=== PATIENT | male | born 1985 | race Two or more races ===

== ENCOUNTER → 2019-11-22 13:51 | Outpatient (BNVA) | payer OTHER, SELFPAY | PROVIDERS: PCP Internal Medicine; Visit Provider Urology | DX: Z76.89 Persons encountering health services in other specified circumstances (principal) | CPT/HCPCS: 99212 ==

== ENCOUNTER 2019-11-28 14:56 | Emergency (ER) | payer OTHER, SELFPAY ==
--- NOTE | 2019-11-28 15:02 | ECG_ITS ---
Test Reason : WEAKNESS Blood Pressure : / mmHG Vent. Rate : 086 BPM Atrial Rate : 086 BPM P-R Int : 126 ms QRS Dur : 108 ms QT Int : 392 ms P-R-T Axes : -16 -19 -31 degrees QTc Int : 469 ms Normal sinus rhythm Nonspecific T wave abnormality Inferior leads RSR' or QR pattern in V1 suggests right ventricular conduction delay Abnormal ECG When compared with ECG of 22-SEP-2019 22:08, No significant changes seen Referred By: Rik Mcknight Electronically Signed By:YOANA RODRIGUEZ MD
--- NOTE | 2019-11-28 15:06 | XR_ITS ---
EXAMINATION: XR CHEST CLINICAL INFORMATION: Cough COMPARISON: Chest x-ray 09/22/2019 TECHNIQUE: Frontal view of the chest was obtained. 3:28 PM FINDINGS: No significant abnormality is noted involving the heart, lungs, mediastinum, bony thorax or soft tissues. Again demonstrated are a few tiny metallic radiopaque foci over the left chest. There has been no change since prior exam of 09/22/2019 IMPRESSION: No acute abnormality of chest.
[2019-11-28 15:18] VITALS: BP 137/87; BP 138/78; PULSE 101; PULSE 87; RESP 20; TEMP 37.1; O2SAT 100; BMI 35.4
--- NOTE | 2019-11-28 16:21 | ED.PSYCH ---
HPI - Psych General Chief Complaint: Psychiatric Symptoms Stated Complaint: SI Time Seen by Provider: 11/28/19 15:02 Source: EMS Mode of arrival: EMS Limitations: no limitations History of Present Illness HPI Narrative: 34-year-old male with below noted past medical history well known to this facility for prior psychiatric and medical visits presenting today after mom called EMS for patient using illicit drugs (PCP) and to EMS patient made vague SI stating. Also reports he has some chest discomfort in the setting of being upset which is typical for him during anxiety attacks. MD complaint: suicidal ideation, feels depressed and anxiety Onset (ago): hour(s) History of same: Yes Relieving factors: medication Exacerbating factors: none If self harm: admits thoughts of self harm (Vaguely states he is more upset that he has to be here and that he relapsed on PCP) Related Data Home Medications Medication Instructions Recorded Confirmed cyclobenzaprine 10 mg tablet 10 mg PO Q8H PRN 11/22/19 11/22/19 hydroxyzine HCl 25 mg tablet 25 mg PO BEDTIME PRN 11/22/19 11/22/19 mirtazapine 15 mg tablet 15 mg PO BEDTIME 11/22/19 11/22/19 nicotine (polacrilex) 2 mg gum mg PO 11/22/19 11/22/19 risperidone 1 mg tablet 1 mg PO BID 11/22/19 11/22/19 Previous Rx's Medication Instructions Recorded oxybutynin chloride 15 mg 15 mg PO DAILY #90 tab 11/22/19 tablet,extended release 24 hr tadalafil 5 mg tablet 5 mg PO DAILY 90 Days #90 tab 11/22/19 trimethoprim 100 mg tablet 100 mg PO DAILY #90 tab 11/22/19 Allergies Allergy/AdvReac Type Severity Reaction Status Date / Time codeine Allergy Unknown Unknown Verified 11/28/19 15:23 piperacillin [From ZOSYN] Allergy Unknown DIFFICULTY Verified 11/28/19 15:23 BREATHING tazobactam [From ZOSYN] Allergy Unknown DIFFICULTY Verified 11/28/19 15:23 BREATHING tramadol Allergy Unknown nausea and Verified 11/28/19 15:23 vomiting vancomycin [VANCOMYCIN] Allergy Unknown DIFFICULTY Verified 11/28/19 15:23 BREATHING, anaphylaxis Review of Systems Review of Systems: Constitutional: No Weight loss, No Fever, No Chills, No Night Sweats, No Fatigue, No Malaise ENT/Mouth: No Hearing loss, No Ear Pain, No Nasal Congestion, No Sinus Pain, No Hoarseness, No sore throat, No Rhinorrhea, No Swallowing Difficulty Eyes: No Eye Pain, No Swelling, No Redness, No Foreign Body, No Discharge, No Vision Changes Cardiovascular: No Chest Pain, No SOB, No Dyspnea on Exertion, No Orthopnea, No Edema, No Palpitations Respiratory: No Cough, No Sputum, No Wheezing, No Smoke Exposure, No Dyspnea Gastrointestinal: No Nausea, No Vomiting, No Diarrhea, No Constipation, No abdominal Pain, No Hematochezia, No Melena Genitourinary: no irregular bleeding, No Dysuria, No Urinary Frequency, No Hematuria, No Urinary Incontinence, No Urgency, No Flank Pain, No Urinary Flow Changes, No Hesitancy Musculoskeletal: No joint pain, No Myalgias, No Joint Swelling Skin: No Skin Lesions, No rash Neuro: No Weakness, No Numbness, No Paresthesias, No Loss of Consciousness, No Dizziness, No Headache Psych: No Anxiety/Panic, No Depression, No SI/HI/AH/VH, No Social Issues, Heme/Lymph: No Bruising, No Bleeding,No Lymphadenopathy Endocrine: No Polyuria, No Polydipsia, No Temperature Intolerance Yes all other systems are reviewed and are negative [facility] Past Medical History Attestation statement: The following information was validated with the patient. Medical History (Updated 11/28/19 @ 20:56 by Rik Mcknight NP) Asthma Cellulitis Eczema Paraplegic cerebral palsy PTSD (post-traumatic stress disorder) Ulcerative colitis Social History Social History (Updated 11/22/19 @ 14:23 by KHALIF Rosado) Alcohol intake: unknown Smoking Status: Current every day smoker Tobacco Type: Cigarette Smoked in Last 30 Days: Yes Use of substances other than those prescribed or required for medical reasons: Yes Substance Use Type: Crack/Cocaine, Marijuana and Opiates Advance Directives: No Advance Directives Information Provided: No Physical Exam Vital Signs: Vital Signs: Vital Signs Temp Pulse Resp BP Pulse Ox 11/28/19 17:57 18 11/28/19 15:18 98.7 F 101 H 20 138/78 100 Body Mass Index 35.4 Const: General: cooperative and healthy appearing; No acute distress or intoxicated appearing Nutritional Appearance: average body habitus Orientation/consciousness: patient oriented x3 HENMT: Head: Yes normal to inspection Ears: hearing grossly normal bilaterally Eyes: General: appearance normal, both eyes and all related structures Visual Witt: normal visual witt by confrontation Neck: Neck: Yes normal visual inspection and No tender Thyroid: Thyroid normal Chest: Chest palpation & inspection: normal inspection of the chest Resp: Effort & Inspection: normal respiratory effort Cardio: Jugular venous distension: no JVD GI: Inspection: Yes normal to inspection Percussion: Yes normal to percussion Auscultation: normal bowel sounds : General: Yes no CVA tenderness Back/Spine/Pelvis: Back: no CVA tenderness Skin: General skin exam: no rashes or lesions noted Neuro: General: patient oriented x3 Extrem: General: Yes normal to inspection Course Course Course Narrative: No medical complaints here. Resting comfortably. Evaluated by the Care Team clear for discharge. Denies any SI or HI. His mother will come pick him up. MDM - Psych Restraints Face to Face Assessment: Face to Face Assessment: Current Situation: After assessment of the patient, a review of the pertinent medical record and a discussion with nursing staff, I feel the patient requires a restrain intervention. Reaction To: [] Medical Condition: [] Behavioral State: [] Continued Need: [] Lab Data Result diagrams: 11/28/19 17:33 11/28/19 17:33 Labs: Lab Results 11/28/19 11/28/19 11/28/19 Range/Units 17:33 17:33 17:33 WBC 18.1 H (4.8-10.8) X10*3/uL RBC 4.23 L (4.60-5.80) X10*6/uL Hgb 11.7 L (14.0-18.0) g/dl Hct 35.5 L (42-52) % MCV 83.9 (80-98) fL MCH 27.7 (27.0-33.0) pg MCHC 33.0 (31.0-36.0) g/dl RDW 12.9 (11.0-16.0) % Plt Count 266 (160-400) X10*3/uL MPV 10.2 (9.4-12.4) fL Immature Gran % (Auto) 1.3 H (0.0-0.4) % Neut % (Auto) 71.9 (45-73) % Lymph % (Auto) 16.1 L (20-40) % Branch % (Auto) 10.0 (2-11) % Eos % (Auto) 0.5 (0-4) % Baso % (Auto) 0.2 (0-2) % Lymph # (Auto) 2.9 (1.2-4.9) X10*3/uL Branch # (Auto) 1.8 H (0.1-1.2) X10*3/uL Eos # (Auto) 0.1 (0.0-0.4) X10*3/uL Baso # (Auto) 0.0 (0.0-0.2) X10*3/uL Abs Immat Gran (auto) 0.23 H (0.00-0.03) X10*3/uL Absolute Neuts (auto) 13.0 H (2.0-8.3) X10*3/uL Absolute Nucleated RBC 0.000 (0.0-0.012) X10*3/uL Nucleated RBC % (auto) 0.0 (0.0-0.2) /100WBC Smear Tech's Comments VERIFIED Sodium 131 L (135-145) mmol/L Potassium 3.5 (3.3-5.1) mmol/l Chloride 95 L (96-108) mmol/L Carbon Dioxide 27 (22-29) mmol/L Anion Gap 13 (12-20) BUN 10 (9-16) mg/dL Creatinine 0.50 (0.5-1.4) mg/dL Estim Creat Clear Calc 250.7 Estimated GFR > 60 Random Glucose 84 (60-115) mg/dL Calcium 8.1 L (8.4-10.2) mg/dL Total Bilirubin 0.7 (0.0-1.0) mg/dL Direct Bilirubin 0.4 (0.0-0.5) mg/dL AST 33 (5-37) U/L ALT 31 (0-40) U/L Alkaline Phosphatase 143 H (39-117) U/L Troponin I High Sens < 3.5 (<3.5-35.0) ng/L Total Protein 6.7 (6.5-8.0) g/dL Albumin 3.2 L (3.5-5.0) g/dL Ethyl Alcohol mg/dL Coronavirus (PCR) (Negative) 11/28/19 11/28/19 Range/Units 17:33 17:33 WBC (4.8-10.8) X10*3/uL RBC (4.60-5.80) X10*6/uL Hgb (14.0-18.0) g/dl Hct (42-52) % MCV (80-98) fL MCH (27.0-33.0) pg MCHC (31.0-36.0) g/dl RDW (11.0-16.0) % Plt Count (160-400) X10*3/uL MPV (9.4-12.4) fL Immature Gran % (Auto) (0.0-0.4) % Neut % (Auto) (45-73) % Lymph % (Auto) (20-40) % Branch % (Auto) (2-11) % Eos % (Auto) (0-4) % Baso % (Auto) (0-2) % Lymph # (Auto) (1.2-4.9) X10*3/uL Branch # (Auto) (0.1-1.2) X10*3/uL Eos # (Auto) (0.0-0.4) X10*3/uL Baso # (Auto) (0.0-0.2) X10*3/uL Abs Immat Gran (auto) (0.00-0.03) X10*3/uL Absolute Neuts (auto) (2.0-8.3) X10*3/uL Absolute Nucleated RBC (0.0-0.012) X10*3/uL Nucleated RBC % (auto) (0.0-0.2) /100WBC Smear Tech's Comments Sodium (135-145) mmol/L Potassium (3.3-5.1) mmol/l Chloride (96-108) mmol/L Carbon Dioxide (22-29) mmol/L Anion Gap (12-20) BUN (9-16) mg/dL Creatinine (0.5-1.4) mg/dL Estim Creat Clear Calc Estimated GFR Random Glucose (60-115) mg/dL Calcium (8.4-10.2) mg/dL Total Bilirubin (0.0-1.0) mg/dL Direct Bilirubin (0.0-0.5) mg/dL AST (5-37) U/L ALT (0-40) U/L Alkaline Phosphatase (39-117) U/L Troponin I High Sens (<3.5-35.0) ng/L Total Protein (6.5-8.0) g/dL Albumin (3.5-5.0) g/dL Ethyl Alcohol < 10 mg/dL Coronavirus (PCR) NEGATIVE (Negative) Discharge Plan Discharge Clinical Impression: Depression, Drug-induced psychotic disorder, Substance abuse Patient Disposition: Home, Self-Care Instructions: Polysubstance Abuse (ED), Depression (ED) Additional Instructions: Please stop doing illicit drugs cause serious harm to her health including but not limited to . This can also have adverse effects on her personal/social relationships. Please go directly to detox Return if any concerns or worsening symptoms otherwise schedule follow-up with your primary care doctor next 1-2 days as well as counseling Thank you Prescriptions: No Action risperidone 1 mg tablet 1 mg PO BID RF: 0 hydroxyzine HCl 25 mg tablet 25 mg PO BEDTIME PRN (Reason: anxiety) RF: 0 mirtazapine 15 mg tablet 15 mg PO BEDTIME RF: 0 cyclobenzaprine 10 mg tablet 10 mg PO Q8H PRN (Reason: muscle spasm) RF: 0 nicotine (polacrilex) 2 mg gum PO RF: 0 trimethoprim 100 mg tablet 100 mg PO DAILY Qty: 90 RF: 1 oxybutynin chloride 15 mg tablet extended release 24hr 15 mg PO DAILY Qty: 90 RF: 1 tadalafil 5 mg tablet 5 mg PO DAILY 90 Days Qty: 90 RF: 1
[2019-11-28] MEDS: Ketorolac Tromethamine 60 MG/2 ML VIAL IM (16:25)
--- NOTE | 2019-11-28 16:29 | PC.NURSE ---
PT MEDICATED PER EMAR.
[2019-11-28 17:39] LABS: Basophils Percent Auto 0.2 % (0-2); MANUAL DIFF FLAG SCAN; SCAN SMEAR FLAG 1
[2019-11-28 17:41] LABS: PLT CLUMP 1
[2019-11-28 17:55] LABS: Eosinophils Absolute Auto 0.1 X10*3/uL (0.0-0.4); Eosinophils Percent Auto 0.5 % (0-4); Hematocrit 35.5 % (42-52); Hemoglobin 11.7 g/dl (14.0-18.0); Imm Gran Abs Auto 0.23 X10*3/uL (0.00-0.03); Imm Gran Pct Auto 1.3 % (0.0-0.4); Lymphocytes Absolute Auto 2.9 X10*3/uL (1.2-4.9); Lymphocytes Percent Auto 16.1 % (20-40); Mean Corpuscular Hemoglobin 27.7 pg (27.0-33.0); Mean Corpuscular Volume 83.9 fL (80-98); Mean Platelet Volume 10.2 fL (9.4-12.4); Monocytes Absolute Auto 1.8 X10*3/uL (0.1-1.2); Neutrophils Percent Auto 71.9 % (45-73); PLT ABN DIST 1; Platelet Count 266 X10*3/uL (160-400); Red Blood Count 4.23 X10*6/uL (4.60-5.80); Red Cell Distribution Width 12.9 % (11.0-16.0); White Blood Count 18.1 X10*3/uL (4.8-10.8)
[2019-11-28 17:57] VITALS: RESP 18
[2019-11-28 18:02] LABS: SLIDE REVIEW VERIFIED
[2019-11-28 18:21] LABS: Ethanol < 10 mg/dL
[2019-11-28 18:26] LABS: Alanine Aminotransferase 31 U/L (0-40); Albumin Level 3.2 g/dL (3.5-5.0); Alkaline Phosphatase 143 U/L (39-117); Anion Gap 13 (12-20); Aspartate Amino Transferase 33 U/L (5-37); Bilirubin Direct 0.4 mg/dL (0.0-0.5); Bilirubin Total 0.7 mg/dL (0.0-1.0); Blood Urea Nitrogen 10 mg/dL (9-16); Calcium 8.1 mg/dL (8.4-10.2); Carbon Dioxide 27 mmol/L (22-29); Chloride 95 mmol/L (96-108); Creatinine Clr Calc Pharmacy 250.7; Estimated Glomerular Filt Rate > 60; Glucose Random 84 mg/dL (60-115); Potassium 3.5 mmol/l (3.3-5.1); Sodium 131 mmol/L (135-145); Total Protein 6.7 g/dL (6.5-8.0)
[2019-11-28 18:27] LABS: Troponin-I High Sensitivity < 3.5 ng/L (<3.5-35.0)
[2019-11-28 18:35] LABS: SARS COV2 PCR INHOUSE NEGATIVE (Negative)
--- NOTE | 2019-11-28 18:41 | PC.NURSE ---
CARE TEAM AND MANAGER IN[employer]E [employer] AT BEDSIDE SPEAKING WITH PT
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
== END 2019-11-28 21:45 | disposition home or self-care (01) ==
PROVIDERS: Nurse Practitioner Primary Care; Emergency Provider Emergency Medicine; PCP Internal Medicine
DX: F32.9 Major depressive disorder, single episode, unspecified (principal); F23 Brief psychotic disorder; F19.10 Other psychoactive substance abuse, uncomplicated; F41.9 Anxiety disorder, unspecified; Z20.828 Contact with and (suspected) exposure to other viral communicable diseases; G80.8 Other cerebral palsy; F43.10 Post-traumatic stress disorder, unspecified; Z79.899 Other long term (current) drug therapy
CPT/HCPCS: 36415; 71045; 80048; 80076; 80320; 84484; 85025; 87635; 93005; 96372; 99284

== ENCOUNTER 2019-12-20 05:56 | Inpatient (IN) | payer OTHER, SELFPAY ==
[2019-12-20] VITALS (18 sets, daily range): BP systolic 93–135; BP diastolic 51–97; PULSE 75–102; RESP 12–22; TEMP 36.2–36.9; O2SAT 95–100; BMI 42.9
[2019-12-20] MEDS: OLANZapine 10 MG VIAL IM (06:53)
[2019-12-20] MEDS: LORazepam 2 MG/ML VIAL IM ×2 (06:53→16:56)
[2019-12-20] MEDS: diphenhydrAMINE HCL 50 MG/ML VIAL IM (06:53)
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
[2019-12-20 08:35] LABS: Basophils Percent Auto 0.3 % (0-2); Eosinophils Absolute Auto 0.2 X10*3/uL (0.0-0.4); Eosinophils Percent Auto 2.1 % (0-4); Hematocrit 35.9 % (42-52); Hemoglobin 11.4 g/dl (14.0-18.0); Imm Gran Abs Auto 0.06 X10*3/uL (0.00-0.03); Imm Gran Pct Auto 0.7 % (0.0-0.4); Lymphocytes Absolute Auto 1.9 X10*3/uL (1.2-4.9); Lymphocytes Percent Auto 20.9 % (20-40); MANUAL DIFF FLAG NO; Mean Corpuscular HGB Conc 31.8 g/dl (31.0-36.0); Mean Corpuscular Hemoglobin 26.5 pg (27.0-33.0); Mean Corpuscular Volume 83.5 fL (80-98); Mean Platelet Volume 12.7 fL (9.4-12.4); Monocytes Absolute Auto 0.7 X10*3/uL (0.1-1.2); Monocytes Percent Auto 7.8 % (2-11); Neutrophils Absolute Auto 6.1 X10*3/uL (2.0-8.3); Neutrophils Percent Auto 68.2 % (45-73); Platelet Count 214 X10*3/uL (160-400)
--- NOTE | 2019-12-20 08:45 | ED_ITS ---
HPI - General Adult General Chief complaint: General Medical Stated complaint: pcp/si Time Seen by Provider: 12/20/19 06:40 Source: patient Mode of arrival: EMS Limitations: physical limitation History of Present Illness HPI narrative: This is a 34-year-old male who arrives via EMS after he called them when he awoke from sleeping and stated he was having hallucinations. He states he used PCP prior to that, took a nap, but then woke up and was having the hallucinations upon wakening. In addition, the patient has voiced suicidal statements and is complaining that his throat is dry like sandpaper and he is having difficulty swallowing. Related Data Home Medications Medication Instructions Recorded Confirmed cyclobenzaprine 10 mg tablet 10 mg PO Q8H PRN 11/22/19 11/22/19 hydroxyzine HCl 25 mg tablet 25 mg PO BEDTIME PRN 11/22/19 11/22/19 mirtazapine 15 mg tablet 15 mg PO BEDTIME 11/22/19 11/22/19 nicotine (polacrilex) 2 mg gum mg PO 11/22/19 11/22/19 risperidone 1 mg tablet 1 mg PO BID 11/22/19 11/22/19 Previous Rx's Medication Instructions Recorded oxybutynin chloride 15 mg 15 mg PO DAILY #90 tab 11/22/19 tablet,extended release 24 hr tadalafil 5 mg tablet 5 mg PO DAILY 90 Days #90 tab 11/22/19 trimethoprim 100 mg tablet 100 mg PO DAILY #90 tab 11/22/19 Allergies Allergy/AdvReac Type Severity Reaction Status Date / Time codeine Allergy Unknown Unknown Verified 11/28/19 15:23 piperacillin [From ZOSYN] Allergy Unknown DIFFICULTY Verified 11/28/19 15:23 BREATHING tazobactam [From ZOSYN] Allergy Unknown DIFFICULTY Verified 11/28/19 15:23 BREATHING tramadol Allergy Unknown nausea and Verified 11/28/19 15:23 vomiting vancomycin [VANCOMYCIN] Allergy Unknown DIFFICULTY Verified 11/28/19 15:23 BREATHING, anaphylaxis Review of Systems Review of Systems: Pertinent positives and negatives as stated in HPI 10 point review systems is otherwise negative. PMFSH Past Medical History Source: nursing notes reviewed Medical History Asthma Cellulitis Eczema Paraplegic cerebral palsy PTSD (post-traumatic stress disorder) Ulcerative colitis Social History Social History Alcohol intake: unknown Smoking Status: Current every day smoker Tobacco Type: Cigarette Substance Use Type: Crack/Cocaine, Marijuana and Opiates Advance Directives: No Advance Directives Information Provided: No Physical Exam Vital Signs: Vital Signs: Vital Signs Temp Pulse Resp BP Pulse Ox 12/20/19 07:30 82 93/51 L 98 12/20/19 07:09 77 102/51 L 12/20/19 06:54 16 12/20/19 06:45 83 117/70 98 12/20/19 06:16 97.1 F 89 22 H 131/78 100 Body Mass Index 42.9 VITAL SIGNS: Reviewed. GENERAL: Well developed, well nourished, Agitated. HEAD: Normocephalic/atraumatic, EYES: PERRLA, EOMI intact without pain, no nystagmus/pallor/icterus noted EARS: Ext canals without abnormality, TMs non-bulging and non-erythematous NOSE: Nares patent bilateral OROPHARYNX: no oral lesions noted, posterior pharynx clear and non-erythematous without noted tonsillar enlargement/erythema/exudates NECK: Supple, no adenopathy LUNGS: Normal breath sounds. No adventitious sounds or accessory muscle use. SpO2<100> CARDIOVASCULAR: Regular rate and rhythm without noted murmurs, no JVD or lower extremity edema. ABDOMEN: Soft, non-tender, non-distended with bowel sounds. No rigidity. No guarding. No palpable masses or hernias noted MUSCULOSKELETAL: No tenderness, deformities, or effusions noted on gross inspection. EXTREMITIES: No cyanosis, edema. SKIN: Inspection of the skin reveals no rashes, ulcerations, jaundice, pallor, or petechiae. NEUROLOGIC: Alert and oriented x 4. Strength and sensation to light touch were grossly intact x 4. Course Course Course Narrative: This is a 34-year-old male with history and clinical presentation consistent with PCP use and subsequent symptoms without clinical evidence to suggest respiratory distress. Patient continued to get increasingly agitated and was being verbally abusive to the nursing staff and making threatening gestures. The decision was made that patient would need to undergo chemical restraint which was achieved via Zyprexa/Ativan/ Benadryl. Crisis consult placed and on reevaluation patient is more cooperative. Medical Decision Making Lab Data Result diagrams: 12/20/19 08:30 12/20/19 08:30 Labs: Lab Results 12/20/19 Range/Units 08:30 WBC 9.0 (4.8-10.8) X10*3/uL RBC 4.30 L (4.60-5.80) X10*6/uL Hgb 11.4 L (14.0-18.0) g/dl Hct 35.9 L (42-52) % MCV 83.5 (80-98) fL MCH 26.5 L (27.0-33.0) pg MCHC 31.8 (31.0-36.0) g/dl RDW 13.0 (11.0-16.0) % Plt Count 214 (160-400) X10*3/uL MPV 12.7 H (9.4-12.4) fL Immature Gran % (Auto) 0.7 H (0.0-0.4) % Neut % (Auto) 68.2 (45-73) % Lymph % (Auto) 20.9 (20-40) % [place] % (Auto) 7.8 (2-11) % Eos % (Auto) 2.1 (0-4) % Baso % (Auto) 0.3 (0-2) % Lymph # (Auto) 1.9 (1.2-4.9) X10*3/uL [place] # (Auto) 0.7 (0.1-1.2) X10*3/uL Eos # (Auto) 0.2 (0.0-0.4) X10*3/uL Baso # (Auto) 0.0 (0.0-0.2) X10*3/uL Abs Immat Gran (auto) 0.06 H (0.00-0.03) X10*3/uL Absolute Neuts (auto) 6.1 (2.0-8.3) X10*3/uL Absolute Nucleated RBC 0.000 (0.0-0.012) X10*3/uL Nucleated RBC % (auto) 0.0 (0.0-0.2) /100WBC Discharge Plan Discharge Prescriptions: No Action risperidone 1 mg tablet 1 mg PO BID RF: 0 hydroxyzine HCl 25 mg tablet 25 mg PO BEDTIME PRN (Reason: anxiety) RF: 0 mirtazapine 15 mg tablet 15 mg PO BEDTIME RF: 0 cyclobenzaprine 10 mg tablet 10 mg PO Q8H PRN (Reason: muscle spasm) RF: 0 nicotine (polacrilex) 2 mg gum PO RF: 0 trimethoprim 100 mg tablet 100 mg PO DAILY Qty: 90 RF: 1 oxybutynin chloride 15 mg tablet extended release 24hr 15 mg PO DAILY Qty: 90 RF: 1 tadalafil 5 mg tablet 5 mg PO DAILY 90 Days Qty: 90 RF: 1
[2019-12-20 09:03] LABS: Ethanol < 10 mg/dL
[2019-12-20 09:08] LABS: Alanine Aminotransferase 28 U/L (0-40); Albumin Level 3.3 g/dL (3.5-5.0); Alkaline Phosphatase 161 U/L (39-117); Anion Gap 8 (12-20); Aspartate Amino Transferase 41 U/L (5-37); Bilirubin Direct 0.3 mg/dL (0.0-0.5); Bilirubin Total 0.7 mg/dL (0.0-1.0); Blood Urea Nitrogen 11 mg/dL (9-16); Calcium 8.8 mg/dL (8.4-10.2); Carbon Dioxide 33 mmol/L (22-29); Chloride 100 mmol/L (96-108); Estimated Glomerular Filt Rate > 60; Glucose Random 94 mg/dL (60-115); Potassium 4.1 mmol/l (3.3-5.1); Sodium 137 mmol/L (135-145); Total Protein 7.9 g/dL (6.5-8.0)
--- NOTE | 2019-12-20 11:00 | PC.NURSE ---
Pt covid-swabbed. He contiues to sleep in NAD. Offers no complaint at this time.
[2019-12-20 13:21] LABS: SARS COV2 PCR INHOUSE NEGATIVE (Negative)
--- NOTE | 2019-12-20 15:00 | PC.NURSE ---
Pt continues to sleep. He is easily arousal, and offers no complaints when awake.
[2019-12-20] MEDS: Haloperidol Lactate 5 MG/ML VIAL IM (16:56)
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
[2019-12-20] MEDS: HYDROmorphone HCl 2 MG/ML VIAL IM (17:33)
--- NOTE | 2019-12-20 17:50 | PC.NURSE ---
pt yelling obscenities towards staff.
--- NOTE | 2019-12-20 19:54 | PC.NURSE ---
pt anjali wrist restraints taken off at 1945. pt has been sleeping and is calm at this time. security present. pt teaching done with pt at bedside. pt is in front of the main desk and is visable to all staff.
--- NOTE | 2019-12-20 20:23 | PC.NURSE ---
pt restraints remain off as of 1944. pt is sleeping now. pt was calm and cooperative with anjali wrist restraints removed. pt is now incont and a male with assist pt.
--- NOTE | 2019-12-20 21:53 | PC.NURSE ---
pt has been cleaned for incont of urine.
[2019-12-20 23:06] LABS: Amphetamine Screen Urine Not Detected (Not Detect); Barbiturates, Urine Not Detected (Not Detect); Benzodiazepines Screen Urine Not Detected (Not Detect); Cannabinoid Screen Urine POSITIVE (Not Detect); Cocaine Screen Urine Not Detected (Not Detect); Opiate Screen Urine Not Detected (Not Detect); Phencyclidine Screen Urine POSITIVE (Not Detect)
[2019-12-21] VITALS (11 sets, daily range): BP systolic 99–116; BP diastolic 60–71; PULSE 78–95; RESP 14–20; TEMP 37.1; O2SAT 94–98
--- NOTE | 2019-12-21 04:34 | PC.NURSE ---
pt sleeping with sitter present, speach is improving and pt is more understandable.
--- NOTE | 2019-12-21 04:36 | PC.NURSE ---
pt sleeping visable to staff, pt in hospital [facility]. needs met, pt given sandwhich water and crackers.
--- NOTE | 2019-12-21 04:41 | PC.NURSE ---
pt states he feels s1 and h1. pt self cath himself for approx 200cc clear yellow urine.
--- NOTE | 2019-12-21 05:01 | PC.NURSE ---
pt summary faxed to [facility]
--- NOTE | 2019-12-21 05:18 | PC.NURSE ---
zoën received the fax.
--- NOTE | 2019-12-21 06:08 | PC.NURSE ---
pt resperidone is not available in the pyxis and pharmacy will bring.
--- NOTE | 2019-12-21 06:59 | PC.NURSE ---
REPORT FROM DENA DC PT IS CALM AND COOPERATIVE
--- NOTE | 2019-12-21 07:31 | PC.NURSE ---
PT ASKING WHATS GOING ON HERE PT BECOMING ANGRY THIS RN EXPLAINED THAT I WAS OBTAINING THE CORRECT PAPERWORK TO RECEIVE HIS METHADONE DOSE
--- NOTE | 2019-12-21 07:39 | PC.NURSE ---
PT REPOSITIONED FOR COMFORT METHADONE RELEASE FORM FAXED TO [employer]
--- NOTE | 2019-12-21 09:25 | PC.NURSE ---
DEMARION CALLED, TO SEE PATIENT AFTER 10 AM
--- NOTE | 2019-12-21 09:46 | PC.NURSE ---
REFUSING TO ENGAGE IN HIS LUNCH OPTIONS, STATES HE WANTS TO GO HOME
--- NOTE | 2019-12-21 11:34 | PC.NURSE ---
[facility] AT BEDSIDE FOR AN EVALUATION PT IS COOPERATIVE AT THIS TIME
--- NOTE | 2019-12-21 12:49 | PC.NURSE ---
PT MOVED TO ROOM 22 FOR PRIVACY PT INFORMED OF THE PLAN, SECTION 12 BEDSEARCH
[2019-12-21] MEDS: Cyclobenzaprine HCl 10 MG TABLET PO (14:29)
[2019-12-21] MEDS: Lidocaine 4 % Patch ADH..PATCH 2 PATCH TRANSDERMA (14:31)
[2019-12-21] MEDS: Haloperidol Lactate 5 MG/ML VIAL IM (15:58)
[2019-12-21] MEDS: LORazepam 2 MG/ML VIAL IM (15:58)
[2019-12-21] MEDS: diphenhydrAMINE HCL 25 MG TABLET 50 MG PO (16:12)
[2019-12-21] MEDS: risperiDONE 1 MG TABLET PO ×2 (18:00→18:02)
[2019-12-21] MEDS: Mirtazapine 15 MG TABLET PO (22:31)
[2019-12-22 07:16] VITALS: RESP 20
[2019-12-22] MEDS: risperiDONE 1 MG TABLET PO ×2 (07:55→19:42)
[2019-12-22 08:44] VITALS: RESP 24
[2019-12-22 12:07] VITALS: RESP 20
--- NOTE | 2019-12-22 18:15 | MHC.CARE ---
CARE team met with this patient in ED22 to facilitate transfer/admission to . Patient is being admitted voluntarily and signed CV. Patient does not have his own wheelchair here and is using a hospital chair in the meantime. Patient's belongings are in decon per security except for his phone which is with patient at the time of transport. CARE team alerted staff that patient has his phone currently.
[2019-12-22] MEDS: Acetaminophen 325 MG TABLET 650 MG PO (19:41)
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
[2019-12-22] MEDS: Mirtazapine 15 MG TABLET PO (20:02)
[2019-12-22] MEDS: traZODone HCL 50 MG TABLET PO (20:02)
--- NOTE | 2019-12-22 21:10 | PC.NURSE ---
Pt 's temperature was 100.2 at 1945. Pt reports being tired and slight dizzyness. Pt given tylenol and Dr Edgar Washington was notified that when temperature was retaken it was 99.6. Per Dr. Edgar Washington we need to keep monitoring it for now. Pt did not have an elevated white count or an imbalance of electroytes. Pt denies pain or discomfort.
[2019-12-22 21:21] VITALS: TEMP 37.6
[2019-12-23] MEDS: risperiDONE 1 MG TABLET PO ×2 (08:00→20:52)
[2019-12-23] MEDS: Acetaminophen 325 MG TABLET 650 MG PO ×2 (08:30→19:01)
[2019-12-23] MEDS: Magnesium Hydrox/Alum Hydrox 30 ML ORAL.SUSP PO (10:51)
[2019-12-23] MEDS: Haloperidol Lactate 5 MG/ML VIAL IM (11:05)
[2019-12-23] MEDS: Benztropine Mesylate 1 MG TABLET PO (11:05)
[2019-12-23] MEDS: LORazepam 1 MG TABLET 2 MG PO (11:05)
[2019-12-23 13:02] VITALS: BP 131/76; PULSE 117; TEMP 38.3
[2019-12-23 13:41] LABS: Basophils Absolute Auto 0.1 X10*3/uL (0.0-0.2); Basophils Percent Auto 0.3 % (0-2); Eosinophils Absolute Auto 0.2 X10*3/uL (0.0-0.4); Eosinophils Percent Auto 0.8 % (0-4); Hematocrit 35.7 % (42-52); Hemoglobin 11.8 g/dl (14.0-18.0); Imm Gran Abs Auto 0.15 X10*3/uL (0.00-0.03); Imm Gran Pct Auto 0.8 % (0.0-0.4); Lymphocytes Absolute Auto 2.8 X10*3/uL (1.2-4.9); MANUAL DIFF FLAG SCAN; Mean Corpuscular HGB Conc 33.1 g/dl (31.0-36.0); Mean Corpuscular Hemoglobin 27.4 pg (27.0-33.0); Monocytes Absolute Auto 1.7 X10*3/uL (0.1-1.2); Monocytes Percent Auto 8.6 % (2-11); NRBC Pct Auto 0.1 /100WBC (0.0-0.2); Neutrophils Percent Auto 75.5 % (45-73); PLT CLUMP 1; Red Cell Distribution Width 13.3 % (11.0-16.0); SCAN SMEAR FLAG 1
[2019-12-23 13:42] LABS: White Blood Count 19.9 X10*3/uL (4.8-10.8)
[2019-12-23 14:14] LABS: SLIDE REVIEW VERIFIED
[2019-12-23 16:28] LABS: SARS COV2 PCR INHOUSE NEGATIVE (Negative)
[2019-12-23 20:23] VITALS: TEMP 37.2
[2019-12-23] MEDS: Mirtazapine 15 MG TABLET PO (20:52)
--- NOTE | 2019-12-23 21:26 | PC.NURSE ---
Pt has been having increased temperature,100.6 at with B/P 84/40 and pulse 99. Pt came from ER last night with elevated temp but did not have any other complaints. White count and electrolytes were within normal range. An order for the hospitalist was put in by Dr Erwin. Dr came at 2100 and saw pt after evaluating his V/S. A u/a for culture and C&S was sent to the lab. Dr. Erwin decided to admit pt to the 4th floor due to blood pressure and temp. Pt also c/o of a headache and pain in abd. Dr Edgar Washington notified and is D/C patient to go to medical floor. Pt was catheritized for 100cc of dark andrew urine. Pts buttocks was also examined and wounds are without drainage or signs or symptoms of infection. Pt has been given Tylenol every 4 hours for fever. Last given at 1900.Pts temp at 1999 was 98.9. Pt perspiring. Pt very lethargic. Awaiting for pt to be transferred to med floor.
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
--- NOTE | 2019-12-23 21:52 | P.DS_ITS ---
DS: Providers Provider Date of admission: 12/22/19 16:57 Date of discharge: 12/23/19 Primary care physician: Unknown Physician Attending physician on admission: Yasmeen Clinton Consults: 12/23/19 20:33 Consult to Hospitalist Stat Consulting Provider: Hospitalist Reason for consultation: febrile, lethargic, headache, elevated WBC - please evaluate Attending physician on discharge: Yasmeen Clinton DS: Diagnosis Discharge Diagnosis (1) PTSD (post-traumatic stress disorder): Status: Acute Discharge Plan Discharge Patient Disposition: [facility] Referrals: Physician,Unknown [Primary Care Provider] - Discharge Medications: New acetaminophen 325 mg Tablet 650 mg PO Q6H PRN (Reason: Headache/Pain Mild Scale (1-3)) Qty: 1 RF: 0 haloperidol 5 mg Tablet 5 mg PO Q4H PRN (Reason: Psychosis) Qty: 1 RF: 0 trazodone 50 mg Tablet 50 mg PO BEDTIME PRN (Reason: Insomnia) Qty: 1 RF: 0 lorazepam 2 mg/mL Solution 1 mg IM Q4H PRN (Reason: Anxiety) Qty: 1 RF: 0 magnesium hydroxide [Milk of Magnesia] 400 mg/5 mL Suspension 30 ml PO DAILY PRN (Reason: Constipation) Qty: 1 RF: 0 benztropine 1 mg Tablet 1 mg PO BID PRN (Reason: EPS) Qty: 1 RF: 0 nicotine 21 mg/24 hr Patch 24 Hour 21 mg transdermal DAILY Qty: 1 RF: 0 oxybutynin chloride 5 mg Tablet Extended Release 24hr 15 mg PO DAILY Qty: 1 RF: 0 hydroxyzine HCl 25 mg Tablet 25 mg PO BEDTIME PRN (Reason: Anxiety) Qty: 1 RF: 0 methadone [Methadose] 10 mg/mL Concentrate 100 mg PO DAILY Qty: 1 RF: 0 MAG-AL 200-200 mg/5 mL Suspension 30 ml PO Q6H PRN (Reason: Heartburn/Nausea) Qty: 1 RF: 0 nicotine (polacrilex) 4 mg Mini Lozenge 4 mg buccal Q2H PRN (Reason: Nicotine Cravings) Qty: 1 RF: 0 Continued trimethoprim 100 mg tablet 1 tab PO DAILY RF: 0 mirtazapine 15 mg tablet 1 tab PO BEDTIME Qty: 1 RF: 0 risperidone 1 mg tablet 1 tab PO Q12H Qty: 1 RF: 0 hydroxyzine HCl 25 mg tablet 1 tab PO BEDTIME PRN (Reason: anxiety) Qty: 1 RF: 0 Changed benztropine 1 mg tablet 1 mg PO BID PRN (Reason: EPS) Qty: 1 RF: 0 Discontinued oxybutynin chloride 15 mg tablet extended release 24hr 1 tab PO DAILY RF: 0 tadalafil 5 mg tablet 1 tab PO DAILY RF: 0 methadone RF: 0 Discharge Orders: Discharge Order (Routine); Ordered 12/23/19 Ordered By: Yasmeen Clinton Diet: advance to your usual diet Activity on Discharge: As tolerated Discharge Date/Time: 12/23/19 21:40 Visit Report Forms: Patient Portal Discharge page Care Plan Goals: As per medicine Health Concerns: Fever, low BP Plan of Treatment: TF to medicine Mental Status Exam Mental Status Exam Patient Orientation: Person, Place and Time Level of Consciousness: Awake Patient Behavior: Suspicious, Belligerent, Verbal Threats and Invasion - Personal Space Mood Description: Apprehensive Affect Description: Apprehensive Ability to Follow Directions: Poor Speech Pattern: Includes Profanity Memory Description: Intact Hallucinations: None Delusions: Paranoid Ideation Thought Process: Rumination Thought Content: positive for Circumstantial, positive for Preoccupation, negative for Suicidal Ideation and negative for Homicidal Ideation Judgement: Poor Data Data Completed and Pending Completed studies during hospitalization [Text1]: 12/20/19 12/20/19 12/20/19 08:30 08:30 08:30 WBC 9.0 RBC 4.30 L Hgb 11.4 L Hct 35.9 L MCV 83.5 MCH 26.5 L MCHC 31.8 RDW 13.0 Plt Count 214 MPV 12.7 H Immature Gran % (Auto) 0.7 H Neut % (Auto) 68.2 Lymph % (Auto) 20.9 [place] % (Auto) 7.8 Eos % (Auto) 2.1 Baso % (Auto) 0.3 Lymph # (Auto) 1.9 [place] # (Auto) 0.7 Eos # (Auto) 0.2 Baso # (Auto) 0.0 Abs Immat Gran (auto) 0.06 H Absolute Neuts (auto) 6.1 Absolute Nucleated RBC 0.000 Nucleated RBC % (auto) 0.0 Smear Tech's Comments Sodium 137 Potassium 4.1 Chloride 100 Carbon Dioxide 33 H Anion Gap 8 L BUN 11 Creatinine 0.57 Estim Creat Clear Calc 207.0 Estimated GFR > 60 Random Glucose 94 Calcium 8.8 Total Bilirubin 0.7 Direct Bilirubin 0.3 AST 41 H ALT 28 Alkaline Phosphatase 161 H Total Protein 7.9 Albumin 3.3 L Urine Opiates Screen Ur Barbiturates Screen Ur Phencyclidine Scrn Ur Amphetamines Screen U Benzodiazepines Scrn Urine Cocaine Screen U Marijuana (THC) Screen Ethyl Alcohol < 10 Coronavirus (PCR) 12/20/19 12/20/19 12/23/19 12:19 22:36 13:25 WBC 19.9 H RBC 4.30 L Hgb 11.8 L Hct 35.7 L MCV 83.0 MCH 27.4 MCHC 33.1 RDW 13.3 Plt Count TNP MPV 11.0 Immature Gran % (Auto) 0.8 H Neut % (Auto) 75.5 H Lymph % (Auto) 14.0 L [place] % (Auto) 8.6 Eos % (Auto) 0.8 Baso % (Auto) 0.3 Lymph # (Auto) 2.8 [place] # (Auto) 1.7 H Eos # (Auto) 0.2 Baso # (Auto) 0.1 Abs Immat Gran (auto) 0.15 H Absolute Neuts (auto) 15.0 H Absolute Nucleated RBC 0.020 H Nucleated RBC % (auto) 0.1 Smear Tech's Comments VERIFIED Sodium Potassium Chloride Carbon Dioxide Anion Gap BUN Creatinine Estim Creat Clear Calc Estimated GFR Random Glucose Calcium Total Bilirubin Direct Bilirubin AST ALT Alkaline Phosphatase Total Protein Albumin Urine Opiates Screen Not Detected Ur Barbiturates Screen Not Detected Ur Phencyclidine Scrn POSITIVE H Ur Amphetamines Screen Not Detected U Benzodiazepines Scrn Not Detected Urine Cocaine Screen Not Detected U Marijuana (THC) Screen POSITIVE H Ethyl Alcohol Coronavirus (PCR) NEGATIVE 12/23/19 15:10 WBC RBC Hgb Hct MCV MCH MCHC RDW Plt Count MPV Immature Gran % (Auto) Neut % (Auto) Lymph % (Auto) [place] % (Auto) Eos % (Auto) Baso % (Auto) Lymph # (Auto) [place] # (Auto) Eos # (Auto) Baso # (Auto) Abs Immat Gran (auto) Absolute Neuts (auto) Absolute Nucleated RBC Nucleated RBC % (auto) Smear Tech's Comments Sodium Potassium Chloride Carbon Dioxide Anion Gap BUN Creatinine Estim Creat Clear Calc Estimated GFR Random Glucose Calcium Total Bilirubin Direct Bilirubin AST ALT Alkaline Phosphatase Total Protein Albumin Urine Opiates Screen Ur Barbiturates Screen Ur Phencyclidine Scrn Ur Amphetamines Screen U Benzodiazepines Scrn Urine Cocaine Screen U Marijuana (THC) Screen Ethyl Alcohol Coronavirus (PCR) NEGATIVE 12/23/19 20:25 Urine Catheterized - Straight Catheter Urine Culture - Pending DS: Summary Hospital Course Hospital Course: 34 year old man who was admitted after having been referred by N. He came to the ER complaining of agitation, depressed and with SI. He has been struggling with AH telling him to kill himself. He feels that people are laughing at him. His mother had called for assistance since she was concerned for her son. He has been using PCP in the community. In the ER the patient continued to be quite agitated and irritable. He made several gestures to try to hurt himself and he was often yelling. He recieved several restraints. Upon arrival to he was insistent that he needed to leave the hospital. He stated that he did not remember why he came but that he felt that he was being kept in the hospital because people were not listening that they are laughing at him. He insisted that he should leave and when thwarted he began throwing chairs, requiring security to come to the unit. He did accept po medications. Past Psychiatric History: Multiple admissions to area facilities. Last here in October 2019 [facility] Jose was angry about being in the hospital. He was belligerent and angry. He was re-started on medication that had been helpful in the past. Through the course of the day he was noted to be increasingly tired. He was febrile, even after tylenol COVID was negative. WBC elevated Urine on straight cath was dark and cloudy. BP was low. Given the above, a decision was made by hospitalist to TF to medicine for baldo PASQUALE. Status at Discharge Functional status at discharge: wheelchair bound Overall status at discharge: patient is not back to baseline Time Spent with Patient Time attestation: Total time spent providing and/or coordinating discharge services:
== END 2019-12-23 21:40 | disposition short-term general hospital (02) | DRG 882 ==
LOC: HO.ED 06:28 → HO.PM5 12-22 17:15
PROVIDERS: Emergency Medicine; Physician Assistant Medical; Admitting Provider Psychiatry & Neurology Psychiatry; Emergency Provider Student in an Organized Health Care Education/Training Program; Visit Provider Psychiatry & Neurology Psychiatry
DX: F43.10 Post-traumatic stress disorder, unspecified (principal); R44.0 Auditory hallucinations; J45.909 Unspecified asthma, uncomplicated; Z20.828 Contact with and (suspected) exposure to other viral communicable diseases; Z88.5 Allergy status to narcotic agent; Z79.899 Other long term (current) drug therapy
CPT/HCPCS: 36415; 71045; 80048; 80076; 80307; 80320; 83605; 85025; 87040; 87086; 87088; 87186; 96372; 99285; J0696; J1170; J1200; J1650; J2060; Q0163; U0003

== ENCOUNTER 2019-12-23 21:49 | Inpatient (IN) | payer OTHER, SELFPAY ==
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
[2019-12-23 22:46] VITALS: BP 96/54; PULSE 81; RESP 20; TEMP 36.6; O2SAT 93
[2019-12-23] MEDS: Lactated Ringers 500 ML 999 ML IVCONT ×2 (23:09→23:59)
[2019-12-23] MEDS: Enoxaparin Sodium 40 MG/0.4 ML SYRINGE SUBCUT (23:12)
[2019-12-23 23:16] LABS: Lactic Acid 1.1 mmol/L (0.5-2.0)
[2019-12-23] MEDS: cefTRIAXone sodium 1 GM in 0.9 % Sodium Chloride 50 ML IV (23:23)
[2019-12-23 23:24] VITALS: BP 92/53; PULSE 75; RESP 20; TEMP 36.2; O2SAT 95
[2019-12-24] VITALS (8 sets, daily range): BP systolic 94–152; BP diastolic 55–76; PULSE 70–97; RESP 16–20; TEMP 36.5–37.4; O2SAT 93–95; BMI 32.5
--- NOTE | 2019-12-24 00:55 | XR_ITS ---
EXAMINATION: CHEST 1 VIEW CLINICAL INFORMATION: Sepsis. COMPARISON: 11/28/2019. TECHNIQUE: An AP view of the chest is provided. FINDINGS: The cardiac silhouette is not enlarged. The mediastinal and hilar contours are unremarkable. There are neither pleural effusions nor pneumothoraces. There is mild streaky opacification within the right lower lobe. The osseous structures are stable. Metallic foreign bodies within the left hemithorax are again noted. XR/XR chest 1V IMPRESSION: Mild nonspecific streaky opacification within the right lower lobe.
[2019-12-24] MEDS: Lactated Ringers 500 ML 999 ML IVCONT (00:58)
[2019-12-24] MEDS: Acetaminophen 325 MG TABLET 650 MG PO ×3 (02:40→20:08)
[2019-12-24 07:11] LABS: MANUAL DIFF FLAG NO
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
[2019-12-24 07:31] LABS: Basophils Percent Auto 0.3 % (0-2); Eosinophils Absolute Auto 0.2 X10*3/uL (0.0-0.4); Eosinophils Percent Auto 1.4 % (0-4); Hematocrit 32.8 % (42-52); Hemoglobin 10.3 g/dl (14.0-18.0); Imm Gran Abs Auto 0.11 X10*3/uL (0.00-0.03); Imm Gran Pct Auto 0.7 % (0.0-0.4); Lymphocytes Absolute Auto 2.6 X10*3/uL (1.2-4.9); Mean Corpuscular HGB Conc 31.4 g/dl (31.0-36.0); Mean Corpuscular Hemoglobin 26.8 pg (27.0-33.0); Mean Corpuscular Volume 85.4 fL (80-98); Mean Platelet Volume 9.7 fL (9.4-12.4); Monocytes Absolute Auto 1.3 X10*3/uL (0.1-1.2); Monocytes Percent Auto 8.4 % (2-11); Neutrophils Absolute Auto 11.6 X10*3/uL (2.0-8.3); Neutrophils Percent Auto 73.2 % (45-73); Platelet Count 262 X10*3/uL (160-400); Red Blood Count 3.84 X10*6/uL (4.60-5.80); Red Cell Distribution Width 13.2 % (11.0-16.0); White Blood Count 15.9 X10*3/uL (4.8-10.8)
[2019-12-24 07:54] LABS: Anion Gap 11 (12-20); Blood Urea Nitrogen 9 mg/dL (9-16); Calcium 7.4 mg/dL (8.4-10.2); Carbon Dioxide 27 mmol/L (22-29); Chloride 100 mmol/L (96-108); Estimated Glomerular Filt Rate > 60; Glucose Random 136 mg/dL (60-115); Potassium 3.7 mmol/l (3.3-5.1); Sodium 134 mmol/L (135-145)
[2019-12-24] MEDS: risperiDONE 1 MG TABLET PO (10:34)
[2019-12-24] MEDS: Nicotine 21 MG PATCH.TD24 TRANSDERMA (10:34)
[2019-12-24] MEDS: 0.9 % Sodium Chloride Flush 3 ML SYRINGE IVFLUSH (10:34)
[2019-12-24] MEDS: LORazepam 2 MG/ML VIAL 1 MG IM (10:35)
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
--- NOTE | 2019-12-24 11:17 | HO.PM.IMPN ---
Subjective Subjective Date of Service: 12/24/19 Interval History: agitated Cardiovascular Cardiovascular: Reports no additional cardiovascular complaints Respiratory Respiratory: Reports no additional respiratory complaints Physical Exam Vital Signs: Vital Signs: Last Vital Signs Temp 97.7 F 12/24/19 08:00 Pulse 82 12/24/19 08:00 Resp 20 12/24/19 08:00 BP 104/55 L 12/24/19 08:00 Pulse Ox 95 12/24/19 08:00 General: AO X 3, agitated Resp: CTA bilateral CVS: S1,S2,RRR GI: soft, non tender, non distended Neuro: paraplegia Psych: agitated Objective Data Current Medications Generic Name Dose Route Start Last Admin Trade Name Freq PRN Reason Stop Dose Admin Acetaminophen 650 mg 12/23/19 22:16 12/24/19 02:40 Acetaminophen 325 Mg Tablet PO 650 mg Q6H PRN Administration Pain, Mild (Pain Scale 1-3) Al Hydroxide/Mg Hydroxide 30 ml 12/24/19 09:52 Magnesium Hydrox/Alum Hydrox 30 Ml Oral.Susp PO Q6H PRN Heartburn/Nausea Benztropine Mesylate 1 mg 12/24/19 09:52 Benztropine Mesylate 1 Mg Tablet PO BID PRN EPS Enoxaparin Sodium 40 mg 12/23/19 23:00 12/23/19 23:12 Enoxaparin Sodium 40 Mg/0.4 Ml Syringe SUBCUT 40 mg Q24H NICK Administration Haloperidol 5 mg 12/24/19 09:52 Haloperidol 5 Mg Tablet PO Q4H PRN Psychosis Hydroxyzine HCl 25 mg 12/24/19 09:52 Hydroxyzine Hcl 25 Mg Tablet PO BEDTIME PRN Anxiety Ceftriaxone Sodium 1 gm/ 50 mls @ 100 mls/hr 12/23/19 23:00 12/23/19 23:58 Sodium Chloride IV Infused Q24H NICK Infusion Lorazepam 1 mg 12/24/19 09:52 12/24/19 10:35 Lorazepam 2 Mg/Ml Vial IM 1 mg Q4H PRN Administration Anxiety Magnesium Hydroxide 30 ml 12/24/19 09:52 Milk Of Magnesia 30 Ml Oral.Susp PO DAILY PRN Constipation Methadone HCl 100 mg 12/24/19 10:30 Methadone Hcl 1 Mg/0.1 Ml Oral.Conc PO DAILY NICK Mirtazapine 15 mg 11/08/20 21:00 Mirtazapine 15 Mg Tablet PO BEDTIME NICK Nicotine 21 mg 12/24/19 10:30 12/24/19 10:34 Nicotine 21 Mg Patch.Td24 TRANSDERMA 21 mg DAILY NICK Administration Nicotine Polacrilex 4 mg 12/24/19 09:52 Nicotine Polacrilex 4 Mg Lozenge BUCCAL Q2H PRN Nicotine Cravings Ondansetron HCl 4 mg 12/23/19 22:16 Ondansetron Hcl 4 Mg/2 Ml Vial IVPUSH Q8H PRN Nausea and Vomiting Oxybutynin Chloride 15 mg 12/24/19 10:30 12/24/19 10:34 Oxybutynin Chloride Er 5 Mg Tab.Er.24 PO 15 mg DAILY NICK Administration Risperidone 1 mg 12/24/19 10:00 12/24/19 10:34 Risperidone 1 Mg Tablet PO 1 mg Q12H NICK Administration Sodium Chloride 3 ml 12/24/19 00:00 12/24/19 10:34 0.9 % Sodium Chloride Flush 3 Ml Syringe IVFLUSH 3 ml QSHIFT NICK Administration Trazodone HCl 50 mg 12/24/19 09:52 Trazodone Hcl 50 Mg Tablet PO BEDTIME PRN Insomnia Labs CBC & Chem 7: 12/24/19 05:51 12/24/19 05:51 Assessment and Plan (1) Sepsis: Status: Acute (2) Paraplegia: Status: Acute (3) HCV (hepatitis C virus): Status: Acute (4) Suicidal ideation: Status: Acute (5) Neurogenic urinary bladder disorder: Status: Acute Assessment and Plan: 34M was sent from psychiatry inpatient for fever and hypotension fever and hypotension sepsis POA vs drug effect UTI (in patient with neurogenic bladder) vs pneumonia vs wound infection, vs pcp toxicity continue ceftriaxone check UA and cultures monitor depression with SI continue antidepressants, 1:1, BHN prior to dc HCV outpatient follow up
[2019-12-24] MEDS: HaloperidoL 5 MG TABLET PO ×2 (13:23→20:11)
[2019-12-24] MEDS: Magnesium Hydrox/Alum Hydrox 30 ML ORAL.SUSP PO (16:20)
[2019-12-24] MEDS: traZODone HCL 50 MG TABLET PO (20:10)
[2019-12-24] MEDS: Benztropine Mesylate 1 MG TABLET PO (20:10)
[2019-12-24] MEDS: Mirtazapine 15 MG TABLET PO (20:10)
[2019-12-25] MEDS: risperiDONE 1 MG TABLET PO ×3 (00:03→22:09)
[2019-12-25] MEDS: cefTRIAXone sodium 1 GM in 0.9 % Sodium Chloride 50 ML IV ×2 (00:05→22:09)
[2019-12-25] MEDS: Enoxaparin Sodium 40 MG/0.4 ML SYRINGE SUBCUT ×2 (00:09→22:10)
[2019-12-25] MEDS: 0.9 % Sodium Chloride Flush 3 ML SYRINGE IVFLUSH ×3 (00:09→22:09)
[2019-12-25 04:00] VITALS: BP 112/57; PULSE 78; RESP 16; TEMP 37.1; O2SAT 92
[2019-12-25 06:21] LABS: Basophils Percent Auto 0.3 % (0-2); Imm Gran Abs Auto 0.16 X10*3/uL (0.00-0.03); Imm Gran Pct Auto 1.1 % (0.0-0.4); MANUAL DIFF FLAG SCAN; PLT CLUMP 1; SCAN SMEAR FLAG 1
[2019-12-25 06:23] LABS: Basophils Absolute Auto 0.1 X10*3/uL (0.0-0.2); Eosinophils Absolute Auto 0.2 X10*3/uL (0.0-0.4); Eosinophils Percent Auto 1.3 % (0-4); Hematocrit 35.1 % (42-52); Hemoglobin 10.7 g/dl (14.0-18.0); Lymphocytes Absolute Auto 2.9 X10*3/uL (1.2-4.9); Lymphocytes Percent Auto 19.6 % (20-40); Mean Corpuscular HGB Conc 30.5 g/dl (31.0-36.0); Mean Corpuscular Hemoglobin 26.4 pg (27.0-33.0); Mean Corpuscular Volume 86.7 fL (80-98); Mean Platelet Volume 10.8 fL (9.4-12.4); Monocytes Absolute Auto 1.5 X10*3/uL (0.1-1.2); Neutrophils Absolute Auto 10.2 X10*3/uL (2.0-8.3); Neutrophils Percent Auto 67.7 % (45-73); Red Blood Count 4.05 X10*6/uL (4.60-5.80); Red Cell Distribution Width 13.3 % (11.0-16.0)
[2019-12-25 06:46] LABS: Platelet Count 196 X10*3/uL (160-400); SLIDE REVIEW VERIFIED
[2019-12-25 06:58] LABS: Anion Gap 14 (12-20); Blood Urea Nitrogen 13 mg/dL (9-16); Carbon Dioxide 26 mmol/L (22-29); Chloride 100 mmol/L (96-108); Creatinine Clr Calc Pharmacy 176.5; Estimated Glomerular Filt Rate > 60; Glucose Fasting 102 mg/dL (60-99); Potassium 4.6 mmol/l (3.3-5.1); Sodium 135 mmol/L (135-145)
[2019-12-25 07:53] VITALS: BP 109/57; BP 93/58; PULSE 79; RESP 18; TEMP 37.1; O2SAT 93
--- NOTE | 2019-12-25 10:48 | HO.PM.IMPN ---
Subjective Subjective Date of Service: 12/25/19 Interval History: agitated Cardiovascular Cardiovascular: Reports no additional cardiovascular complaints Respiratory Respiratory: Reports no additional respiratory complaints Physical Exam Vital Signs: Vital Signs: Last Vital Signs Temp 98.8 F 12/25/19 07:53 Pulse 79 12/25/19 07:53 Resp 18 12/25/19 07:53 BP 109/57 L 12/25/19 07:53 Pulse Ox 93 12/25/19 07:53 Body Mass Index 32.5 General: AO X 3, agitated Resp: CTA bilateral CVS: S1,S2,RRR GI: soft, non tender, non distended Neuro: paraplegia, Psych: agitated Objective Data Current Medications Generic Name Dose Route Start Last Admin Trade Name Freq PRN Reason Stop Dose Admin Acetaminophen 650 mg 12/23/19 22:16 12/24/19 20:08 Acetaminophen 325 Mg Tablet PO 650 mg Q6H PRN Administration Pain, Mild (Pain Scale 1-3) Al Hydroxide/Mg Hydroxide 30 ml 12/24/19 09:52 12/24/19 16:20 Magnesium Hydrox/Alum Hydrox 30 Ml Oral.Susp PO 30 ml Q6H PRN Administration Heartburn/Nausea Benztropine Mesylate 1 mg 12/24/19 09:52 12/24/19 20:10 Benztropine Mesylate 1 Mg Tablet PO 1 mg BID PRN Administration EPS Enoxaparin Sodium 40 mg 12/23/19 23:00 12/25/19 00:09 Enoxaparin Sodium 40 Mg/0.4 Ml Syringe SUBCUT 40 mg Q24H NICK Administration Haloperidol 5 mg 12/24/19 09:52 12/24/19 20:11 Haloperidol 5 Mg Tablet PO 5 mg Q4H PRN Administration Psychosis Hydroxyzine HCl 25 mg 12/24/19 09:52 Hydroxyzine Hcl 25 Mg Tablet PO BEDTIME PRN Anxiety Ceftriaxone Sodium 1 gm/ 50 mls @ 100 mls/hr 12/23/19 23:00 12/25/19 03:14 Sodium Chloride IV Infused Q24H NICK Infusion Lorazepam 1 mg 12/24/19 09:52 12/24/19 10:35 Lorazepam 2 Mg/Ml Vial IM 1 mg Q4H PRN Administration Anxiety Lorazepam 0.5 mg 12/24/19 11:34 Lorazepam 0.5 Mg Tablet PO Q8H PRN anxiety Magnesium Hydroxide 30 ml 12/24/19 09:52 Milk Of Magnesia 30 Ml Oral.Susp PO DAILY PRN Constipation Methadone HCl 100 mg 12/24/19 10:30 12/24/19 11:24 Methadone Hcl 1 Mg/0.1 Ml Oral.Conc PO 100 mg DAILY NICK Administration Mirtazapine 15 mg 12/24/19 21:00 12/24/19 20:10 Mirtazapine 15 Mg Tablet PO 15 mg BEDTIME NICK Administration Nicotine 21 mg 12/24/19 10:30 12/24/19 10:34 Nicotine 21 Mg Patch.Td24 TRANSDERMA 21 mg DAILY NICK Administration Nicotine Polacrilex 4 mg 12/24/19 09:52 Nicotine Polacrilex 4 Mg Lozenge BUCCAL Q2H PRN Nicotine Cravings Ondansetron HCl 4 mg 12/23/19 22:16 Ondansetron Hcl 4 Mg/2 Ml Vial IVPUSH Q8H PRN Nausea and Vomiting Oxybutynin Chloride 15 mg 12/24/19 10:30 12/24/19 10:34 Oxybutynin Chloride Er 5 Mg Tab.Er.24 PO 15 mg DAILY NICK Administration Risperidone 1 mg 12/24/19 10:00 12/25/19 00:03 Risperidone 1 Mg Tablet PO 1 mg Q12H NICK Administration Sodium Chloride 3 ml 12/24/19 00:00 12/25/19 00:09 0.9 % Sodium Chloride Flush 3 Ml Syringe IVFLUSH 3 ml QSHIFT NICK Administration Trazodone HCl 50 mg 12/24/19 09:52 12/24/19 20:10 Trazodone Hcl 50 Mg Tablet PO 50 mg BEDTIME PRN Administration Insomnia Labs CBC & Chem 7: 12/25/19 05:25 12/25/19 05:25 Microbiology Microbiology Results: Microbiology 12/24/19 11:11 Urine Catheterized - Straight Catheter Urine Culture - Preliminary No growth to date. 12/23/19 23:15 Blood - Venous Blood Culture - Preliminary No growth after 24 hours. 12/23/19 23:08 Blood - Venous Blood Culture - Preliminary No growth after 24 hours. Assessment and Plan (1) Sepsis: Status: Acute (2) Paraplegia: Status: Acute (3) HCV (hepatitis C virus): Status: Acute (4) Suicidal ideation: Status: Acute (5) Neurogenic urinary bladder disorder: Status: Acute Assessment and Plan: 34M was sent from psychiatry inpatient for fever and hypotension fever and hypotension sepsis POA vs drug effect UTI (in patient with neurogenic bladder) vs wound infection, vs pcp toxicity continue ceftriaxone follow up cultures ID and wound care eval depression with SI continue antidepressants, 1:1, BHN prior to dc HCV outpatient follow up
[2019-12-25] MEDS: HaloperidoL 5 MG TABLET PO (10:52)
[2019-12-25] MEDS: Nicotine 21 MG PATCH.TD24 TRANSDERMA (10:52)
[2019-12-25 11:18] VITALS: BP 97/60; PULSE 95; RESP 20; TEMP 37.3; O2SAT 94
[2019-12-25 14:05] VITALS: BMI 32.5
--- NOTE | 2019-12-25 14:28 | MHC.CM.PN ---
Patient continues on IV Ceftriaxone for UTI sepsis. Discharge plan is to return to for SI when medically stable. CM will continue to follow patient for discharge needs.
[2019-12-25 15:28] VITALS: BP 104/56; PULSE 91; RESP 18; TEMP 37.4; O2SAT 96
[2019-12-25] MEDS: Acetaminophen 325 MG TABLET 650 MG PO (15:48)
--- NOTE | 2019-12-25 16:19 | P.CNID_ITS ---
History of Present Illness Data of Consult Service Date: 12/25/19 Primary Care Provider: Unknown Physician HPI Reason for consult: fever He presents to hospital with agitation and was seen by Psychiatry He was found to have temperature of 100.9 He has urine culture positive Klebsiella He was started on Ceftriaxone and no further fever or chills Review of Systems 2 Review of Systems: Yes Unobtainable due to mental status PMFSH Past Medical History Medical History Asthma Cellulitis Eczema Erectile dysfunction due to arterial insufficiency PTSD (post-traumatic stress disorder) Recurrent UTI Ulcerative colitis Social History Social History Household Members: Unknown / Unable to assess Housing: Unknown / Unable to assess Do you presently have visiting nurse or other home services: No Alcohol intake: unknown Smoking Status: Never smoker Tobacco Type: Cigarette Packs Per Day: 1 Cigarettes Per Day: 20.0 Years Smoked: 20 Second Hand Smoke Exposure: Yes Use of substances other than those prescribed or required for medical reasons: Yes Substance Use Type: [employer] Drugs Substance Use Type Other:: pcp Substance Use Frequency: Occasionally Last Used Substance: Just Prior to Admission Currently Displaying Signs/Symptoms of Drug Intoxication Withdrawal: No Have you been hit, kicked, punched, or otherwise hurt by someone within the past year? If so, by whom?: No Do you feel safe in your current relationship?: No Current Relationship Is there a partner from a previous relationship who is making you feel unsafe now?: No Are you made to feel afraid or neglected: No Advance Directives: No Advance Directives Information Provided: No Do you have thoughts of harming others: None Do you have a plan to hurt others: No Plan Recently lost weight without trying: No service: No Current occupational status: disabled Sexual orientation: Client not available to respond at this time Meds Allergies Allergy/AdvReac Type Severity Reaction Status Date / Time codeine Allergy Unknown Unknown Verified 11/28/19 15:23 piperacillin [From ZOSYN] Allergy Unknown DIFFICULTY Verified 11/28/19 15:23 BREATHING tazobactam [From ZOSYN] Allergy Unknown DIFFICULTY Verified 11/28/19 15:23 BREATHING tramadol Allergy Unknown nausea and Verified 11/28/19 15:23 vomiting vancomycin [VANCOMYCIN] Allergy Unknown DIFFICULTY Verified 11/28/19 15:23 BREATHING, anaphylaxis Home Medications Medication Instructions Recorded Confirmed Type trimethoprim 100 mg PO DAILY 12/21/19 12/24/19 History Physical Exam Vital Signs: Vital Signs: Last Vital Signs Temp 99.3 F 12/25/19 15:28 Pulse 91 12/25/19 15:28 Resp 18 12/25/19 15:28 BP 104/56 L 12/25/19 15:28 Pulse Ox 96 12/25/19 15:28 Body Mass Index 32.5 Const: General: anxious; No combative HENMT: Head: Yes normal to inspection Eyes: General: appearance normal, both eyes and all related structures Resp: Effort & Inspection: normal respiratory effort Cardio: Rate: regular rate Rhythm: regular rhythm GI: Inspection: Yes normal to inspection : General: Yes no CVA tenderness Back/Spine/Pelvis: Back: no CVA tenderness Skin: General skin exam: no rashes or lesions noted Neuro: Other: paraplegic below waist Assessment and Plan (1) UTI (urinary tract infection): Problem details: He has Klebsiella,resistant to only Ampicillin He has no further fevers Paraplegia and chronic Fam risk Status: Acute May continue Ceftriaxone Switch to po Ceftin on discharge 7-10 d total (2) Paraplegia: Status: Acute Results Labs CBC & Chem 7: 12/25/19 05:25 12/25/19 05:25 Labs: Short CBC 12/25/19 Range/Units 05:25 WBC 15.0 H (4.8-10.8) X10*3/uL Hgb 10.7 L (14.0-18.0) g/dl Hct 35.1 L (42-52) % Plt Count 196 D (160-400) X10*3/uL BMP 12/25/19 05:25 Sodium 135 Potassium 4.6 D Chloride 100 Carbon Dioxide 26 BUN 13 Creatinine 0.68 Calcium 8.0 L D Microbiology Microbiology Results: Microbiology 12/24/19 11:11 Urine Catheterized - Straight Catheter Urine Culture - Preliminary No growth to date. 12/23/19 23:15 Blood - Venous Blood Culture - Preliminary No growth after 24 hours. 12/23/19 23:08 Blood - Venous Blood Culture - Preliminary No growth after 24 hours.
[2019-12-25] MEDS: LORazepam 0.5 MG TABLET PO (18:06)
[2019-12-25 19:12] VITALS: BP 102/51; PULSE 90; TEMP 36.7; O2SAT 93
[2019-12-25] MEDS: Mirtazapine 15 MG TABLET PO (22:09)
[2019-12-25 23:10] VITALS: BP 125/74; PULSE 94; RESP 18; TEMP 37; O2SAT 95
[2019-12-26] MEDS: Acetaminophen 325 MG TABLET 650 MG PO (01:17)
[2019-12-26] MEDS: hydrOXYzine HCL 25 MG TABLET PO (01:17)
[2019-12-26 03:30] VITALS: BP 133/68; PULSE 92; RESP 18; TEMP 37.3; O2SAT 95
[2019-12-26] MEDS: Ibuprofen 600 MG TABLET PO (06:09)
[2019-12-26 06:58] LABS: MANUAL DIFF FLAG NO
[2019-12-26 07:06] LABS: Basophils Percent Auto 0.3 % (0-2); Eosinophils Absolute Auto 0.2 X10*3/uL (0.0-0.4); Eosinophils Percent Auto 1.4 % (0-4); Hematocrit 33.7 % (42-52); Hemoglobin 10.3 g/dl (14.0-18.0); Imm Gran Abs Auto 0.19 X10*3/uL (0.00-0.03); Imm Gran Pct Auto 1.3 % (0.0-0.4); Lymphocytes Absolute Auto 2.8 X10*3/uL (1.2-4.9); Lymphocytes Percent Auto 18.8 % (20-40); Mean Corpuscular HGB Conc 30.6 g/dl (31.0-36.0); Mean Corpuscular Hemoglobin 26.1 pg (27.0-33.0); Mean Corpuscular Volume 85.3 fL (80-98); Mean Platelet Volume 10.1 fL (9.4-12.4); Monocytes Absolute Auto 1.5 X10*3/uL (0.1-1.2); Monocytes Percent Auto 9.9 % (2-11); Neutrophils Absolute Auto 10.3 X10*3/uL (2.0-8.3); Neutrophils Percent Auto 68.3 % (45-73); Platelet Count 322 X10*3/uL (160-400); Red Blood Count 3.95 X10*6/uL (4.60-5.80); Red Cell Distribution Width 13.2 % (11.0-16.0)
[2019-12-26 07:14] VITALS: BP 121/63; PULSE 78; RESP 18; TEMP 36.1; O2SAT 94
[2019-12-26 07:39] LABS: Anion Gap 12 (12-20); Blood Urea Nitrogen 11 mg/dL (9-16); Carbon Dioxide 27 mmol/L (22-29); Chloride 101 mmol/L (96-108); Creatinine Clr Calc Pharmacy 193.6; Estimated Glomerular Filt Rate > 60; Glucose Fasting 108 mg/dL (60-99); Potassium 3.9 mmol/l (3.3-5.1); Sodium 136 mmol/L (135-145)
[2019-12-26] MEDS: 0.9 % Sodium Chloride Flush 3 ML SYRINGE IVFLUSH (08:29)
[2019-12-26] MEDS: risperiDONE 1 MG TABLET PO (08:44)
[2019-12-26] MEDS: LORazepam 0.5 MG TABLET PO ×2 (08:44→16:55)
--- NOTE | 2019-12-26 11:35 | HO.PM.IMPN ---
Subjective Subjective Date of Service: 12/26/19 Interval History: no compklaints Respiratory Respiratory: Reports no additional respiratory complaints Gastrointestinal Gastrointestinal: Reports no additional gastrointestinal complaints Physical Exam Vital Signs: Vital Signs: Last Vital Signs Temp 96.9 F 12/26/19 07:14 Pulse 78 12/26/19 07:14 Resp 18 12/26/19 07:14 BP 121/63 12/26/19 07:14 Pulse Ox 94 12/26/19 07:14 Body Mass Index 32.5 General: AO X 3, agitated Resp: CTA bilateral CVS: S1,S2,RRR GI: soft, non tender, non distended Neuro: paraplegia, Psych: agitated Objective Data Current Medications Generic Name Dose Route Start Last Admin Trade Name Freq PRN Reason Stop Dose Admin Acetaminophen 650 mg 12/23/19 22:16 12/26/19 01:17 Acetaminophen 325 Mg Tablet PO 650 mg Q6H PRN Administration Pain, Mild (Pain Scale 1-3) Al Hydroxide/Mg Hydroxide 30 ml 12/24/19 09:52 12/24/19 16:20 Magnesium Hydrox/Alum Hydrox 30 Ml Oral.Susp PO 30 ml Q6H PRN Administration Heartburn/Nausea Benztropine Mesylate 1 mg 12/24/19 09:52 12/24/19 20:10 Benztropine Mesylate 1 Mg Tablet PO 1 mg BID PRN Administration EPS Enoxaparin Sodium 40 mg 12/23/19 23:00 12/25/19 22:10 Enoxaparin Sodium 40 Mg/0.4 Ml Syringe SUBCUT 40 mg Q24H NICK Administration Haloperidol 5 mg 12/24/19 09:52 12/25/19 10:52 Haloperidol 5 Mg Tablet PO 5 mg Q4H PRN Administration Psychosis Hydroxyzine HCl 25 mg 12/24/19 09:52 12/26/19 01:17 Hydroxyzine Hcl 25 Mg Tablet PO 25 mg BEDTIME PRN Administration Anxiety Ceftriaxone Sodium 1 gm/ 50 mls @ 100 mls/hr 12/23/19 23:00 12/25/19 22:44 Sodium Chloride IV Infused Q24H NICK Infusion Ibuprofen 600 mg 12/26/19 05:47 12/26/19 06:09 Ibuprofen 600 Mg Tablet PO 600 mg Q8H PRN Administration Pain and Fever Lorazepam 1 mg 12/24/19 09:52 12/24/19 10:35 Lorazepam 2 Mg/Ml Vial IM 1 mg Q4H PRN Administration Anxiety Lorazepam 0.5 mg 12/24/19 11:34 12/26/19 08:44 Lorazepam 0.5 Mg Tablet PO 0.5 mg Q8H PRN Administration anxiety Magnesium Hydroxide 30 ml 12/24/19 09:52 Milk Of Magnesia 30 Ml Oral.Susp PO DAILY PRN Constipation Methadone HCl 100 mg 12/24/19 10:30 12/26/19 08:27 Methadone Hcl 1 Mg/0.1 Ml Oral.Conc PO 100 mg DAILY NICK Administration Mirtazapine 15 mg 12/24/19 21:00 12/25/19 22:09 Mirtazapine 15 Mg Tablet PO 15 mg BEDTIME NICK Administration Nicotine 21 mg 12/24/19 10:30 12/26/19 08:28 Nicotine 21 Mg Patch.Td24 TRANSDERMA Not Given DAILY NICK Nicotine Polacrilex 4 mg 12/24/19 09:52 Nicotine Polacrilex 4 Mg Lozenge BUCCAL Q2H PRN Nicotine Cravings Ondansetron HCl 4 mg 12/23/19 22:16 Ondansetron Hcl 4 Mg/2 Ml Vial IVPUSH Q8H PRN Nausea and Vomiting Oxybutynin Chloride 15 mg 12/24/19 10:30 12/26/19 08:27 Oxybutynin Chloride Er 5 Mg Tab.Er.24 PO 15 mg DAILY NICK Administration Risperidone 1 mg 12/24/19 10:00 12/26/19 08:44 Risperidone 1 Mg Tablet PO 1 mg Q12H NICK Administration Sodium Chloride 3 ml 12/24/19 00:00 12/26/19 08:29 0.9 % Sodium Chloride Flush 3 Ml Syringe IVFLUSH 3 ml QSHIFT NICK Administration Trazodone HCl 50 mg 12/24/19 09:52 12/24/19 20:10 Trazodone Hcl 50 Mg Tablet PO 50 mg BEDTIME PRN Administration Insomnia Labs CBC & Chem 7: 12/26/19 05:21 12/26/19 05:21 Microbiology Microbiology Results: Microbiology 12/24/19 11:11 Urine Catheterized - Straight Catheter Urine Culture - Final No growth. 12/23/19 23:15 Blood - Venous Blood Culture - Preliminary No growth after 48 hours. 12/23/19 23:08 Blood - Venous Blood Culture - Preliminary No growth after 48 hours. Assessment and Plan (1) Sepsis: Status: Acute (2) Paraplegia: Status: Acute (3) HCV (hepatitis C virus): Status: Acute (4) Suicidal ideation: Status: Acute (5) Neurogenic urinary bladder disorder: Status: Acute Assessment and Plan: 34M was sent from psychiatry inpatient for fever and hypotension sepsis POA due to uti IS appreciated, continue ceftriaxone, ceftin on dc depression with SI continue antidepressants, 1:1, medically cleared - BHN prior to dc HCV outpatient follow up
[2019-12-26 11:59] VITALS: BP 100/56; PULSE 71; RESP 18; TEMP 36.1; O2SAT 93
[2019-12-26] MEDS: traMADoL HCL 50 MG TABLET PO (13:27)
--- NOTE | 2019-12-26 14:32 | P.DS_ITS ---
DS: Providers Provider Date of admission: 12/23/19 21:49 Primary care physician: Unknown Physician Consults: 12/24/19 13:59 Consult to Infectious Diseases Routine Consulting Provider: Quita Cedillo Reason for consultation: sepsis, unclear source, ?UTI ?wounds 12/26/19 10:31 Consult to Crisis Stat Reason for consultation: suicidal ideation, came from [facility], medically cleared DS: Diagnosis Discharge Diagnosis (1) Sepsis: Status: Acute (2) Paraplegia: Status: Acute (3) HCV (hepatitis C virus): Status: Acute (4) Suicidal ideation: Status: Acute (5) Neurogenic urinary bladder disorder: Status: Acute DS: Summary Hospital Course Hospital Course: patient was admitted for sepsis secondary to urine tract infection. His urine culture grew Klebsiella pneumoniae that was sensitive to ceftriaxone. His sepsis resolved. He was seen by infectious disease recommended p.o. Ceftin on discharge. He was then seen by behavioral health who felt the patient was no longer a risk for self-harm and he will be discharged home. Time Spent with Patient Time attestation: Total time spent providing and/or coordinating discharge services: Physical Exam Vital Signs: Vital Signs: Last Vital Signs Temp 97.0 F 12/26/19 11:59 Pulse 71 12/26/19 11:59 Resp 18 12/26/19 11:59 BP 100/56 L 12/26/19 11:59 Pulse Ox 93 12/26/19 11:59 Body Mass Index 32.5 General: AO X 3, no acute distress Resp: CTA bilateral CVS: S1,S2,RRR GI: soft, non tender, non distended Neuro: paraplegia Psych: appropriate affect skin: pressure wounds, no acute infection appreciated DS: Data Data Completed and Pending Labs on day of discharge: 12/23/19 Breakfast Regular Diet 12/23/19 21:56 Transfer Order Routine 12/23/19 22:16 Lactated Ringers [Lr] 500 ml IVCONT 999 mls/hr 12/23/19 22:49 Lactic Acid Stat 12/23/19 23:00 Lactated Ringers [Lr] 500 ml IVCONT 999 mls/hr 12/23/19 23:03 cefTRIAXone sodium [Rocephin] 1 gm .ROUTE .STK-MED ONE 12/24/19 00:55 XR chest 1V Stat 12/24/19 01:00 Lactated Ringers [Lr] 500 ml IVCONT 999 mls/hr 12/24/19 05:51 Basic Metabolic Panel Routine Complete Blood Count Auto Diff Routine 12/24/19 11:11 Urine Culture Stat 12/24/19 23:57 cefTRIAXone sodium [Rocephin] 1 gm .ROUTE .STK-MED ONE 12/25/19 05:25 BMP [Basic Metabolic Panel Fasting] Routine Complete Blood Count Auto Diff Routine SLIDE REVIEW Routine 12/25/19 22:06 cefTRIAXone sodium [Rocephin] 1 gm .ROUTE .STK-MED ONE 12/26/19 04:52 traMADoL HCL [Ultram] 50 mg PO ONCE ONE 12/26/19 05:21 BMP [Basic Metabolic Panel Fasting] Routine Complete Blood Count Auto Diff Routine Laboratory Last Values WBC 15.0 X10*3/uL (4.8-10.8) H 12/26/19 05:21 RBC 3.95 X10*6/uL (4.60-5.80) L 12/26/19 05:21 Hgb 10.3 g/dl (14.0-18.0) L 12/26/19 05:21 Hct 33.7 % (42-52) L 12/26/19 05:21 MCV 85.3 fL (80-98) 12/26/19 05:21 MCH 26.1 pg (27.0-33.0) L 12/26/19 05:21 MCHC 30.6 g/dl (31.0-36.0) L 12/26/19 05:21 RDW 13.2 % (11.0-16.0) 12/26/19 05:21 Plt Count 322 X10*3/uL (160-400) D 12/26/19 05:21 MPV 10.1 fL (9.4-12.4) 12/26/19 05:21 Immature Gran % (Auto) 1.3 % (0.0-0.4) H 12/26/19 05:21 Neut % (Auto) 68.3 % (45-73) 12/26/19 05:21 Lymph % (Auto) 18.8 % (20-40) L 12/26/19 05:21 [place] % (Auto) 9.9 % (2-11) 12/26/19 05:21 Eos % (Auto) 1.4 % (0-4) 12/26/19 05:21 Baso % (Auto) 0.3 % (0-2) 12/26/19 05:21 Lymph # (Auto) 2.8 X10*3/uL (1.2-4.9) 12/26/19 05:21 [place] # (Auto) 1.5 X10*3/uL (0.1-1.2) H 12/26/19 05:21 Eos # (Auto) 0.2 X10*3/uL (0.0-0.4) 12/26/19 05:21 Baso # (Auto) 0.0 X10*3/uL (0.0-0.2) 12/26/19 05:21 Abs Immat Gran (auto) 0.19 X10*3/uL (0.00-0.03) H 12/26/19 05:21 Absolute Neuts (auto) 10.3 X10*3/uL (2.0-8.3) H 12/26/19 05:21 Absolute Nucleated RBC 0.000 X10*3/uL (0.0-0.012) 12/26/19 05:21 Nucleated RBC % (auto) 0.0 /100WBC (0.0-0.2) 12/26/19 05:21 Smear Tech's Comments VERIFIED 12/25/19 05:25 Sodium 136 mmol/L (135-145) 12/26/19 05:21 Potassium 3.9 mmol/l (3.3-5.1) 12/26/19 05:21 Chloride 101 mmol/L (96-108) 12/26/19 05:21 Carbon Dioxide 27 mmol/L (22-29) 12/26/19 05:21 Anion Gap 12 (12-20) 12/26/19 05:21 BUN 11 mg/dL (9-16) 12/26/19 05:21 Creatinine 0.62 mg/dL (0.5-1.4) 12/26/19 05:21 Estim Creat Clear Calc 193.6 12/26/19 05:21 Estimated GFR > 60 12/26/19 05:21 Random Glucose 136 mg/dL (60-115) H D 12/24/19 05:51 Fasting Glucose 108 mg/dL (60-99) H 12/26/19 05:21 Lactic Acid 1.1 mmol/L (0.5-2.0) 12/23/19 22:49 Calcium 8.0 mg/dL (8.4-10.2) L 12/26/19 05:21 Preliminary micro results at discharge 12/23/19 23:15 Blood Culture - Preliminary Blood - Venous No growth after 48 hours. 12/23/19 23:08 Blood Culture - Preliminary Blood - Venous No growth after 48 hours. Discharge Plan Discharge Patient Disposition: Home, Self-Care Referrals: Antony Faria MD [Physician] - 1 Week (Please call and schedule a follow up appointment.) Discharge Medications: New cefuroxime axetil 250 mg tablet 500 mg PO BID Qty: 10 RF: 0 Continued acetaminophen 325 mg Tablet 650 mg PO Q6H PRN (Reason: Headache/Pain Mild Scale (1-3)) Qty: 1 RF: 0 haloperidol 5 mg Tablet 5 mg PO Q4H PRN (Reason: Psychosis) Qty: 1 RF: 0 trazodone 50 mg Tablet 50 mg PO BEDTIME PRN (Reason: Insomnia) Qty: 1 RF: 0 lorazepam 2 mg/mL Solution 1 mg IM Q4H PRN (Reason: Anxiety) Qty: 1 RF: 0 magnesium hydroxide [Milk of Magnesia] 400 mg/5 mL Suspension 30 ml PO DAILY PRN (Reason: Constipation) Qty: 1 RF: 0 benztropine 1 mg Tablet 1 mg PO BID PRN (Reason: EPS) Qty: 1 RF: 0 nicotine 21 mg/24 hr Patch 24 Hour 21 mg transdermal DAILY Qty: 1 RF: 0 oxybutynin chloride 5 mg Tablet Extended Release 24hr 15 mg PO DAILY Qty: 1 RF: 0 hydroxyzine HCl 25 mg Tablet 25 mg PO BEDTIME PRN (Reason: Anxiety) Qty: 1 RF: 0 methadone [Methadose] 10 mg/mL Concentrate 100 mg PO DAILY Qty: 1 RF: 0 MAG-AL 200-200 mg/5 mL Suspension 30 ml PO Q6H PRN (Reason: Heartburn/Nausea) Qty: 1 RF: 0 benztropine 1 mg tablet 1 mg PO BID PRN (Reason: EPS) Qty: 1 RF: 0 mirtazapine 15 mg tablet 1 tab PO BEDTIME Qty: 1 RF: 0 risperidone 1 mg tablet 1 tab PO Q12H Qty: 1 RF: 0 nicotine (polacrilex) 4 mg Mini Lozenge 4 mg buccal Q2H PRN (Reason: Nicotine Cravings) Qty: 1 RF: 0 hydroxyzine HCl 25 mg tablet 1 tab PO BEDTIME PRN (Reason: anxiety) Qty: 1 RF: 0 Discontinued trimethoprim 100 mg tablet 100 mg PO DAILY RF: 0 Discharge Orders: Discharge Order (Routine); Ordered 12/26/19 Ordered By: Lenin Love Activity on Discharge: As tolerated Visit Report Forms: Patient Portal Discharge page Care Plan Goals: recovery Health Concerns: uti Plan of Treatment: ceftin
--- NOTE | 2019-12-26 14:43 | MHC.CM.PN ---
Patient has been cleared for dc to home today, no services. Last IMM addressed on 12/24/2019.
[2019-12-26 15:22] VITALS: BP 102/58; PULSE 93; RESP 18; TEMP 36.2; O2SAT 98
== END 2019-12-26 17:00 | disposition home or self-care (01) | DRG 872 ==
PROVIDERS: Admitting Provider Internal Medicine; Visit Provider Internal Medicine
DX: A41.9 Sepsis, unspecified organism (principal); F11.20 Opioid dependence, uncomplicated; N39.0 Urinary tract infection, site not specified; R45.851 Suicidal ideations; G82.20 Paraplegia, unspecified; B19.20 Unspecified viral hepatitis C without hepatic coma; F32.9 Major depressive disorder, single episode, unspecified; B96.1 Klebsiella pneumoniae [K. pneumoniae] as the cause of diseases classified elsewhere; N31.9 Neuromuscular dysfunction of bladder, unspecified; F43.10 Post-traumatic stress disorder, unspecified; I95.9 Hypotension, unspecified; Z77.22 Contact with and (suspected) exposure to environmental tobacco smoke (acute) (chronic); Z88.5 Allergy status to narcotic agent; Z87.440 Personal history of urinary (tract) infections; Z79.899 Other long term (current) drug therapy
CPT/HCPCS: 36415; 71045; 80048; 80076; 80307; 80320; 83605; 85025; 87040; 87086; 87088; 87186; 96372; 99285; J0696; J1170; J1200; J1650; J2060; Q0163; U0003

== ENCOUNTER 2020-01-01 18:53 | Inpatient (IN) | payer OTHER, SELFPAY ==
[2020-01-01 18:58] VITALS: BP 112/62; BP 126/60; PULSE 106; PULSE 108; RESP 22; TEMP 36.9; O2SAT 100; O2SAT 99; BMI 39.9
--- NOTE | 2020-01-01 19:13 | US_ITS ---
EXAMINATION: US VENOUS ULTRASOUND WITH DOPPLER LOWER EXTREMITY, RIGHT CLINICAL INFORMATION: Right leg swelling. Paraplegia COMPARISON: Venous Doppler ultrasound study right lower extremity 10/27/2019 TECHNIQUE: Ultrasound of the deep veins is performed from the hip to the calf with compression sonography and color and pulse Doppler assessment. Spectral analysis with color-flow imaging is performed. FINDINGS: Exam limited by body habitus and swelling. There is normal venous compression and respiratory variation and augmented flow. The visualized common femoral vein, superficial femoral vein, profunda femoral vein, popliteal vein, and the trifurcation region shows no evidence of deep venous thrombosis. There is no significant popliteal fossa cyst. There are morphologically normal-appearing lymph nodes with fatty elfego in the right groin. If the patient's symptoms persist, followup ultrasound in 5 days 7 days might be of value to exclude proximal propagation from a non-visualized calf vein. US/US venous duplex LE RT IMPRESSION: No DVT demonstrated in the right lower extremity.
[2020-01-01] MEDS: 0.9 % Sodium Chloride 1,000 ML 999 ML IVCONT (19:30)
[2020-01-01 19:54] VITALS: BP 116/67; PULSE 99; RESP 18; TEMP 37.2; O2SAT 98
--- NOTE | 2020-01-01 20:11 | ED_ITS ---
HPI - General Adult General Chief complaint: Nausea/Vomiting/Diarrhea Stated complaint: vomiting leg pain Time Seen by Provider: 01/01/20 19:05 Source: patient Mode of arrival: EMS Limitations: no limitations History of Present Illness HPI narrative: patient paraplegic with recurrent ED visits was discharged on 12/25 for UTI with sepsis which grew Klebsiella sensitive to Ceftin which patient has been taking comes here for increased redness and swelling of right leg for last few days with nausea subjective fevers vomiting and poor oral intake. Patient has history of anxiety and very agitated when EMS reached to his house similar to in the past Related Data Home Medications Medication Instructions Recorded Confirmed tadalafil 1 tab PO DAILY 01/01/20 01/01/20 Previous Rx's Medication Instructions Recorded MAG-AL 30 ml PO Q6H PRN #1 ml 12/23/19 benztropine 1 mg PO BID PRN #1 tab 12/23/19 haloperidol 5 mg PO Q4H PRN #1 tab 12/23/19 hydroxyzine HCl 25 mg PO BEDTIME PRN #1 tab 12/23/19 magnesium hydroxide [Milk of 30 ml PO DAILY PRN #1 ml 12/23/19 Magnesia] methadone [Methadose] 100 mg PO DAILY #1 ml 12/23/19 mirtazapine 1 tab PO BEDTIME #1 tab 12/23/19 nicotine 21 mg TRANSDERMAL DAILY #1 ea 12/23/19 nicotine (polacrilex) 4 mg BUCCAL Q2H PRN #1 ea 12/23/19 oxybutynin chloride 15 mg PO DAILY #1 tab 12/23/19 risperidone 1 tab PO Q12H #1 tab 12/23/19 trazodone 50 mg PO BEDTIME PRN #1 tab 12/23/19 cefuroxime axetil 500 mg PO BID #10 tab 12/26/19 Allergies Allergy/AdvReac Type Severity Reaction Status Date / Time codeine Allergy Unknown Unknown Verified 11/28/19 15:23 piperacillin [From ZOSYN] Allergy Unknown DIFFICULTY Verified 11/28/19 15:23 BREATHING tazobactam [From ZOSYN] Allergy Unknown DIFFICULTY Verified 11/28/19 15:23 BREATHING tramadol Allergy Unknown nausea and Verified 11/28/19 15:23 vomiting vancomycin [VANCOMYCIN] Allergy Unknown DIFFICULTY Verified 11/28/19 15:23 BREATHING, anaphylaxis Review of Systems Review of Systems: REVIEW OF SYSTEMS: Pertinent positives and negatives are stated above in the history. GEN: no fevers, chills, fatigue HEENT: no nasal congestion, sore throat, ear pain NEURO: no headache, dizziness, focal weakness PULM: no cough, shortness of breath CV: no chest pain, palpitations, LE edema ABD: no abdominal pain,+ve for nausea, vomiting, diarrhea : no dysuria, urgency, frequency SKIN: erythematous rash right leg with swelling ROS otherwise negative x 10 PMFSH Past Medical History Medical History Asthma Cellulitis Eczema Erectile dysfunction due to arterial insufficiency PTSD (post-traumatic stress disorder) Recurrent UTI Ulcerative colitis Social History Social History Household Members: Unknown / Unable to assess Housing: Unknown / Unable to assess Alcohol intake: never Smoking Status: Current every day smoker Tobacco Type: Cigarette Packs Per Day: 1 Cigarettes Per Day: 20.0 Years Smoked: 20 Second Hand Smoke Exposure: Yes Substance Use Type: Crack/Cocaine, Heroin, Marijuana and Opiates Substance Use Frequency: Daily Last Used Substance: Hours (ago) Advance Directives: No Advance Directives Information Provided: No service: No Current occupational status: disabled Sexual orientation: Client not available to respond at this time Physical Exam Vital Signs: Vital Signs: Last Vital Signs Temp 97.6 F 01/02/20 01:49 Pulse 82 01/02/20 01:49 Resp 16 01/02/20 01:49 BP 100/50 L 01/02/20 01:49 Pulse Ox 98 01/02/20 01:49 Body Mass Index 39.9 VITAL SIGNS: Reviewed. GENERAL: Well developed, well nourished, in no acute distress. very agitated HEAD: Normocephalic/atraumatic, EYES: PERRLA No pallor/icterus noted OROPHARYNX: Oral mucosa moist no oral lesions NECK: Supple, no adenopathy LUNGS: Normal breath sounds. No adventitious sounds or accessory muscle use CARDIOVASCULAR: Regular rate and rhythm without noted murmurs, no JVD or lower extremity edema. ABDOMEN: Soft, non-tender, non-distended with normal bowel sounds. No rigidity. No guarding. No palpable masses or hernias noted extremities: paraplegic with swelling of right leg cellulitic changes although to the thigh with serous fluid discharge pitting edema present++ SKIN: cellulitic changes right leg with oozing serous fluid NEUROLOGIC: Alert and oriented x 3. Strength and sensation to light touch were grossly intact in upper extremities, paraplegic , normal speech Course Course Course Narrative: patient with increased swelling of the right leg with cellulitis and leukocytosis meeting the criteria for sepsis. Patient received IV antibiotics IV Rocephin and doxycycline, will admit patient for further evaluation patient refused to give the urine sample. Venous Doppler is negative for DVT Medical Decision Making Lab Data Result diagrams: 01/01/20 20:02 01/01/20 20:02 Labs: Lab Results 01/01/20 01/01/20 01/01/20 Range/Units 20:02 20:02 20:02 WBC 20.5 H (4.8-10.8) X10*3/uL RBC 3.49 L (4.60-5.80) X10*6/uL Hgb 9.1 L (14.0-18.0) g/dl Hct 29.6 L (42-52) % MCV 84.8 (80-98) fL MCH 26.1 L (27.0-33.0) pg MCHC 30.7 L (31.0-36.0) g/dl RDW 13.5 (11.0-16.0) % Plt Count 580 H D (160-400) X10*3/uL MPV 9.3 L (9.4-12.4) fL Immature Gran % (Auto) 3.9 H (0.0-0.4) % Neut % (Auto) 70.3 (45-73) % Lymph % (Auto) 17.4 L (20-40) % [place] % (Auto) 6.6 (2-11) % Eos % (Auto) 1.5 (0-4) % Baso % (Auto) 0.3 (0-2) % Lymph # (Auto) 3.6 (1.2-4.9) X10*3/uL [place] # (Auto) 1.4 H (0.1-1.2) X10*3/uL Eos # (Auto) 0.3 (0.0-0.4) X10*3/uL Baso # (Auto) 0.1 (0.0-0.2) X10*3/uL Abs Immat Gran (auto) 0.80 H (0.00-0.03) X10*3/uL Absolute Neuts (auto) 14.4 H (2.0-8.3) X10*3/uL Absolute Nucleated RBC 0.000 (0.0-0.012) X10*3/uL Nucleated RBC % (auto) 0.0 (0.0-0.2) /100WBC Sodium 133 L (135-145) mmol/L Potassium 5.0 D (3.3-5.1) mmol/l Chloride 96 (96-108) mmol/L Carbon Dioxide 31 H (22-29) mmol/L Anion Gap 11 L (12-20) BUN 8 L (9-16) mg/dL Creatinine 0.56 (0.5-1.4) mg/dL Estim Creat Clear Calc 231.1 Estimated GFR > 60 Random Glucose 81 D (60-115) mg/dL Lactic Acid 1.5 (0.5-2.0) mmol/L Calcium 7.8 L (8.4-10.2) mg/dL Total Bilirubin 0.4 (0.0-1.0) mg/dL Direct Bilirubin 0.2 (0.0-0.5) mg/dL AST 39 H (5-37) U/L ALT 34 (0-40) U/L Alkaline Phosphatase 236 H D (39-117) U/L Total Protein 6.9 (6.5-8.0) g/dL Albumin 2.8 L (3.5-5.0) g/dL COVID-19 ([facility]) (Negative) COVID-19 Clin Com 01/01/20 Range/Units 21:59 WBC (4.8-10.8) X10*3/uL RBC (4.60-5.80) X10*6/uL Hgb (14.0-18.0) g/dl Hct (42-52) % MCV (80-98) fL MCH (27.0-33.0) pg MCHC (31.0-36.0) g/dl RDW (11.0-16.0) % Plt Count (160-400) X10*3/uL MPV (9.4-12.4) fL Immature Gran % (Auto) (0.0-0.4) % Neut % (Auto) (45-73) % Lymph % (Auto) (20-40) % [place] % (Auto) (2-11) % Eos % (Auto) (0-4) % Baso % (Auto) (0-2) % Lymph # (Auto) (1.2-4.9) X10*3/uL [place] # (Auto) (0.1-1.2) X10*3/uL Eos # (Auto) (0.0-0.4) X10*3/uL Baso # (Auto) (0.0-0.2) X10*3/uL Abs Immat Gran (auto) (0.00-0.03) X10*3/uL Absolute Neuts (auto) (2.0-8.3) X10*3/uL Absolute Nucleated RBC (0.0-0.012) X10*3/uL Nucleated RBC % (auto) (0.0-0.2) /100WBC Sodium (135-145) mmol/L Potassium (3.3-5.1) mmol/l Chloride (96-108) mmol/L Carbon Dioxide (22-29) mmol/L Anion Gap (12-20) BUN (9-16) mg/dL Creatinine (0.5-1.4) mg/dL Estim Creat Clear Calc Estimated GFR Random Glucose (60-115) mg/dL Lactic Acid (0.5-2.0) mmol/L Calcium (8.4-10.2) mg/dL Total Bilirubin (0.0-1.0) mg/dL Direct Bilirubin (0.0-0.5) mg/dL AST (5-37) U/L ALT (0-40) U/L Alkaline Phosphatase (39-117) U/L Total Protein (6.5-8.0) g/dL Albumin (3.5-5.0) g/dL COVID-19 ([facility]) Negative (Negative) COVID-19 Clin Com See Note Discharge Plan Discharge Clinical Impression: Cellulitis Qualifiers: Site of cellulitis: extremity Site of cellulitis of extremity: lower extremity Laterality: right Qualified Code(s): L03.115 - Cellulitis of right lower limb Sepsis Qualifiers: Sepsis type: sepsis due to unspecified organism Sepsis acute organ dysfunction status: without acute organ dysfunction Qualified Code(s): A41.9 - Sepsis, unspecified organism Patient Disposition: Admitted As Inpatient Interventions: Admission Worksheet (ED) Last Done: 01/02/20 00:57 Discharge Date/Time: 01/02/20 00:58
[2020-01-01 20:16] LABS: MANUAL DIFF FLAG NO
[2020-01-01 20:17] LABS: Basophils Absolute Auto 0.1 X10*3/uL (0.0-0.2); Basophils Percent Auto 0.3 % (0-2); Eosinophils Absolute Auto 0.3 X10*3/uL (0.0-0.4); Eosinophils Percent Auto 1.5 % (0-4); Hematocrit 29.6 % (42-52); Hemoglobin 9.1 g/dl (14.0-18.0); Imm Gran Pct Auto 3.9 % (0.0-0.4); Lymphocytes Absolute Auto 3.6 X10*3/uL (1.2-4.9); Lymphocytes Percent Auto 17.4 % (20-40); Mean Corpuscular HGB Conc 30.7 g/dl (31.0-36.0); Mean Corpuscular Hemoglobin 26.1 pg (27.0-33.0); Mean Corpuscular Volume 84.8 fL (80-98); Mean Platelet Volume 9.3 fL (9.4-12.4); Monocytes Absolute Auto 1.4 X10*3/uL (0.1-1.2); Monocytes Percent Auto 6.6 % (2-11); Neutrophils Absolute Auto 14.4 X10*3/uL (2.0-8.3); Neutrophils Percent Auto 70.3 % (45-73); Platelet Count 580 X10*3/uL (160-400); Red Blood Count 3.49 X10*6/uL (4.60-5.80); Red Cell Distribution Width 13.5 % (11.0-16.0); White Blood Count 20.5 X10*3/uL (4.8-10.8)
[2020-01-01] MEDS: LORazepam 2 MG/ML VIAL IVPUSH (20:19)
--- NOTE | 2020-01-01 20:23 | PC.NURSE ---
MEDICATED CHARTED WITH ATIVAN. PATIENT KEEPS ESCALATING STATING THAT HE HEARS STAFF TALKING ABOUT HIS MOM AND DAD. NO STAFF WERE TALKING ABOUT MOM AND DAD. AGITATED, EYES WIDE. UNABLE TO GET PATIENT TO FOCUS ON THIS NURSE. SECURITY ON STANDBY OUTSIDE ROOM.
[2020-01-01] MEDS: HYDROmorphone HCl 2 MG/ML VIAL IVPUSH (20:28)
[2020-01-01] MEDS: cefTRIAXone sodium 1 GM in 0.9 % Sodium Chloride 50 ML IV (20:29)
[2020-01-01 20:33] LABS: Lactic Acid 1.5 mmol/L (0.5-2.0)
[2020-01-01 20:39] LABS: Alanine Aminotransferase 34 U/L (0-40); Albumin Level 2.8 g/dL (3.5-5.0); Alkaline Phosphatase 236 U/L (39-117); Anion Gap 11 (12-20); Aspartate Amino Transferase 39 U/L (5-37); Bilirubin Direct 0.2 mg/dL (0.0-0.5); Bilirubin Total 0.4 mg/dL (0.0-1.0); Blood Urea Nitrogen 8 mg/dL (9-16); Calcium 7.8 mg/dL (8.4-10.2); Carbon Dioxide 31 mmol/L (22-29); Chloride 96 mmol/L (96-108); Creatinine Clr Calc Pharmacy 231.1; Estimated Glomerular Filt Rate > 60; Sodium 133 mmol/L (135-145); Total Protein 6.9 g/dL (6.5-8.0)
[2020-01-01 20:51] LABS: Glucose Random 81 mg/dL (60-115)
[2020-01-01] MEDS: Doxycycline Hyclate 100 MG in 0.9 % Sodium Chloride 250 ML 166.67 MG IV (21:05)
[2020-01-01 21:57] VITALS: BP 98/58; PULSE 100; RESP 18; TEMP 36.9
[2020-01-01 22:24] LABS: COVID-19 Test Negative (Negative); IDNOW Serial# 9DD0AD1C
[2020-01-01 22:29] VITALS: BP 119/67; PULSE 95; RESP 15; TEMP 36.3; O2SAT 94
--- NOTE | 2020-01-01 23:03 | PC.NURSE ---
Pt aggressive, pulling IV lines, swearing, demanding staff for pain med, and escalating when arrival. MD made aware, and security in bedside. Per MD, 2 mg Dilaudid and ativan iv push given with good effect. Plan: admission. covid testing done. Rocephin and doxy abx given.
--- NOTE | 2020-01-01 23:06 | PC.NURSE ---
pt is on methadone. Current dose to be verified with floor rn in the morning since clinic is closed at this time. pt too drowsy at this time to give us info.
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
[2020-01-02] VITALS (8 sets, daily range): BP systolic 100–110; BP diastolic 50–65; PULSE 70–97; RESP 16–20; TEMP 36.4–37; O2SAT 94–98; BMI 39.9
--- NOTE | 2020-01-02 04:33 | PC.NURSE ---
Late Entry: Pt refused to get care to change pad, and repositioned for incontinent of urine,
[2020-01-02 06:53] LABS: MANUAL DIFF FLAG NO
[2020-01-02 07:04] LABS: Basophils Absolute Auto 0.1 X10*3/uL (0.0-0.2); Basophils Percent Auto 0.3 % (0-2); Eosinophils Absolute Auto 0.3 X10*3/uL (0.0-0.4); Eosinophils Percent Auto 1.9 % (0-4); Hematocrit 27.8 % (42-52); Hemoglobin 8.7 g/dl (14.0-18.0); Imm Gran Pct Auto 4.2 % (0.0-0.4); Lymphocytes Absolute Auto 2.6 X10*3/uL (1.2-4.9); Lymphocytes Percent Auto 18.1 % (20-40); Mean Corpuscular HGB Conc 31.3 g/dl (31.0-36.0); Mean Corpuscular Hemoglobin 26.2 pg (27.0-33.0); Mean Corpuscular Volume 83.7 fL (80-98); Monocytes Percent Auto 7.3 % (2-11); Neutrophils Absolute Auto 9.8 X10*3/uL (2.0-8.3); Neutrophils Percent Auto 68.2 % (45-73); Platelet Count 508 X10*3/uL (160-400); Red Blood Count 3.32 X10*6/uL (4.60-5.80); Red Cell Distribution Width 13.6 % (11.0-16.0); White Blood Count 14.3 X10*3/uL (4.8-10.8)
[2020-01-02 07:28] LABS: Anion Gap 11 (12-20); Blood Urea Nitrogen 7 mg/dL (9-16); Calcium 7.5 mg/dL (8.4-10.2); Carbon Dioxide 29 mmol/L (22-29); Chloride 101 mmol/L (96-108); Creatinine Clr Calc Pharmacy 244.2; Estimated Glomerular Filt Rate > 60; Glucose Random 80 mg/dL (60-115); Potassium 4.5 mmol/l (3.3-5.1); Sodium 136 mmol/L (135-145)
[2020-01-02] MEDS: Nicotine 21 MG PATCH.TD24 TRANSDERMA (07:29)
[2020-01-02] MEDS: cefTRIAXone sodium 1 GM in 0.9 % Sodium Chloride 50 ML IV ×2 (07:29→20:49)
[2020-01-02] MEDS: 0.9 % Sodium Chloride Flush 3 ML SYRINGE IVFLUSH ×3 (07:35→20:51)
[2020-01-02] MEDS: risperiDONE 1 MG TABLET PO ×2 (10:22→22:33)
[2020-01-02] MEDS: Heparin Sodium,Porcine 5,000 UNIT/ML VIAL 5000 UNIT SUBCUT ×2 (10:23→17:45)
--- NOTE | 2020-01-02 13:37 | HO.PM.IMPN ---
Subjective Subjective Date of Service: 01/02/20 Interval History: Patient seen and examined at bedside, patient reported generalized pain Constitutional Constitutional: Reports weakness Cardiovascular Cardiovascular: Denies dyspnea Respiratory Respiratory: Denies dyspnea Gastrointestinal Gastrointestinal: Denies vomiting Neurologic Neurologic: Reports weakness Physical Exam Vital Signs: Vital Signs: Last Vital Signs Temp 97.7 F 01/02/20 11:27 Pulse 86 01/02/20 11:27 Resp 18 01/02/20 11:27 BP 110/65 01/02/20 11:27 Pulse Ox 97 01/02/20 11:27 Body Mass Index 39.9 Const: General: comfortable and no acute distress Orientation/consciousness: patient oriented x3 HENMT: Head: Yes normal to inspection Eyes: General: appearance normal, both eyes and all related structures Neck: Neck: Yes normal visual inspection Chest: Chest palpation & inspection: normal inspection of the chest Resp: Effort & Inspection: normal respiratory effort Cardio: Jugular venous distension: no JVD Rate: regular rate Rhythm: regular rhythm Heart sounds: S1 normal heart sound present and S2 normal heart sound present GI: Inspection: Yes normal to inspection Neuro: General: patient oriented x3 and other (sedated ) Extrem: Right lower extremity: edema Objective Data Current Medications Generic Name Dose Route Start Last Admin Trade Name Freq PRN Reason Stop Dose Admin Al Hydroxide/Mg Hydroxide 30 ml 01/02/20 09:28 Magnesium Hydrox/Alum Hydrox 30 Ml Oral.Susp PO Q6H PRN Heartburn/Nausea Benztropine Mesylate 1 mg 01/01/20 23:53 Benztropine Mesylate 1 Mg Tablet PO BID PRN EPS Haloperidol 5 mg 01/02/20 09:28 Haloperidol 5 Mg Tablet PO Q4H PRN Psychosis Heparin Sodium (Porcine) 5,000 unit 01/02/20 02:00 01/02/20 10:23 Heparin Sodium,Porcine 5,000 Unit/Ml Vial SUBCUT 5,000 unit Q8H NICK Administration Hydroxyzine HCl 25 mg 01/02/20 09:28 Hydroxyzine Hcl 25 Mg Tablet PO BEDTIME PRN Anxiety Ceftriaxone Sodium 1 gm/ 50 mls @ 100 mls/hr 01/02/20 08:00 01/02/20 08:41 Sodium Chloride IV Infused Q12H NICK Infusion Magnesium Hydroxide 30 ml 01/02/20 09:28 Milk Of Magnesia 30 Ml Oral.Susp PO DAILY PRN Constipation Methadone HCl 100 mg 01/02/20 09:45 01/02/20 10:25 Methadone Hcl 1 Mg/0.1 Ml Oral.Conc PO 100 mg DAILY NICK Administration Mirtazapine 15 mg 01/02/20 21:00 Mirtazapine 15 Mg Tablet PO BEDTIME NICK Nicotine 21 mg 01/02/20 09:00 01/02/20 07:29 Nicotine 21 Mg Patch.Td24 TRANSDERMA 21 mg DAILY NICK Administration Nicotine Polacrilex 4 mg 01/01/20 23:53 Nicotine Polacrilex 4 Mg Lozenge BUCCAL Q2H PRN Nicotine Cravings Oxybutynin Chloride 15 mg 01/02/20 09:00 01/02/20 07:29 Oxybutynin Chloride Er 5 Mg Tab.Er.24 PO 15 mg DAILY NICK Administration Risperidone 1 mg 01/01/20 23:45 01/02/20 10:22 Risperidone 1 Mg Tablet PO 1 mg Q12H NICK Administration Sodium Chloride 3 ml 01/02/20 08:00 01/02/20 07:35 0.9 % Sodium Chloride Flush 3 Ml Syringe IVFLUSH 3 ml QSHIFT NICK Administration Trazodone HCl 50 mg 01/01/20 23:53 Trazodone Hcl 50 Mg Tablet PO BEDTIME PRN Insomnia Labs CBC & Chem 7: 01/02/20 06:41 01/02/20 06:41 Assessment and Plan (1) Sepsis: Status: Acute (2) UTI (urinary tract infection): Problem details: He has Klebsiella,resistant to only Ampicillin He has no further fevers Paraplegia and chronic Fam risk Status: Acute (3) Erectile dysfunction due to arterial insufficiency: Status: Acute (4) Neurogenic urinary bladder disorder: Status: Acute (5) PTSD (post-traumatic stress disorder): Status: Acute (6) Hyponatremia: Status: Acute Assessment and Plan: Sepsis secondary to UTI neurogenic bladder with chronic folic catheter continue with Rocephin follow-up blood culture and urine culture continue with oxybutynin hyponatremia improving likely secondary to SIADH given symptoms of nausea/vomiting monitor sodium PTSD continue Haldol and benztropine, continue mirtazapine chronic opiate dependence continue methadone DVT prophylaxis heparin subcu
--- NOTE | 2020-01-02 13:38 | MHC.CM.ED ---
Addendum entered by Lenore Valadez 01/03/20 16:16: note was case management inpatient note, not ED note Original Note: Met with pt. Agreeable to speaking with me, although at times dozing off. Easily redirected. Pt aware he has an infection, but is not sure what the plan of care is. Explained consult with infectious disease MD, labs, and antibiotics. D/C plan at this time is home with continued [employer] through [facility]. Pt lives in mother's home. Pt is a paraplegic. Uses motorized wheelchair, wheelchair, and shower chair. [employer] comes daily. IMM reviewed with pt and signed. Copy left with patient. Will continue to follow for discharge needs.
--- NOTE | 2020-01-02 15:32 | W.PM.IDCN ---
History of Present Illness Data of Consult Service Date: 01/02/20 Requesting physician: Shagufta Fernández Primary Care Provider: Unknown Physician HPI Reason for consult: leukocytosis He presents to hospital altered with right leg discomfort He has no redness just swelling,neg DVT He has no urinary discomfort He has low grade temperature He just finished po Ceftin for Klebsiella UTI Review of Systems Review of Systems: Yes Unobtainable due to mental status Constitutional: Constitutional: Reports weakness Neurologic: Reports weakness PMFSH Past Medical History Medical History Asthma Cellulitis Eczema Erectile dysfunction due to arterial insufficiency PTSD (post-traumatic stress disorder) Recurrent UTI Ulcerative colitis Social History Social History Household Members: Unknown / Unable to assess Housing: Unknown / Unable to assess Alcohol intake: never Smoking Status: Current every day smoker Tobacco Type: Cigarette Packs Per Day: 1 Cigarettes Per Day: 20.0 Years Smoked: 20 Second Hand Smoke Exposure: Yes Use of substances other than those prescribed or required for medical reasons: Yes Substance Use Type: Heroin Substance Use Frequency: Daily Last Used Substance: Unknown Currently Displaying Signs/Symptoms of Drug Intoxication Withdrawal: No Is there a partner from a previous relationship who is making you feel unsafe now?: No Are you made to feel afraid or neglected: No (NO ANSWERING TOO SLEEPY) Advance Directives: No Advance Directives Information Provided: No Do you have thoughts of harming others: None Do you have a plan to hurt others: No Plan service: No Current occupational status: disabled Sexual orientation: Client not available to respond at this time Meds Allergies Allergy/AdvReac Type Severity Reaction Status Date / Time codeine Allergy Unknown Unknown Verified 11/28/19 15:23 piperacillin [From ZOSYN] Allergy Unknown DIFFICULTY Verified 11/28/19 15:23 BREATHING tazobactam [From ZOSYN] Allergy Unknown DIFFICULTY Verified 11/28/19 15:23 BREATHING tramadol Allergy Unknown nausea and Verified 11/28/19 15:23 vomiting vancomycin [VANCOMYCIN] Allergy Unknown DIFFICULTY Verified 11/28/19 15:23 BREATHING, anaphylaxis Home Medications Medication Instructions Recorded Confirmed Type tadalafil 1 tab PO DAILY 01/01/20 01/01/20 History Physical Exam Vital Signs: Vital Signs: Last Vital Signs Temp 98.5 F 01/02/20 15:19 Pulse 75 01/02/20 15:19 Resp 17 01/02/20 15:19 BP 105/58 L 01/02/20 15:19 Pulse Ox 95 01/02/20 15:19 Body Mass Index 39.9 Const: General: cooperative and ill appearing HENMT: Head: Yes normal to inspection Mouth: Normal oral and palatal mucosa present Eyes: General: appearance normal, both eyes and all related structures Neck: Neck: Yes normal visual inspection Resp: Effort & Inspection: normal respiratory effort GI: Inspection: Yes normal to inspection : General: Yes no CVA tenderness Back/Spine/Pelvis: Other: paraplegia Back: no CVA tenderness Skin: General skin exam: no rashes or lesions noted Neuro: Other: swollen RLE Assessment and Plan (1) Sepsis: Qualifiers: Sepsis acute organ dysfunction status: without acute organ dysfunction Sepsis type: sepsis due to unspecified organism Qualified Code(s): A41.9 - Sepsis, unspecified organism Problem details: He likely may have recurrent UTI Leg looks rather unremarkable for cellulitis He recently was treated for presumed UTI Status: Acute Continue Ceftriaxone Await urine culture Adjust antibiotics based on results of above Results Labs CBC & Chem 7: 01/02/20 06:41 01/02/20 06:41 Labs: Short CBC 01/01/20 01/02/20 Range/Units 20:02 06:41 WBC 20.5 H 14.3 H (4.8-10.8) X10*3/uL Hgb 9.1 L 8.7 L (14.0-18.0) g/dl Hct 29.6 L 27.8 L (42-52) % Plt Count 580 H D 508 H (160-400) X10*3/uL BMP 01/01/20 01/02/20 20:02 06:41 Sodium 133 L 136 Potassium 5.0 D 4.5 Chloride 96 101 Carbon Dioxide 31 H 29 BUN 8 L 7 L Creatinine 0.56 0.53 Calcium 7.8 L 7.5 L Liver Function 01/01/20 Range/Units 20:02 Total Bilirubin 0.4 (0.0-1.0) mg/dL Direct Bilirubin 0.2 (0.0-0.5) mg/dL AST 39 H (5-37) U/L ALT 34 (0-40) U/L Alkaline Phosphatase 236 H D (39-117) U/L Albumin 2.8 L (3.5-5.0) g/dL
[2020-01-02] MEDS: HaloperidoL 5 MG TABLET PO (17:45)
[2020-01-02 18:06] LABS: Glucose Urine UA NEG (NEG); Leukocyte Esterase Urine NEG (NEG); Nitrite Urine NEG (NEG); Urine Blood NEG (NEG); Urine Ketones NEG (NEG); Urine Protein NEG (NEG-TRACE)
[2020-01-02 18:09] LABS: Appearance Urine CLEAR; Color Urine YELLOW
[2020-01-02] MEDS: Mirtazapine 15 MG TABLET PO (20:51)
[2020-01-03] MEDS: Heparin Sodium,Porcine 5,000 UNIT/ML VIAL 5000 UNIT SUBCUT ×3 (01:57→17:52)
[2020-01-03 03:44] VITALS: BP 139/73; PULSE 79; RESP 20; TEMP 36.7; O2SAT 96
[2020-01-03 07:21] VITALS: BP 101/49; PULSE 72; RESP 17; TEMP 36.7; O2SAT 92
[2020-01-03] MEDS: cefTRIAXone sodium 1 GM in 0.9 % Sodium Chloride 50 ML IV ×2 (07:33→20:31)
[2020-01-03] MEDS: 0.9 % Sodium Chloride Flush 3 ML SYRINGE IVFLUSH ×3 (07:36→22:58)
[2020-01-03 10:25] LABS: MANUAL DIFF FLAG NO
[2020-01-03 10:36] LABS: Basophils Absolute Auto 0.1 X10*3/uL (0.0-0.2); Basophils Percent Auto 0.4 % (0-2); Eosinophils Absolute Auto 0.3 X10*3/uL (0.0-0.4); Hematocrit 30.2 % (42-52); Hemoglobin 9.2 g/dl (14.0-18.0); Imm Gran Abs Auto 0.54 X10*3/uL (0.00-0.03); Lymphocytes Absolute Auto 2.7 X10*3/uL (1.2-4.9); Lymphocytes Percent Auto 19.8 % (20-40); Mean Corpuscular HGB Conc 30.5 g/dl (31.0-36.0); Mean Corpuscular Hemoglobin 25.8 pg (27.0-33.0); Mean Corpuscular Volume 84.6 fL (80-98); Mean Platelet Volume 9.2 fL (9.4-12.4); Monocytes Absolute Auto 0.7 X10*3/uL (0.1-1.2); Monocytes Percent Auto 5.1 % (2-11); Neutrophils Absolute Auto 9.4 X10*3/uL (2.0-8.3); Neutrophils Percent Auto 68.7 % (45-73); Platelet Count 552 X10*3/uL (160-400); Red Blood Count 3.57 X10*6/uL (4.60-5.80); Red Cell Distribution Width 13.7 % (11.0-16.0); White Blood Count 13.7 X10*3/uL (4.8-10.8)
[2020-01-03] MEDS: risperiDONE 1 MG TABLET PO ×2 (10:56→22:57)
[2020-01-03 11:27] LABS: Anion Gap 10 (12-20); Blood Urea Nitrogen 8 mg/dL (9-16); Carbon Dioxide 30 mmol/L (22-29); Chloride 101 mmol/L (96-108); Creatinine Clr Calc Pharmacy 231.1; Estimated Glomerular Filt Rate > 60; Glucose Random 107 mg/dL (60-115); Potassium 4.4 mmol/l (3.3-5.1); Sodium 137 mmol/L (135-145)
[2020-01-03 11:31] VITALS: BP 117/58; PULSE 78; RESP 19; TEMP 36.7; O2SAT 95
[2020-01-03] MEDS: HaloperidoL 5 MG TABLET PO ×2 (11:54→18:07)
--- NOTE | 2020-01-03 12:37 | MHC.CM.PN ---
Met with patient. Continues to have pain. Per MD, awaiting Blood culture results. no growth after 24 hours. Treatment now for recurrent UTI. IV antibiotics presently. On methadone. If d/c home, transportation provided by Vickie(mother). 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 Will continue to monitor for D/C needs.
--- NOTE | 2020-01-03 13:05 | HO.PM.IMPN ---
Subjective Subjective Date of Service: 01/03/20 Interval History: patient seen and examined at bedside patient reported generalized pain Constitutional Constitutional: Reports weakness Cardiovascular Cardiovascular: Denies dyspnea Respiratory Respiratory: Denies dyspnea Gastrointestinal Gastrointestinal: Denies vomiting Neurologic Neurologic: Reports weakness Physical Exam Vital Signs: Vital Signs: Last Vital Signs Temp 97.7 F 01/02/20 11:27 Pulse 86 01/02/20 11:27 Resp 18 01/02/20 11:27 BP 110/65 01/02/20 11:27 Pulse Ox 97 01/02/20 11:27 Body Mass Index 39.9 Const: Other: Last Vital Signs Temp 97.7 F 01/02/20 11:27 Pulse 86 01/02/20 11:27 Resp 18 01/02/20 11:27 BP 110/65 01/02/20 11:27 Pulse Ox 97 01/02/20 11:27 Body Mass Index 39.9 General: comfortable and no acute distress Orientation/consciousness: patient oriented x3 HENMT: Head: Yes normal to inspection Eyes: General: appearance normal, both eyes and all related structures Neck: Neck: Yes normal visual inspection Chest: Chest palpation & inspection: normal inspection of the chest Resp: Effort & Inspection: normal respiratory effort Cardio: Other: Last Vital Signs Temp 97.7 F 01/02/20 11:27 Pulse 86 01/02/20 11:27 Resp 18 01/02/20 11:27 BP 110/65 01/02/20 11:27 Pulse Ox 97 01/02/20 11:27 Body Mass Index 39.9 Jugular venous distension: no JVD Rate: regular rate Rhythm: regular rhythm Heart sounds: S1 normal heart sound present and S2 normal heart sound present GI: Inspection: Yes normal to inspection Neuro: General: patient oriented x3 and other (sedated ) Extrem: Right lower extremity: edema Objective Data Current Medications Generic Name Dose Route Start Last Admin Trade Name Freq PRN Reason Stop Dose Admin Al Hydroxide/Mg Hydroxide 30 ml 01/02/20 09:28 Magnesium Hydrox/Alum Hydrox 30 Ml Oral.Susp PO Q6H PRN Heartburn/Nausea Benztropine Mesylate 1 mg 01/01/20 23:53 Benztropine Mesylate 1 Mg Tablet PO BID PRN EPS Haloperidol 5 mg 01/02/20 09:28 01/03/20 11:54 Haloperidol 5 Mg Tablet PO 5 mg Q4H PRN Administration Psychosis Heparin Sodium (Porcine) 5,000 unit 01/02/20 02:00 01/03/20 10:56 Heparin Sodium,Porcine 5,000 Unit/Ml Vial SUBCUT 5,000 unit Q8H NICK Administration Hydroxyzine HCl 25 mg 01/02/20 09:28 Hydroxyzine Hcl 25 Mg Tablet PO BEDTIME PRN Anxiety Ceftriaxone Sodium 1 gm/ 50 mls @ 100 mls/hr 01/02/20 08:00 01/03/20 08:33 Sodium Chloride IV Infused Q12H NICK Infusion Magnesium Hydroxide 30 ml 01/02/20 09:28 Milk Of Magnesia 30 Ml Oral.Susp PO DAILY PRN Constipation Methadone HCl 100 mg 01/02/20 09:45 01/03/20 08:43 Methadone Hcl 1 Mg/0.1 Ml Oral.Conc PO 100 mg DAILY NICK Administration Mirtazapine 15 mg 01/02/20 21:00 01/02/20 20:51 Mirtazapine 15 Mg Tablet PO 15 mg BEDTIME NICK Administration Nicotine 21 mg 01/02/20 09:00 01/03/20 08:44 Nicotine 21 Mg Patch.Td24 TRANSDERMA Not Given DAILY NICK Nicotine Polacrilex 4 mg 01/01/20 23:53 Nicotine Polacrilex 4 Mg Lozenge BUCCAL Q2H PRN Nicotine Cravings Oxybutynin Chloride 15 mg 01/02/20 09:00 01/03/20 08:43 Oxybutynin Chloride Er 5 Mg Tab.Er.24 PO 15 mg DAILY NICK Administration Risperidone 1 mg 01/01/20 23:45 01/03/20 10:56 Risperidone 1 Mg Tablet PO 1 mg Q12H NICK Administration Sodium Chloride 3 ml 01/02/20 08:00 01/03/20 07:36 0.9 % Sodium Chloride Flush 3 Ml Syringe IVFLUSH 3 ml QSHIFT NICK Administration Trazodone HCl 50 mg 01/01/20 23:53 Trazodone Hcl 50 Mg Tablet PO BEDTIME PRN Insomnia Labs CBC & Chem 7: 01/03/20 08:58 01/03/20 08:58 Microbiology Microbiology Results: Microbiology 01/01/20 20:02 Blood - Venous Blood Culture - Preliminary No growth after 24 hours. 01/01/20 20:02 Blood - Venous Blood Culture - Preliminary No growth after 24 hours. Assessment and Plan (1) Sepsis: Status: Acute (2) UTI (urinary tract infection): Problem details: He has Klebsiella,resistant to only Ampicillin He has no further fevers Paraplegia and chronic Fam risk Status: Acute (3) Erectile dysfunction due to arterial insufficiency: Status: Acute (4) Neurogenic urinary bladder disorder: Status: Acute (5) PTSD (post-traumatic stress disorder): Status: Acute (6) Hyponatremia: Status: Acute Assessment and Plan: Sepsis secondary to UTI neurogenic bladder with chronic folic catheter cellulitis less likely continue with Rocephin follow-up blood culture and urine culture continue with oxybutynin hyponatremia improving likely secondary to SIADH given symptoms of nausea/vomiting monitor sodium PTSD continue Haldol and benztropine, continue mirtazapine chronic opiate dependence continue methadone DVT prophylaxis heparin subcu
[2020-01-03 15:36] VITALS: BP 100/54; PULSE 75; RESP 18; TEMP 36.7; O2SAT 94
[2020-01-03] MEDS: Benztropine Mesylate 1 MG TABLET PO (18:07)
[2020-01-03 19:20] VITALS: BP 109/58; PULSE 78; RESP 20; TEMP 36.9; O2SAT 94
[2020-01-03] MEDS: Mirtazapine 15 MG TABLET PO (20:31)
[2020-01-03 23:15] VITALS: PULSE 80; TEMP 36.2
[2020-01-04] MEDS: Heparin Sodium,Porcine 5,000 UNIT/ML VIAL 5000 UNIT SUBCUT ×2 (02:31→09:21)
[2020-01-04 03:52] VITALS: BP 129/59; PULSE 73; RESP 19; TEMP 36.5; O2SAT 97
[2020-01-04 07:02] VITALS: BP 106/57; PULSE 72; RESP 18; TEMP 36.5; O2SAT 94
[2020-01-04] MEDS: cefTRIAXone sodium 1 GM in 0.9 % Sodium Chloride 50 ML IV (07:18)
[2020-01-04] MEDS: 0.9 % Sodium Chloride Flush 3 ML SYRINGE IVFLUSH (07:19)
[2020-01-04] MEDS: HaloperidoL 5 MG TABLET PO (10:26)
[2020-01-04] MEDS: risperiDONE 1 MG TABLET PO (10:26)
[2020-01-04 11:13] VITALS: BP 116/55; PULSE 72; RESP 18; TEMP 36.8; O2SAT 94
--- NOTE | 2020-01-04 11:33 | P.DS_ITS ---
DS: Providers Provider Date of admission: 01/02/20 00:17 Primary care physician: Unknown Physician Consults: 01/02/20 01:21 Consult to Infectious Diseases Routine Consulting Provider: Infectious Disease Reason for consultation: sepsis Has provider been notified: No DS: Diagnosis Discharge Diagnosis (1) Sepsis: Status: Acute (2) UTI (urinary tract infection): Status: Acute Problem details: He has Klebsiella,resistant to only Ampicillin He has no further fevers Paraplegia and chronic Fam risk (3) Erectile dysfunction due to arterial insufficiency: Status: Acute (4) Neurogenic urinary bladder disorder: Status: Acute (5) PTSD (post-traumatic stress disorder): Status: Acute (6) Hyponatremia: Status: Acute DS: Medications Discharge Medications Home Medications: Home Medications Medication Instructions Recorded Confirmed tadalafil 1 tab PO DAILY 01/01/20 01/01/20 Previous Rx's Medication Instructions Recorded MAG-AL 30 ml PO Q6H PRN #1 ml 12/23/19 benztropine 1 mg PO BID PRN #1 tab 12/23/19 haloperidol 5 mg PO Q4H PRN #1 tab 12/23/19 hydroxyzine HCl 25 mg PO BEDTIME PRN #1 tab 12/23/19 magnesium hydroxide [Milk of 30 ml PO DAILY PRN #1 ml 12/23/19 Magnesia] methadone [Methadose] 100 mg PO DAILY #1 ml 12/23/19 mirtazapine 1 tab PO BEDTIME #1 tab 12/23/19 nicotine 21 mg TRANSDERMAL DAILY #1 ea 12/23/19 nicotine (polacrilex) 4 mg BUCCAL Q2H PRN #1 ea 12/23/19 oxybutynin chloride 15 mg PO DAILY #1 tab 12/23/19 risperidone 1 tab PO Q12H #1 tab 12/23/19 trazodone 50 mg PO BEDTIME PRN #1 tab 12/23/19 cefuroxime axetil 500 mg PO BID #10 tab 12/26/19 DS: Summary Hospital Course Hospital Course: 34-year-old male with paraplegia, and self-catheterize at home admitted with sepsis with possible UTI and question of cellulitis, patient has right lower extremity swelling, DVT study was negative, cellulitis was less likely, patient was started on Rocephin for UTI, sepsis resolved, blood culture were negative, patient was stable discharged home on p.o. Ceftin Time Spent with Patient Time attestation: Total time spent providing and/or coordinating discharge services: Physical Exam Vital Signs: Vital Signs: Last Vital Signs Temp 98.2 F 01/04/20 11:13 Pulse 72 01/04/20 11:13 Resp 18 01/04/20 11:13 BP 116/55 L 01/04/20 11:13 Pulse Ox 94 01/04/20 11:13 Body Mass Index 39.9 Const: Other: Last Vital Signs Temp 98.2 F 01/04/20 11:13 Pulse 72 01/04/20 11:13 Resp 18 01/04/20 11:13 BP 116/55 L 01/04/20 11:13 Pulse Ox 94 01/04/20 11:13 Body Mass Index 39.9 General: comfortable and no acute distress Orientation/consciousness: patient oriented x3 HENMT: Head: Yes normal to inspection Eyes: General: appearance normal, both eyes and all related structures Neck: Neck: Yes normal visual inspection Chest: Chest palpation & inspection: normal inspection of the chest Resp: Effort & Inspection: normal respiratory effort Cardio: Other: Last Vital Signs Temp 98.2 F 01/04/20 11:13 Pulse 72 01/04/20 11:13 Resp 18 01/04/20 11:13 BP 116/55 L 01/04/20 11:13 Pulse Ox 94 01/04/20 11:13 Body Mass Index 39.9 Jugular venous distension: no JVD Rate: regular rate Rhythm: regular rhythm Heart sounds: S1 normal heart sound present and S2 normal heart sound present GI: Inspection: Yes normal to inspection Neuro: General: patient oriented x3 and other (sedated ) Extrem: Right lower extremity: edema DS: Data Data Completed and Pending Labs on day of discharge: 01/01/20 19:09 Doxycycline Hyclate [Vibramycin] 100 mg 0.9 % Sodium Chloride [Ns] 250 ml IV ONCE cefTRIAXone sodium [Rocephin] 1 gm 0.9 % Sodium Chloride [Ns] 50 ml IV ONCE 01/01/20 19:13 US venous duplex LE RT Stat 01/01/20 19:15 0.9 % Sodium Chloride [Ns] 1,000 ml IVCONT 999 mls/hr 01/01/20 20:02 Basic Metabolic Panel Stat Complete Blood Count Auto Diff Stat Lactic Acid Stat Liver Panel Stat 01/01/20 20:09 cefTRIAXone sodium [Rocephin] 1 gm .ROUTE .STK-MED ONE 01/01/20 20:13 HYDROmorphone HCl [Dilaudid] 2 mg IVPUSH ONCE ONE LORazepam [Ativan] 2 mg IVPUSH ONCE ONE 01/01/20 20:16 LORazepam [Ativan] 2 mg .ROUTE .STK-MED ONE 01/01/20 20:26 Doxycycline Hyclate [Vibramycin] 100 mg IV .STK-MED ONE 01/01/20 21:59 COVID-19 ID NOW (Galye) Stat 01/02/20 00:13 Transfer Order Routine 01/02/20 06:41 Basic Metabolic Panel Routine Complete Blood Count Auto Diff Routine 01/02/20 07:27 cefTRIAXone sodium [Rocephin] 1 gm .ROUTE .STK-[facility] ONE 01/02/20 Breakfast Low Sodium Diet 01/02/20 17:50 UA CC w/rflx Micro + Cult Stat 01/02/20 20:47 cefTRIAXone sodium [Rocephin] 1 gm .ROUTE .STK-MED ONE 01/03/20 07:31 cefTRIAXone sodium [Rocephin] 1 gm .ROUTE .STK-[facility] ONE 01/03/20 08:58 Basic Metabolic Panel Routine Complete Blood Count Auto Diff Routine 01/03/20 13:42 Add Laboratory Test Routine 01/03/20 20:28 cefTRIAXone sodium [Rocephin] 1 gm .ROUTE .STK-MED ONE 01/04/20 07:12 cefTRIAXone sodium [Rocephin] 1 gm .ROUTE .[facility] ONE Laboratory Last Values WBC 13.7 X10*3/uL (4.8-10.8) H 01/03/20 08:58 RBC 3.57 X10*6/uL (4.60-5.80) L 01/03/20 08:58 Hgb 9.2 g/dl (14.0-18.0) L 01/03/20 08:58 Hct 30.2 % (42-52) L 01/03/20 08:58 MCV 84.6 fL (80-98) 01/03/20 08:58 MCH 25.8 pg (27.0-33.0) L 01/03/20 08:58 MCHC 30.5 g/dl (31.0-36.0) L 01/03/20 08:58 RDW 13.7 % (11.0-16.0) 01/03/20 08:58 Plt Count 552 X10*3/uL (160-400) H 01/03/20 08:58 MPV 9.2 fL (9.4-12.4) L 01/03/20 08:58 Immature Gran % (Auto) 4.0 % (0.0-0.4) H 01/03/20 08:58 Neut % (Auto) 68.7 % (45-73) 01/03/20 08:58 Lymph % (Auto) 19.8 % (20-40) L 01/03/20 08:58 [place] % (Auto) 5.1 % (2-11) 01/03/20 08:58 Eos % (Auto) 2.0 % (0-4) 01/03/20 08:58 Baso % (Auto) 0.4 % (0-2) 01/03/20 08:58 Lymph # (Auto) 2.7 X10*3/uL (1.2-4.9) 01/03/20 08:58 [place] # (Auto) 0.7 X10*3/uL (0.1-1.2) 01/03/20 08:58 Eos # (Auto) 0.3 X10*3/uL (0.0-0.4) 01/03/20 08:58 Baso # (Auto) 0.1 X10*3/uL (0.0-0.2) 01/03/20 08:58 Abs Immat Gran (auto) 0.54 X10*3/uL (0.00-0.03) H 01/03/20 08:58 Absolute Neuts (auto) 9.4 X10*3/uL (2.0-8.3) H 01/03/20 08:58 Absolute Nucleated RBC 0.000 X10*3/uL (0.0-0.012) 01/03/20 08:58 Nucleated RBC % (auto) 0.0 /100WBC (0.0-0.2) 01/03/20 08:58 Sodium 137 mmol/L (135-145) 01/03/20 08:58 Potassium 4.4 mmol/l (3.3-5.1) 01/03/20 08:58 Chloride 101 mmol/L (96-108) 01/03/20 08:58 Carbon Dioxide 30 mmol/L (22-29) H 01/03/20 08:58 Anion Gap 10 (12-20) L 01/03/20 08:58 BUN 8 mg/dL (9-16) L 01/03/20 08:58 Creatinine 0.56 mg/dL (0.5-1.4) 01/03/20 08:58 Estim Creat Clear Calc 231.1 01/03/20 08:58 Estimated GFR > 60 01/03/20 08:58 Random Glucose 107 mg/dL (60-115) 01/03/20 08:58 Lactic Acid 1.5 mmol/L (0.5-2.0) 01/01/20 20:02 Calcium 8.0 mg/dL (8.4-10.2) L D 01/03/20 08:58 Total Bilirubin 0.4 mg/dL (0.0-1.0) 01/01/20 20:02 Direct Bilirubin 0.2 mg/dL (0.0-0.5) 01/01/20 20:02 AST 39 U/L (5-37) H 01/01/20 20:02 ALT 34 U/L (0-40) 01/01/20 20:02 Alkaline Phosphatase 236 U/L (39-117) H D 01/01/20 20:02 Total Protein 6.9 g/dL (6.5-8.0) 01/01/20 20:02 Albumin 2.8 g/dL (3.5-5.0) L 01/01/20 20:02 Urine Color YELLOW 01/02/20 17:50 Urine Appearance CLEAR 01/02/20 17:50 Urine pH 7.0 (5.0-8.0) 01/02/20 17:50 Ur Specific Clubb 1.010 (1.005-1.025) 01/02/20 17:50 Urine Protein NEG MG/DL (NEG-TRACE) 01/02/20 17:50 Urine Glucose (UA) NEG MG/DL (NEG) 01/02/20 17:50 Urine Ketones NEG MG/DL (NEG) 01/02/20 17:50 Urine Blood NEG (NEG) 01/02/20 17:50 Urine Nitrite NEG (NEG) 01/02/20 17:50 Ur Leukocyte Esterase NEG (NEG) 01/02/20 17:50 COVID-19 (KIERA) Negative (Negative) 01/01/20 21:59 COVID-19 Clin Com See Note 01/01/20 21:59 Preliminary micro results at discharge 01/01/20 20:02 Blood Culture - Preliminary Blood - Venous No growth after 48 hours. 01/01/20 20:02 Blood Culture - Preliminary Blood - Venous No growth after 48 hours. Discharge Plan Discharge Anticipated Discharge Date/Time: 01/04/20 11:28 Patient Disposition: Home, Self-Care Referrals: Antony Faria MD [Physician] - 1 Day (Please follow up with your primary care doctor. Call for an appointment) Physician,Deborah [Primary Care Provider] - 1 Week (Please call your insurance and list a Primary Care Provider. Once you do that you can then call the office and schedule a follow up appointment.) Discharge Medications: Continued haloperidol 5 mg Tablet 5 mg PO Q4H PRN (Reason: Psychosis) Qty: 1 RF: 0 trazodone 50 mg Tablet 50 mg PO BEDTIME PRN (Reason: Insomnia) Qty: 1 RF: 0 magnesium hydroxide [Milk of Magnesia] 400 mg/5 mL Suspension 30 ml PO DAILY PRN (Reason: Constipation) Qty: 1 RF: 0 nicotine 21 mg/24 hr Patch 24 Hour 21 mg transdermal DAILY Qty: 1 RF: 0 oxybutynin chloride 5 mg Tablet Extended Release 24hr 15 mg PO DAILY Qty: 1 RF: 0 hydroxyzine HCl 25 mg Tablet 25 mg PO BEDTIME PRN (Reason: Anxiety) Qty: 1 RF: 0 methadone [Methadose] 10 mg/mL Concentrate 100 mg PO DAILY Qty: 1 RF: 0 MAG-AL 200-200 mg/5 mL Suspension 30 ml PO Q6H PRN (Reason: Heartburn/Nausea) Qty: 1 RF: 0 benztropine 1 mg tablet 1 mg PO BID PRN (Reason: EPS) Qty: 1 RF: 0 mirtazapine 15 mg tablet 1 tab PO BEDTIME Qty: 1 RF: 0 risperidone 1 mg tablet 1 tab PO Q12H Qty: 1 RF: 0 nicotine (polacrilex) 4 mg Mini Lozenge 4 mg buccal Q2H PRN (Reason: Nicotine Cravings) Qty: 1 RF: 0 tadalafil 5 mg tablet 1 tab PO DAILY RF: 0 cefuroxime axetil 250 mg tablet 500 mg PO BID Qty: 10 RF: 0 Discharge Orders: Discharge Order (Routine); Ordered 01/04/20 Ordered By: Hieu Alvarez Diet: advance to usual diet Activity on Discharge: As tolerated Discharge Date/Time: 01/04/20 15:34 Visit Report Forms: Patient Portal Discharge page Care Plan Goals: treat uti Health Concerns: recurrent infection Plan of Treatment: p.o. antibiotic
--- NOTE | 2020-01-04 12:07 | MHC.CM.PN ---
Met with patient. To be D/C today. Unsure of time. Pt states he will need transportation home, as his mother is working. Pt takes methadone daily at clinic. Aware to keep [facility] ID band and bring to clinic with D/C paperwork. RN aware of D/C order. Will arrange transportation. Will continue to follow for D/C needs.
--- NOTE | 2020-01-04 14:53 | MHC.CM.PN ---
Pt D/C. to home. 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 [facility] will transport to home at 1530
--- NOTE | 2020-01-04 15:35 | MHC.CM.PN ---
Pt d/c home with [facility]. To continue with Joel SPEARER, Methadone maintenance, and primary care.
== END 2020-01-04 15:34 | disposition home or self-care (01) | DRG 872 ==
LOC: HO.ED 22:35 → HO.S3 01-02 00:44
PROVIDERS: Admitting Provider Internal Medicine; Emergency Provider Internal Medicine; Visit Provider Internal Medicine
DX: A41.9 Sepsis, unspecified organism (principal); G82.20 Paraplegia, unspecified; L03.115 Cellulitis of right lower limb; E22.2 Syndrome of inappropriate secretion of antidiuretic hormone; K21.9 Gastro-esophageal reflux disease without esophagitis; F43.10 Post-traumatic stress disorder, unspecified; F17.210 Nicotine dependence, cigarettes, uncomplicated; Z71.6 Tobacco abuse counseling; Z87.440 Personal history of urinary (tract) infections; N52.01 Erectile dysfunction due to arterial insufficiency; N31.9 Neuromuscular dysfunction of bladder, unspecified; Z79.899 Other long term (current) drug therapy
CPT/HCPCS: 36415; 80048; 80076; 81003; 83605; 85025; 87040; 87086; 87635; 93971; 96365; 96367; 96375; 99285; J0696; J1170; J2060

== ENCOUNTER 2020-01-18 17:04 | Emergency (ER) | payer OTHER, SELFPAY ==
[2020-01-18] VITALS (8 sets, daily range): BP systolic 109–138; BP diastolic 61–79; PULSE 80–98; RESP 14–22; TEMP 36.6; O2SAT 93–100; BMI 39.5
--- NOTE | 2020-01-18 17:33 | ED.PSYCH ---
HPI - Psych General Chief Complaint: Psychiatric Symptoms Stated Complaint: crisis Time Seen by Provider: 01/18/20 17:14 Source: patient and EMS Mode of arrival: EMS History of Present Illness HPI Narrative: Patient is a 34-year-old male with several visits for this facility for SI, substance abuse and recently had a cellulitis for which he was admitted for IV abx, he has a past medical history of hepatitis-C, paraplegia, PTSD, recurrent UTIs and ED. he has been speaking with crisis throughout the week and today, during one of his phone calls he expressed suicidal ideations to crisis, they called 911 and he was brought to this emergency department. He states today is the anniversary of his son's , he has been smoking PCP all day, he wants to kill himself and is very anxious. He states he also has chronic back pain which is currently very painful. Related Data Home Medications Medication Instructions Recorded Confirmed tadalafil 1 tab PO DAILY 01/01/20 01/01/20 Previous Rx's Medication Instructions Recorded MAG-AL 30 ml PO Q6H PRN #1 ml 12/23/19 benztropine 1 mg PO BID PRN #1 tab 12/23/19 haloperidol 5 mg PO Q4H PRN #1 tab 12/23/19 hydroxyzine HCl 25 mg PO BEDTIME PRN #1 tab 12/23/19 magnesium hydroxide [Milk of 30 ml PO DAILY PRN #1 ml 12/23/19 Magnesia] methadone [Methadose] 100 mg PO DAILY #1 ml 12/23/19 mirtazapine 1 tab PO BEDTIME #1 tab 12/23/19 nicotine 21 mg TRANSDERMAL DAILY #1 ea 12/23/19 nicotine (polacrilex) 4 mg BUCCAL Q2H PRN #1 ea 12/23/19 oxybutynin chloride 15 mg PO DAILY #1 tab 12/23/19 risperidone 1 tab PO Q12H #1 tab 12/23/19 trazodone 50 mg PO BEDTIME PRN #1 tab 12/23/19 cefuroxime axetil 500 mg PO BID #10 tab 01/04/20 Allergies Allergy/AdvReac Type Severity Reaction Status Date / Time codeine Allergy Unknown Unknown Verified 11/28/19 15:23 piperacillin [From ZOSYN] Allergy Unknown DIFFICULTY Verified 10/13/20 15:23 BREATHING tazobactam [From ZOSYN] Allergy Unknown DIFFICULTY Verified 11/28/19 15:23 BREATHING tramadol Allergy Unknown nausea and Verified 11/28/19 15:23 vomiting vancomycin [VANCOMYCIN] Allergy Unknown DIFFICULTY Verified 11/28/19 15:23 BREATHING, anaphylaxis Review of Systems Review of Systems: see [facility] Past Medical History Medical History Asthma Cellulitis Eczema Erectile dysfunction due to arterial insufficiency PTSD (post-traumatic stress disorder) Recurrent UTI Ulcerative colitis Social History Social History Household Members: Unknown / Unable to assess Housing: Unknown / Unable to assess Alcohol intake: never Smoking Status: Never smoker Tobacco Type: Cigarette Packs Per Day: 1 Cigarettes Per Day: 20.0 Years Smoked: 20 Second Hand Smoke Exposure: Yes Use of substances other than those prescribed or required for medical reasons: Yes Substance Use Type: [employer] Drugs Substance Use Frequency: Recent Binge Last Used Substance: Just Prior to Admission Advance Directives: No Advance Directives Information Provided: No service: No Current occupational status: disabled Sexual orientation: Client not available to respond at this time Physical Exam Vital Signs: Vital Signs: Last Vital Signs Temp 97.9 F 01/18/20 21:30 Pulse 87 01/18/20 21:30 Resp 14 01/18/20 21:30 BP 109/61 01/18/20 21:30 Pulse Ox 93 01/18/20 21:30 Body Mass Index 39.5 Const: General: cooperative, healthy appearing, comfortable, no acute distress and well developed Orientation/consciousness: patient oriented x3 Limitations: no limitations HENMT: Head: Yes normal to inspection, Yes normocephalic and Yes atraumatic Eyes: General: appearance normal, both eyes and all related structures Neck: Neck: Yes normal visual inspection, Yes full ROM and Yes supple Resp: Effort & Inspection: normal respiratory effort and able to speak in complete sentences Auscultation: clear to auscultation bilaterally Cardio: Rate: regular rate Rhythm: regular rhythm Heart sounds: normal S1 and S2 GI: Inspection: Yes normal to inspection Palpation (GI): Soft to palpation and nontender : General: Yes no CVA tenderness Back/Spine/Pelvis: Back: no CVA tenderness Skin: Other: RLE multiple healing wounds near lateral knee, RLE swollen,1+ pitting edema Neuro: General: patient oriented x3 Extrem: General: Yes normal to inspection Psych: Other: Upon my 1st exam, patient was, yet visibly anxious. 15 mins later, he became belligerent, was throwing stuff, became verbally abusive towards staff. Affect: Anxious affect present and Irritable affect present Course Course Course Narrative: 34-year-old male past medical history SI, PTSD, paraplegia, hepatitis-C, ED and recurrent UTIs presents with suicidal ideation as per conversations with crisis and his conversation with me in the ED. Consult to crisis placed. IM ativan given, 4 point restraints applied. Of note, pt had US of RLE on 12/31 and it was negative for DVT, extremity is still swollen (seems to be the same as on 12/31 according to the HPI notes) but HR is 89, pt denies sob and his O2 sat is 100%. 6:40pm, one hour re-evluation, pt currently calm, complaining of back pain, [facility] [place] pt, they advised to refer to Crisis for SI. Pt is agreeable to lab work. 9:40pm all labs WNL sans WBC still slightly elevated. Waiting on patient to provide Urine sample to medically clear him, crisis will evaluate him in the morning, pt is sleeping soundly now. 01/20/2020 2am signed pt out to Dr Lamb [facility] - Psych Restraints Face to Face Assessment: Face to Face Assessment: Current Situation: After assessment of the patient, a review of the pertinent medical record and a discussion with nursing staff, I feel the patient requires a restrain intervention. Reaction To: [] Medical Condition: [] Behavioral State: [] Continued Need: [] Lab Data Result diagrams: 01/18/20 19:20 01/18/20 19:20 Labs: Lab Results 01/18/20 01/18/20 01/18/20 Range/Units 19:20 19:20 19:20 WBC 12.7 H (4.8-10.8) X10*3/uL RBC 4.03 L (4.60-5.80) X10*6/uL Hgb 10.2 L (14.0-18.0) g/dl Hct 33.7 L (42-52) % MCV 83.6 (80-98) fL MCH 25.3 L (27.0-33.0) pg MCHC 30.3 L (31.0-36.0) g/dl RDW 15.3 (11.0-16.0) % Plt Count 343 D (160-400) X10*3/uL MPV 10.6 (9.4-12.4) fL Immature Gran % (Auto) 0.5 H (0.0-0.4) % Neut % (Auto) 65.8 (45-73) % Lymph % (Auto) 23.7 (20-40) % [place] % (Auto) 7.1 (2-11) % Eos % (Auto) 2.4 (0-4) % Baso % (Auto) 0.5 (0-2) % Lymph # (Auto) 3.0 (1.2-4.9) X10*3/uL [place] # (Auto) 0.9 (0.1-1.2) X10*3/uL Eos # (Auto) 0.3 (0.0-0.4) X10*3/uL Baso # (Auto) 0.1 (0.0-0.2) X10*3/uL Abs Immat Gran (auto) 0.07 H (0.00-0.03) X10*3/uL Absolute Neuts (auto) 8.4 H (2.0-8.3) X10*3/uL Absolute Nucleated RBC 0.000 (0.0-0.012) X10*3/uL Nucleated RBC % (auto) 0.0 (0.0-0.2) /100WBC Sodium (135-145) mmol/L Potassium (3.3-5.1) mmol/l Chloride (96-108) mmol/L Carbon Dioxide (22-29) mmol/L Anion Gap (12-20) BUN (9-16) mg/dL Creatinine (0.5-1.4) mg/dL Estim Creat Clear Calc Estimated GFR Random Glucose (60-115) mg/dL Calcium (8.4-10.2) mg/dL Salicylates < 5.0 L (15-30) mg/dL Acetaminophen < 1 (<30) mcg/mL Ethyl Alcohol < 10 mg/dL 01/18/20 Range/Units 19:20 WBC (4.8-10.8) X10*3/uL RBC (4.60-5.80) X10*6/uL Hgb (14.0-18.0) g/dl Hct (42-52) % MCV (80-98) fL MCH (27.0-33.0) pg MCHC (31.0-36.0) g/dl RDW (11.0-16.0) % Plt Count (160-400) X10*3/uL MPV (9.4-12.4) fL Immature Gran % (Auto) (0.0-0.4) % Neut % (Auto) (45-73) % Lymph % (Auto) (20-40) % [place] % (Auto) (2-11) % Eos % (Auto) (0-4) % Baso % (Auto) (0-2) % Lymph # (Auto) (1.2-4.9) X10*3/uL [place] # (Auto) (0.1-1.2) X10*3/uL Eos # (Auto) (0.0-0.4) X10*3/uL Baso # (Auto) (0.0-0.2) X10*3/uL Abs Immat Gran (auto) (0.00-0.03) X10*3/uL Absolute Neuts (auto) (2.0-8.3) X10*3/uL Absolute Nucleated RBC (0.0-0.012) X10*3/uL Nucleated RBC % (auto) (0.0-0.2) /100WBC Sodium 135 (135-145) mmol/L Potassium 3.9 (3.3-5.1) mmol/l Chloride 99 (96-108) mmol/L Carbon Dioxide 28 (22-29) mmol/L Anion Gap 12 (12-20) BUN 11 (9-16) mg/dL Creatinine 0.61 (0.5-1.4) mg/dL Estim Creat Clear Calc 210.9 Estimated GFR > 60 Random Glucose 74 (60-115) mg/dL Calcium 8.9 D (8.4-10.2) mg/dL Salicylates (15-30) mg/dL Acetaminophen (<30) mcg/mL Ethyl Alcohol mg/dL Discharge Plan Discharge Prescriptions: No Action haloperidol 5 mg Tablet 5 mg PO Q4H PRN (Reason: Psychosis) Qty: 1 RF: 0 trazodone 50 mg Tablet 50 mg PO BEDTIME PRN (Reason: Insomnia) Qty: 1 RF: 0 magnesium hydroxide [Milk of Magnesia] 400 mg/5 mL Suspension 30 ml PO DAILY PRN (Reason: Constipation) Qty: 1 RF: 0 nicotine 21 mg/24 hr Patch 24 Hour 21 mg transdermal DAILY Qty: 1 RF: 0 oxybutynin chloride 5 mg Tablet Extended Release 24hr 15 mg PO DAILY Qty: 1 RF: 0 hydroxyzine HCl 25 mg Tablet 25 mg PO BEDTIME PRN (Reason: Anxiety) Qty: 1 RF: 0 methadone [Methadose] 10 mg/mL Concentrate 100 mg PO DAILY Qty: 1 RF: 0 MAG-AL 200-200 mg/5 mL Suspension 30 ml PO Q6H PRN (Reason: Heartburn/Nausea) Qty: 1 RF: 0 benztropine 1 mg tablet 1 mg PO BID PRN (Reason: EPS) Qty: 1 RF: 0 mirtazapine 15 mg tablet 1 tab PO BEDTIME Qty: 1 RF: 0 risperidone 1 mg tablet 1 tab PO Q12H Qty: 1 RF: 0 nicotine (polacrilex) 4 mg Mini Lozenge 4 mg buccal Q2H PRN (Reason: Nicotine Cravings) Qty: 1 RF: 0 tadalafil 5 mg tablet 1 tab PO DAILY RF: 0 cefuroxime axetil 250 mg tablet 500 mg PO BID Qty: 10 RF: 0
[2020-01-18] MEDS: LORazepam 2 MG/ML VIAL IM (17:45)
[2020-01-18 19:25] LABS: MANUAL DIFF FLAG NO
[2020-01-18 19:29] LABS: Basophils Absolute Auto 0.1 X10*3/uL (0.0-0.2); Basophils Percent Auto 0.5 % (0-2); Eosinophils Absolute Auto 0.3 X10*3/uL (0.0-0.4); Eosinophils Percent Auto 2.4 % (0-4); Hematocrit 33.7 % (42-52); Hemoglobin 10.2 g/dl (14.0-18.0); Imm Gran Abs Auto 0.07 X10*3/uL (0.00-0.03); Imm Gran Pct Auto 0.5 % (0.0-0.4); Lymphocytes Percent Auto 23.7 % (20-40); Mean Corpuscular HGB Conc 30.3 g/dl (31.0-36.0); Mean Corpuscular Hemoglobin 25.3 pg (27.0-33.0); Mean Corpuscular Volume 83.6 fL (80-98); Mean Platelet Volume 10.6 fL (9.4-12.4); Monocytes Absolute Auto 0.9 X10*3/uL (0.1-1.2); Monocytes Percent Auto 7.1 % (2-11); Neutrophils Absolute Auto 8.4 X10*3/uL (2.0-8.3); Neutrophils Percent Auto 65.8 % (45-73); Platelet Count 343 X10*3/uL (160-400); Red Blood Count 4.03 X10*6/uL (4.60-5.80); Red Cell Distribution Width 15.3 % (11.0-16.0); White Blood Count 12.7 X10*3/uL (4.8-10.8)
[2020-01-18 19:50] LABS: Ethanol < 10 mg/dL
[2020-01-18 19:54] LABS: Anion Gap 12 (12-20); Blood Urea Nitrogen 11 mg/dL (9-16); Calcium 8.9 mg/dL (8.4-10.2); Carbon Dioxide 28 mmol/L (22-29); Chloride 99 mmol/L (96-108); Creatinine Clr Calc Pharmacy 210.9; Estimated Glomerular Filt Rate > 60; Glucose Random 74 mg/dL (60-115); Potassium 3.9 mmol/l (3.3-5.1); Salicylate < 5.0 mg/dL (15-30); Sodium 135 mmol/L (135-145)
[2020-01-18 19:56] LABS: Acetaminophen LAB < 1 mcg/mL (<30)
[2020-01-19 02:58] VITALS: PULSE 85; RESP 18; O2SAT 93
[2020-01-19] MEDS: LORazepam 1 MG TABLET PO (04:39)
[2020-01-19 04:54] VITALS: RESP 18
[2020-01-19] MEDS: HYDROmorphone HCl 2 MG/ML VIAL IM (04:54)
--- NOTE | 2020-01-19 05:16 | PC.NURSE ---
Late entry: pt incont of mod amt of urine to linens. Requesting and provided straight cath kit. After pt cath'd himself he requested something to calm down , affect appearing angry, skin pale, MD ordered ativan, ativan admin. When this RN gave pt the ativan he stated what's this when informed it was ativan pt stated i'm in pain, what is this going to do for me pt agreeable to taking ativan and wanting to talk to MD. Pt escalated behavior while with MD and started rocking his bed, mult staff to bedside, order for dilaudid 2mg im ordered and admin per apr. Pt currently appears in less distress, resp even and reg, eyes closed.
[2020-01-19] MEDS: methADONE HCl 10 MG TABLET 20 MG PO (07:24)
[2020-01-19 08:06] VITALS: BP 104/66; PULSE 93; RESP 14; O2SAT 97
--- NOTE | 2020-01-19 08:54 | PC.NURSE ---
methadone dose confirmed w habit [facility], see chart for verification form. faxed to pharmacy.
--- NOTE | 2020-01-19 09:37 | PC.NURSE ---
per care team, lou zuluaga pt on overnight shift, will do msu today at some point.
[2020-01-19] MEDS: risperiDONE 1 MG TABLET PO ×2 (10:52→22:08)
--- NOTE | 2020-01-19 11:14 | PC.NURSE ---
pt given methadone dose along with other 1000 am meds. pt cleaned of incontinent urine from self cath, linens changed. pt calm and cooperative. nad. sitter in place for safety.
[2020-01-19 11:17] LABS: Glucose Urine UA NEG (NEG); Leukocyte Esterase Urine NEG (NEG); Nitrite Urine NEG (NEG); PH 7.5 (5.0-8.0); Specific Gravity - Urine 1.015 (1.005-1.025); Urine Blood NEG (NEG); Urine Ketones NEG (NEG); Urine Protein NEG (NEG-TRACE)
[2020-01-19 11:18] LABS: Appearance Urine CLEAR; Color Urine YELLOW
--- NOTE | 2020-01-19 11:34 | PC.NURSE ---
BHN AT BEDSIDE FOR EVAL
[2020-01-19 11:39] LABS: Amphetamine Screen Urine Not Detected (Not Detect); Barbiturates, Urine Not Detected (Not Detect); Benzodiazepines Screen Urine Not Detected (Not Detect); Cannabinoid Screen Urine POSITIVE (Not Detect); Cocaine Screen Urine Not Detected (Not Detect); Opiate Screen Urine POSITIVE (Not Detect); Phencyclidine Screen Urine POSITIVE (Not Detect)
[2020-01-19] MEDS: oxyCODONE HCl Immed Release 5 MG TABLET PO (17:56)
--- NOTE | 2020-01-19 18:01 | PC.NURSE ---
pt given prn med for pain. calm an cooperative. inquiring about plan of care and updated.
--- NOTE | 2020-01-19 19:16 | PC.NURSE ---
Report received. Patient requesting catheter. self-caths. also and juice and crackers. aware of plan for bed search. sitter maintained.
[2020-01-19 20:23] VITALS: BP 113/63; PULSE 92; RESP 16; O2SAT 97
[2020-01-19 22:04] VITALS: BP 99/49; PULSE 81; RESP 16; O2SAT 94
[2020-01-19] MEDS: Mirtazapine 15 MG TABLET PO (22:08)
[2020-01-19] MEDS: traZODone HCL 50 MG TABLET PO (22:08)
[2020-01-20] VITALS (8 sets, daily range): BP systolic 95–102; BP diastolic 53–58; PULSE 72–90; RESP 14–20; TEMP 36.7–36.9; O2SAT 94–98
[2020-01-20 05:49] LABS: COVID-19 Test Negative (Negative)
--- NOTE | 2020-01-20 07:05 | PC.NURSE ---
REPORT TAKEN FROM PERLA DC. PT AWAKE, LAYING ON STRETCHER, EATING BREAKFAST. PT CALM WHEN SPEAKING TO NURSE, ACKNOWLEDGED THAT HE TENDS TO GET ANGRY DUE TO SITUATION OF BEING IN ER. PATIENT ASKING WHAT PLAN IS FOR HIS DISPO. INFORMED PT THIS RN IS UNSURE AT THIS TIME, POSSIBLE M5 ADMISSION? BUT WILL CALL N LATER THIS MORNING AND ASK FOR UPDATE. PT AGREEABLE TO PLAN.
[2020-01-20] MEDS: risperiDONE 1 MG TABLET PO ×2 (09:55→21:14)
[2020-01-20] MEDS: HaloperidoL 5 MG TABLET PO (10:02)
--- NOTE | 2020-01-20 10:05 | PC.NURSE ---
pt becoming agitated after speaking with BHN. pt able to be talked down and offered medicated to help him relax. pt calm at this time.
--- NOTE | 2020-01-20 16:02 | PC.NURSE ---
Patient resting quietly. no distress. catheter given for patient to self cath. diet order taken to kitchen.
--- NOTE | 2020-01-20 16:06 | PC.NURSE ---
remains under watch
--- NOTE | 2020-01-20 20:34 | PC.NURSE ---
Report taken from alon Lee RN resuming care. Pt resting quietly in bed at this time, sitter at bedside. Pt medicated with Tylenol for BUCIO. Per previous RN, pt is a psych bed search. Continue to monitor.
[2020-01-20] MEDS: traZODone HCL 50 MG TABLET PO (21:15)
[2020-01-20] MEDS: Mirtazapine 15 MG TABLET PO (21:15)
[2020-01-21] VITALS (8 sets, daily range): BP systolic 97–115; BP diastolic 50–72; PULSE 71–84; RESP 14–18; TEMP 36.4–36.8; O2SAT 92–99
[2020-01-21] MEDS: HaloperidoL 5 MG TABLET PO ×3 (02:58→18:10)
[2020-01-21] MEDS: hydrOXYzine HCL 25 MG TABLET PO (02:58)
--- NOTE | 2020-01-21 04:43 | PC.NURSE ---
1900: PT SLEEPING AT THIS TIME. SKIN P/W/D ABLE TO REPOSITION SELF IN BED. 2100: PT STRAIGHT CATH SELF AND MEDICATED WITH NIGHT TIME MEDS. SANDWICH AND WATER PROVIDED. 2300: pT SLEEPING AT THIS TIME. SKIN P/W/D. PT IS IN BEHAVIORAL CONTROL AT THIS TIME. NO CONCERNS ABOUT SAFETY. 0100: PT STRAIGHT CATH SELF AT THIS TIME. REPORTS INCREASING ANXIETY AND AGITATION. 0300: MONITORING FOR EFFECT OF PRN. SKIN P/W/D. AIRWAY PATENT. 0400: PT SLEEPING AT THIS TIME. RESPIRATIONS EVEN AND UNLABORED. PT ABLE TO REPOSITION SELF IN BED. SKIN P/W/D. 0500: PT SLEEPING AT THIS TIME SKIN P/W/D. AIRWAY PATENT.
--- NOTE | 2020-01-21 07:53 | PC.NURSE ---
PT SLEEPING AT THIS TIME, NO ISSUES
--- NOTE | 2020-01-21 09:17 | PC.NURSE ---
PT CONTINUES TO SLEEP. RESP EVEN AND NONLABOURED. SITTER AT BEDSIDE
[2020-01-21] MEDS: risperiDONE 1 MG TABLET PO (10:52)
--- NOTE | 2020-01-21 18:00 | PC.NURSE ---
Patient woke up and stated he was in pain and had anxiety. Patient began to escalate. Tech was able to talk patient down. Provider aware and patient medicated per emar
[2020-01-21] MEDS: Ibuprofen 600 MG TABLET PO (18:09)
[2020-01-21] MEDS: LORazepam 1 MG TABLET 2 MG PO (18:09)
[2020-01-22] VITALS (12 sets, daily range): BP systolic 90–110; BP diastolic 51–64; PULSE 61–87; RESP 16–18; TEMP 36.1–36.6; O2SAT 92–98
[2020-01-22] MEDS: risperiDONE 1 MG TABLET PO ×2 (12:00→22:24)
[2020-01-22] MEDS: hydrOXYzine HCL 25 MG TABLET PO (12:34)
--- NOTE | 2020-01-22 12:37 | PC.NURSE ---
medication not scanning. patient expressed he was having anxiety. medicated with prn medication.
--- NOTE | 2020-01-22 16:06 | ECG_ITS ---
Test Reason : Blood Pressure : / mmHG Vent. Rate : 078 BPM Atrial Rate : 078 BPM P-R Int : 134 ms QRS Dur : 102 ms QT Int : 406 ms P-R-T Axes : -12 -15 -68 degrees QTc Int : 462 ms Normal sinus rhythm Nonspecific ST and T wave abnormality Abnormal ECG When compared with ECG of 28-NOV-2019 19:16, No significant change was found Referred By: Velvet Johnson Electronically Signed By:CONSTANTINO CRYSTAL
--- NOTE | 2020-01-22 16:28 | PC.NURSE ---
sacral ulcer remains unchanged per patient, this RN reports quarter sized, round wound with undocumented depth.
[2020-01-22] MEDS: HaloperidoL 5 MG TABLET PO (16:33)
[2020-01-22] MEDS: LORazepam 1 MG TABLET 2 MG PO (18:29)
[2020-01-22] MEDS: Ibuprofen 600 MG TABLET PO (18:29)
--- NOTE | 2020-01-22 18:35 | PC.NURSE ---
medicated per mar, per providers orders. patient stating he feels like his anxiety is through the roof and that he feels like its getting worse.
[2020-01-22] MEDS: cephALEXin 500 MG CAPSULE PO (19:46)
[2020-01-22 20:15] LABS: MANUAL DIFF FLAG NO
[2020-01-22 20:17] LABS: Basophils Percent Auto 0.4 % (0-2); Eosinophils Absolute Auto 0.4 X10*3/uL (0.0-0.4); Eosinophils Percent Auto 4.9 % (0-4); Hematocrit 35.1 % (42-52); Hemoglobin 11.1 g/dl (14.0-18.0); Imm Gran Abs Auto 0.04 X10*3/uL (0.00-0.03); Imm Gran Pct Auto 0.5 % (0.0-0.4); Lymphocytes Absolute Auto 2.7 X10*3/uL (1.2-4.9); Lymphocytes Percent Auto 31.9 % (20-40); Mean Corpuscular HGB Conc 31.6 g/dl (31.0-36.0); Mean Corpuscular Hemoglobin 26.4 pg (27.0-33.0); Mean Corpuscular Volume 83.6 fL (80-98); Mean Platelet Volume 10.5 fL (9.4-12.4); Monocytes Absolute Auto 0.6 X10*3/uL (0.1-1.2); Monocytes Percent Auto 7.4 % (2-11); Neutrophils Absolute Auto 4.6 X10*3/uL (2.0-8.3); Neutrophils Percent Auto 54.9 % (45-73); Platelet Count 299 X10*3/uL (160-400); Red Cell Distribution Width 15.5 % (11.0-16.0); White Blood Count 8.4 X10*3/uL (4.8-10.8)
[2020-01-22 20:46] LABS: Lactic Acid 1.7 mmol/L (0.5-2.0)
[2020-01-22 21:14] LABS: Anion Gap 11 (12-20); Blood Urea Nitrogen 15 mg/dL (9-16); Calcium 8.6 mg/dL (8.4-10.2); Carbon Dioxide 29 mmol/L (22-29); Chloride 98 mmol/L (96-108); Creatinine Clr Calc Pharmacy 207.5; Estimated Glomerular Filt Rate > 60; Glucose Random 104 mg/dL (60-115); Potassium 3.9 mmol/l (3.3-5.1); Sodium 134 mmol/L (135-145)
--- NOTE | 2020-01-22 22:05 | MHC.CARE ---
This copy writer met with pt to discuss M5 admission and review the CV, however pt stated that he isn't going to sign himself in for admission, insisting that admissions haven't been helpful in the past and that he wants to return home so he can work things out on his own. Pt expressed his frustrations with the behavioral health system and how he has gotten in his own way in the past. This copy writer contacted [facility] re: the pt's refusal to sign in on a voluntary basis, and that pt is not appropriate for an involuntary admission. [facility] had not completed an MSU, which was requested by this copy writer to determine whether pt continues to meet need for inpt psychiatric admission. [facility] reported that they will not have a clinician available until after 11pm. ED provider and nurse updated, and was informed that the admission is on hold at this time pending MSU by [facility] due to pt not being voluntary for admission.
[2020-01-22] MEDS: Mirtazapine 15 MG TABLET PO (22:24)
--- NOTE | 2020-01-22 22:36 | PC.NURSE ---
pt is sleeping, aterax not given at this time.
[2020-01-23] VITALS: BP 100/51; PULSE 62; RESP 16; TEMP 36.4; O2SAT 93
--- NOTE | 2020-01-23 00:09 | PC.NURSE ---
PT SLEEPING SITTER PRESENT. SKIN PINK WARM AND DRY.
--- NOTE | 2020-01-23 00:30 | PC.NURSE ---
PT SLEEPING HOB ELEVATED DUE TO SUPINE SAT 93% ON ROOM AIR. RR EVEN AND REG NO S/S OF RESP DISTRESS.
--- NOTE | 2020-01-23 02:32 | PC.NURSE ---
pt sleeping, rr even and reg, no s/s of resp distress, sitter present. pt plan is to stay the night and address discharge plans in am when pt mom can be reached to assess pt ability to go back home.
[2020-01-23 03:42] VITALS: BP 103/51; PULSE 63; RESP 18; O2SAT 93
--- NOTE | 2020-01-23 08:00 | PC.NURSE ---
Attempted to call care team about pts disposition
[2020-01-23 10:29] VITALS: BP 101/61; PULSE 67; RESP 18; O2SAT 97
[2020-01-23] MEDS: cephALEXin 500 MG CAPSULE PO ×2 (11:01→13:09)
[2020-01-23] MEDS: risperiDONE 1 MG TABLET PO (11:01)
[2020-01-23 12:00] VITALS: BP 110/61; PULSE 85; RESP 16; TEMP 36.6; O2SAT 94
--- NOTE | 2020-01-23 12:06 | PC.NURSE ---
FIrst contact with patient. He is calm, stating that he simply wants to go home, denies SI/HI and would comply with follow up at home. Pt is axox3, skin pwd, sitting upright in bed. 1500ml urine emptied from warner
--- NOTE | 2020-01-23 12:35 | PC.NURSE ---
AMMY states that patient won't be seen untill later in the afternoon. Mary Jane from CARE team is unable to see the patient at this time. Pt remains calm in bed. sitter at bedside.
[2020-01-23] MEDS: hydrOXYzine HCL 25 MG TABLET PO (13:29)
--- NOTE | 2020-01-23 13:29 | PC.NURSE ---
Repositioned. Pt has good bed mobility. Large open wound righ buttocks cleansed and dressed with allevyn. shallow opening in buttocks fold cleansed and barrier cream applied. pt repositioning to left side lying. atarax at pt's request for anxiety.
--- NOTE | 2020-01-23 13:32 | MHC.CARE ---
CARE Team note RE: discharge planning [facility] reports that they will be able to follow up with patient later on today. This board writer met with patient in an effort to expedite patient's discharge, if appropriate. Patient denies SI/HI/AH/VH at this time. Reports that he does not find being in the hospital to be a helpful experience. Patient reports that being in the hospital is holding him back from accomplishing what he needs to. Patient reports to have a strong support network at home, and healthy coping mechanisms that he can utilize that he can't utilize in the hospital. Patient acknowledges that using hard drugs has been detrimental to his mental health and he reports a desire to maintain sobriety. Patient reports numerous goals including being there for his family and helping people in his community. Discussed situation with patient's Mother with patient's consent. Patient's Mother reports that this year has been particularly hard on patient and that he has been in and out of the hospital repeatedly and that patient has resumed using substances shortly after discharge each time. Patient's Mother reports in the past, [facility] has come up with a comprehensive discharge plan, including having someone check in on the patient. Patient's Mother also expressed interest in having [facility] connect patient with a medication prescriber to help manage patient's anxiety. Patient's Mother is agreeable to having patient return home, however she is strongly requesting that patient remain in the hospital until [facility] can come up with a discharge plan to support patient. Discussed case with patient's ED Provider. Plan for patient to remain in ED until [facility] can follow up with patient.
--- NOTE | 2020-01-23 14:12 | PC.NURSE ---
bhn at bedside
[2020-01-23 15:50] VITALS: BP 101/55; PULSE 82; RESP 20; TEMP 36.7; O2SAT 80
[2020-01-23] MEDS: HaloperidoL 5 MG TABLET PO (16:23)
== END 2020-01-23 17:41 | disposition home or self-care (01) ==
PROVIDERS: Nurse Practitioner Family; Physician Assistant; Emergency Provider Internal Medicine
DX: F32.9 Major depressive disorder, single episode, unspecified (principal); Z20.828 Contact with and (suspected) exposure to other viral communicable diseases; R45.851 Suicidal ideations; F11.20 Opioid dependence, uncomplicated; Z91.14 Patient's other noncompliance with medication regimen; B19.20 Unspecified viral hepatitis C without hepatic coma; Z87.440 Personal history of urinary (tract) infections; F17.210 Nicotine dependence, cigarettes, uncomplicated
CPT/HCPCS: 36415; 80048; 80307; 80320; 81003; 83605; 85025; 87040; 87635; 93005; 99285; G0480; J1170; J2060

== ENCOUNTER 2020-02-22 10:38 | Outpatient (REF) | payer OTHER, SELFPAY ==
--- NOTE | 2020-02-22 10:47 | XR_ITS ---
EXAMINATION: XR FEMUR, RIGHT CLINICAL INFORMATION: Other unspecified soft tissue disorder. COMPARISON: Pelvis radiograph dated June 25, 2014. TECHNIQUE: AP and lateral views of the right femur were obtained. FINDINGS: Shallow acetabulum. The femoral head and femoral neck are absent reflecting sequelae of erosive change, inflammatory arthropathy, or neuropathic arthropathy. The femur is laterally and superiorly subluxed from the acetabulum. Heterotopic bone is noted along the medial aspect of the proximal femur. XR/XR femur RT 2V IMPRESSION: Right femur: Shallow acetabulum and absence of the femoral head and neck presumed sequelae of inflammatory arthropathy, erosive change, or neuropathic arthropathy. Clinical correlation recommended. Femoral head is superiorly and laterally subluxed from the shallow acetabulum.
== END 2020-02-22 10:39 | disposition home or self-care (01) ==
LOC: HO.XRAY 10:38
PROVIDERS: Absent Provider Internal Medicine; PCP Internal Medicine; Visit Provider Emergency Medicine
DX: M79.89 Other specified soft tissue disorders (principal)
CPT/HCPCS: 73552

== ENCOUNTER 2020-05-14 10:58 | Emergency (ER) | payer OTHER, SELFPAY ==
[2020-05-14 11:24] VITALS: BP 125/74; PULSE 70; RESP 18; TEMP 36.9; O2SAT 94
--- NOTE | 2020-05-14 12:06 | ED_ITS ---
HPI - Skin/Abscess/Foreign Bdy General Chief complaint: Skin/Abscess/Foreign Body Stated complaint: rt foot abscess Source: patient Mode of arrival: ambulatory Limitations: no limitations History of Present Illness HPI narrative: Patient presents to ED for evaluation of right lower extremity abscess. Patient states area of redness and slight fluctuance at lower tibial/upper ankle area. Patient denies any recent trauma to the area. Patient is paralyzed and ambulate with wheelchair. Related Data Home Medications Medication Instructions Recorded Confirmed tadalafil 1 tab PO DAILY 01/01/20 01/19/20 Previous Rx's Medication Instructions Recorded MAG-AL 30 ml PO Q6H PRN #1 ml 12/23/19 benztropine 1 mg PO BID PRN #1 tab 12/23/19 haloperidol 5 mg PO Q4H PRN #1 tab 12/23/19 hydroxyzine HCl 25 mg PO BEDTIME PRN #1 tab 12/23/19 magnesium hydroxide [Milk of 30 ml PO DAILY PRN #1 ml 12/23/19 Magnesia] methadone [Methadose] 100 mg PO DAILY #1 ml 12/23/19 mirtazapine 1 tab PO BEDTIME #1 tab 12/23/19 nicotine 21 mg TRANSDERMAL DAILY #1 ea 12/23/19 nicotine (polacrilex) 4 mg BUCCAL Q2H PRN #1 ea 12/23/19 oxybutynin chloride 15 mg PO DAILY #1 tab 12/23/19 risperidone 1 tab PO Q12H #1 tab 12/23/19 trazodone 50 mg PO BEDTIME PRN #1 tab 12/23/19 cefuroxime axetil 500 mg PO BID #10 tab 01/04/20 cephalexin 500 mg PO TID 6 Days #18 cap 01/23/20 doxycycline hyclate 100 mg PO BID 6 Days #12 cap 01/23/20 cephalexin 500 mg PO QID #28 cap 05/14/20 doxycycline hyclate 100 mg PO BID #14 cap 05/14/20 Allergies Allergy/AdvReac Type Severity Reaction Status Date / Time codeine Allergy Unknown Unknown Verified 05/14/20 11:26 piperacillin [From ZOSYN] Allergy Unknown DIFFICULTY Verified 05/14/20 11:26 BREATHING tazobactam [From ZOSYN] Allergy Unknown DIFFICULTY Verified 05/14/20 11:26 BREATHING tramadol Allergy Unknown nausea and Verified 05/14/20 11:26 vomiting vancomycin [VANCOMYCIN] Allergy Unknown DIFFICULTY Verified 05/14/20 11:26 BREATHING, anaphylaxis Review of Systems Review of Systems: Yes all other systems are reviewed and are negative Constitutional: Constitutional: Reports as per HPI and Reports no additional constitutional complaints Eyes: Eyes: Reports as per HPI and Reports no additional eye complaints ENT: Reports system reviewed and no additional complaints, except as documented and Reports as per HPI Cardiovascular: Cardiovascular: Reports as per HPI and Reports no additional cardiovascular complaints Respiratory: Respiratory: Reports as per HPI and Reports no additional respiratory complaints Gastrointestinal: Gastrointestinal: Reports as per HPI and Reports no additional gastrointestinal complaints Genitourinary: Genitourinary: Reports no additional male genitourinary complaints and Reports as per HPI Musculoskeletal: Musculoskeletal: Reports no additional musculoskeletal complaints and Reports as per HPI Comments: Abscess Neurologic: Reports system reviewed and no additional complaints, except as documented and Reports as per HPI Comments: Paralysis of lower extremities chronic Psychiatric: Psychiatric: Reports no additional psychiatric complaints and Reports as per HPI [facility] Past Medical History Medical History Asthma Cellulitis Eczema Erectile dysfunction due to arterial insufficiency PTSD (post-traumatic stress disorder) Recurrent UTI Ulcerative colitis Social History Social History Household Members: Unknown / Unable to assess Housing: Unknown / Unable to assess Alcohol intake: never Smoking Status: Never smoker Tobacco Type: Cigarette Packs Per Day: 1 Cigarettes Per Day: 20.0 Years Smoked: 20 Second Hand Smoke Exposure: Yes Substance Use Type: Club/[employer] Work[employer] Drugs Advance Directives: Yes Advance Directives Information Provided: No Advance Directives on File: Yes Advance Directives Date on File: 01/23/20 service: No Current occupational status: disabled Sexual orientation: Client not available to respond at this time Physical Exam Vital Signs: Vital Signs: Last Vital Signs Temp 98.5 F 05/14/20 11:24 Pulse 70 05/14/20 11:24 Resp 18 05/14/20 11:24 BP 125/74 05/14/20 11:24 Pulse Ox 94 05/14/20 11:24 Body Mass Index 0.0 Const: General: cooperative, healthy appearing, comfortable, no acute distress, well developed, alert and awake Orientation/consciousness: patient oriented x3 HENMT: Head: Yes normal to inspection, Yes No palpable skull fracture present, Yes normocephalic, Yes atraumatic and No abrasion Eyes: General: appearance normal, both eyes and all related structures Neck: Neck: Yes normal visual inspection, Yes full ROM, Yes no lymphadenopathy, Yes no meningeal signs, Yes trachea midline, Yes supple and No tender Chest: Chest palpation & inspection: normal inspection of the chest and normal palpation of entire chest wall Resp: Effort & Inspection: normal respiratory effort and able to speak in complete sentences Auscultation: clear to auscultation bilaterally Cardio: Jugular venous distension: no JVD Heart sounds: S1 normal heart sound present and S2 normal heart sound present GI: Inspection: Yes normal to inspection and No abdominal wall ecchymosis P alpation (GI): Soft to palpation, not firm, nontender, no guarding and not rigid : General: No CVA tenderness and Yes no CVA tenderness Back/Spine/Pelvis: Back: no CVA tenderness, No CVA tenderness and No back tenderness Skin: Other: Abscess General skin exam: no rashes or lesions noted and elasticity normal Neuro: General: patient oriented x3, no meningeal signs and CN's II-XI intact bilaterally Cranial nerves: Yes CN's II-XII intact bilaterally Extrem: Other: Right lower extremity: Positive for area of erythema with palpable/fluctuance mass on ankle/lower tibial. Not on bone prominence of ankle/tibia. I was able to move patient's ankle and foot. Right leg negative for any swelling or calf pain. Foot negative for any erythema/ulcers/wounds Left lower extremity normal Psych: Appearance: grossly normal, well kempt and not disheveled Course Course Course Narrative: Lower extremity exam indicates cellulitis versus early abscess. Reevaluation(s) Reevaluation #1: Bedside ultrasound of mass shows pus collection. Wound cleaned with Betadine and sterile saline. Size 11 scalpel and yellow moderate pus collection was drained. Abscess is very superficial. No packing necessary. Patient up-to-date with tetanus. patient has taken cephlasporin in the past without any allergic reacrtion. MDM - Skin/Abscess/Foreign Bdy MDM Narrative Medical decision making narrative: Abscess/cellulitis Discharge Plan Discharge Clinical Impression: Abscess Patient Disposition: Home, Self-Care Instructions: Abscess (ED), Abscess Incision and Drainage (DC) Additional Instructions: Return to the ED immediately for increased swelling, redness, calf pain, chest pain, shortness of breath, worsening redness, fever, chills, development of red streaks, or any other concerning symptoms. Please follow-up with your PCP Prescriptions: New cephalexin 500 mg capsule 500 mg PO QID Qty: 28 RF: 0 doxycycline hyclate 100 mg capsule 100 mg PO BID Qty: 14 RF: 0 No Action haloperidol 5 mg Tablet 5 mg PO Q4H PRN (Reason: Psychosis) Qty: 1 RF: 0 trazodone 50 mg Tablet 50 mg PO BEDTIME PRN (Reason: Insomnia) Qty: 1 RF: 0 magnesium hydroxide [Milk of Magnesia] 400 mg/5 mL Suspension 30 ml PO DAILY PRN (Reason: Constipation) Qty: 1 RF: 0 nicotine 21 mg/24 hr Patch 24 Hour 21 mg transdermal DAILY Qty: 1 RF: 0 oxybutynin chloride 5 mg Tablet Extended Release 24hr 15 mg PO DAILY Qty: 1 RF: 0 hydroxyzine HCl 25 mg Tablet 25 mg PO BEDTIME PRN (Reason: Anxiety) Qty: 1 RF: 0 methadone [Methadose] 10 mg/mL Concentrate 100 mg PO DAILY Qty: 1 RF: 0 MAG-AL 200-200 mg/5 mL Suspension 30 ml PO Q6H PRN (Reason: Heartburn/Nausea) Qty: 1 RF: 0 benztropine 1 mg tablet 1 mg PO BID PRN (Reason: EPS) Qty: 1 RF: 0 mirtazapine 15 mg tablet 1 tab PO BEDTIME Qty: 1 RF: 0 risperidone 1 mg tablet 1 tab PO Q12H Qty: 1 RF: 0 nicotine (polacrilex) 4 mg Mini Lozenge 4 mg buccal Q2H PRN (Reason: Nicotine Cravings) Qty: 1 RF: 0 tadalafil 5 mg tablet 1 tab PO DAILY RF: 0 cefuroxime axetil 250 mg tablet 500 mg PO BID Qty: 10 RF: 0 doxycycline hyclate 100 mg capsule 100 mg PO BID 6 Days Qty: 12 RF: 0 cephalexin 500 mg capsule 500 mg PO TID 6 Days Qty: 18 RF: 0 Referrals: Antony Faria MD [Primary Care Provider] - 2 days (Abscess drained. Antibiotics started.) Interventions: ED Discharge Assessment Last Done: 05/14/20 12:25 Discharge Date/Time: 05/14/20 12:26 Print Language: Icelandic
== END 2020-05-14 12:26 | disposition home or self-care (01) ==
PROVIDERS: Emergency Provider Emergency Medicine; PCP Internal Medicine
DX: L02.415 Cutaneous abscess of right lower limb (principal); M79.661 Pain in right lower leg; Z79.899 Other long term (current) drug therapy; F17.210 Nicotine dependence, cigarettes, uncomplicated; Z71.6 Tobacco abuse counseling
CPT/HCPCS: 10060; 87071; 87077; 87186; 87205; 99283

== ENCOUNTER 2020-05-26 09:45 | Emergency (ER) | payer OTHER, SELFPAY ==
--- NOTE | ~2020-05-26 | XR_ITS ---
EXAMINATION: XR ANKLE, LEFT CLINICAL INFORMATION: Wound. Evaluate for osteomyelitis COMPARISON: None TECHNIQUE: 3 views of the left ankle. FINDINGS: Nonstandard projections Limited assessment. No acute fracture. There is no definite evidence of bone destruction or aggressive periosteal reaction. No soft tissue gas or opaque foreign body. Extensive soft tissue swelling over the region of the lateral malleolus and reticulation of the soft tissues of the visualized distal leg. Probable wound overlying the region of the lateral malleolus XR/XR ankle LT min 3V IMPRESSION: No radiographic evidence of osteomyelitis. There is no definite soft tissue gas.
[2020-05-26 11:17] VITALS: BP 112/73; PULSE 62; RESP 18; TEMP 36.6; O2SAT 94; BMI 38.0
--- NOTE | 2020-05-26 11:48 | PC.NURSE ---
PT REMAINS SITTING IN HIS WC AWAITING ASSISTANCE TO TRANSFER HIM TO STRETCHER, [employer]OOKS
[2020-05-26 13:00] LABS: MANUAL DIFF FLAG NO
[2020-05-26 13:01] LABS: Basophils Absolute Auto 0.1 X10*3/uL (0.0-0.2); Basophils Percent Auto 0.5 % (0-2); Eosinophils Absolute Auto 0.2 X10*3/uL (0.0-0.4); Eosinophils Percent Auto 1.7 % (0-4); Hematocrit 43.3 % (42-52); Hemoglobin 13.6 g/dl (14.0-18.0); Imm Gran Abs Auto 0.06 X10*3/uL (0.00-0.03); Imm Gran Pct Auto 0.6 % (0.0-0.4); Lymphocytes Absolute Auto 3.3 X10*3/uL (1.2-4.9); Lymphocytes Percent Auto 32.2 % (20-40); Mean Corpuscular HGB Conc 31.4 g/dl (31.0-36.0); Mean Corpuscular Hemoglobin 25.9 pg (27.0-33.0); Mean Corpuscular Volume 82.3 fL (80-98); Monocytes Absolute Auto 0.7 X10*3/uL (0.1-1.2); Neutrophils Absolute Auto 5.9 X10*3/uL (2.0-8.3); Platelet Count 161 X10*3/uL (160-400); Red Blood Count 5.26 X10*6/uL (4.60-5.80); Red Cell Distribution Width 15.3 % (11.0-16.0); White Blood Count 10.2 X10*3/uL (4.8-10.8)
[2020-05-26 13:25] LABS: Alanine Aminotransferase 75 U/L (0-40); Albumin Level 3.7 g/dL (3.5-5.0); Alkaline Phosphatase 222 U/L (39-117); Anion Gap 14 (12-20); Aspartate Amino Transferase 103 U/L (5-37); Bilirubin Total 0.6 mg/dL (0.0-1.0); Blood Urea Nitrogen 14 mg/dL (9-16); Calcium 8.7 mg/dL (8.4-10.2); Carbon Dioxide 25 mmol/L (22-29); Chloride 102 mmol/L (96-108); Creatinine Clr Calc Pharmacy 213.5; Estimated Glomerular Filt Rate > 60; Glucose Random 103 mg/dL (60-115); Potassium 4.2 mmol/L (3.3-5.1); Sodium 137 mmol/L (135-145); Total Protein 7.9 g/dL (6.5-8.0)
--- NOTE | 2020-05-26 14:06 | ED_ITS ---
HPI - Wound/Laceration General Chief Complaint: Extremity Injury, Lower Stated Complaint: wound on ankle Time Seen by Provider: 05/26/20 12:17 Source: patient Mode of arrival: wheelchair Limitations: no limitations History of Present Illness HPI narrative: Here for wound check of left ankle. States chronic wound to the area and he has VNA services as well as a [employer] and this morning the [employer] WORKER told him seem more discolor and off normal and advised to come to the emergency room. Onset (ago): day(s) Extremity Location: left: ankle Place: home Patient tetanus UTD: Yes Associated symptoms: none Related Data Home Medications Medication Instructions Recorded Confirmed tadalafil 1 tab PO DAILY 01/01/20 01/19/20 Previous Rx's Medication Instructions Recorded MAG-AL 30 ml PO Q6H PRN #1 ml 12/23/19 benztropine 1 mg PO BID PRN #1 tab 12/23/19 haloperidol 5 mg PO Q4H PRN #1 tab 12/23/19 hydroxyzine HCl 25 mg PO BEDTIME PRN #1 tab 12/23/19 magnesium hydroxide [Milk of 30 ml PO DAILY PRN #1 ml 12/23/19 Magnesia] methadone [Methadose] 100 mg PO DAILY #1 ml 12/23/19 mirtazapine 1 tab PO BEDTIME #1 tab 12/23/19 nicotine 21 mg TRANSDERMAL DAILY #1 ea 12/23/19 nicotine (polacrilex) 4 mg BUCCAL Q2H PRN #1 ea 12/23/19 oxybutynin chloride 15 mg PO DAILY #1 tab 12/23/19 risperidone 1 tab PO Q12H #1 tab 12/23/19 trazodone 50 mg PO BEDTIME PRN #1 tab 12/23/19 cefuroxime axetil 500 mg PO BID #10 tab 01/04/20 cephalexin 500 mg PO TID 6 Days #18 cap 01/23/20 doxycycline hyclate 100 mg PO BID 6 Days #12 cap 01/23/20 cephalexin 500 mg PO QID #28 cap 05/14/20 doxycycline hyclate 100 mg PO BID #14 cap 05/14/20 Allergies Allergy/AdvReac Type Severity Reaction Status Date / Time codeine Allergy Unknown Unknown Verified 05/14/20 11:26 piperacillin [From ZOSYN] Allergy Unknown DIFFICULTY Verified 05/14/20 11:26 BREATHING tazobactam [From ZOSYN] Allergy Unknown DIFFICULTY Verified 05/14/20 11:26 BREATHING tramadol Allergy Unknown nausea and Verified 05/14/20 11:26 vomiting vancomycin [VANCOMYCIN] Allergy Unknown DIFFICULTY Verified 05/14/20 11:26 BREATHING, anaphylaxis Review of Systems Review of Systems: Constitutional: No Weight loss, No Fever, No Chills, No Night Sweats, No Fatigue, No Malaise ENT/Mouth: No Hearing loss, No Ear Pain, No Nasal Congestion, No Sinus Pain, No Hoarseness, No sore throat, No Rhinorrhea, No Swallowing Difficulty Eyes: No Eye Pain, No Swelling, No Redness, No Foreign Body, No Discharge, No Vision Changes Cardiovascular: No Chest Pain, No SOB, No Dyspnea on Exertion, No Orthopnea, No Edema, No Palpitations Respiratory: No Cough, No Sputum, No Wheezing, No Smoke Exposure, No Dyspnea Gastrointestinal: No Nausea, No Vomiting, No Diarrhea, No Constipation, No abdominal Pain, No Hematochezia, No Melena Genitourinary: No Dysuria, No Urinary Frequency, No Hematuria, No Urinary Incontinence, No Urgency, No Flank Pain, No Urinary Flow Changes Musculoskeletal: No joint pain, No Myalgias, No Joint Swelling Skin: No Skin Lesions, No rash, ankle wound as noted per HPI Neuro: No Weakness, No Numbness, No Paresthesias, No Loss of Consciousness, No Dizziness, No Headache Psych: No Social Issues Heme/Lymph: No Bruising, No Bleeding,No Lymphadenopathy Endocrine: No Polyuria, No Polydipsia, No Temperature Intolerance Yes all other systems are reviewed and are negative [facility] [place] Past Medical History [facility] Narrative: Paraplegic Wheelchair bound Consult wound to the back Chronic recurrent wounds to the lower extremity Medical History Asthma Cellulitis Eczema Erectile dysfunction due to arterial insufficiency PTSD (post-traumatic stress disorder) Recurrent UTI Ulcerative colitis Social History Social History Household Members: Unknown / Unable to assess Housing: Unknown / Unable to assess Alcohol intake: never Smoking Status: Never smoker Tobacco Type: Cigarette Packs Per Day: 1 Cigarettes Per Day: 20.0 Years Smoked: 20 Second Hand Smoke Exposure: Yes Substance Use Type: Club/[employer] Drugs Advance Directives: Yes Advance Directives on File: Yes Advance Directives Date on File: 01/23/20 service: No Current occupational status: disabled Sexual orientation: Client not available to respond at this time Physical Exam Vital Signs: Vital Signs: Last Vital Signs Temp 97.8 F 05/26/20 11:17 Pulse 62 05/26/20 11:17 Resp 18 05/26/20 11:17 BP 112/73 05/26/20 11:17 Pulse Ox 94 05/26/20 11:17 Body Mass Index 38.0 Reviewed Const: General: cooperative and healthy appearing; No acute distress or intoxicated appearing Nutritional Appearance: average body habitus Orientation/consciousness: patient oriented x3 HENMT: Head: Yes normal to inspection Ears: hearing grossly normal bilaterally Eyes: General: appearance normal, both eyes and all related structures Visual Witt: normal visual witt by confrontation Neck: Neck: Yes normal visual inspection, No positive Brudzinski's sign, No positive Kernig's sign and No tender Thyroid: Thyroid normal Chest: Chest palpation & inspection: normal inspection of the chest Resp: Effort & Inspection: normal respiratory effort Auscultation: clear to auscultation bilaterally Cardio: Jugular venous distension: no JVD Rhythm: regular rhythm Heart sounds: S1 normal heart sound present and S2 normal heart sound present GI: Inspection: Yes normal to inspection Palpation (GI): Soft to palpation Percussion: Yes normal to percussion Auscultation: normal bowel sounds : General: Yes no CVA tenderness Back/Spine/Pelvis: Back: no CVA tenderness Skin: General skin exam: no rashes or lesions noted Neuro: General: patient oriented x3 Extrem: Other: General: Yes normal to inspection Course Course Course Narrative: The area seems more macerated no overt signs of infection. No erythema. No induration or expressible discharge. Labs overall stable, x-ray without evidence of osteomyelitis. Neurovascular intact. He is known to the [facility] here he did Mrs. last week appointment he will call tomorrow to have wound checked and monitored through the wound care center. Currently has a prescription doxycycline 7 days. Will be discharged home return follow-up instructions. He feels comfortable plan. Stable for discharge. MDM - Wound/Laceration Lab Data Result diagrams: 05/26/20 12:56 05/26/20 12:56 Labs: Lab Results 05/26/20 05/26/20 Range/Units 12:56 12:56 WBC 10.2 (4.8-10.8) X10*3/uL RBC 5.26 D (4.60-5.80) X10*6/uL Hgb 13.6 L D (14.0-18.0) g/dl Hct 43.3 D (42-52) % MCV 82.3 (80-98) fL MCH 25.9 L (27.0-33.0) pg MCHC 31.4 (31.0-36.0) g/dl RDW 15.3 (11.0-16.0) % Plt Count 161 D (160-400) X10*3/uL MPV 12.0 (9.4-12.4) fL Immature Gran % (Auto) 0.6 H (0.0-0.4) % Neut % (Auto) 58.0 (45-73) % Lymph % (Auto) 32.2 (20-40) % [place] % (Auto) 7.0 (2-11) % Eos % (Auto) 1.7 (0-4) % Baso % (Auto) 0.5 (0-2) % Lymph # (Auto) 3.3 (1.2-4.9) X10*3/uL [place] # (Auto) 0.7 (0.1-1.2) X10*3/uL Eos # (Auto) 0.2 (0.0-0.4) X10*3/uL Baso # (Auto) 0.1 (0.0-0.2) X10*3/uL Abs Immat Gran (auto) 0.06 H (0.00-0.03) X10*3/uL Absolute Neuts (auto) 5.9 (2.0-8.3) X10*3/uL Absolute Nucleated RBC 0.000 (0.0-0.012) X10*3/uL Nucleated RBC % (auto) 0.0 (0.0-0.2) /100WBC Sodium 137 (135-145) mmol/L Potassium 4.2 (3.3-5.1) mmol/L Chloride 102 (96-108) mmol/L Carbon Dioxide 25 (22-29) mmol/L Anion Gap 14 (12-20) BUN 14 (9-16) mg/dL Creatinine 0.59 (0.5-1.4) mg/dL Estim Creat Clear Calc 213.5 Estimated GFR > 60 Random Glucose 103 (60-115) mg/dL Calcium 8.7 (8.4-10.2) mg/dL Total Bilirubin 0.6 (0.0-1.0) mg/dL AST 103 H (5-37) U/L ALT 75 H (0-40) U/L Alkaline Phosphatase 222 H (39-117) U/L Total Protein 7.9 (6.5-8.0) g/dL Albumin 3.7 D (3.5-5.0) g/dL Discharge Plan Discharge Clinical Impression: Ankle wound, Pressure ulcer of left ankle Patient Disposition: Home, Self-Care Instructions: Chronic Wounds (ED), How to Prevent Pressure Injuries (ED) Additional Instructions: Keep site clean and dry Continue with her antibiotics Change dressings twice a day If you are going to leave issues on make sure you take your foot out every hour to allow for air Make sure you have a dressing on the wound when you have issues are Return to emergency room if having any swelling, redness, discharge, pain, fever Follow with the wound care center call tomorrow for an appointment for evaluati on and continued management Thank you Prescriptions: No Action haloperidol 5 mg Tablet 5 mg PO Q4H PRN (Reason: Psychosis) Qty: 1 RF: 0 trazodone 50 mg Tablet 50 mg PO BEDTIME PRN (Reason: Insomnia) Qty: 1 RF: 0 magnesium hydroxide [Milk of Magnesia] 400 mg/5 mL Suspension 30 ml PO DAILY PRN (Reason: Constipation) Qty: 1 RF: 0 nicotine 21 mg/24 hr Patch 24 Hour 21 mg transdermal DAILY Qty: 1 RF: 0 oxybutynin chloride 5 mg Tablet Extended Release 24hr 15 mg PO DAILY Qty: 1 RF: 0 hydroxyzine HCl 25 mg Tablet 25 mg PO BEDTIME PRN (Reason: Anxiety) Qty: 1 RF: 0 methadone [Methadose] 10 mg/mL Concentrate 100 mg PO DAILY Qty: 1 RF: 0 MAG-AL 200-200 mg/5 mL Suspension 30 ml PO Q6H PRN (Reason: Heartburn/Nausea) Qty: 1 RF: 0 benztropine 1 mg tablet 1 mg PO BID PRN (Reason: EPS) Qty: 1 RF: 0 mirtazapine 15 mg tablet 1 tab PO BEDTIME Qty: 1 RF: 0 risperidone 1 mg tablet 1 tab PO Q12H Qty: 1 RF: 0 nicotine (polacrilex) 4 mg Mini Lozenge 4 mg buccal Q2H PRN (Reason: Nicotine Cravings) Qty: 1 RF: 0 tadalafil 5 mg tablet 1 tab PO DAILY RF: 0 cefuroxime axetil 250 mg tablet 500 mg PO BID Qty: 10 RF: 0 doxycycline hyclate 100 mg capsule 100 mg PO BID 6 Days Qty: 12 RF: 0 cephalexin 500 mg capsule 500 mg PO TID 6 Days Qty: 18 RF: 0 cephalexin 500 mg capsule 500 mg PO QID Qty: 28 RF: 0 doxycycline hyclate 100 mg capsule 100 mg PO BID Qty: 14 RF: 0 Referrals: Antony Faria MD [Primary Care Provider] - 2 days
== END 2020-05-26 15:02 | disposition home or self-care (01) ==
PROVIDERS: Nurse Practitioner Primary Care; Emergency Provider Emergency Medicine Emergency Medical Services; PCP Internal Medicine
DX: L89.529 Pressure ulcer of left ankle, unspecified stage (principal); S91.002A Unspecified open wound, left ankle, initial encounter; X58.XXXA Exposure to other specified factors, initial encounter; F17.210 Nicotine dependence, cigarettes, uncomplicated; Y93.9 Activity, unspecified; Y92.9 Unspecified place or not applicable; Y99.9 Unspecified external cause status; Z99.3 Dependence on wheelchair
CPT/HCPCS: 36415; 73610; 80053; 85025; 99283

== ENCOUNTER 2020-05-29 14:20 | Outpatient (RCR) | payer OTHER, SELFPAY | END 2020-09-10 12:00 | disposition home or self-care (01) | LOC: HO.WCC 14:20 | PROVIDERS: PCP Internal Medicine; Visit Provider Surgery | DX: L89.520 Pressure ulcer of left ankle, unstageable (principal); G82.22 Paraplegia, incomplete; F17.210 Nicotine dependence, cigarettes, uncomplicated; F11.20 Opioid dependence, uncomplicated; F12.90 Cannabis use, unspecified, uncomplicated; Z86.19 Personal history of other infectious and parasitic diseases; Z99.3 Dependence on wheelchair | CPT/HCPCS: 11042; 11043; 15275; 97602; 99203; 99212; 99213; Q4106 ==

== ENCOUNTER 2020-07-04 16:38 | Emergency (ER) | payer OTHER, SELFPAY ==
[2020-07-04 16:40] VITALS: BP 136/84; PULSE 110; O2SAT 97
[2020-07-04 16:49] VITALS: BP 102/56; PULSE 105; RESP 16; O2SAT 98; BMI 35.9
--- NOTE | 2020-07-04 17:10 | PC.NURSE ---
Pt changed into hospital attire with security present. Pt became very agitated, verbally threatening staff, posturing when asked to secure cellphone, I'll fight you, I swear I'll fuck you up . Very well known history of violent behavior in past. This rn and security attempted to de-escalate pt by allowing him to keep phone present. Headphone and other ligature risks removed from device. 1:1 sitter at bedside.
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
[2020-07-04] MEDS: Haloperidol Lactate 5 MG/ML VIAL IM (18:40)
[2020-07-04] MEDS: LORazepam 2 MG/ML VIAL IM (18:40)
[2020-07-04] MEDS: OLANZapine 10 MG VIAL 5 MG IM (18:40)
[2020-07-04 18:42] VITALS: BP 115/62; PULSE 92; RESP 18; O2SAT 94
--- NOTE | 2020-07-04 18:52 | MHC.CM.ED ---
Crisis consult ordered. CM will follow for d/c needs.
[2020-07-04 18:56] VITALS: BP 103/55; PULSE 87; RESP 20; O2SAT 95
--- NOTE | 2020-07-04 19:48 | PC.NURSE ---
Pt now sleeping on and off, rr even and unlabored.
[2020-07-04 20:14] VITALS: RESP 16
[2020-07-04 21:23] VITALS: BP 100/53; PULSE 82; RESP 14; O2SAT 88
[2020-07-05 00:33] VITALS: BP 116/71; PULSE 84; RESP 16; TEMP 37; O2SAT 94
[2020-07-05 06:00] VITALS: BP 97/55; PULSE 76; RESP 20; O2SAT 95
[2020-07-05] MEDS: LORazepam 2 MG/ML VIAL IM (09:15)
--- NOTE | 2020-07-05 14:42 | MHC.RECOVSUP ---
Recovery Support note: Patient is a 34 year old Arabic speaking male who presented to [facility] due to feeling suicidal per patient's mother. Patient was evaluated by CARE Team and referred to this investment underwriter to discuss substance use and recovery supports. Patient is known to this investment underwriter from previous consultations. Patient reports he was previously using PCP on the weekends and increased his frequency to every day. Patient reports he has started to reduce his use and is making progress. Patient reports he uses because he is bored and he feels the need to escape. Discussed recovery supports with patient including [facility]. Patient is a member and is familiar with their services. Encouraged patient to go there for in person meetings and to get connected with a Foiling Machine Operator. Patient reports he has a Foiling Machine Operator, Fercho, through [facility]. Encouraged patient to reach out to him for support when he feels like using. Patient acknowledged. Patient reports he has not been using heroin and has been taking methadone which he finds helpful. Discussed virtual support groups with patient. Patient expressed frustration regarding his providers and housing situation. Patient reports I sign paper after paper and nothing happens , they just want to get paid. Encouraged patient to continue with his efforts to work with [facility] on improving his housing situation. Patient acknowledged. Patient reports anxiety and depression related to his situation. Patient is currently being referred for outpatient therapy. Discussed outpatient therapy with patient and how he can utilize coping skills instead of substances to cope with his anxiety and depression. Discussed case with CARE Team.
[2020-07-05] MEDS: LORazepam 1 MG TABLET 2 MG PO (15:26)
== END 2020-07-05 16:18 | disposition home or self-care (01) ==
PROVIDERS: Emergency Provider Emergency Medicine; PCP Internal Medicine
DX: R45.851 Suicidal ideations (principal); F16.159 Hallucinogen abuse with hallucinogen-induced psychotic disorder, unspecified; F19.10 Other psychoactive substance abuse, uncomplicated; R45.6 Violent behavior; Z78.1 Physical restraint status; F32.9 Major depressive disorder, single episode, unspecified; F41.9 Anxiety disorder, unspecified; G82.20 Paraplegia, unspecified; F17.210 Nicotine dependence, cigarettes, uncomplicated; B19.20 Unspecified viral hepatitis C without hepatic coma; Z99.3 Dependence on wheelchair; Z87.440 Personal history of urinary (tract) infections; Z72.89 Other problems related to lifestyle; Z73.6 Limitation of activities due to disability
CPT/HCPCS: 96372; 96374; 96376; 99285; J2060

== ENCOUNTER 2020-11-07 12:28 | Outpatient (RCR) | payer OTHER, SELFPAY | END 2020-12-04 13:30 | disposition home or self-care (01) | LOC: HO.WCC 12:28 | PROVIDERS: PCP Internal Medicine; Referring Provider Emergency Medicine; Visit Provider Surgery | DX: Z09 Encounter for follow-up examination after completed treatment for conditions other than malignant neoplasm (principal) | CPT/HCPCS: 99212; 99213 ==

== ENCOUNTER 2021-01-21 13:52 | Outpatient (RCR) | payer OTHER, SELFPAY | END 2021-01-23 11:34 | disposition home or self-care (01) | LOC: HO.WCC 13:52 | PROVIDERS: PCP Internal Medicine; Visit Provider Physician Assistant | DX: Z09 Encounter for follow-up examination after completed treatment for conditions other than malignant neoplasm (principal); F17.210 Nicotine dependence, cigarettes, uncomplicated; Z86.19 Personal history of other infectious and parasitic diseases; G82.22 Paraplegia, incomplete; Z87.2 Personal history of diseases of the skin and subcutaneous tissue | CPT/HCPCS: 99212 ==

== ENCOUNTER → 2021-04-25 12:47 | Outpatient (BNVA) | payer OTHER, SELFPAY | PROVIDERS: PCP Internal Medicine; Referring Provider Internal Medicine; Visit Provider Nurse Practitioner | DX: K59.00 Constipation, unspecified (principal); K74.60 Unspecified cirrhosis of liver; F11.20 Opioid dependence, uncomplicated | CPT/HCPCS: 99202 ==

== ENCOUNTER 2021-05-01 13:02 | Outpatient (REF) | payer OTHER, SELFPAY ==
--- NOTE | ~2021-05-01 | MM_ITS ---
EXAMINATION: MM DIAGNOSTIC DIGITAL BREAST TOMOSYNTHESIS, BILATERAL US DIAGNOSTIC ULTRASOUND BREAST, BILATERAL CLINICAL INFORMATION: 35-year-old male with bilateral nipple sensitivity. No discharge. Palpable fullness on left. No prior breast imaging. COMPARISON: None (current study represents initial baseline exam). TECHNIQUE: Digital breast tomosynthesis is performed in both the craniocaudal and mediolateral oblique views along with computer-aided detection (CAD). Synthesized 2D images are generated from the tomosynthesis. Ultrasound bilateral breasts is performed using grayscale imaging and color Doppler without and with harmonics. Both breasts are imaged retroareolar and periareolar as well as upper outer quadrant on the right. FINDINGS: There are scattered areas of fibroglandular density (ACR BI-RADS breast composition Category b). There is mild bilateral gynecomastia parenchymal pattern, slightly greater on left. There is no mass or architectural abnormality or abnormal calcifications. A few small nodes are present low right axillary tail. No skin thickening or coarsening of the stromal markings. Ultrasound demonstrates typical mild bilateral gynecomastia type pattern, slightly greater on left. There is no cystic or solid mass or architectural abnormality. No skin thickening or edema tracking in soft tissue planes. Results are discussed with the patient at time of visit. MM/MM tomosynthesis diagnostic BI IMPRESSION: Mild bilateral gynecomastia pattern, slightly greater on left. No additional findings on ultrasound. ASSESSMENT: BI-RADS 2: Benign RECOMMENDATION: Patient's gynecomastia and bilateral breast symptoms may be managed based on the clinical impression as needed.
== END 2021-05-01 13:03 | disposition home or self-care (01) ==
LOC: HO.MAMMO 13:02
PROVIDERS: PCP Internal Medicine; Visit Provider Registered Nurse Community Health
DX: N64.4 Mastodynia (principal); N63.21 Unspecified lump in the left breast, upper outer quadrant
CPT/HCPCS: 76642; 77062; 77066

== ENCOUNTER → 2021-05-23 14:22 | Outpatient (BNVA) | payer OTHER, SELFPAY | PROVIDERS: PCP Internal Medicine; Referring Provider Internal Medicine; Visit Provider Nurse Practitioner | DX: K59.00 Constipation, unspecified (principal); F11.20 Opioid dependence, uncomplicated; R10.10 Upper abdominal pain, unspecified | CPT/HCPCS: 99212 ==

== ENCOUNTER 2021-07-17 08:50 | Outpatient (REF) | payer OTHER, SELFPAY ==
--- NOTE | ~2021-07-17 | US_ITS ---
EXAMINATION: US COMPLETE ABDOMEN WITH LIVER ELASTOGRAPHY CLINICAL INFORMATION: Chronic viral hepatitis C. COMPARISON: Ultrasound abdomen 05/10/2019 TECHNIQUE: Real-time imaging of the abdominal viscera. Noninvasive ultrasound liver fibrosis assessment is performed using Mikey ElastPQ point quantification shear wave elastography (2D-SWE) with a C5-2 MHz transducer. Multiple elastography samples are obtained. FINDINGS: PANCREAS: The pancreas is completely obscured by overlying gas and not visualized. ABDOMINAL AORTA: The proximal and distal abdominal aorta is normal. The mid abdominal aorta is obscured by overlying gas. INFERIOR VENA CAVA: Visualized portions are normal. LIVER: The liver demonstrates normal size, contour with increased echogenicity. No focal lesion or intrahepatic biliary duct dilatation. The right lobe measures 20.3 cm in length. The left lobe measures 15.9 cm in length. Portal flow is hepatopetal. Shear wave liver elastography median stiffness is 1.85 m/s (reference: Normal median stiffness is 1.3 m/s or less). IQR/median stiffness to assess sampling precision is 0.08 (reference: Good quality data set is IQR/median stiffness of 0.15 or less). GALLBLADDER: Normal. The gallbladder is physiologically distended without evidence of stones, sludge, polyps, wall thickening or pericholecystic fluid. COMMON BILE DUCT: Normal in caliber measuring 0.5 cm in diameter. RIGHT KIDNEY: There is mild pelvic fullness. No renal calculi or focal parenchymal lesions. The kidney measures 12.5 cm in maximum dimension. LEFT KIDNEY: Normal. No hydronephrosis. No renal calculi or focal parenchymal lesions. The kidney measures 12.9 cm in maximum dimension. SPLEEN: Normal. The spleen measures 13.5 cm in maximum dimension. FREE FLUID: None. US/US abdomen comp w elastography IMPRESSION: 1. Diffuse hepatic steatosis without any focal lesion. 2. There is mild right renal pelvic fullness. 3. Liver Elastography: Median liver stiffness measures 1.85 m/s corresponding to cACLD (suggestive). Patient had a similar score on previous ultrasound exam 05/10/2019. REFERENCE: Society of Radiologists in Ultrasound Liver Stiffness Thresholds (2019): LIVER STIFFNESS THRESHOLDS: *Liver Stiffness equal or less than 1.3 m/s: High probability of being normal. *Liver Stiffness less than 1.7 m/s: In the absence of other known clinical signs, rules out compensated advanced chronic liver disease. *Liver Stiffness 1.7-2.1 m/s: Suggestive of compensated advanced chronic liver disease but need further test for confirmation. *Liver Stiffness over 2.1 m/s: Rules in compensated advanced chronic liver disease. *Liver Stiffness over 2.4 m/s: Suggestive of clinically significant portal hypertension. QUALITY OF DATA SET: *IQR/Median value equal or less than 0.15 implies a quality data set. *IQR/Median value over 0.15 implies a poor quality data set. SIGNIFICANT CHANGE FROM PRIOR EXAM: Significant change if liver stiffness measurement is 10% or greater from prior exam. OTHER CONSIDERATIONS: The stage of liver fibrosis may be overestimated in the setting of acute hepatitis, liver inflammation, elevated liver function tests, hepatic vascular congestion, obstructive cholestasis, non-fasting state, and infiltrative diseases such as amyloidosis and lymphoma. In some patients with NAFLD, the liver stiffness thresholds for compensated advanced chronic liver disease may be lower. In causes other than viral hepatitis and NAFLD, liver stiffness thresholds are not well established.
== END 2021-07-17 08:51 | disposition home or self-care (01) ==
LOC: HO.US 08:50
PROVIDERS: Visit Provider Internal Medicine
DX: B18.2 Chronic viral hepatitis C (principal)
CPT/HCPCS: 76705; 76981

== ENCOUNTER → 2021-07-23 10:49 | Outpatient (BNVA) | payer OTHER, SELFPAY | PROVIDERS: PCP Internal Medicine; Referring Provider Emergency Medicine; Visit Provider Internal Medicine Cardiovascular Disease | DX: R60.0 Localized edema (principal); R07.9 Chest pain, unspecified | CPT/HCPCS: 93005; 99202 ==

== ENCOUNTER → 2021-08-14 08:25 | Outpatient (REF) | payer OTHER, SELFPAY | LOC: HO.CARD 08:25 | PROVIDERS: Visit Provider Internal Medicine Cardiovascular Disease | DX: Z13.89 Encounter for screening for other disorder (principal) ==

== ENCOUNTER → 2021-09-03 14:39 | Outpatient (REF) | payer OTHER, SELFPAY ==
--- NOTE | 2021-09-03 14:42 | CA_ITS ---
Transthoracic Echocardiogram Patient (Last, First, Middle): Jose Fleming, Gender: Male Date of : 1985 Age: 35 Procedure Date: 09/03/2021 Procedure Type: Transthoracic Echocardiogram Location: OP Height: 175.26 cm Weight: 127.01 kg BSA: 2.38 m2 Heart Rate: 68 bpm BP: 117 / 50 mmHg Heating Operators Engineer: MARCIA Referring MD: Helio Simental MD Motorcycle Racer: Helio Simental MD Symptoms: R60.0 - Localized edema Study Quality: Poor/BSA/Wheelchair/Unable to obtain IV access. ECG Rhythm: Sinus Conclusions: - Technically extremely limited study as patient could not be imaged in appropriate position Findings Left Ventricle The left ventricle was not well visualized. Right Ventricle The right ventricle was not well visualized. Atria The left atrium was not well visualized. Interatrial shunt cannot be excluded. The right atrium was not well visualized. Aortic Valve The aortic valve was not well visualized. Mitral Valve The mitral valve was not well visualized. Pulmonic Valve The pulmonic valve was not well visualized. Tricuspid Valve The tricuspid valve was not well visualized. Great Vessels All visible segments of the aorta are normal in size. The pulmonary artery was not well visualized. Venous The inferior vena cava was not well visualized. Pericardium/Pleural There is no evidence of pericardial effusion. Prior Study Comparison No prior study available for comparison. Measurements 2D Linear Measurements IVSd: 1.05 0.6-0.9/0.6-1.0 cm LVIDd: 5.75 3.9-5.3/4.2-5.9 cm LVIDd Index: 2.42 2.4-3.2/2.2-3.1 cm/m2 LVPWd: 0.80 0.7-1.1 cm LV Mass: 257.92 67-162/88-224 g LV Mass Index: 108.37 43-95/49-115 g/m2 LVOT Diam: 2.70 3.0+(-)1.3 cm Mitral Valve MV Pk E: 0.74 MV PK A: 0.80 MV Decel Time: 142.00 E/A: 0.90 PHT: 41.00 MVA PHT: 5.37 Decel Garden: 5.20 Aortic Valve AoV Pk Azael: 1.01 AoV Mn Azael: 0.73 AoV VTI: 0.21 AoV Pk Grad: 4.00 Aov Mn Grad: 2.00 MARIA R Cont.VTI: 3.53 LVOT LVOT Pk Azael: 0.69 LVOT Mn Azael: 0.50 LVOT VTI: 0.13 LVOT Pk Grad: 2.00 LVOT Mn Grad: 1.00 LVOT Diam: 2.70 LVOT Area: 5.73 Diastolic Function MV Pk E: 0.74 MV Pk A: 0.80 E/A: 0.90 Great Vessels Aorta Sinus of Valsalva: 3.80 2.0-3.5 cm Ao Asc: 3.30 2.1-3.4 cm Pulmonary Valve PV Pk Azael: 0.80 Peak PV Grad: 3.00 Updated in Other Vendor System with Status of Final Helio Simental MD electronically signed on 09/04/2021 12:05:07 PM with status of Final
== END ==
LOC: HO.CARD 14:39
PROVIDERS: Visit Provider Internal Medicine Cardiovascular Disease
DX: R60.0 Localized edema (principal)
CPT/HCPCS: 93306

== ENCOUNTER → 2021-09-08 09:32 | Outpatient (REF) | payer OTHER, SELFPAY | LOC: HO.CARD 09:32 | PROVIDERS: Visit Provider Internal Medicine Cardiovascular Disease | DX: Z13.89 Encounter for screening for other disorder (principal) ==

== ENCOUNTER 2022-03-19 09:17 | Emergency (ER) | payer OTHER, SELFPAY ==
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
[2022-03-19 09:30] VITALS: BP 115/84; PULSE 84; PULSE 91; RESP 18; TEMP 36.3; O2SAT 92; BMI 34.4
[2022-03-19] MEDS: Morphine Sulfate 4 MG/ML CARTRIDGE IM (09:53)
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
== END 2022-03-19 16:01 | disposition home or self-care (01) ==
PROVIDERS: Emergency Provider Emergency Medicine; PCP Internal Medicine
DX: Z04.1 Encounter for examination and observation following transport accident (principal); R51.9 Headache, unspecified; M54.2 Cervicalgia; M54.6 Pain in thoracic spine; G82.20 Paraplegia, unspecified; F11.20 Opioid dependence, uncomplicated; F17.210 Nicotine dependence, cigarettes, uncomplicated
CPT/HCPCS: 70450; 72125; 72128; 96372; 99284; J2270

== ENCOUNTER → 2022-06-30 13:24 | Outpatient (BNVA) | payer OTHER, SELFPAY | PROVIDERS: PCP Internal Medicine; Visit Provider Nurse Practitioner | DX: K74.60 Unspecified cirrhosis of liver (principal); B19.20 Unspecified viral hepatitis C without hepatic coma; K59.00 Constipation, unspecified; E66.01 Morbid (severe) obesity due to excess calories; M79.3 Panniculitis, unspecified; R10.10 Upper abdominal pain, unspecified; F11.20 Opioid dependence, uncomplicated; Z68.41 Body mass index [BMI] 40.0-44.9, adult; Z79.899 Other long term (current) drug therapy | CPT/HCPCS: 99212 ==

== ENCOUNTER 2022-08-28 12:19 | Outpatient (RCR) | payer OTHER, SELFPAY | END 2022-10-28 12:11 | disposition home or self-care (01) | LOC: HO.WCC 12:19 | PROVIDERS: PCP Internal Medicine; Visit Provider Physician Assistant | DX: L97.322 Non-pressure chronic ulcer of left ankle with fat layer exposed (principal); L97.822 Non-pressure chronic ulcer of other part of left lower leg with fat layer exposed; L97.812 Non-pressure chronic ulcer of other part of right lower leg with fat layer exposed; G62.9 Polyneuropathy, unspecified; G82.22 Paraplegia, incomplete; F17.210 Nicotine dependence, cigarettes, uncomplicated; Z86.19 Personal history of other infectious and parasitic diseases | CPT/HCPCS: 11042; 97602 ==

== ENCOUNTER 2022-11-25 11:01 | Outpatient (RCR) | payer OTHER, SELFPAY | END 2022-12-11 14:38 | disposition home or self-care (01) | LOC: HO.WCC 11:01 | PROVIDERS: PCP Internal Medicine; Visit Provider Surgery | DX: L97.822 Non-pressure chronic ulcer of other part of left lower leg with fat layer exposed (principal); G82.22 Paraplegia, incomplete; G62.9 Polyneuropathy, unspecified; Z99.3 Dependence on wheelchair | CPT/HCPCS: 97597; 99212 ==

== ENCOUNTER 2023-01-05 09:56 | Outpatient (REF) | payer OTHER, SELFPAY ==
--- NOTE | ~2023-01-05 | US_ITS ---
EXAMINATION: US ABDOMEN LIMITED CLINICAL INFORMATION: Unspecified cirrhosis of liver. COMPARISON: Complete 07/17/2021 and 05/10/2019. CT abdomen and pelvis 04/16/2018. TECHNIQUE: Real-time imaging of the right upper quadrant abdominal viscera. Limited exam due to patient being scanned in a chair. FINDINGS: PANCREAS: Largely obscured by overlapping bowel gas. LIVER: There is hepatomegaly, with a longitudinal span of 18.0 cm. There is a nodular contour. There is diffuse increased liver parenchymal echogenicity. No focal hepatic lesion. There is no intrahepatic biliary duct dilatation seen. GALLBLADDER: Surgically absent. COMMON BILE DUCT: Normal in caliber measuring 0.3 cm in diameter. RIGHT KIDNEY: Normal. No hydronephrosis. No renal calculi or focal parenchymal lesions. The kidney measures 11.1 cm in maximum dimension. FREE FLUID: None. US/US abdomen limited IMPRESSION: 1. There is hepatomegaly. 2. There is increase in hepatic echotexture and surface nodularity, consistent with the provided history of cirrhosis. No focal hepatic mass or hepatomegaly ductal dilatation is seen. 3. The gallbladder surgically absent.
[2023-01-05 11:04] LABS: Alanine Aminotransferase 11 U/L (0-40); Albumin Level 3.8 g/dL (3.5-5.0); Alkaline Phosphatase 109 U/L (39-117); Anion Gap 11 (12-20); Aspartate Amino Transferase 16 U/L (5-37); Bilirubin Direct 0.1 mg/dL (0.0-0.5); Bilirubin Total 0.3 mg/dL (0.0-1.0); Blood Urea Nitrogen 11 mg/dL (9-16); Calcium 9.3 mg/dL (8.4-10.2); Carbon Dioxide 31 mmol/L (22-29); Chloride 99 mmol/L (96-108); Estimated Glomerular Filt Rate > 60; Glucose Random 115 mg/dL (60-115); Potassium 4.3 mmol/L (3.3-5.1); Sodium 137 mmol/L (135-145); Total Protein 8.4 g/dL (6.5-8.0)
== END 2023-01-05 09:57 | disposition home or self-care (01) ==
LOC: HO.US 09:56
PROVIDERS: PCP Internal Medicine; Visit Provider Nurse Practitioner
DX: K74.60 Unspecified cirrhosis of liver (principal); F33.3 Major depressive disorder, recurrent, severe with psychotic symptoms
CPT/HCPCS: 36415; 76705; 80048; 80076

== ENCOUNTER 2023-01-21 14:14 | Outpatient (REF) | payer OTHER, SELFPAY ==
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
[2023-01-22 16:32] LABS: Amphetamine Screen Urine Not Detected (Not Detect); Barbiturates, Urine Not Detected (Not Detect); Benzodiazepines Screen Urine Not Detected (Not Detect); Cannabinoid Screen Urine POSITIVE (Not Detect); Cocaine Screen Urine Not Detected (Not Detect); Fentanyl, urine POSITIVE (Not Detect); Opiate Screen Urine POSITIVE (Not Detect); Phencyclidine Screen Urine POSITIVE (Not Detect)
== END 2023-01-21 14:15 | disposition home or self-care (01) ==
LOC: HO.HHCX 14:14
PROVIDERS: Visit Provider Internal Medicine
DX: R05.1 Acute cough (principal); F19.20 Other psychoactive substance dependence, uncomplicated
CPT/HCPCS: 71046; 80307

== ENCOUNTER 2023-02-02 13:29 | Outpatient (REF) | payer OTHER, SELFPAY ==
[2023-02-02 16:25] LABS: D Dimer High Sensitivity 216 NG/ML
[2023-02-02 16:26] LABS: Amphetamine Screen Urine Not Detected (Not Detect); Barbiturates, Urine Not Detected (Not Detect); Benzodiazepines Screen Urine Not Detected (Not Detect); Cannabinoid Screen Urine POSITIVE (Not Detect); Cocaine Screen Urine POSITIVE (Not Detect); Fentanyl, urine POSITIVE (Not Detect); Opiate Screen Urine POSITIVE (Not Detect); Phencyclidine Screen Urine POSITIVE (Not Detect)
[2023-02-04 15:09] LABS: HCV Log PCR <1.18 NOT DETECTED Log IU/mL (NOT DETECTED); HepC Viral Load <15 NOT DETECTED IU/mL (NOT DETECTED)
== END 2023-02-02 13:30 | disposition home or self-care (01) ==
LOC: HO.HHCL 13:29
PROVIDERS: Family Medicine; Visit Provider Internal Medicine
DX: B18.2 Chronic viral hepatitis C (principal); F19.20 Other psychoactive substance dependence, uncomplicated; R05.1 Acute cough
CPT/HCPCS: 36415; 80307; 85379; 87522

== ENCOUNTER 2023-04-08 13:50 | Outpatient (AMB) | payer OTHER, SELFPAY ==
--- NOTE | 2023-04-08 13:58 | A.OFFVIS_ITS ---
Intake Vital Signs 3 04/08/23 14:00 Height 5 ft 9 in Weight 285 lb BMI 42.1 BP 111/67 Blood Pressure Location Lt brachial Position Sitting Pulse 101 H Intake Visit Reasons: difficulty swallowing Intake Note: Patient follow up for swallowing problems. Patient cc: abdominal pain, constipation on and off with blood and swallowing problems with solid and sometimes with liquid, too. He can taste his food by his nouse. 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 Accompanied by: Mother Allergies codeine Allergy (Unknown, Verified 04/08/23 13:57) Unknown piperacillin [From ZOSYN] Allergy (Unknown, Verified 04/08/23 13:57) DIFFICULTY BREATHING tazobactam [From ZOSYN] Allergy (Unknown, Verified 04/08/23 13:57) DIFFICULTY BREATHING tramadol Allergy (Unknown, Verified 04/08/23 13:57) nausea and vomiting vancomycin [VANCOMYCIN] Allergy (Unknown, Verified 04/08/23 13:57) DIFFICULTY BREATHING, anaphylaxis Medication List - Last Reconciled 04/08/23 by MARTIN Chaudhry docusate sodium (Colace) 100 mg PO DAILY hydrocortisone 2.5% appl topical BID PRN linaclotide (Linzess) 72 mcg PO QAM methadone (Methadose) 120 mg PO DAILY mirtazapine 1 tab PO BEDTIME omeprazole 40 mg PO BID oxybutynin chloride ER 1 tab PO DAILY risperidone 4 mg PO BID tadalafil 1 tab PO DAILY trazodone 50 mg PO BEDTIME PRN HPI difficulty swallowing 2 HPI0 Details Assessment & Plan (1) Upper abdominal pain: Code(s): R10.10 - Upper abdominal pain, unspecified Plan: Pt lost to follow up for over a year. He is here with a male relative who is supportive He has been going through a lot. Mostly his health challenges have been with his leg wounds and infections. He now has a visiting nurse coming to his home every day to do wound care drip and dressing changes. He was just put on another round of antibiotics due to some redness of these wounds. He does not know the name of the new antibiotic. In GI, he is having stomach pain along with N/V, severe GERD, and severe CIC. Still on methadone therapy and multiple psych meds. He denies any changes to his reported past therapeutic agents. Transaminases have greatly increased, he has also gained a great deal of weight ? 70#, so may be SOLARES related, but given his hx will also order repeat HEP and HIV as well as autoimmune tests. TSH as well to address this and CIC. US ordered - had elastrography 05/2021 He request referral to wt mgmt, given. They are interested in bariatric surgery but I am uncertain help practical this will be relative to his comorbid problems but I will leave this of course to the surgical team to decide. Start Linzess 72 mcg and then evaluate if this improves sx, get EGD ordered, he continues on omeprazole 40mg and we may consider changing this depending on his response to establishing better bowel motility. Given his weight gain we also may need to consider things the differential diagnosis such as gastroparesis and new onset diabetes. ROV 6 weeks. (2) Constipation: Code(s): K59.00 - Constipation, unspecified (3) Methadone maintenance therapy patien t: Code(s): F11.20 - Opioid dependence, uncomplicated (4) Polysubstance dependence: Code(s): F19.20 - Other psychoactive substance dependence, uncomplicated (5) Cirrhosis: Comment: BASELINE LABS: 12/2019 Total bilirubin 0.4, AST/ALT 39/34, alk-phos elevated 236, . No autoimmune workup are hepatitis a BC in our database so will obtain this along without the fetoprotein, ferritin, GGT etc.. Platelets [id number] ULTRASOUND WITH ELASTOGRAPHY EQUALS F 3 07/2021 CURRENT LABS US Code(s): K74.60 - Unspecified cirrhosis of liver (6) HCV (hepatitis C virus): Code(s): B19.20 - Unspecified viral hepatitis C without hepatic coma (7) Paraplegia: Code(s): G82.20 - Paraplegia, unspecified (8) Weight gain: Code(s): R63.5 - Abnormal weight gain (9) Morbid obesity: Code(s): E66.01 - Morbid (severe) obesity due to excess calories Orders: Orders Alpha Fetoprotein 06/30/22 B19.20 - Unspecified viral hepatitis C without hepatic coma, E66.01 - Morbid (severe) obesity due to excess calories, K74.60 - Unspecified cirrhosis of liver, R63.5 - Abnormal weight gain BEREKET Reflex Titer and Pattern 06/30/22 B19.20 - Unspecified viral hepatitis C without hepatic coma, E66.01 - Morbid (severe) obesity due to excess calories, K74.60 - Unspecified cirrhosis of liver, R63.5 - Abnormal weight gain Comprehensive Met. Panel 06/30/22 - Unspecified viral hepatitis C without hepatic coma, E66.01 - Morbid (severe) obesity due to excess calories, K74.60 - Unspecified cirrhosis of liver, R63.5 - Abnormal weight gain Complete Blood Count Auto Diff 06/30/22. - Unspecified viral hepatitis C without hepatic coma, E66.01 - Morbid (severe) obesity due to excess calories, K74.60 - Unspecified cirrhosis of liver, R63.5 - Abnormal weight gain Gamma Glutamyl Transpeptidase 06/30/22 - Unspecified viral hepatitis C without hepatic coma, E66.01 - Morbid (severe) obesity due to excess calories, K74.60 - Unspecified cirrhosis of liver, R63.5 - Abnormal weight gain Ferritin 06/30/22 - Unspecified viral hepatitis C without hepatic coma, E66.01 - Morbid (severe) obesity due to excess calories, K74.60 - Unspecified cirrhosis of liver, R63.5 - Abnormal weight gain Hepatitis A,B,C Profile 06/30/22 - Unspecified viral hepatitis C without hepatic coma, E66.01 - Morbid (severe) obesity due to excess calories, K74.60 - Unspecified cirrhosis of liver, R63.5 - Abnormal weight gain HIV Ab/Ag 06/30/22 - Unspecified viral hepatitis C without hepatic coma, E66.01 - Morbid (severe) obesity due to excess calories, K74.60 - Unspecified cirrhosis of liver, R63.5 - Abnormal weight gain Mitochondrial Antibody 06/30/22 - Unspecified viral hepatitis C without hepatic coma, E66.01 - Morbid (severe) obesity due to excess calories, K74.60 - Unspecified cirrhosis of liver, R63.5 - Abnormal weight gain Smooth Muscle Antibody 06/30/22 - Unspecified viral hepatitis C without hepatic coma, E66.01 - Morbid (severe) obesity due to excess calories, K74.60 - Unspecified cirrhosis of liver, R63.5 - Abnormal weight gain TSH reflex Free T4 05/16/23 B19.20 - Unspecified viral hepatitis C without hepatic coma, E66.01 - Morbid (severe) obesity due to excess calories, K74.60 - Unspecified cirrhosis of liver, R63.5 - Abnormal weight gain US abdomen limited 06/30/22 K74.60 - Unspecified cirrhosis of liver Referrals Medical Weight Management Referral E66.01 - Morbid (severe) obesity due to excess calories Medications: New linaclotide (Linzess) 72 mcg PO QAM 30 caps 3RF K59.00 - Constipation, unspecified Refilled omeprazole 40 mg PO DAILY 30 days 30 caps 6RF Discontinued lubiprostone (Amitiza) Discontinued Reason: Doctor's Order 8 mcg PO BID 60 caps 6RF K59.00 - Constipation, unspecified, R10.10 - Upper abdominal pain, unspecified . LABS: Most of the requested labs were not obtained I looked at what was available on record Laboratory Tests 01/05/23 01/05/23 02/02/23 10:13 10:13 13:32 Estimated GFR > 60 Total Bilirubin 0.3 Direct Bilirubin 0.1 AST 16 ALT 11 Alkaline Phosphata se 109 Urine Opiates Scre en POSITIVE H Urine Fentanyl Scr een POSITIVE H Ur Phencyclidine S crn POSITIVE H Urine Cocaine Scre en POSITIVE H U Marijuana (THC) Screen POSITIVE H Hep C Viral Load Hep C Viral Load L og 02/02/23 02/02/23 13:43 13:43 Estimated GFR Total Bilirubin Direct Bilirubin AST ALT Alkaline Phosphata se Urine Opiates Scre en Urine Fentanyl Scr een Ur Phencyclidine S crn Urine Cocaine Scre en U Marijuana (THC) Screen Hep C Viral Load <15 NOT DETECTED Hep C Viral Load L og <1.18 NOT DETECTE D ULTRASOUND OF THE ABDOMEN 01/06/23 FINDINGS: PANCREAS: Largely obscured by overlapping bowel gas. LIVER: There is hepatomegaly, with a longitudinal span of 18.0 cm. There is a nodular contour. There is diffuse increased liver parenchymal echogenicity. No focal hepatic lesion. There is no intrahepatic biliary duct dilatation seen. GALLBLADDER: Surgically absent. COMMON BILE DUCT: Normal in caliber measuring 0.3 cm in diameter. RIGHT KIDNEY: Normal. No hydronephrosis. No renal calculi or focal parenchymal lesions. The kidney measures 11.1 cm in maximum dimension. FREE FLUID: None. US/US abdomen limited IMPRESSION: 1. There is hepatomegaly. 2. There is increase in hepatic echotext ure and surface nodularity, consistent with the provided history of cirrhosis. No focal hepatic mass or hepatomegaly ductal dilatation is seen. 3. The gallbladder surgically absent. EGD Scheduled for 05/06/2023 TODAY'S VISIT Patient has been lost to follow-up since 06/2022 even though he was supposed to have a 6 week follow-up. In GI, he is having stomach pain along with N/V, severe GERD, and severe CIC. Still on methadone therapy and multiple psych meds. He denies any changes to his reported past therapeutic agents. We review his liver and ultrasound results and since there is no severe progression of his liver disease in the transaminases are normal he likely can have this followed by his primary care provider six-month intervals and have him return to our service if the transaminases rise greater than 2 times the normal upper limit. At this point will see how he does once we reinstate all of the medications that he has run out of and then decide if we need additional medication therapy.. He has the EGD coming up in April and also had a barium swallow to his workup. Return office visit in 3 weeks. [facility] Medical History Asthma Cellulitis Eczema Erectile dysfunction due to arterial insufficiency PTSD (post-traumatic stress disorder) Recurrent UTI Social History Household Members: Unknown / Unable to assess Housing: Unknown / Unable to assess Do you presently have visiting nurse or other home services: No Unable to assess alcohol history related to: Unable to respond Alcohol intake: current Comment: PT SLEEPING Cigarette Packs Per Day: 1 Cigarettes Per Day: 20.0 Years Smoked: 20 Second Hand Smoke Exposure: Yes Substance Use Type: Club/[employer]ed [employer] Drugs Advance Directives Date on File: 01/23/20 service: No Current occupational status: disabled Sexual orientation: Client not available to respond at this time Review of Systems Const Denies fatigue, Denies fever(s), Denies night sweats, Denies poor appetite and Denies weight loss ENT Reports Normal hearing present, Denies dental pain, Denies dysphagia, Denies hearing loss, Denies mouth pain, Denies odynophagia, Denies throat swelling, Denies tongue swelling and Reports other (Dentition adequate) Card Reports no additional complaints Resp Reports no additional complaints GI Details: Denies abdominal pain, Denies melena, Denies bloating, Denies hematochezia, Reports constipation, Reports GI cramping, Denies dysphagia, Denies excessive flatus, Denies early satiety, Reports dyspepsia, Reports heartburn, Denies diarrhea, Reports nausea, Denies odynophagia, Reports vomiting and Denies hematemesis Skin/Breast Denies pruritus, Denies lesions, Denies rash and Denies jaundice Neuro Reports Normal hearing present, Denies Abnormal speech present and Reports focal weakness Endo Denies fatigue Aller/Immun Denies throat swelling and Denies tongue swelling Physical Exam Vital Signs: Last Vital Signs Pulse 101 H 04/08/23 14:00 BP 111/67 04/08/23 14:00 BMI result Body Mass Index 42.1 Const General: cooperative, no acute distress, well developed and well groomed Nutritional Appearance: well nourished and obese morbidly obese Orientation/consciousness: oriented to person, oriented to place and oriented to time Limitations: No language barrier and wheelchair HEENT Head: Yes normocephalic and Yes atraumatic Eyes General: appearance normal, both eyes and all related structures Pupils: Equal, round and reactive pupils present Neck Neck: Yes normal visual inspection and Yes no lymphadenopathy Thyroid: Thyroid normal Resp Effort & Inspection: normal respiratory effort and able to speak in complete sentences Auscultation: clear to auscultation bilaterally Cardio Rate: regular rate Rhythm: regular rhythm Heart sounds: Normal, physiologic split S2 sound present Peripheral pulses: radial pulses present and posterior tibial pulses present GI Inspection: No distended, Yes Abdominal panniculus present and Yes obesity Palpation (GI): Soft to palpation, nontender, no guarding, not rigid and No hepatosplenomegaly present Percussion: Yes normal to percussion Auscultation: normal bowel sounds Rectal Exam - Male: Yes deferred Abdomen image: 2 1. surgica/wound scars 2. 3. Skin General skin exam: no rashes or lesions noted, turgor normal, skin not dry, no jaundice, No spider nevi and no striae Rashes: no rashes Nails: normal Neuro General: oriented to person, oriented to place and oriented to time Cranial nerves: Yes Equal, round and reactive pupils present and Yes Normal hearing present Speech: No Abnormal speech present Extrem Other: mild left ankle contracture General: Yes normal to inspection, No clubbing, No cyanosis and No edema Psych Appearance: grossly normal and well kempt Mental Status: mental status grossly normal Speech and movement: Normal speech and movement present Affect: normal affect Attitude: cooperative Thought process: Normal thought process present and not confabulating Thought content: Normal thought content present Insight: Limited insight present (Psych) Judgement: Limited judgement present (Psych) Results Reviewed Results Reviewed: Laboratory Tests 01/05/23 01/05/23 02/02/23 10:13 10:13 13:32 Estimated GFR > 60 Total Bilirubin 0.3 Direct Bilirubin 0.1 AST 16 ALT 11 Alkaline Phosphatase 109 Urine Opiates Screen POSITIVE H Urine Fentanyl Screen POSITIVE H Ur Phencyclidine Scrn POSITIVE H Urine Cocaine Screen POSITIVE H U Marijuana (THC) Screen POSITIVE H Hep C Viral Load Hep C Viral Load Log 02/02/23 02/02/23 13:43 13:43 Estimated GFR Total Bilirubin Direct Bilirubin AST ALT Alkaline Phosphatase Urine Opiates Screen Urine Fentanyl Screen Ur Phencyclidine Scrn Urine Cocaine Screen U Marijuana (THC) Screen Hep C Viral Load <15 NOT DETECTED Hep C Viral Load Log <1.18 NOT DETECTED ULTRASOUND OF THE ABDOMEN 01/06/23 FINDINGS: PANCREAS: Largely obscured by overlapping bowel gas. LIVER: There is hepatomegaly, with a longitudinal span of 18.0 cm. There is a nodular contour. There is diffuse increased liver parenchymal echogenicity. No focal hepatic lesion. There is no intrahepatic biliary duct dilatation seen. GALLBLADDER: Surgically absent. COMMON BILE DUCT: Normal in caliber measuring 0.3 cm in diameter. RIGHT KIDNEY: Normal. No hydronephrosis. No renal calculi or focal parenchymal lesions. The kidney measures 11.1 cm in maximum dimension. FREE FLUID: None. US/US abdomen limited IMPRESSION: 1. There is hepatomegaly. 2. There is increase in hepatic echotexture and surface nodularity, consistent with the provided history of cirrhosis. No focal hepatic mass or hepatomegaly ductal dilatation is seen. 3. The gallbladder surgically absent. Assessment & Plan Assessment & Plan (1) Constipation: Code(s): K59.00 - Constipation, unspecified (2) Upper abdominal pain: Code(s): R10.10 - Upper abdominal pain, unspecified (3) Morbid obesity: Code(s): E66.01 - Morbid (severe) obesity due to excess calories (4) Cirrhosis: Comment: Given normal transaminases and no progression this can be followed by his primary care provider and he should be return to our services if the transaminases rise greater than 2 times the upper normal limit BASELINE LABS: 12/2019 Total bilirubin 0.4, AST/ALT 39/34, alk-phos elevated 236, . No autoimmune workup are hepatitis a BC in our database so will obtain this along without the fetoprotein, ferritin, GGT etc.. Platelets [id number] ULTRASOUND WITH ELASTOGRAPHY EQUALS F 3 07/2021 CURRENT LABS Laboratory Tests 01/05/2311/ 10:1310:1313:32 Estimated GFR > 60 Total Bilirubin 0.3 Direct Bilirubin 0.1 AST 16 ALT 11 Alkaline Phosphatase 109 Urine Opiates Screen POSITIVE H Urine Fentanyl Screen POSITIVE H Ur Phencyclidine Scrn POSITIVE H Urine Cocaine Screen POSITIVE H U Marijuana (THC) Screen POSITIVE H Hep C Viral Load Hep C Viral Load Log 02/03/2312/19/23 13:4313:43 Estimated GFR Total Bilirubin Direct Bilirubin AST ALT Alkaline Phosphatase Urine Opiates Screen Urine Fentanyl Screen Ur Phencyclidine Scrn Urine Cocaine Screen U Marijuana (THC) Screen Hep C Viral Load <15 NOT DETECTED Hep C Viral Load Log <1.18 NOT DETECTED ULTRASOUND OF THE ABDOMEN 01/06/23 FINDINGS: PANCREAS: Largely obscured by overlapping bowel gas. LIVER: There is hepatomegaly, with a longitudinal span of 18.0 cm. There is a nodular contour. There is diffuse increased liver parenchymal echogenicity. No focal hepatic lesion. There is no intrahepatic biliary duct dilatation seen. GALLBLADDER: Surgically absent. COMMON BILE DUCT: Normal in caliber measuring 0.3 cm in diameter. RIGHT KIDNEY: Normal. No hydronephrosis. No renal calculi or focal parenchymal lesions. The kidney measures 11.1 cm in maximum dimension. FREE FLUID: None. US/US abdomen limited IMPRESSION: 1. There is hepatomegaly. 2. There is increase in hepatic echotexture and surface nodularity, consistent with the provided history of cirrhosis. No focal hepatic mass or hepatomegaly ductal dilatation is seen. 3. The gallbladder surgically absent. Code(s): K74.60 - Unspecified cirrhosis of liver (5) HCV (hepatitis C virus): Code(s): B19.20 - Unspecified viral hepatitis C without hepatic coma (6) Paraplegia: Code(s): G82.20 - Paraplegia, unspecified (7) Dysphagia: Code(s): R13.10 - Dysphagia, unspecified Plan Patient has been lost to follow-up since 06/2022 even though he was supposed to have a 6 week follow-up. In GI, he is having stomach pain along with N/V, severe GERD, and severe CIC. Still on methadone therapy and multiple psych meds. He denies any changes to his reported past therapeutic agents. We review his liver and ultrasound results and since there is no severe progression of his liver disease in the transaminases are normal he likely can have this followed by his primary care provider six-month intervals and have him return to our service if the transaminases rise greater than 2 times the normal upper limit. At this point will see how he does once we reinstate all of the medications that he has run out of and then decide if we need additional medication therapy.. He has the EGD coming up in April and also had a barium swallow to his workup. Return office visit in 3 weeks. Orders: Orders 2 EGD with [facility] - GI Use Only 04/08/23 R13.10 - Dysphagia, unspecified [place] barium swallow modified 04/08/23 R13.10 - Dysphagia, unspecified Medications: New 2 docusate sodium (Colace) 100 mg PO DAILY Changed 2 From omeprazole 40 mg PO DAILY 90 caps 2RF To omeprazole 40 mg PO BID 180 caps 2RF Refilled 2 linaclotide (Linzess) 72 mcg PO QAM 30 caps 3RF K59.00 - Constipation, unspecified Coding Level of Care Code Est Pt Level 4 (21001) Diagnoses Constipation K59.00 Upper abdominal pain R10.10 Morbid obesity E66.01 Cirrhosis K74.60 HCV (hepatitis C virus) B19.20 Paraplegia G82.20 Dysphagia R13.10
[2023-04-08 14:00] VITALS: BP 111/67; PULSE 101; BMI 42.1
== END 2023-04-08 14:36 | disposition home or self-care (01) ==
PROVIDERS: PCP Internal Medicine; Visit Provider Nurse Practitioner
DX: K59.00 Constipation, unspecified (principal); R10.10 Upper abdominal pain, unspecified; E66.01 Morbid (severe) obesity due to excess calories; K74.60 Unspecified cirrhosis of liver; B19.20 Unspecified viral hepatitis C without hepatic coma; G82.20 Paraplegia, unspecified; R13.10 Dysphagia, unspecified
CPT/HCPCS: 99214

== ENCOUNTER → 2023-04-08 13:50 | Outpatient (BNVA) | payer OTHER, SELFPAY | PROVIDERS: PCP Internal Medicine; Visit Provider Nurse Practitioner | DX: K59.00 Constipation, unspecified (principal); K74.60 Unspecified cirrhosis of liver; B19.20 Unspecified viral hepatitis C without hepatic coma; G82.20 Paraplegia, unspecified; R10.10 Upper abdominal pain, unspecified; R13.10 Dysphagia, unspecified; E66.01 Morbid (severe) obesity due to excess calories; Z68.41 Body mass index [BMI] 40.0-44.9, adult | CPT/HCPCS: 99212 ==

== ENCOUNTER → 2023-05-06 11:17 | Day surgery (SDC) | payer OTHER, SELFPAY ==
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
--- NOTE | 2023-05-06 12:00 | PC.NURSE ---
Patient in preop. Voiced that he last used cocaine 2-[address] James made aware and at bedside. Case cancelled per anesthesia. Dr. Terry made aware. Patient understands and will reschedule at a later time.
== END ==
PROVIDERS: PCP Internal Medicine; Visit Provider Internal Medicine
DX: R13.10 Dysphagia, unspecified (principal); Z53.8 Procedure and treatment not carried out for other reasons; F14.90 Cocaine use, unspecified, uncomplicated

== ENCOUNTER 2023-06-09 18:23 | Emergency (ER) | payer OTHER, SELFPAY ==
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
[2023-06-09 18:32] VITALS: BP 100/58; BP 126/78; PULSE 103; PULSE 109; RESP 20; TEMP 36.8; O2SAT 96; BMI 43.0
--- NOTE | 2023-06-09 20:11 | ECG_ITS ---
Test Reason : BACK PAIN Blood Pressure : / mmHG Vent. Rate : 087 BPM Atrial Rate : 087 BPM P-R Int : 134 ms QRS Dur : 108 ms QT Int : 382 ms P-R-T Axes : -17 -35 -37 degrees QTc Int : 459 ms Normal sinus rhythm Left axis deviation Pulmonary disease pattern Incomplete right bundle branch block Nonspecific T wave abnormality Abnormal ECG When compared with ECG of 22-JAN-2020 16:13, Incomplete right bundle branch block is now Present Referred By: Justin Costello Electronically Signed By:DANICA STRATTON MD
[2023-06-09] MEDS: Morphine Sulfate 4 MG/ML CARTRIDGE IVPUSH (20:38)
[2023-06-09] MEDS: ondansetron HCL 4 MG/2 ML VIAL IVPUSH (20:38)
[2023-06-09 20:46] LABS: Basophils Absolute Auto 0.1 X10*3/uL (0.0-0.2); Basophils Percent Auto 0.4 % (0-2); Eosinophils Absolute Auto 0.3 X10*3/uL (0.0-0.4); Eosinophils Percent Auto 1.6 % (0-4); Hematocrit 40.2 % (42.0-52.0); Hemoglobin 13.4 g/dl (14.0-18.0); Imm Gran Abs Auto 0.08 X10*3/uL (0.00-0.03); Imm Gran Pct Auto 0.5 % (0.0-0.4); Lymphocytes Absolute Auto 5.1 X10*3/uL (1.2-4.9); Lymphocytes Percent Auto 32.1 % (20-40); MANUAL DIFF FLAG SCAN; Mean Corpuscular HGB Conc 33.3 g/dl (31.0-36.0); Mean Corpuscular Hemoglobin 26.9 pg (27.0-33.0); Mean Corpuscular Volume 80.6 fL (80.0-98.0); Mean Platelet Volume 9.5 fL (9.4-12.4); Monocytes Absolute Auto 0.8 X10*3/uL (0.1-1.2); Neutrophils Absolute Auto 9.5 x10*3/uL (2.0-8.3); Neutrophils Percent Auto 60.4 % (45-73); Platelet Count 285 X10*3/uL (160-400); Red Blood Count 4.99 X10*6/uL (4.60-5.80); Red Cell Distribution Width 14.4 % (11.0-16.0); SCAN SMEAR FLAG 1; White Blood Count 15.7 X10*3/uL (4.8-10.8)
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
[2023-06-09 20:55] LABS: Prothrombin Time 11.9 SEC (11.1-13.3)
[2023-06-09 20:57] LABS: D Dimer High Sensitivity 214 NG/ML
[2023-06-09 21:01] LABS: Alanine Aminotransferase 12 U/L (0-40); Albumin Level 3.7 g/dL (3.5-5.0); Alkaline Phosphatase 98 U/L (39-117); Anion Gap 12 (12-20); Aspartate Amino Transferase 12 U/L (5-37); Bilirubin Total 0.2 mg/dL (0.0-1.0); Blood Urea Nitrogen 11 mg/dL (9-16); Calcium 9.1 mg/dL (8.4-10.2); Carbon Dioxide 30 mmol/L (22-29); Chloride 102 mmol/L (96-108); Creatinine Clr Calc Pharmacy 204.3; Estimated Glomerular Filt Rate > 60; Glucose Random 94 mg/dL (60-115); Lipase 8 U/L (8-78); Potassium 3.6 mmol/L (3.3-5.1); Sodium 140 mmol/L (135-145); Total Protein 7.5 g/dL (6.5-8.0)
[2023-06-09 21:07] VITALS: BP 109/55; PULSE 85; RESP 20; TEMP 36.8; O2SAT 98
[2023-06-09 21:16] LABS: Troponin-I High Sensitivity < 2.7 ng/L (<3.5-35.0)
[2023-06-09 21:23] LABS: Influenza A PCR NEGATIVE (Negative); Influenza B PCR NEGATIVE (Negative); Resp Syncy Virus RNA Qual PCR NEGATIVE (Negative); SARS COV2 PCR INHOUSE NEGATIVE (Negative)
[2023-06-09 21:28] LABS: SLIDE REVIEW VERIFIED
[2023-06-09 21:59] LABS: Appearance Urine Cloudy; Color Urine Yellow; Glucose Urine UA Negative (Negative); Leukocyte Esterase Urine Small (1+) (Negative); Nitrite Urine Positive (Negative); PH 5.5 (5.0-9.0); UMIC TRIGGER UACC YES; Urine Blood Negative (Negative); Urine Ketones Trace mg/dL (Negative); Urine Protein 100 (2+) mg/dL (Neg-Trace)
[2023-06-09 22:00] LABS: Bacteria Urine 4+ (None Seen); Hyaline Casts Urine 0-2 /LPF (0-2); RBC Urine 0-2 /HPF (0-2); Squamous Epithelial Cell Urine 0-2 /HPF (0-2); UACC Culture Trigger YES
[2023-06-09 22:18] VITALS: BP 108/61; PULSE 88; RESP 20; TEMP 36.9; O2SAT 98
[2023-06-09] MEDS: cefuroxime axetiL 250 MG TABLET PO (23:09)
[2023-06-10] VITALS: BP 110/60; PULSE 89; RESP 16; TEMP 36.8; O2SAT 93
[2023-06-10 01:24] VITALS: BP 110/60; PULSE 89; RESP 16; TEMP 36.8; O2SAT 94
== END 2023-06-10 01:26 | disposition home or self-care (01) ==
PROVIDERS: Physician Assistant; Emergency Provider Emergency Medicine Emergency Medical Services; PCP Internal Medicine
DX: M54.6 Pain in thoracic spine (principal); N39.0 Urinary tract infection, site not specified; G82.20 Paraplegia, unspecified; T14.8XXS Other injury of unspecified body region, sequela; W34.00XS Accidental discharge from unspecified firearms or gun, sequela; Q05.9 Spina bifida, unspecified; Z99.3 Dependence on wheelchair; Z03.818 Encounter for observation for suspected exposure to other biological agents ruled out
CPT/HCPCS: 0241U; 36415; 71045; 72070; 72100; 80053; 81001; 83690; 84484; 85025; 85379; 85610; 87086; 87088; 87186; 93005; 96374; 96375; 99284; J2270; J2405

== ENCOUNTER → 2023-06-09 20:11 | Outpatient (BNV) | payer OTHER, SELFPAY | PROVIDERS: Emergency Provider Emergency Medicine Emergency Medical Services; PCP Internal Medicine; Visit Provider Internal Medicine Cardiovascular Disease | DX: R94.31 Abnormal electrocardiogram [ECG] [EKG] (principal) | CPT/HCPCS: 93010 ==

== ENCOUNTER → 2023-09-30 09:45 | Day surgery (SDC) | payer OTHER, SELFPAY ==
[2023-09-28 10:08] VITALS: BMI 42.1
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
[2023-09-30 10:09] VITALS: BMI 42.1
[2023-09-30 10:25] LABS: Amphetamine Screen Urine Not Detected (Not Detect); Barbiturates, Urine Not Detected (Not Detect); Benzodiazepines Screen Urine Not Detected (Not Detect); Buprenorphine Scr Not Detected (Not Detect); Cannabinoid Screen Urine POSITIVE (Not Detect); Cocaine Screen Urine POSITIVE (Not Detect); Fentanyl, urine POSITIVE (Not Detect); Methadone Screen, Urine Positive (Not Detect); Opiate Screen Urine POSITIVE (Not Detect); Oxycodone Screen Urine Not Detected (Not Detect); Phencyclidine Screen Urine POSITIVE (Not Detect)
--- NOTE | 2023-09-30 10:39 | PC.NURSE ---
Pt cancelled due to positive UTox. Pt educated to abstain from Cocaine use prior to procedure. Pt educated to call Dr Terry's office to reschedule. Pt verbalized understanding of plan. Pt left stable with all belongings.
== END ==
LOC: HO.SSS 09:45
PROVIDERS: Nurse Practitioner; PCP Internal Medicine; Visit Provider Internal Medicine
DX: R13.10 Dysphagia, unspecified (principal); Z53.8 Procedure and treatment not carried out for other reasons; R82.5 Elevated urine levels of drugs, medicaments and biological substances; F19.20 Other psychoactive substance dependence, uncomplicated
CPT/HCPCS: 80307

== ENCOUNTER 2024-03-03 10:59 | Observation (INO) | payer OTHER, SELFPAY ==
[2024-03-03 11:02] VITALS: PULSE 90; O2SAT 97
[2024-03-03 11:14] VITALS: RESP 16; BMI 39.2
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
[2024-03-03 12:17] LABS: Alanine Aminotransferase 20 U/L (0-40); Albumin Level 3.6 g/dL (3.5-5.0); Alkaline Phosphatase 103 U/L (39-117); Anion Gap 13 (12-20); Aspartate Amino Transferase 35 U/L (5-37); Bilirubin Total 0.4 mg/dL (0.0-1.0); Blood Urea Nitrogen 14 mg/dL (9-16); Calcium 9.1 mg/dL (8.4-10.2); Carbon Dioxide 21 mmol/L (22-29); Chloride 110 mmol/L (96-108); Creatinine Clr Calc Pharmacy 183.4; Estimated Glomerular Filt Rate > 60; Ethanol < 10 mg/dL; Glucose Random 103 mg/dL (60-115); Potassium 3.9 mmol/L (3.3-5.1); Sodium 140 mmol/L (135-145); Total Protein 8.2 g/dL (6.5-8.0)
[2024-03-03 12:18] LABS: Acetaminophen LAB < 3 mcg/mL (<30); Salicylate < 5.0 mg/dL (15-30)
[2024-03-03 12:20] LABS: IDNOW Serial# 08D9AD1C
[2024-03-03 12:21] LABS: COVID-19 Test Negative (Negative)
--- NOTE | 2024-03-03 12:31 | MHC.EDTECH ---
security placed belongings on shelf 3 in the closet before the POD
[2024-03-03] MEDS: Midazolam HCl 5 MG/ML VIAL 10 MG IM (13:00)
[2024-03-03] MEDS: OLANZapine 10 MG VIAL IM (13:06)
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
[2024-03-03 14:36] LABS: Basophils Absolute Auto 0.1 X10*3/uL (0.0-0.2); Basophils Percent Auto 0.3 % (0-2); Eosinophils Absolute Auto 0.1 X10*3/uL (0.0-0.4); Eosinophils Percent Auto 0.5 % (0-4); Hematocrit 41.4 % (42.0-52.0); Hemoglobin 13.4 g/dl (14.0-18.0); Imm Gran Abs Auto 0.08 X10*3/uL (0.00-0.03); Imm Gran Pct Auto 0.5 % (0.0-0.4); Lymphocytes Percent Auto 17.9 % (20-40); Mean Corpuscular HGB Conc 32.4 g/dl (31.0-36.0); Mean Corpuscular Hemoglobin 27.3 pg (27.0-33.0); Mean Corpuscular Volume 84.5 fL (80.0-98.0); Mean Platelet Volume 9.7 fL (9.4-12.4); Monocytes Absolute Auto 0.9 X10*3/uL (0.1-1.2); Monocytes Percent Auto 5.5 % (2-11); Neutrophils Absolute Auto 12.8 x10*3/uL (2.0-8.3); Neutrophils Percent Auto 75.3 % (45-73); Platelet Count 265 X10*3/uL (160-400); Red Cell Distribution Width 14.8 % (11.0-16.0); White Blood Count 16.9 X10*3/uL (4.8-10.8)
[2024-03-03] MEDS: LORazepam 1 MG TABLET 2 MG PO (16:48)
[2024-03-03 18:47] VITALS: PULSE 73; RESP 20; O2SAT 97
[2024-03-03] MEDS: OLANZapine 10 MG TABLET PO (20:53)
[2024-03-03 20:54] VITALS: BP 111/58; PULSE 82; RESP 12; O2SAT 98
[2024-03-03] MEDS: Sulfamethox/Trimeth 800/160 TABLET 1 TAB PO (20:54)
--- NOTE | 2024-03-03 20:55 | PC.NURSE ---
Pt medicated per mar Pt requesting methadone. Provider notified and aware. Pt requested and given drink. Plan of care ongoing.
--- NOTE | 2024-03-04 | ECG_ITS ---
Test Reason : COCAINE USE Blood Pressure : */* mmHG Vent. Rate : 98 BPM Atrial Rate : 98 BPM P-R Int : 136 ms QRS Dur : 108 ms QT Int : 432 ms P-R-T Axes : 19 -37 -5 degrees QTcB Int : 551 ms Normal sinus rhythm Left axis deviation Minimal voltage criteria for LVH, may be normal variant ( R in aVL ) Possible Lateral infarct , age undetermined Abnormal ECG When compared with ECG of 09-Jun-2023 21:00, Incomplete right bundle branch block is no longer Present Nonspecific T wave abnormality, worse in Anterior leads QT has lengthened Referred By: Love Johnson Electronically Signed By: Sam Castellano
[2024-03-04] MEDS: methADONE HCl 20 MG/2 ML ORAL.CONC 120 MG PO (00:49)
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
[2024-03-04 05:29] VITALS: BP 113/65; PULSE 85; RESP 14; TEMP 36.9; O2SAT 92
[2024-03-04 05:29] LABS: Appearance Urine Turbid; Color Urine Dark Yellow; Glucose Urine UA Negative (Negative); Leukocyte Esterase Urine Small (1+) (Negative); Nitrite Urine Positive (Negative); Specific Gravity - Urine >= 1.030 (1.005-1.025); UMIC TRIGGER UA YES; Urine Blood Negative (Negative); Urine Ketones Trace mg/dL (Negative); Urine Protein 100 (2+) mg/dL (Neg-Trace)
--- NOTE | 2024-03-04 05:37 | PC.NURSE ---
This chart writer assumed care of this Pt at 0300. Pt appears to be sleeping, equal, non labored respirations. Pt on 2L via NC, taken off O2, SpO2 94% on RA, Pt reports he does not use O2 at home. Pt reports feeling pressure to his bladder, states he has visiting nurses who straight caths him every 4-5 hours. Pt straight cath, tolerated well. Dark, foul smelling urine collected and sent to lab.
[2024-03-04 05:44] LABS: Amphetamine Screen Urine Not Detected (Not Detect); Barbiturates, Urine Not Detected (Not Detect); Benzodiazepines Screen Urine POSITIVE (Not Detect); Buprenorphine Scr Not Detected (Not Detect); Cannabinoid Screen Urine POSITIVE (Not Detect); Cocaine Screen Urine POSITIVE (Not Detect); Fentanyl, urine POSITIVE (Not Detect); Methadone Screen, Urine Positive (Not Detect); Opiate Screen Urine POSITIVE (Not Detect); Oxycodone Screen Urine Not Detected (Not Detect); Phencyclidine Screen Urine POSITIVE (Not Detect)
[2024-03-04 05:53] LABS: Bacteria Urine 4+ (None Seen); Calcium Oxalate Crystals Urine Present; RBC Urine 0-2 /HPF (0-2); WBC Urine 21-50 /HPF (0-5)
[2024-03-04] MEDS: cefuroxime axetiL 250 MG TABLET PO ×2 (08:25→20:51)
[2024-03-04] MEDS: hydrOXYzine HCL 25 MG TABLET PO ×2 (08:25→23:45)
[2024-03-04] MEDS: LORazepam 1 MG TABLET 2 MG PO (08:26)
[2024-03-04] MEDS: risperiDONE 2 MG TABLET 4 MG PO (08:26)
--- NOTE | 2024-03-04 08:59 | HE.PHANOTE ---
re methadone verification last dose methadone given 03/02/24 135 mg @ [facility] note, patient was given 120 mg overnight 03/04/24 @0049 in the emergency department of this facility
[2024-03-04] MEDS: methADONE HCl 20 MG/2 ML ORAL.CONC 50 MG PO (10:19)
[2024-03-04] MEDS: Docusate Sodium 100 MG CAPSULE PO (10:20)
[2024-03-04] MEDS: carBAMazepine 200 MG TABLET PO (10:20)
[2024-03-04] MEDS: Omeprazole 40 MG CAPSULE.DR PO ×2 (10:20→15:30)
[2024-03-04] MEDS: Benztropine Mesylate 1 MG TABLET PO ×2 (10:21→20:51)
--- NOTE | 2024-03-04 11:22 | PHA.MEDREC ---
Pharmacy Consult ? Medication Reconciliation Pharmacy has completed the medication reconciliation. med rec done using list provided by chd
--- NOTE | 2024-03-04 12:55 | PC.NURSE ---
patient sitting upright eating lunch meal/snacks/drinks. patient request telephone to speak with a friend. phone obtained. patient remains calm and cooperative at this time.
[2024-03-04 14:08] VITALS: BP 116/67; PULSE 105; RESP 16; TEMP 36.6; O2SAT 90
[2024-03-04] MEDS: Magnesium Sulfate/H2O 2 GM/50 ML PIGGYBACK IV (15:30)
--- NOTE | 2024-03-04 15:34 | PC.NURSE ---
Report called to [facility] for admission; EKG completed per orders; QTc 551; ER MD made aware; IV started on pt and 2GM IV Mag Sulfate infusing per orders; pt cooperative at this time
[2024-03-04 16:53] LABS: VBG Base Excess 7.2 mmol/L; VBG HCO3 33 mmol/L (22-26); VBG pCO2 54 mmHg; VBG pO2 42 mmHg
[2024-03-04 16:56] LABS: Venous Blood Gas Refer to POC result
--- NOTE | 2024-03-04 17:21 | ECG_ITS ---
Test Reason : QTC CHECK Blood Pressure : */* mmHG Vent. Rate : 86 BPM Atrial Rate : 86 BPM P-R Int : 124 ms QRS Dur : 108 ms QT Int : 510 ms P-R-T Axes : -12 -36 -14 degrees QTcB Int : 610 ms Normal sinus rhythm Left axis deviation Possible Lateral infarct (cited on or before 04-Mar-2024) Abnormal ECG When compared with ECG of 04-Mar-2024 15:07, QT has lengthened Referred By: Love Johnson Electronically Signed By: Sam Castellano
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
[2024-03-04 20:25] LABS: Alanine Aminotransferase 23 U/L (0-40); Albumin Level 3.5 g/dL (3.5-5.0); Alkaline Phosphatase 88 U/L (39-117); Anion Gap 11 (12-20); Aspartate Amino Transferase 37 U/L (5-37); Bilirubin Total 0.2 mg/dL (0.0-1.0); Blood Urea Nitrogen 12 mg/dL (9-16); Calcium 8.7 mg/dL (8.4-10.2); Carbon Dioxide 27 mmol/L (22-29); Chloride 107 mmol/L (96-108); Creatinine Clr Calc Pharmacy 154.8; Estimated Glomerular Filt Rate > 60; Glucose Random 97 mg/dL (60-115); Potassium 3.1 mmol/L (3.3-5.1); Sodium 142 mmol/L (135-145); Total Protein 7.1 g/dL (6.5-8.0)
[2024-03-04] MEDS: traZODone HCL 50 MG TABLET 150 MG PO (20:51)
[2024-03-04] MEDS: Enoxaparin Sodium 40 MG/0.4 ML SYRINGE SUBCUT (20:51)
--- NOTE | 2024-03-04 21:52 | PC.NURSE ---
Patient requested personal cell phone. Explained no mobile device policy and that section [address] This RN called security prior to speaking to patient to reduce risk of harm. Patient did not become combative. Requested and given sandwich & apple juice. Care ongoing by this RN. Pt watching TV.
[2024-03-04 22:02] VITALS: BP 97/64; PULSE 83; RESP 16; TEMP 36.9; O2SAT 95
[2024-03-04] MEDS: Melatonin 3 MG TABLET 6 MG PO (23:45)
[2024-03-04] MEDS: 0.9 % Sodium Chloride Flush 3 ML SYRINGE IVFLUSH (23:45)
[2024-03-05] VITALS (7 sets, daily range): BP systolic 98–122; BP diastolic 58–75; PULSE 66–94; RESP 12–20; TEMP 36.2–36.9; O2SAT 91–95
--- NOTE | 2024-03-05 04:41 | PC.NURSE ---
Patient has been sleeping throughout the majority of this RN's shift. Sitter remains at bedside for safety with section [address] Vitals have remained stable throughout the shift. Patient is sleepy, but wakes to verbal stimuli. Morning labs drawn by phlebotomy, results pending at this time. Care ongoing by this RN. Elissa (ED PCT) at bedside as sitter for 1:1 monitoring.
[2024-03-05 05:22] LABS: Cholesterol 136 mg/dL (<200); HDL Cholesterol 25 mg/dL (>40); LDL Cholesterol Calculated 70 mg/dL (<100); Triglycerides 207 mg/dL (<150)
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
--- NOTE | 2024-03-05 07:07 | PC.NURSE ---
Late chart entry: Pt straight-cath'd on 03/04/24 at approx 18:00 by this RN with DAO Kwong present; pt tolerated well with 125ml dark yellow urine out
[2024-03-05] MEDS: Omeprazole 40 MG CAPSULE.DR PO ×2 (07:30→18:04)
--- NOTE | 2024-03-05 07:48 | PC.NURSE ---
straight catherization done on this patient and obtained 300cc andrew urine with a slight odor noted.
--- NOTE | 2024-03-05 08:00 | ECG_ITS ---
Test Reason : QRS Blood Pressure : */* mmHG Vent. Rate : 71 BPM Atrial Rate : 71 BPM P-R Int : 132 ms QRS Dur : 112 ms QT Int : 410 ms P-R-T Axes : 3 -32 -63 degrees QTcB Int : 445 ms Normal sinus rhythm Left axis deviation Possible Lateral infarct , age undetermined Nonspecific T wave changes Abnormal ECG When compared to the previous EKG of No significant changes seen Referred By: Lenin Love Electronically Signed By: Sam Castellano
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
[2024-03-05] MEDS: Docusate Sodium 100 MG CAPSULE PO (09:53)
[2024-03-05] MEDS: cefuroxime axetiL 250 MG TABLET PO ×2 (09:53→21:18)
[2024-03-05] MEDS: Benztropine Mesylate 1 MG TABLET PO ×2 (09:53→21:19)
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
[2024-03-05] MEDS: 0.9 % Sodium Chloride Flush 3 ML SYRINGE IVFLUSH ×2 (10:37→18:04)
[2024-03-05] MEDS: HYDROmorphone HCl 0.5 MG/0.5 ML SYRINGE IVPUSH (10:37)
--- NOTE | 2024-03-05 11:08 | HO.ADDICTCON ---
History of Present Illness Date of Service: 03/05/2024 Chief Complaint: prolonged QTc Reason for Consult: methadone and prolonged QTc Sources of Information: patient interviewed and chart reviewed HPI Narrative: Patient is a 38 year old male who initially presented to [facility] via Section 12 for reported suicidal ideation --was to be admitted to unit In ED found to have UTI and prolonged QTc, so admission changed to medical floor. Consult requested as patient with active substance use, on MOUD (methadone) with QTcB of 610 Patient seen in room 9 of main ED. He was awake, alert, somewhat engaged in interview. Very focused on why he is here, stating that he does not understand why he is here. Says he woke up and found 2 doctors on top of me saying that I had to stay here, I am confused . He denies an withdrawal sx, does not wish to discuss substance use at all, I need to find out why I am here so I can leave . Attempted to provide some context in regards to medical concerns, although it is unclear if patient fully retained/understood information as he immediately asked when the crisis person was coming. Aside from anxious affect, he did not appear to be in any distress or discomfort. No diaphoresis, rhinorrhea, or restlessness noted. VS WNL. Last methadone dose 50mg administered at 1000 on 03/04 Past Psychiatric History: Multiple admissions to area facilities. Last here in October 2019 Review of Systems Constitutional: Reports as per HPI Diagnostics Vital Signs (24Hr): Vital Signs - 24 hr 03/04/24 14:08 03/04/24 22:02 03/05/24 02:00 Temperature 97.9 F 98.4 F 97.2 F Pulse Rate 105 H 83 77 Respiratory Rate 16 16 15 Blood Pressure 116/67 97/64 98/58 L Pulse Oximetry 90 L 95 94 Oxygen Delivery Method Room Air Nasal Cannula Room Air Oxygen Flow Rate 2 2 03/05/24 05:39 03/05/24 10:37 Temperature 97.6 F Pulse Rate 66 Respiratory Rate 15 12 Blood Pressure 99/60 Pulse Oximetry 95 Oxygen Delivery Method Nasal Cannula Oxygen Flow Rate 2 BMI result Body Mass Index 39.2 Labs 03/03/24 14:31 03/05/24 11:08 Labs: Laboratory Results - last 48 hr 03/03/24 03/03/24 03/04/24 11:54 14:31 05:22 WBC 16.9 H RBC 4.90 Hgb 13.4 L Hct 41.4 L MCV 84.5 MCH 27.3 MCHC 32.4 RDW 14.8 Plt Count 265 MPV 9.7 Immature Gran % (Auto) 0.5 H Neut % (Auto) 75.3 H Lymph % (Auto) 17.9 L [place] % (Auto) 5.5 Eos % (Auto) 0.5 Baso % (Auto) 0.3 Lymph # (Auto) 3.0 [place] # (Auto) 0.9 Eos # (Auto) 0.1 Baso # (Auto) 0.1 Abs Immat Gran (auto) 0.08 H Absolute Neuts (auto) 12.8 H Absolute Nucleated RBC 0.000 Nucleated RBC % (auto) 0.0 VBG pH VBG pCO2 VBG pO2 VBG HCO3 VBG O2 Saturation VBG Base Excess Sodium 140 Potassium 3.9 Chloride 110 H Carbon Dioxide 21 L Anion Gap 13 BUN 14 Creatinine 0.65 Estim Creat Clear Calc 183.4 Estimated GFR > 60 Random Glucose 103 Calcium 9.1 Total Bilirubin 0.4 AST 35 ALT 20 Alkaline Phosphatase 103 Total Protein 8.2 H Albumin 3.6 Triglycerides Cholesterol LDL Cholesterol, Calc HDL Cholesterol Urine Color Dark Yellow Urine Appearance Turbid Urine pH 6.0 Ur Specific [place] >= 1.030 H Urine Protein 100 (2+) H Urine Glucose (UA) Negative Urine Ketones Trace Urine Blood Negative Urine Nitrite Positive H Ur Leukocyte Esterase Small (1+) H Urine RBC 0-2 Urine WBC 21-50 H Ur Squamous Epith Cells 6-10 Calcium Oxalate Crystal Present Urine Bacteria 4+ Hyaline Casts 6-10 Salicylates < 5.0 L Urine Opiates Screen POSITIVE H Ur Buprenorphine Scrn Not Detected Ur Oxycodone Screen Not Detected Urine Methadone Screen Positive H Urine Fentanyl Screen POSITIVE H Acetaminophen < 3 Ur Barbiturates Screen Not Detected Ur Phencyclidine Scrn POSITIVE H Ur Amphetamines Screen Not Detected U Benzodiazepines Scrn POSITIVE H Urine Cocaine Screen POSITIVE H U Marijuana (THC) Screen POSITIVE H Ethyl Alcohol < 10 COVID-19 ([facility]) Negative COVID-19 Clin Com See Note 03/04/24 03/04/24 03/05/24 16:44 16:47 04:35 WBC RBC Hgb Hct MCV MCH MCHC RDW Plt Count MPV Immature Gran % (Auto) Neut % (Auto) Lymph % (Auto) [place] % (Auto) Eos % (Auto) Baso % (Auto) Lymph # (Auto) [place] # (Auto) Eos # (Auto) Baso # (Auto) Abs Immat Gran (auto) Absolute Neuts (auto) Absolute Nucleated RBC Nucleated RBC % (auto) VBG pH 7.40 VBG pCO2 54 VBG pO2 42 VBG HCO3 33 H VBG O2 Saturation 68.0 VBG Base Excess 7.2 Sodium 142 Potassium 3.1 L D Chloride 107 Carbon Dioxide 27 Anion Gap 11 L BUN 12 Creatinine 0.77 Estim Creat Clear Calc 154.8 Estimated GFR > 60 Random Glucose 97 Calcium 8.7 Total Bilirubin 0.2 AST 37 ALT 23 Alkaline Phosphatase 88 Total Protein 7.1 Albumin 3.5 Triglycerides 207 H Cholesterol 136 LDL Cholesterol, Calc 70 HDL Cholesterol 25 L Urine Color Urine Appearance Urine pH Ur Specific [place] Urine Protein Urine Glucose (UA) Urine Ketones Urine Blood Urine Nitrite Ur Leukocyte Esterase Urine RBC Urine WBC Ur Squamous Epith Cells Calcium Oxalate Crystal Urine Bacteria Hyaline Casts Salicylates Urine Opiates Screen Ur Buprenorphine Scrn Ur Oxycodone Screen Urine Methadone Screen Urine Fentanyl Screen Acetaminophen Ur Barbiturates Screen Ur Phencyclidine Scrn Ur Amphetamines Screen U Benzodiazepines Scrn Urine Cocaine Screen U Marijuana (THC) Screen Ethyl Alcohol COVID-19 ([facility]) COVID-19 Clin Com Mental Status Exam Mental Status Exam Level of Consciousness: Awake and Alert Patient Behavior: Guarded Affect Description: Anxious Speech Pattern: Clear Thought Process: Distracted Medications Medications Current Medications Acetaminophen (Acetaminophen 325 Mg Tablet) 650 mg PO Q6H PRN PRN Reason: Pain, Mild 1-3,fever,headache Al Hydroxide/Mg Hydroxide (Magnesium Hydrox/Alum Hydrox 30 Ml Oral.Susp) 30 ml PO Q6H PRN PRN Reason: Heartburn/Nausea Benztropine Mesylate (Benztropine Mesylate 1 Mg Tablet) 1 mg PO BID [facility] Last Admin: 03/05/24 09:53 Dose: 1 mg Calcium Carbonate (Calcium Carbonate 750 Mg Tab.Chew) 750 mg PO Q4H PRN PRN Reason: Heartburn Carbamazepine (Carbamazepine 200 Mg Tablet) 200 mg PO BID [facility] Last Admin: 03/04/24 10:20 Dose: 200 mg Cefuroxime Axetil (Cefuroxime Axetil 250 Mg Tablet) 250 mg PO BID [facility] Stop: 03/11/24 08:59 Last Admin: 03/05/24 09:53 Dose: 250 mg Docusate Sodium (Docusate Sodium 100 Mg Capsule) 100 mg PO DAILY [facility] Last Admin: 03/05/24 09:53 Dose: 100 mg Enoxaparin Sodium (Enoxaparin Sodium 40 Mg/0.4 Ml Syringe) 40 mg SUBCUT Q24H [facility] Last Admin: 03/04/24 20:51 Dose: 40 mg Hydromorphone HCl (Hydromorphone Hcl 0.5 Mg/0.5 Ml Syringe) 0.5 mg IVPUSH Q4H PRN; Protocol PRN Reason: Pain, Severe (Pain Scale 7-10) Last Admin: 03/05/24 10:37 Dose: 0.5 mg Hydroxyzine HCl (Hydroxyzine Hcl 25 Mg Tablet) 25 mg PO DAILY PRN PRN Reason: Agitation Last Admin: 03/04/24 23:45 Dose: 25 mg Lorazepam (Lorazepam 1 Mg Tablet) 2 mg PO ONCE PRN PRN Reason: agitation Last Admin: 03/04/24 08:26 Dose: 2 mg Magnesium Hydroxide (Milk Of Magnesia 30 Ml Oral.Susp) 30 ml PO DAILY PRN PRN Reason: Constipation Melatonin (Melatonin 3 Mg Tablet) 6 mg PO BEDTIME PRN PRN Reason: Insomnia Last Admin: 03/04/24 23:45 Dose: 6 mg Omeprazole (Omeprazole 40 Mg Capsule.Dr) 40 mg PO BID@0630,1630 [facility] Last Admin: 03/05/24 07:30 Dose: 40 mg Senna (Sennosides 8.6 Mg Tablet) 8.6 mg PO BEDTIME PRN PRN Reason: CONSTIPATION Sodium Chloride (0.9 % Sodium Chloride Flush 3 Ml Syringe) 3 ml IVFLUSH QSHIFT [facility] Last Admin: 03/05/24 10:37 Dose: 3 ml Trazodone HCl (Trazodone Hcl 50 Mg Tablet) 150 mg PO BEDTIME [facility] Last Admin: 03/04/24 20:51 Dose: 150 mg Trazodone HCl (Trazodone Hcl 50 Mg Tablet) 50 mg PO BEDTIME MRX1 PRN PRN Reason: Insomnia Allergies Allergies Allergy/AdvReac Type Severity Reaction Status Date / Time vancomycin [VANCOMYCIN] Allergy Severe DIFFICULTY Verified 03/03/24 11:16 BREATHING, anaphylaxis piperacillin [From ZOSYN] Allergy Intermediate DIFFICULTY Verified 03/03/24 11:16 BREATHING tazobactam [From ZOSYN] Allergy Intermediate DIFFICULTY Verified 03/03/24 11:16 BREATHING tramadol Allergy Intermediate nausea and Verified 03/03/24 11:16 vomiting codeine Allergy Unknown Unknown Verified 03/03/24 11:16 Assessment & Plan Assessment & Plan (1) Opioid use disorder: Status: Acute Code(s): F11.90 - Opioid use, unspecified, uncomplicated Assessment and Plan: At time of this note, QTcB has shortened to 445 In terms of methadone it can be restarted at half dose and EKG checked again Full opioid agonists PRN to address any withdrawal sx as he will be receiving less methadone will follow up in AM Total time managing care of this patient today __25__ minutes. PMFSH Past Medical History Medical History Methadone maintenance therapy patient Polysubstance dependence Cirrhosis Paraplegia Eczema Asthma Cellulitis PTSD (post-traumatic stress disorder) Erectile dysfunction due to arterial insufficiency Recurrent UTI Social History Social History Household Members: Unknown / Unable to assess Housing: Unknown / Unable to assess Do you presently have visiting nurse or other home services: No Unable to assess alcohol history related to: Unable to respond Alcohol intake: current Alcohol intake frequency: holidays/special occasions only Comment: PT SLEEPING Patient Tobacco Use Status: Current everyday Tobacco user Cigarette Packs Per Day: 1 Cigarettes Per Day: 20 Years Smoked: 20 Second Hand Smoke Exposure: Yes Use of substances other than those prescribed or required for medical reasons: Yes 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
--- NOTE | 2024-03-05 11:29 | MHC.EDTECH ---
patient is laying in urine I ask patient if I can change him and his be he replied no. nurse aware
[2024-03-05 11:41] LABS: Anion Gap 12 (12-20); Blood Urea Nitrogen 16 mg/dL (9-16); Calcium 8.9 mg/dL (8.4-10.2); Carbon Dioxide 31 mmol/L (22-29); Chloride 105 mmol/L (96-108); Creatinine Clr Calc Pharmacy 183.4; Estimated Glomerular Filt Rate > 60; Glucose Random 97 mg/dL (60-115); Sodium 144 mmol/L (135-145)
--- NOTE | 2024-03-05 13:29 | MHC.CARE ---
CARE Team saw pt for an ongoing assessment.? ??Pt appears clearer than he was when he first arrived at the ER; however the nature of his current presentation is unclear.? There is question regarding the origin of this presentation, is this due to lingering effects of a substance use binge, current unmedicated mental illness, or if this is pt?s baseline? I would like psychiatry to weigh in, in order to assist in determining the cause of pt?s current presentation and to arrive at a final disposition.? CARE Team has asked the ED provider and his RN to pace a psych consult.
[2024-03-05] MEDS: methADONE HCl 20 MG/2 ML ORAL.CONC 65 MG PO (14:05)
--- NOTE | 2024-03-05 14:09 | PC.NURSE ---
patient medicated per the MAR, upset with section 12 dispo. denies si/hi/ah/vh at this time, requesting to leave AMA.
--- NOTE | 2024-03-05 16:12 | MHC.EDTECH ---
This pct assumed care of Patient at 1530 ,vitals taken ,Patient removed ,gown ,and refused to wear o2 ,RN Kimberly aware .
--- NOTE | 2024-03-05 17:16 | MHC.EDTECH ---
Patient very agitated ,removing monitor car operator leads ,attempting to climb out of bed ,Security was called at bed side .
--- NOTE | 2024-03-05 19:14 | PC.NURSE ---
patient self cath's himself and got 200cc Approved to self cath per provider
--- NOTE | 2024-03-05 20:07 | MHC.EDTECH ---
Patient continue to refused to wear oxygen and site monitor ,rn aware .
--- NOTE | 2024-03-05 20:11 | MHC.CARE ---
The CARE team met with Pt as he was requesting to leave AMA and was ripping off his EKG leads and attempting to get out of bed, security was called to de-escalate. Pt was assessed by the CARE team earlier today for MSU and the recommendation was for Psych consultation to weigh in on disposition. Pt is being medically admitted for observations and was referred to Psych consultations to determine disposition as Pt was initially awaiting IPLOC prior to being medically admitted for observations. Met with Pt who continued to present with paranoia and delusions, was agitated with not being able to leave. Pt confirmed he did have suicidal ideations earleir this week and had made suicidal gesture which led him to being assessed by [facility] twice. Pt?s mood appears dysregulated, he is tangential and appears to be thought blocking throughout check-in. Updated Pt on plan as he did not feel he was informed fully previously. Pt was initially agitated but was agreeable to being medically admitted and to meet with Psych consult. Pt will remain on a section 12 for safety and containment until he reassessed by the CARE team or seen by Psych consult tomorrow. Due to Pt?s dysregulated mood, paranoia and agitation/aggression toward others he could benefit from Psych consult. Pt?s insight, judgment and impulse control continue to be impaired. Pt was assessed by the CARE team earlier today and the recommendation was for Psych consultation to weigh in on disposition.
[2024-03-05] MEDS: traZODone HCL 50 MG TABLET 150 MG PO (21:18)
[2024-03-05] MEDS: Enoxaparin Sodium 40 MG/0.4 ML SYRINGE SUBCUT (21:19)
--- NOTE | 2024-03-05 21:23 | PC.NURSE ---
Pt a&ox3, no signs of distress. Pt medicated per mar Plan of care ongoing.
--- NOTE | 2024-03-06 | ECG_ITS ---
Test Reason : qt Blood Pressure : */* mmHG Vent. Rate : 82 BPM Atrial Rate : 82 BPM P-R Int : 130 ms QRS Dur : 110 ms QT Int : 394 ms P-R-T Axes : 0 -36 -52 degrees QTcB Int : 460 ms Normal sinus rhythm Left axis deviation Incomplete right bundle branch block T wave abnormality, consider inferior ischemia Abnormal ECG When compared with ECG of 05-Mar-2024 09:24, No significant change was found Referred By: Lenin Love Electronically Signed By: DANICA STRATTON MD
--- NOTE | 2024-03-06 | ECG_ITS ---
Test Reason : QTC Blood Pressure : */* mmHG Vent. Rate : 74 BPM Atrial Rate : 74 BPM P-R Int : 138 ms QRS Dur : 108 ms QT Int : 386 ms P-R-T Axes : -17 -24 -51 degrees QTcB Int : 428 ms Normal sinus rhythm Incomplete right bundle branch block Nonspecific T wave abnormality Abnormal ECG When compared with ECG of 06-Mar-2024 09:01, No significant change was found Referred By: Lenin Love Electronically Signed By: DANICA STRATTON MD
[2024-03-06] MEDS: Omeprazole 40 MG CAPSULE.DR PO (06:07)
[2024-03-06] MEDS: HYDROmorphone HCl 0.5 MG/0.5 ML SYRINGE IVPUSH (06:09)
--- NOTE | 2024-03-06 06:11 | PC.NURSE ---
Pt reports 10/10 pain Pt medicated per mar Plan of care ongoing.
[2024-03-06 06:23] VITALS: BP 124/62; PULSE 75; RESP 16; TEMP 36.9; O2SAT 91
--- NOTE | 2024-03-06 06:27 | MHC.EDTECH ---
Patient continue to refused to be hooked up to shelter monitor .RN aware
[2024-03-06 06:42] VITALS: RESP 14
[2024-03-06] MEDS: cefuroxime axetiL 250 MG TABLET PO (09:08)
[2024-03-06] MEDS: 0.9 % Sodium Chloride Flush 3 ML SYRINGE IVFLUSH (09:08)
[2024-03-06] MEDS: Benztropine Mesylate 1 MG TABLET PO (09:08)
[2024-03-06] MEDS: Docusate Sodium 100 MG CAPSULE PO (09:08)
--- NOTE | 2024-03-06 09:27 | PC.NURSE ---
pt straight cathed himself this morning. no issues. took morning PO medications well. asking for his methadone
--- NOTE | 2024-03-06 09:35 | PM.EVENT ---
Event Note Date of Service: 03/06/24 Event Note: Addiction follow up for methadone dose adjustment due to prolonged QTc Patient received methadone 65mg yesterday QTcB this morning 460 Plan: methadone 100mg this morning recheck EKG this afternoon, if still WNL, may resume home dose methadone Time Spent With Patient Time: Total time managing care of this patient today ____ minutes.
[2024-03-06] MEDS: methADONE HCl 20 MG/2 ML ORAL.CONC 100 MG PO (09:49)
--- NOTE | 2024-03-06 09:56 | PC.NURSE ---
orders to resume methadone at an adjusted dose. medicated per orders. pt calm, cooperative.
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
--- NOTE | 2024-03-06 13:36 | MHC.EDTECH ---
this pct was doing ekg per providers order , while doing ekg patient stated i am getting upset they are doing everything to try to make me stay in the hospital .
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
[2024-03-06 16:49] VITALS: BP 103/51; PULSE 72; RESP 18; TEMP 36.8; O2SAT 92
== END 2024-03-06 17:06 | disposition home or self-care (01) ==
LOC: HO.ED 16:34 → HO.PADLT16 03-04 18:12 → HO.EDOVER 03-04 18:50 → HO.IMC 03-06 12:35 → HO.EDOVER 03-06 13:53
PROVIDERS: Emergency Medicine; Physician Assistant Medical; Psychiatry & Neurology Psychiatry; Admitting Provider Student in an Organized Health Care Education/Training Program; Emergency Provider Emergency Medicine; PCP Internal Medicine; Visit Provider Internal Medicine
DX: I45.81 Long QT syndrome (principal); F29 Unspecified psychosis not due to a substance or known physiological condition; F43.10 Post-traumatic stress disorder, unspecified; R45.851 Suicidal ideations; Q05.9 Spina bifida, unspecified; G82.20 Paraplegia, unspecified; N31.2 Flaccid neuropathic bladder, not elsewhere classified; G89.4 Chronic pain syndrome; Z86.19 Personal history of other infectious and parasitic diseases; Z79.899 Other long term (current) drug therapy; F22 Delusional disorders; Z91.148 Patient's other noncompliance with medication regimen for other reason; L03.90 Cellulitis, unspecified; F19.90 Other psychoactive substance use, unspecified, uncomplicated; F11.20 Opioid dependence, uncomplicated; R94.31 Abnormal electrocardiogram [ECG] [EKG]; Z99.3 Dependence on wheelchair; R82.81 Pyuria; R78.81 Bacteremia; F39 Unspecified mood [affective] disorder
CPT/HCPCS: 36415; 80048; 80053; 80061; 80143; 80179; 80307; 81001; 82803; 83735; 85025; 87635; 93005; 96365; 96366; 96372; 96375; 96376; 99222; 99285; J1171; J1650; J2250; J2359; J3475; S9485

== ENCOUNTER → 2024-03-04 15:07 | Outpatient (BNV) | payer OTHER, SELFPAY | PROVIDERS: Admitting Provider Student in an Organized Health Care Education/Training Program; Emergency Provider Emergency Medicine; PCP Internal Medicine; Visit Provider Internal Medicine Cardiovascular Disease | DX: R94.31 Abnormal electrocardiogram [ECG] [EKG] (principal) | CPT/HCPCS: 93010 ==

== ENCOUNTER 2024-03-04 18:36 | Outpatient (BNV) | payer OTHER, SELFPAY | END 2024-03-05 08:00 | PROVIDERS: Admitting Provider Student in an Organized Health Care Education/Training Program; Emergency Provider Emergency Medicine; PCP Internal Medicine; Visit Provider Internal Medicine Cardiovascular Disease | DX: R94.31 Abnormal electrocardiogram [ECG] [EKG] (principal) | CPT/HCPCS: 93010 ==

== ENCOUNTER 2024-03-04 18:36 | Outpatient (BNV) | payer OTHER, SELFPAY | END 2024-03-06 09:01 | PROVIDERS: Admitting Provider Student in an Organized Health Care Education/Training Program; Emergency Provider Emergency Medicine; PCP Internal Medicine; Visit Provider Internal Medicine Cardiovascular Disease | DX: R94.31 Abnormal electrocardiogram [ECG] [EKG] (principal) | CPT/HCPCS: 93010 ==

== ENCOUNTER → 2024-03-04 18:36 | Outpatient (BNV) | payer OTHER, SELFPAY | PROVIDERS: Admitting Provider Student in an Organized Health Care Education/Training Program; Emergency Provider Emergency Medicine; PCP Internal Medicine; Visit Provider Social Worker | DX: F29 Unspecified psychosis not due to a substance or known physiological condition (principal) | CPT/HCPCS: 99232 ==

== ENCOUNTER → 2024-03-04 18:36 | Outpatient (BNV) | payer OTHER, SELFPAY | PROVIDERS: Admitting Provider Student in an Organized Health Care Education/Training Program; Emergency Provider Emergency Medicine; PCP Internal Medicine; Visit Provider Nurse Practitioner Psychiatric/Mental Health | DX: F11.90 Opioid use, unspecified, uncomplicated (principal) | CPT/HCPCS: 99221; 99499 ==

== ENCOUNTER → 2024-03-04 18:36 | Outpatient (BNV) | payer OTHER, SELFPAY | PROVIDERS: Admitting Provider Student in an Organized Health Care Education/Training Program; Emergency Provider Emergency Medicine; PCP Internal Medicine; Visit Provider Student in an Organized Health Care Education/Training Program | DX: R94.31 Abnormal electrocardiogram [ECG] [EKG] (principal) | CPT/HCPCS: 99222; 99232; 99239 ==

== ENCOUNTER 2024-03-27 22:41 | Emergency (ER) | payer OTHER, SELFPAY ==
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
[2024-03-27 23:16] VITALS: PULSE 64; O2SAT 98; BMI 62.1
--- NOTE | 2024-03-27 23:26 | ECG_ITS ---
Test Reason : CHEST PAIN Blood Pressure : */* mmHG Vent. Rate : 65 BPM Atrial Rate : 65 BPM P-R Int : 138 ms QRS Dur : 112 ms QT Int : 442 ms P-R-T Axes : * -40 -64 degrees QTcB Int : 459 ms Normal sinus rhythm Left axis deviation Pulmonary disease pattern Minimal voltage criteria for LVH, may be normal variant ( R in aVL ) T wave abnormality, consider inferior ischemia Abnormal ECG When compared with ECG of 06-Mar-2024 13:32, Incomplete right bundle branch block is no longer Present Referred By: Russ Verma Electronically Signed By: DANICA STRATTON MD
--- OUTSIDE RECORDS SUMMARY | 2024-03-27 23:51 | XMS_ITS | Encounter Summary ---
Author Organization [facility] Address [address] [place] [address] Care Team Providers Care Renewable Energy Technician Name Role Phone Antony Jenkins MD Primary Care Provide r Zachery Carvajal Unavailable Unavailable Encounter Details Date Type Department Care Team (Late st Contact Info) Description 07/08/2022 Abstract [facility] [address], [place] [id number] Antony Jenkins MD [address] [place] [address] Social History Tobacco Use Types Packs/Day Years Used Date Smoking Tobacco: Former Cigarettes 1 10 Passive Smoke Exposure: Past Smokeless Tobacco: Former Alcohol Use Standard Drinks/Week Comments Yes 1 (1 standard drink = 0.6 oz pur e alcohol) Depression Answer Date Recorded Patient Health Questionnaire-9 Score 10 06/22/2022 Depression Answer Date Recorded Patient Health Questionnaire-2 Score 2 06/22/2022 Sex and Gender Information Value Date Recorded Sex Assigned at Male 12/15/2021 10:18 AM EDT Legal Sex Male 10:18 AM EDT Gender Identity Male 12/15/2021 10:18 AM EDT Sexual Orientation Choose not to disclose 2021 10:18 AM EDT COVID-19 Exposure Response Date Recorded In the last 10 days, have yo u been in contact with someone who was confirmed or suspected to have Coronavirus/COVID-19? No / Unsure 07/09/2022 2:32 PM EDT documented as of this encounter Plan of Treatment Not on file documented as of this encounter Visit Diagnoses Not on filedocumented in this encounter Additional Health Concerns Assessment Noted Time PHQ-9 Depression Total Score: 10 023 2:33 PM EDT documented as of this encounter Care Teams Renewable Energy Technician Relationship Specialty Start Date End Date Antony Jenkins MD [address] [place] [address] PCP - General Internal Medicine 10/19/13 Zachery Carvajal FNP [address] [place] [address] Nurse Practitioner Family Medicine 01/06/23 [facility] 01/30/20 documented as of this encounter
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
--- OUTSIDE RECORDS SUMMARY | 2024-03-27 23:51 | XMS_ITS | Encounter Summary ---
Author Organization [employer] Address [address] [facility] [address] [place] [address] Care Team Providers Care Terra Cotta Setter Name Role Phone Antony Jenkins MD Primary Care Provide r Zachery Carvajal Unavailable Unavailable Encounter Details Date Type Department Care Team (Late st Contact Info) Description 06/04/2022 Abstract [facility] [address] [place] [address] Juaquin Rivers DDS [address] [place], [place] [id number] Social History Tobacco Use Types Packs/Day Years Used Date Smoking Tobacco: Former Cigarettes 1 10 Passive Smoke Exposure: Past Smokeless Tobacco: Former Alcohol Use Standard Drinks/Week Comments Yes 1 (1 standard drink = 0.6 oz pur e alcohol) Sex and Gender Information Value Date Recorded [...] suspected to have Coronavirus/COVID-19? No / Unsure 05/22/2022 2:33 PM EDT documented as of this encounter Plan of Treatment Not on file documented as of this encounter Visit Diagnoses Not on filedocumented in this encounter Additional Health Concerns Assessment Noted Time PHQ-9 Depression Total Score: 15 04/27/ 023 2:02 PM EDT documented as of this encounter Care Teams Terra Cotta Setter Relationship Specialty Start Date End Date Antony Jenkins MD [address] [place] [address] PCP - General Internal Medicine 10/19/13 Zachery Carvajal FNP [address] [place] [address] Nurse Practitioner Family Medicine 01/06/23 [facility] 01/30/20 documented as of this encounter
--- OUTSIDE RECORDS SUMMARY | 2024-03-27 23:51 | XMS_ITS | Encounter Summary ---
Author Organization [employer] Address [address] [facility] [facility] [address] [place] [address] Care Team Providers Care Conveyor Worker Name Role Phone Antony Jenkins MD Primary Care Provide r Zachery Carvajal Unavailable Unavailable Reason for Visit * Reason Onset Date Comments Durable Medical Equipment 03/07/2024 [employer] Form: Catheter Supplies/Gloves Encounter Details Date Type Department Care Team (Late st Contact Info) Description 03/07/2024 Telephone [facility] MEDICINE [address] [place] [address] Antony Jenkins MD [address] [place] [address] Durable Medical Equipment ([facility] Form: Catheter Supplies/Gloves) Social History Tobacco Use Types Packs/Day Years Used Date Smoking Tobacco: Every Day Cigarettes 1 10 Passive Smoke Exposure: Current Smokeless Tobacco: Current Alcohol Use Standard Drinks/Week Comments Yes 1 (1 standard drink = 0.6 oz pur e alcohol) Depression Answer Date Recorded Patient Health Questionnaire-9 Score 19 11/18/2023 Patient Health Questionnaire-9 Score 19 11/18/2023 Last PHQ-9: Questionnaire Data Not on file 1 Housing Stability Answer Date Recorded What is your housing situation today? I have chris parra 11/30/[address] you li ve. Do you have problems with any of the following? None of the above 11/30/2022 Food Insecurity Answer Date Recorded Within the past 12 months, y ou worried that your food would run out before you got money to buy more: Often true 06/18/2023 Within the past 12 months,th e food you bought just didn't last and you didn't have enough money to get more: Often true 04/2023 Transportation Answer Date Recorded In the past 12 months, has l ack of transportation kept you from medical appts, meetings, work or from getting things needed for daily living? No 11/30/2022 Utilities Answer Date Recorded In the past 12 months, has t he electric, gas, oil or water company threatened to shut off services in your home? No 11/30/2022 Depression Answer Date Recorded Patient Health Questionnaire-2 Score 6 11/18/2023 Sex and Gender Information Value Date Recorded Sex Assigned at Male 12/15/2021 10:18 AM EDT Legal Sex Male 10:18 AM EDT Gender Identity Male 12/15/2021 10:18 AM EDT Sexual Orientation Choose not to disclose 2021 10:18 AM EDT documented as of this encounter Miscellaneous Notes * Telephone Encounter - Janis Luque - 03/07/2024 10:51 AM EST Standard Written Order for Gloves and Catheter Supplies from [employer] received and is being processed. documented in this encounter Plan of Treatment Not on file documented as of this encounter Visit Diagnoses Not on filedocumented in this encounter Additional Health Concerns Assessment Noted Time PHQ-9 Depression Total Score: 19 024 11:27 AM EDT documented as of this encounter Care Teams Conveyor Worker Relationship Specialty Start Date End Date Antony Jenkins MD [address] [place] [address] PCP - General Internal Medicine 10/19/13 Zachery Carvajal FNP [address] [place] [address] Nurse Practitioner Family Medicine 01/06/23 [facility] 01/30/20 documented as of this encounter
--- OUTSIDE RECORDS SUMMARY | 2024-03-27 23:51 | XMS_ITS | Encounter Summary ---
Author Organization [email or web address] Address [address] [facility] [address] [place] [address] Care Team Providers Care Client Services Associate Name Role Phone Antony Jenkins MD Primary Care Provide r Zachery Carvajal Unavailable Unavailable Reason for Visit * Reason Onset Date Comments Durable Medical Equipment 09/01/2023 Encounter Details Date Type Department Care Team ([facility] st Contact Info) Description 09/01/2023 Telephone [facility] MEDICINE [address] [place], [place] [phone] Antony Jenkins MD [address] [place] [address] Durable Medical Equipment Social History Tobacco Use Types Packs/Day Years Used Date Smoking Tobacco: Every Day Cigarettes 1 10 Passive Smoke Exposure: Current Smokeless Tobacco: Current Alcohol Use Standard Drinks/Week Comments Yes 1 (1 standard drink = 0.6 oz pur e alcohol) Depression Answer Date Recorded Patient Health Questionnaire-9 Score 11 09/02/2023 Patient Health Questionnaire-9 Score 11 09/02/2023 Last PHQ-9: Questionnaire Data Not on file 0 09/02/2023 Housing Stability Answer Date Recorded What is [...] Answer Date Recorded Patient Health Questionnaire-2 Score 5 09/02/2023 Sex and Gender Information Value Date Recorded Sex Assigned at Male 12/15/2021 10:18 AM EDT Legal Sex Male 10:18 AM EDT Gender Identity Male 12/15/2021 10:18 AM EDT Sexual Orientation Choose not to disclose 2021 10:18 AM EDT documented as of this encounter Miscellaneous Notes * Telephone Encounter - Eloisa Apodaca - 09/01/2023 9:36 AM EDT Tc from Jennifer with [facility] requesting DME supplies . [facility] has sent a requesting on 08/05/23 but has not received any status. Toilet seat riser Slip resistant mat Please email to: [email or web address] documented in this encounter Plan of Treatment Not on file documented as of this encounter Visit Diagnoses Not on filedocumented in this encounter Additional Health Concerns Assessment Noted Time PHQ-9 Depression Total Score: 10 024 3:18 PM EDT documented as of this encounter Care Teams Client Services Associate Relationship Specialty Start Date End Date Antony Jenkins MD [address] [place] [address] PCP - General Internal Medicine 10/19/13 Zachery Carvajal FNP [address] [place] [address] Nurse Practitioner Family Medicine 01/06/23 [facility] 01/30/20 documented as of this encounter
--- OUTSIDE RECORDS SUMMARY | 2024-03-27 23:51 | XMS_ITS | Encounter Summary ---
Author Organization [employer] Address [address] [facility] [address] [place] [address] Care Team Providers Care Prototype Model Maker Name Role Phone Antony Jenkins MD Primary Care Provide r Zachery Carvajal Unavailable Unavailable Reason for Visit * Reason Onset Date Comments DME from [facility] 03/09/2024 Encounter Details Date Type Department Care Team ([facility] st Contact Info) Description 03/09/2024 Telephone [facility] MEDICINE [address] [place] [address] Marycruz Treviño MA DME from [facility] Social History Tobacco Use Types Packs/Day Years [...] encounter Miscellaneous Notes * Telephone Encounter - Marycruz Treviño MA - 03/09/2024 11:34 AM EST Confirmation of order and DME for full poly tire and manual haylee signed and faxed to [employer] . Confirmation received and sent to scan. If patient calls to check status on above, please advise them to contact [employer] and mobility at [phone]. documented in this encounter Plan of Treatment Not on file documented as of this encounter Visit Diagnoses Not on filedocumented in this encounter Additional Health Concerns Assessment Noted Time PHQ-9 Depression Total Score: 19 024 11:27 AM EDT documented as of this encounter Care Teams Prototype Model Maker Relationship Specialty Start Date End Date Antony Jenkins MD [address] [place] [address] PCP - General Internal Medicine 10/19/13 Zachery Carvajal FNP [address] [place] [address] Nurse Practitioner Family Medicine 01/06/23 [facility] 01/30/20 documented as of this encounter
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
--- OUTSIDE RECORDS SUMMARY | 2024-03-27 23:51 | XMS_ITS | Encounter Summary ---
Author Organization [employer] Address [address] [facility] [address] [place] [address] Care Team Providers Care Information Clerk Automobile Club Name Role Phone Antony Jenkins MD Primary Care Provide r Zachery Carvajal Unavailable Unavailable Encounter Details Date Type Department Care Team (Late st Contact Info) Description 03/04/2024 Orders Only GENERIC EXTERNAL DATA DEPARTMENT Provider, Generic External Data Social History Tobacco Use Types Packs/Day Years [...] AM EDT documented as of this encounter Plan of Treatment Not on file documented as of this encounter Procedures Procedure Name Priority Date/Time Associated Diagnosis Comments DRUG MONITOR, PANEL 1, SCREEN, URINE Routine 03/04/2024 5:22 AM EST URINALYSIS, COMPLETE Routine 03/04/2024 5:22 AM EST documented in this encounter Results * (ABNORMAL) Drug Monitoring, Panel 1, Screen, Urine (03/04/2024 5:22 AM EST) Opiate Screen Urine POSITIVE(A) Not Detect [facility] Comment:Opiate cut-off is 30 0 ng/mL.Positive results are unconfirmed and should not be used fornon-medical purposes. Barbiturates, Urine Not Detected Not Detect [facility] Comment:Barbiturate cut-off is 200 ng/mL.Positive results are unconfirmed and should not be used fornon-medical purposes. Phencyclidine Screen Urine POSITIVE(A) Not Detect [facility] Comment:Phencyclidine cut-of f is 25 ng/mL.Positive results are unconfirmed and should not be used fornon-medical purposes. Amphetamine Screen Urine Not Detected Not Detect [facility] Comment:Amphetamine cut-off is 1000 ng/mL.Positive results are unconfirmed and should not be used fornon-medical purposes. Benzodiazepines Screen Urine POSITIVE(A) Not Detect [facility] Comment:Benzodiazepine cut-o ff is 200 ng/mL.Positive results are unconfirmed and should not be used fornon-medical purposes. Cocaine Screen Urine POSITIVE(A) Not Detect [facility] Comment:Cocaine cut-off is 3 00 ng/mL.Positive results are unconfirmed and should not be used fornon-medical purposes. Cannabinoid Screen Urine POSITIVE(A) Not Detect [facility] Comment:Cannabinoid cut-off is 50 ng/mL.Positive results are unconfirmed and should not be used fornon-medical purposes. Methadone Screen, Urine Positive(A) Not Detect ng/mL [facility] Comment:Methadone cut-off is 300 ng/mL.Positive results are unconfirmed and should not be used fornon-medical purposes. FENTANYL URINE POSITIVE(A) Not Detect [facility] Comment:Fentanyl cut-off is 1 ng/mL.Positive results are unconfirmed and should not be used fornon-medical purposes. Oxycodone Urine Screen Not Detected Not Detect ng/mL [facility] Comment:Oxycodone cut-off is 100 ng/mL.Positive results are unconfirmed and should not be used fornon-medical purposes. Buprenorphine Screen Not Detected Not Detect ng/mL [facility] Comment:Buprenorphine cut-of f is 5 ng/mL.Positive results are unconfirmed and should not be used fornon-medical purposes. 03/04/2024 5:22 AM EST 03/04/2024 5:26 AM EST us Generic External Data Provider LAB URINE ORDERAB LES Final Result [facility] [address] [place] [phone] * (ABNORMAL) Urinalysis Complete (03/04/2024 5:22 AM EST) Color Urine Dark Yellow [facility] Appearance Urine Turbid [facility] PH 6.0 5.0 - 9.0 [facility] Glucose Urine UA Negative Negative mg/dL [facility] Urine Blood Negative Negative [facility] Specific [place] - Urine >=1.030(H) 1.005 - 1.025 [facility] Urine Protein 100 (2+)(A) Neg-Trace mg/dL [facility] Urine Ketones Trace Negative mg/dL [facility] Nitrite Urine Positive(A) Negative [facility] Leukocyte Esterase Urine Small (1+)(A) Negative [facility] RBC Urine 0-2 0 - 2 /HPF [facility] Urine WBC 21-50(A) 0 - 5 /HPF [facility] Urine Squamous Epithelial Cell 6-10 0 - 2 /HPF [facility] CALCIUM OXALATE CRYSTAL, UR Present [facility] Urine Bacteria 4+ None Seen [facility] Hyaline Casts, Urine 6-10 0 - 2 /LPF [facility] 03/04/2024 5:22 AM EST 03/04/2024 5:26 AM EST us Generic External Data Provider LAB URINE ORDERAB LES Final Result Performing Organization Address City/State/[facility] Co de Phone Number [facility] [address] [place] [address] [phone] documented in this encounter Visit Diagnoses Not on filedocumented in this encounter Additional Health Concerns Assessment Noted Time PHQ-9 Depression Total Score: 19 024 11:27 AM EDT documented as of this encounter Care Teams Information Clerk [employer]obile Club Relationship Specialty Start Date End Date Antony Jenkins MD [address] [place] [address] PCP - General Internal Medicine 10/19/13 Zachery Carvajal FNP [address] [place] [address] Nurse Practitioner Family Medicine 01/06/23 [facility] 01/30/20 documented as of this encounter
--- OUTSIDE RECORDS SUMMARY | 2024-03-27 23:51 | XMS_ITS | Encounter Summary ---
Author Organization [employer] Address [address] [facility] 7t [place] [address] Care Team Providers Care Chips Screen Tender Name Role Phone Antony Jenkins MD Primary Care Provide r Zachery Carvajal Unavailable Unavailable Reason for Visit * Reason Onset Date Comments DME from [facility] 03/09/2024 Encounter Details Date Type Department Care Team ([facility] st Contact Info) Description 03/09/2024 Telephone [facility] [address] [place] [address] Marycruz Treviño MA DME from [facility] Social History Tobacco Use Types Packs/Day Years [...] Encounter - Marycruz Treviño MA - 03/09/2024 11:40 AM EST Confirmation of order and DME for gloves and urinary catheter with insertion supplies signed and faxed to [address] [place] [address] . Confirmation received and sent to [facility]. If patient calls to check status on above, please advise them to contact . documented in this encounter Plan of Treatment Not on file documented as of this encounter Visit Diagnoses Not on filedocumented in this encounter Additional Health Concerns Assessment Noted Time PHQ-9 Depression Total Score: 19 024 11:27 AM EDT documented as of this encounter Care Teams Chips Screen Tender Relationship Specialty Start Date End Date Antony Jenkins MD [address] [place] [address] PCP - General Internal Medicine 10/19/13 Zachery Carvajal FNP [address] [place] [address] Nurse Practitioner Family Medicine 01/06/23 [facility] 01/30/20 documented as of this encounter
--- OUTSIDE RECORDS SUMMARY | 2024-03-27 23:51 | XMS_ITS | Encounter Summary ---
Author Organization [employer] Address [address] [facility] 7t [place] [address] Care Team Providers Care Reference Test Clerk Name Role Phone Antony Jenkins MD Primary Care Provide r Zachery Carvajal Unavailable Unavailable Reason for Visit * Reason Onset Date Comments Referral 09/07/2023 Encounter Details Date Type Department Care Team ([facility] st Contact Info) Description 09/07/2023 Telephone [facility] [address] [place], [place] [phone] Antony Jenkins MD [address] [place] [address] Referral Social History Tobacco Use Types Packs/Day Years [...] encounter Miscellaneous Notes * Telephone Encounter - Katerine Holden RN - 09/08/2023 3:01 PM EDT TC placed to Jennifer at [facility] who wants to inform PCP that they are not acceptingpt for medical management. Jennifer states that the pt informed her that he used to be seen at [facility]. Jennifer advised trying with them as they have physiatry care which may be beneficial to the pt. Pt was seen at [facility] on Wednesday09/06/23 * Telephone Encounter - Mena Benítez - 09/07/2023 1:50 PM EDT Tc from Jennifer with [facility] requesting a call from a nurse in regards to some concerns of referrals sent for pain management and PT documented in this encounter Plan of Treatment Not on file documented as of this encounter Visit Diagnoses Not on filedocumented in this encounter Additional Health Concerns Assessment Noted Time PHQ-9 Depression Total Score: 11 024 1:44 PM EDT documented as of this encounter Care Teams Reference Test Clerk Relationship Specialty Start Date End Date Antony Jenkins MD [address] [place] [phone] PCP - General Internal Medicine 10/19/13 Zachery Carvajal FNP [address] [place] [address] Nurse Practitioner Family Medicine 01/06/23 [facility] 01/30/20 documented as of this encounter
--- OUTSIDE RECORDS SUMMARY | 2024-03-27 23:51 | XMS_ITS | Encounter Summary ---
Author Organization [employer] Address [address] [facility] [address] [place] [address] Care Team Providers Care Cocoa Bean Roaster Name Role Phone Antony Jenkins MD Primary Care Provide r Zachery Carvajal Unavailable Unavailable Reason for Visit * Reason Onset Date Comments DME L&C 03/08/2024 Encounter Details Date Type Department Care Team ([facility] st Contact Info) Description 03/08/2024 Telephone [facility] MED[facility]INE [address] [place], [place] [phone] Antony Jenkins MD [address] [place] [address] DME L&C Social History Tobacco Use Types Packs/Day Years [...] encounter Miscellaneous Notes * Telephone Encounter - Jenise Johnson MA - 03/08/2024 10:53 AM EST Received confirmation for semi electric hospital bed;bed rails; and air mattress, sent to to scan. LB documented in this encounter Plan of Treatment Not on file documented as of this encounter Visit Diagnoses Not on filedocumented in this encounter Additional Health Concerns Assessment Noted Time PHQ-9 Depression Total Score: 19 024 11:27 AM EDT documented as of this encounter Care Teams Cocoa Bean Roaster Relationship Specialty Start Date End Date Antony Jenkins MD [address] [place] [address] PCP - General Internal Medicine 10/19/13 Zachery Carvajal FNP [address] [place] [address] Nurse Practitioner Family Medicine 01/06/23 [facility] 01/30/20 documented as of this encounter
--- OUTSIDE RECORDS SUMMARY | 2024-03-27 23:52 | XMS_ITS | Encounter Summary ---
Author Organization [employer] Address [address] [facility] [address]t [place] [address] Care Team Providers Care Lime Slaker Name Role Phone Antony Jenkins MD Primary Care Provide r Zachery Carvajal Unavailable Unavailable Reason for Visit * Reason Onset Date Comments Durable Medical Equipment 03/02/2024 Encounter Details Date Type Department Care Team ([facility] st Contact Info) Description 03/02/2024 Telephone [facility] MEDICINE [address] [place], [place] [phone] Antony Jenkins MD [address] [place] [address] Durable Medical Equipment Social History Tobacco Use [...] encounter Miscellaneous Notes * Telephone Encounter - Faiza Vences - 03/02/2024 8:21 AM EST Please see below. Patients career agent is requesting the following DME on the patients behalf.Please review and advise request and if approved please send message to [place] to generate RX. * Telephone Encounter - Faiza Vences - 03/02/2024 8:21 AM EST ----- Message from Dereck Dubose sent at 03/01/2024 2:52 PM EST ----- Regarding: [facility]: DME Request Good Afternoon I am Dereck Fleming, Sheet Metal Lay Out Worker for [facility]. I am the Sheet Metal Lay Out Worker for Jose Lonnie. Jose is reporting needing repairs to his Hospital Bariatric bed. Jose will be having Nirmal go to his home to assess the condition of his bed. Given the reports that Jose is stating he may need a whole new hospital bed given is affecting the bed frame. We are requesting the following script ???Bariatric semi-electric bed with half rails?? prescription and an ???Bariatric air mattress?? prescription along with medical notes that contains his diagnosis. Jose and his mother report him having several falls from the bed causing him some minor bruising and cuts. We would like to have this expatiate if possible, to ensure Jose is safe and free from fall and injury. Supportive DX if applicable: Paraplegia (CMS/HCC) Class 3 severe obesity due to excess calories with serious comorbidity and body mass index (BMI) of40.0 to 44.9 in adult If you should have any inquiries regarding this request, feel free to contact the Sheet Metal Lay Out Worker below. Sheet Metal Lay Out Worker: Dereck Fleming E-mail: [email or web address] Ventilator Specialist: Eloisa Morel Email : [email or web address] documented in this encounter Plan of Treatment Not on file documented as of this encounter Visit Diagnoses Not on filedocumented in this encounter Additional Health Concerns Assessment Noted Time PHQ-9 Depression Total Score: 19 024 11:27 AM EDT documented as of this encounter Care Teams Lime Slaker Relationship Specialty Start Date End Date Antony Jenkins MD [address] [place] [address] PCP - General Internal Medicine 10/19/13 Zachery Carvajal FNP [address] [place] [address] Nurse Practitioner Family Medicine 01/06/23 [facility] 01/30/20 documented as of this encounter
--- OUTSIDE RECORDS SUMMARY | 2024-03-27 23:52 | XMS_ITS | Clinical Summary ---
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 Right august and left ankle, no evidence of infection, wounds look clean. 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 For this he has been seen in the past at [facility]. pt has been previously on Tizanidine 6 mg but had severe drowsiness with this dose combined with the Baclofen. On 04/26/2013 underwent Botox injections. Pt needs accommodations for his apartment and needs an automated door. 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 For this he has been seen in the past at [facility]. pt has been previously on Tizanidine 6 mg but had severe drowsiness with this dose combined with the Baclofen. On 04/26/2013 underwent Botox injections. Pt needs accommodations for his apartment and needs an automated door. Resolved Problems Problem Noted Date Diagnosed Date Resolved Date Cellulitis of lower limb 10/01/201708/2022 Depressive disorder 09/13/2014 01/30/20 22 Chronic hepatitis C 06/24/2011 06/08/19 24 Assessment & Plan (07/09/2022 2:49 PM EDT): Evaluated by Dr Molina Most recent U/S [...] x 8 weeks He completed treatment 10/09/2021 Encounters * This document contains information received from the source organization and may not represent a complete record from that organization. Date Type Department Care Team Description 03/09/2024 Telephone [facility] [address] [place] [address] Marycruz Treviño MA DME from [facility] 03/09/2024 Telephone [facility] [address] [place] [address] Marycruz Treviño MA DME from [facility] 03/08/2024 Telephone [facility] [address] [place] [address] Antony Jenkins MD DME L&C 03/07/2024 Telephone [facility] [address] [place] [address] Antony Jenkins MD Durable Medical Equipment ([facility] Form: Catheter Supplies/Gloves) 03/04/2024 Orders Only GENERIC EXTERNAL DATA DEPARTMENT Provider, Generic External Data 03/03/2024 Orders Only GENERIC EXTERNAL DATA DEPARTMENT Provider, Generic External Data 03/02/2024 Telephone [facility] [address] [place] [address] Antony Jenkins MD DME L&C 03/02/2024 Telephone [facility] [address] [place] [address] Antony Jenkins MD Nurse Triage 03/02/[address] [address] Antony Jenkins MD Durable Medical Equipment 03/01/[address] [address] Palak Morel, RN PCP Contact 02/21/2024 Patient Outreach [address] [address] Antony Jenkins MD Transition Of Care (Tcm) (HDF- scheduled and SDOH screening completed 06/18/2023) 02/21/[address] [address] Antony Jenkins MD Hospital Follow-up 01/31/[address] [address] Antony Jenkins MD DME L&C 01/18/[address] [address] Marycruz Treviño MA DME L&C 01/07/2024 Telephone [facility] [address] [place] [phone] Marycruz Treviño MA DME form L&C 01/05/2024 Telephone [facility] [address] [place] [address] [phone] Kathleen Gallego OD from Last 3 Months Immunizations Name Administration Dates Next Due Hep B Immune Globulin 03/16/2018 Hep B, adult 03/16/2018 Influenza injectable quadriv alent IIV4 with preservative 12/14/2017,11/20/2014 Influenza injectable quadriv alent preservative free 11/10/2018 Influenza, IIV3, injectable 11/14/2013, 0 Influenza, Split (incl. doc fied surface antigen) 05/02/2013 Influenza, seasonal, injecta ble, preservative free 01/03/2014 Pfizer Covid-19 Vaccine 12+ 11/21/2020, 1 Pneumococcal Polysaccharide PPSV23 09/04/2015,,07/16/2007 TD (adult), 2 Lf tetanus tox oid, preservative free, adsorbed 12/28/2003 Tdap 11/20/2014 Tetanus Toxoid, Unspecified 07/15/2007 Social History Tobacco Use Types Packs/Day Years Used Date Smoking Tobacco: Every Day Cigarettes 1 10 Passive Smoke Exposure: Current Smokeless Tobacco: Current Tobacco Cessation:Ready to Q uit: Not Asked; Counseling Given: Not Answered Alcohol Use Standard Drinks/Week Comments Yes 1 [...] not to disclose 2021 10:18 AM EDT Last Filed Vital Signs Vital Sign Reading Time Taken Comments Blood Pressure 134/86 08/31/2023 11:25 AM EDT Pulse 76 08/31/2023 11:25 AM EDT Temperature 37.2 ??C (98.9 ??F) 08/31/2023 1 1:25 AM EDT Respiratory Rate 20 08/31/2023 11:2 5 AM EDT Oxygen Saturation 96% 08/31/2023 11: 25 AM EDT Inhaled Oxygen Concentration - - Weight 115 kg (254 lb) 06/17/2023 1:39 PM EDT 654lb with chair -350 Height 175.3 cm (5' 9 ) 06/17/2023 1:39 PM EDT Body Mass Index 37.51 06/17/2023 1:39 PM EDT Plan of Treatment Health Maintenance Due Date Last Done Comments Dental X-Ray: [facility] 1984 Alcohol/Substance Use Screening 1996 Family Planning (PISQ) 10/22/1999 Hepatitis A Vaccines (1 of 2 - Risk 2-dose series) 10/22/2003 Pneumococcal Vaccine: Pediatrics (0 to 5 Years) and At-Risk Patients (6 to 49) Years) (2 of 2 - PCV) 09/03/2016 09/04/2015, 10/03/2013, 07/16/2007 Hepatitis B Vaccines (2 of 3 - 19+ 3-dose series) 04/13/2018 03/16/2018 Dental Oral Exam 11/22/2022 05/22/2022 Dental Prophylaxis 11/22/2022 05/22/2022 COVID-19 Vaccine (2023- season) 2023 11/21/2020, 10/31/2020 Depression Monitoring (PHQ-9) 05/18/2024 11/18/2023, 11/18/2023 SDOH Screening 06/17/2024 06/18/2023 Tobacco Screening 08/30/2024 08/31/2023 Depression Screening 11/17/2024 11/18/2023, 11/18/19 24 DTaP/Tdap/Td Vaccines (2 - Td or Tdap) 11/20/2024 11/20/2014, 07/15/2007, 12/28/2003 Dental X-Ray: Full Mouth 05/23/2025 05/22/2022 Lipid Panel 05/06/2026 05/06/2021 Zoster Vaccines (1 of 2) 2034 RSV Patients and Patients Aged 60 years or older (1 - 1-dose 75+ series) 10/22/2059 HIV Screening Completed 05/06/2021 Influenza Vaccine Completed 02/03/2024, , 11/10/2018, Additional history exists HIB Vaccines Aged Out No longer eligi ble based on patient's age to complete this topic HPV Vaccines Aged Out No longer eligi ble based on patient's age to complete this topic IPV Vaccines Aged Out No longer eligi ble based on patient's age to complete this topic Meningococcal Vaccine Aged Out No yves pio eligible based on patient's age to complete this topic RSV under 20 months Aged Out No longe r eligible based on patient's age to complete this topic Rotavirus Vaccines Aged Out No longer eligible based on patient's age to complete this topic Procedures Procedure Name Priority Date/Time Associated Diagnosis Comments DRUG MONITOR, PANEL 1, SCREEN, URINE Routine 03/04/2024 5:22 AM EST URINALYSIS, COMPLETE Routine 03/04/2024 5:22 AM EST CBC WITH AUTO DIFFERENTIAL Routine 03/03/2024 2:31 PM EST COVID-19 ID NOW ([facility]SON) Routine 03/03/2024 11:54 AM EST ACETAMINOPHEN LEVEL Routine 03/03/2024 1 1:54 AM EST SALICYLATE Routine 03/03/2024 11:54 AM EST ETHANOL Routine 03/03/2024 11:54 AM EST COMPREHENSIVE METABOLIC PANEL Routine 03/03/2024 11:54 AM EST PROPHYLAXIS - ADULT Routine 05/22/2022 2 :30 PM EDT Dental caries Encounter for dental examination Non-restorable tooth Teeth missing Fracture of dental mosque History of dental mosque Dental plaque Gingivitis Malocclusion Teeth problem PANORAMIC RADIOGRAPHIC IMAGE Routine 05/22/2022 2:30 PM EDT Dental caries Encounter for dental examination Non-restorable tooth Teeth missing Fracture of dental mosque History of dental mosque Dental plaque Gingivitis Malocclusion Teeth problem COMPREHENSIVE ORAL EVALUATION - NEW OR ESTABLISHED PATIENT Routine 05/22/2022 2:30 PM EDT Dental caries Encounter for dental examination Non-restorable tooth Teeth missing Fracture of dental mosque History of dental mosque Dental plaque Gingivitis Malocclusion Teeth problem HIV 1/2 ANTIGEN/ANTIBODY, FOURTH GENERATION W/RFL Routine 05/06/2021 3:19 PM EDT LIPID PANEL, STANDARD Routine 05/06/2021 3:19 PM EDT from Last 3 Months or Most Recently Relevant to Health Maintenance Results * (ABNORMAL) Drug Monitoring, Panel 1, Screen, Urine (03/04/2024 5:22 AM EST) Opiate Screen Urine POSITIVE(A) Not Detect [facility] Comment:Opiate cut-off is 30 0 ng/mL.Positive results are unconfirmed and should not be used fornon-medical purposes. Barbiturates, Urine Not Detected Not Detect [facility] Comment:Barbiturate cut-off is 200 ng/mL.Positive results are unconfirmed and should not be used fornon-medical purposes. Phencyclidine Screen Urine POSITIVE(A) Not Detect [facility] Comment:Phencyclidine cut-of f is 25 ng/mL.Positive results are unconfirmed and should not be used fornon-medical purposes. Amphetamine Screen Urine Not Detected Not Detect [facility] Comment:Amphetamine cut-off is 1000 ng/mL.Positive results are unconfirmed and should not be used fornon-medical purposes. Benzodiazepines Screen Urine POSITIVE(A) Not Detect [facility] Comment:Benzodiazepine cut-o ff is 200 ng/mL.Positive results are unconfirmed and should not be used fornon-medical purposes. Cocaine Screen Urine POSITIVE(A) Not Detect [facility] Comment:Cocaine cut-off is 3 00 ng/mL.Positive results are unconfirmed and should not be used fornon-medical purposes. Cannabinoid Screen Urine POSITIVE(A) Not Detect [facility] Comment:Cannabinoid cut-off is 50 ng/mL.Positive results are unconfirmed and should not be used fornon-medical purposes. Methadone Screen, Urine Positive(A) Not Detect ng/mL [facility] Comment:Methadone cut-off is 300 ng/mL.Positive results are unconfirmed and should not be used fornon-medical purposes. FENTANYL URINE POSITIVE(A) Not Detect [facility] Comment:Fentanyl cut-off is 1 ng/mL.Positive results are unconfirmed and should not be used fornon-medical purposes. Oxycodone Urine Screen Not Detected Not Detect ng/mL [facility] Comment:Oxycodone cut-off is 100 ng/mL.Positive results are unconfirmed and should not be used fornon-medical purposes. Buprenorphine Screen Not Detected Not Detect ng/mL [facility] Comment:Buprenorphine cut-of f is 5 ng/mL.Positive results are unconfirmed and should not be used fornon-medical purposes. 03/04/2024 5:22 AM EST 03/04/2024 5:26 AM EST us Generic External Data Provider LAB URINE ORDERAB LES Final Result [facility] [address] [place] [phone] * (ABNORMAL) Urinalysis Complete (03/04/2024 5:22 AM EST) Color Urine Dark Yellow [facility] Appearance Urine Turbid [facility] PH 6.0 5.0 - 9.0 [facility] Glucose Urine UA Negative Negative mg/dL [facility] Urine Blood Negative Negative [facility] Specific [place]wey - Urine >=1.030(H) 1.005 - 1.025 [facility] Urine Protein 100 (2+)(A) Neg-Trace mg/dL [facility] Urine Ketones Trace Negative mg/dL [facility] Nitrite Urine Positive(A) Negative [facility] Leukocyte Esterase Urine Small (1+)(A) Negative [facility] RBC Urine 0-2 0 - 2 /HPF [facility] Urine WBC 21-50(A) 0 - 5 /HPF [facility] Urine Squamous Epithelial Cell 6-10 0 - 2 /HPF [facility] CALCIUM OXALATE CRYSTAL, UR Present [facility] Urine Bacteria 4+ None Seen [facility] Hyaline Casts, Urine 6-10 0 - 2 /LPF [facility] 03/04/2024 5:22 AM EST 03/04/2024 5:26 AM EST us Generic External Data Provider LAB URINE ORDERAB LES Final Result [facility] [address] [place] [phone] * (ABNORMAL) CBC auto differential (03/03/2024 2:31 PM EST) White Blood Count 16.9(H) 4.8 - 10.8 X10*3/uL [facility] Red Blood Count 4.90 4.60 - 5.80 X10*6/uL [facility] Hemoglobin 13.4(L) 14.0 - 18.0 g/dl [facility] Hematocrit 41.4(L) 42.0 - 52.0 % [facility] Mean Corpuscular Volume 84.5 80.0 - 98.0 fL [facility] Mean Corpuscular Hemoglobin 27.3 27.0 - 33.0 pg [facility] Mean Corpuscular HGB Conc 32.4 31.0 - 36.0 g/dl [facility] Red Cell Distribution Width 14.8 11.0 - 16.0 % [facility] Platelet Count 265 160 - 400 X10*3/uL [facility] Mean Platelet Volume 9.7 9.4 - 12.4 fL [facility] Neutrophils Percent Auto 75.3(H) 45 - 73 % [facility] Imm Gran Pct Auto 0.5(H) 0.0 - 0.4 % [facility] Lymphocytes Percent Auto 17.9(L) 20 - 40 % [facility] Monocytes Percent Auto 5.5 2 - 11 % [facility] Eosinophils Percent Auto 0.5 0 - 4 % [facility] Basophils Percent Auto 0.3 0 - 2 % [facility] NRBC Pct Auto 0.0 0.0 - 0.2 /100WBC [facility] Neutrophils Absolute Auto 12.8(H) 2.0 - 8.3 x10*3/uL [facility] Imm Gran Abs Auto 0.08(H) 0.00 - 0.03 X10*3/uL [facility] Lymphocytes Absolute Auto 3.0 1.2 - 4.9 X10*3/uL [facility] Monocytes Absolute Auto 0.9 0.1 - 1.2 X10*3/uL [facility] Eosinophils Absolute Auto 0.1 0.0 - 0.4 X10*3/uL [facility] Basophils Absolute Auto 0.1 0.0 - 0.2 X10*3/uL [facility] NRBC Abs Auto 0.000 0.0 - 0.012 X10*3/uL [facility] 03/03/2024 2:31 PM EST 03/03/2024 2:33 PM EST Narrative [facility] - 03/03/2024 2:36 PM EST QNS us Generic External Data Provider LAB BLOOD ORDERAB LES Edited Result - Final [facility] [address] [place] [phone] * COVID-19 ID NOW ([facility]SON) (03/03/2024 11:54 AM EST) IDNOW SERIAL# [id number] [facility] COVID-19 TEST Negative Negative [facility] COVID-19 NOTE See Note [facility] Comment: Results are for the identification of SARS-CoV2 RNA. TheSARS-CoV2 RNA is generally detectable in respiratory samplesduring the acute phase of infection. Positive results areindicative of the presence of SARS-CoV-2 RNA; clinicalcorrelation with patient history and other diagnosticinformation is necessary to determine patient infectionstatus. Positive results do not rule out bacterial infectionor co- infection with other viruses.Testing facilities within the [facility] and [facility] are required to report all positive results tothe appropriate public health authorities.Negative results should be treated as presumptive and, ifinconsistent with clinical signs and symptoms or necessaryfor patient management, should be tested with differentauthorized or cleared molecular tests. Negative results donot preclude SARS-CoV2 RNA infection and should not be usedas the sole basis for patient management decisions. Negativeresults should be considered in the context of a patient'srecent exposures, history and the presence of clinical signsand symptoms consistent with COVID-19.This test has been authorized by the FDA under an EmergencyUse Authorization (EUA) for use by authorized laboratories.Testing performed on the [employer] ID NOW utilizing NAAT. 03/03/2024 11:5 4 AM EST 03/03/2024 11:56 AM EST us Generic External Data Provider LAB MOLECULAR [facility] [employer] ORDERABLES Final Result [facility] [address] [place] [phone] * Ethanol (03/03/2024 11:54 AM EST) ETHANOL (MG/DL) IN SER/PLAS <10 mg/dL [facility] Comment:Serum/plasma ethanol results are to be used formedical/treatment purposes only. 03/03/2024 11:5 4 AM EST 03/03/2024 11:56 AM EST Generic External Data Provider LAB BLOOD ORDERAB LES Final Result Performing Organization Address City/[facility] Co de Phone Number [facility] [address] [place] [phone] * Acetaminophen level (03/03/2024 11:54 AM EST) Pathologist [facility] Acetaminophen LAB <3 <30 mcg/mL [facility] 03/03/2024 11:5 4 AM EST 03/03/2024 11:56 AM EST Generic External Data Provider LAB BLOOD ORDERAB LES Final Result Performing Organization Address [facility] Co de Phone Number [facility] [address] [place] [phone] * (ABNORMAL) Salicylate (03/03/2024 11:54 AM EST) [facility] Salicylate <5.0(L) 15 - 30 mg/dL [facility] 03/03/2024 11:5 4 AM EST 03/03/2024 11:56 AM EST Generic External Data Provider LAB BLOOD ORDERAB LES Final Result Performing Organization Address [facility] de Phone Number [facility] [address] [place] [phone] * (ABNORMAL) Comprehensive Metabolic Panel (03/03/2024 11:54 AM EST) Pathologist [facility] Sodium 140 135 - 145 mmol/L [facility] Potassium 3.9 3.3 - 5.1 mmol/L [facility] Comment:Slight Hemolysis.Int erpret result with caution. Chloride 110(H) 96 - 108 mmol/L [facility] Carbon Dioxide 21(L) 22 - 29 mmol/L [facility] Anion Gap 13 12 - 20 [facility] Urea Nitrogen (BUN) 14 9 - 16 mg/dL [facility] Creatinine, Serum 0.65 0.5 - 1.4 mg/dL [facility] Creatinine Clr Calc Pharmacy 183.4 [facility] Comment:eGFR (calculated fro m the MDRD study equation) and eCrCl(calculated from the Cockcroft-Gault equation) are based ondifferent parameters and may not yield comparable results.If eCrCl result is absurd, please check patient'sheight/weight. Estimated Glomerular Filt Rate >60 [facility] Comment:Chronic Kidney Disea se: Estimated GFR < 60 mL/min/1.86u2Rlkstc Kidney Disease: Estimated GFR < 15 mL/min/1.73m2 Glucose 103 60 - 115 mg/dL [facility] Calcium 9.1 8.4 - 10.2 mg/dL [facility] Bilirubin, Total 0.4 0.0 - 1.0 mg/dL [facility] Aspartate Amino Transferase 35 5 - 37 U/L [facility] Comment:Slight Hemolysis.Int erpret result with caution. Alanine Aminotransferase 20 0 - 40 U/L [facility] Total Protein 8.2(H) 6.5 - 8.0 g/dL [facility] Albumin Level 3.6 3.5 - 5.0 g/dL [facility] Alkaline Phosphatase 103 39 - 117 U/L [facility] 03/03/2024 11:5 4 AM EST 03/03/2024 11:56 AM EST us Generic External Data Provider LAB BLOOD ORDERAB LES Final Result [facility] [address] [place] [phone] * HIV 1/2 ANTIGEN/ANTIBODY,FOURTH GENERATION W/RFL (05/06/2021 3:19 PM EDT) HIV-1/2 ANTIGEN AND ANTIBODIES, 4TH GENERATION W/ REFLEX NON-REACT [facility] NON-REACT [facility] Comment: HIV-1 antigen and HIV-1/HIV-2 antibodies were not detected. There is no laboratory evidence of HIV infection. ?? PLEASE NOTE: This information has been disclosed to you from records whose confidentiality may be protected by state law. ??If your state requires such protection, then the state law prohibits you from making any further disclosure of the information without the specific written consent of the person to whom it pertains, or as otherwise permitted by law. A general authorization for the release of medical or other information is NOT sufficient for this purpose. ? For additional information please refer to http://[employer]/faq/ULT982 (This link is being provided for informational/ educational purposes only.) ? The performance of this assay has not been clinically validated in patients less than 2 years old. ?? 05/06/2021 3:19 PM EDT us Antony Fleming MD LAB BLOOD ORDERABLES Final Result [facility] [address] * (ABNORMAL) LIPID PANEL, STANDARD (05/06/2021 3:19 PM EDT) Chol/HDLC Ratio 5.5(H) <5.0 (calc) [facility] Cholesterol, Total 144 <200 mg/dL [facility] HDL Cholesterol 26(L) > OR = 40 mg/dL [facility] LDL Cholesterol 80 mg/dL (calc) [facility] Comment: Reference range: <100 ?? Desirable range <100 mg/dL for primary prevention; ?? <70 mg/dL for patients with CHD or diabetic patients ?? with > or = 2 CHD risk factors. ?? LDL-C is now calculated using the Maribel ?? calculation, which is a validated novel method providing ?? better accuracy than the Friedewald equation in the ?? estimation of LDL-C. ?? Javy KNOWLES et al. STIVEN. 2013;310(19): 4611-8519 ?? (http://[employer]/faq/BAH797) Non-HDL Cholesterol 118 <130 mg/dL (calc) [facility] Comment: For patients with diabetes plus 1 major ASCVD risk ?? factor, treating to a non-HDL-C goal of <100 mg/dL ?? (LDL-C of <70 mg/dL) is considered a therapeutic ?? option. Triglycerides 287(H) <150 mg/dL [facility] Comment: ?? If a non-fasting specimen was collected, consider repeat triglyceride testing on a fasting specimen if clinically indicated. ?? Anita et al. J. of Clin. Lipidol. 2015;9:129-169. ?? 05/06/2021 3:19 PM EDT us Antony Fleming MD LAB BLOOD ORDERABLES Final Result [facility] [address] from Last 3 Months or Most Recently Relevant to Health Maintenance Insurance [facility] CARE Member Subscriber Plan / Payer ( fective 2016-Present) Name:Jose Fleming Relation to Subscriber:Self Name:Jose Fleming Payer ID:Not on file Group ID:[id number] Type:Not on file Address: [address] [facility] - [facility] [place] [phone] Advance Directives Documents on File Type Date Recorded Patient Coat Presser Expl anation Advance Directives and Livin g Will 10/30/2022 Health Care Proxy Care Teams Regulatory Administrator Relationship Specialty Start Date End Date Antony Jenkins MD [address] [place] [address] PCP - General Internal Medicine 10/19/13 Zachery Carvajal FNP [address] [place] [address] Nurse Practitioner Family Medicine 01/06/23 [facility] 01/30/20
--- OUTSIDE RECORDS SUMMARY | 2024-03-27 23:52 | XMS_ITS | Encounter Summary ---
Author Organization [employer] Address [address] [facility] [address] [place] [address] Care Team Providers Care Cook Frozen Dessert Name Role Phone Antony Jenkins MD Primary Care Provide r Zachery Carvajal Unavailable Unavailable Reason for Visit * Reason Onset Date Comments Hospital Follow-up 02/21/2024 Encounter Details Date Type Department Care Team ([facility] st Contact Info) Description 02/21/2024 Telephone [facility] [address] [place], [place] [phone] Antony Jenkins MD [address] [place] [address] Hospital Follow-up Social History Tobacco Use Types Packs/Day Years [...] encounter Miscellaneous Notes * Telephone Encounter - Vladimir Luque - 02/21/2024 3:43 PM EST Tc from pt requesting a HDF appt. Hospital: [facility] Date of admission: 02/01/24 Discharge date: 02/04/24 Diagnosed: Back Pain and Right eye conjunctivitis *Send message to [facility] Clinical Care Coordinators Please contact pt at [phone]. documented in this encounter Plan of Treatment Not on file documented as of this encounter Visit Diagnoses Not on filedocumented in this encounter Additional Health Concerns Assessment Noted Time PHQ-9 Depression Total Score: 19 024 11:27 AM EDT documented as of this encounter Care Teams Cook Frozen Dessert Relationship Specialty Start Date End Date Antony Jenkins MD [address] [place] [id number] PCP - General Internal Medicine 10/19/13 Zachery Carvajal FNP [address] [place] [id number] Nurse Practitioner Family Medicine 01/06/23 [facility] 01/30/20 documented as of this encounter
--- OUTSIDE RECORDS SUMMARY | 2024-03-27 23:52 | XMS_ITS | Data Portability ---
Author Organization [employer] Address [address] [place] [id number] Care Team Providers Care Hospital Product Specialist Name Role Phone [facility] Referring Provider [facility] Referring Provider Assessment Encounter Date Assessment Date Assessment LastModified by Organization Details LastModified Time 11/22/2021 11/22/2021 I have reviewed and agree with the Assessment and Plan as documented by the Manager Alliance. I provided real -time medical direction via phone for this encounter, and was available for additional phone based assistance as needed. Patient given the opportunity to ask questions. [email or web address] Not available 11/22/2021 11:36:10 12/22/2021 12/22/2021 Leg ulcer [email or web address] Not available 08/2021 18:32:07 06/29/2022 06/29/2022 Mr. Jose Fleming is a 36yoM with a PmHx of paraplegia and a chronic left ankle wound who is seen today for a new right august wound. Mr. Fleming reports that approximately 1mo ago he injured his right august and did not realize it until the wound became erythematous with drainage. His caregiver has been replacing dressings on it but today decided it should be evaluated and called for an [facility] evaluation. He denies fever and is unable to comment on pain. Area is worsening. VSS. Manager Alliance on site uploads pictures of a two small areas of what appears to be a deep wound of the right august with surrounding erythema and edema, purulent drainage on more inferior wound appreciated on gauze. Recommended ED visit for urgent imaging and evaluation as patient is insensate and can not comment on severity of pain. He is agreeable and loan manager will help arrange transport [email or web address] Not available 06/29/2022 14:47:58 Plan of Treatment Reminders Order Date Submit Date Provider Last Modified By Organization Details Last Modified Time Details Appointments None recorded. Lab urinalysis, dipstick 2021 [email or web address] 0 [facility], [address] [place], [address], 11:39:03 culture, urine + sensitivity - cath spec 2021 [place] [facility] [facility], [address] [place], [address], 16:46:22 rapid SARS CoV 2 Ag, QL IA, respiratory specimen 2021 [email or web address] 0 [facility], [address] [place], [address], 11:45:24 Referral None recorded. Procedures None recorded. Surgeries None recorded. Imaging None recorded. Medication Orders Bactrim DS 800 mg-160 mg tablet 2021 [id number], [address] [place], [address], 11:45:11 Bactrim DS 800 mg-160 mg tablet 2021 [email or web address] 0 [facility][id number], [address] [place], [address], 11:45:09 Patient TargetsNo targets recorded. Patient InstructionsNo instructions recorded. Reason for Referral None Reported. Results Created Date Observation Date Name Description Value Unit Range Abnormal Flag Note LastModifiedBy Organization Detail LastModifiedTime 11/23/1911/22/2021 UA W/REF MAHENDRA CULTU RE appear/color YELLO W TURBI D Not Available [facility] [address] [place], [address], 11/22/2021 14:07:00 11/23/19 22 11/22/2021 UA W/REF MAHENDRA CULTU RE sp. gravity 1.020 (1.002 -1.030 ) Not Available [facility] [address] [place], [address], 11/22/2021 14:07:00 11/23/19 22 11/22/2021 UA W/REF MAHENDRA CULTU RE urine pH 7.0 (5.0-8 .0) Not Available [facility] [address] [place], [address], 11/22/2021 14:07:00 11/23/19 22 11/22/2021 UA W/REF MAHENDRA CULTU RE urine albumin 1+ (neg) abnormal Not Available [facility] [address], [address], 11/22/2021 14:07:00 11/23/1911/22/2021 UA W/REF MAHENDRA CULTU RE urine glucose NEGATI VE (neg) Not Available [facility] [address] [place], [address], 11/22/2021 14:07:00 11/23/19 22 11/22/2021 UA W/REF MAHENDRA CULTU RE urine ketones NEGATI VE (neg) Not Available [facility] [address] [place], [address], 11/22/2021 14:07:00 11/23/19 22 11/22/2021 UA W/REF MAHENDRA CULTU RE urine bilirubin NEGATI VE (neg) Not Available [facility] [address] [place], [address], 11/22/2021 14:07:00 11/23/19 22 11/22/2021 UA W/REF MAHENDRA CULTU RE urine hemoglobin NEGATI VE (neg) Not Available [facility] [address] [place], [address], 11/22/2021 14:07:00 11/23/19 22 11/22/2021 UA W/REF MAHENDRA CULTU RE urine nitrite NEGATI VE (neg) Not Available [facility] [address] [place], [address], 11/22/2021 14:07:00 11/23/19 22 11/22/2021 UA W/REF MAHENDRA CULTU RE urine leukocyte 3+ (neg) abnormal Not Available [facility] [address] [place], [address], 11/22/2021 14:07:00 11/23/19 22 11/22/2021 UA W/REF MAHENDRA CULTU RE urobilinogen NORMAL mg/dL (norm) Not Available [facility] [address] [place], [address], 11/22/2021 14:07:00 11/23/19 22 11/22/2021 UA W/REF MAHENDRA CULTU RE urine WBCs 81 /hpf (0-5) high Not Available [facility] [address] [place], [address], 11/22/2021 14:07:00 11/23/19 22 11/22/2021 UA W/REF MAHENDRA CULTU RE urine RBCs 2 /hpf (0-3) Not Available [facility] [address] [place], [address], 11/22/2021 14:07:00 11/23/19 22 11/22/2021 UA W/REF MAHENDRA CULTU RE bacteria SLIGHT hpf (neg) abnormal Not Available [facility] [address] [place], [address], 11/22/2021 14:07:00 11/23/19 22 11/22/2021 UA W/REF MAHENDRA CULTU RE mucus SLIGHT /lpf Not Available [facility] [address] [place], [address], 11/22/2021 14:07:00 11/23/19 22 11/22/2021 UA W/REF MAHENDRA CULTU RE squamous epith 3 /hpf (0-8) Not Available [facility] [address] [place], [address], 11/22/2021 14:07:00 11/23/19 22 11/22/2021 UA W/REF MAHENDRA CULTU RE budding yeast MODERA TE /hpf Not Available [facility] [address] [place], [address], 11/22/2021 14:07:00 11/23/19 22 11/22/2021 UA W/REF MAHENDRA CULTU RE clarity TURBID (clear ) abnormal Not Available [facility] [address] [place], [address], 11/22/2021 14:07:00 11/23/19 22 11/22/2021 UA W/REF MAHENDRA CULTU RE culture indication CULTUR E INDICA SAV Not Available [facility] [address] [place], [address], 11/22/2021 14:07:00 11/23/19 22 11/22/2021 URINE CULTU RE specimen description URINE Not Available [facility] [address] [place], [address], 11/24/2021 10:05:36 11/23/19 22 11/22/2021 URINE CULTU RE special requests NONE Reflex ed from [id number] Not Available [facility] [address] [place], [address], 11/24/2021 10:05:36 11/23/19 22 11/24/2021 URINE CULTU RE culture abnormal >100, 000 COL/M L ESCHE SUE A COLI This isola te was ident ified using Maldi -TOF syste m These AST resul ts were perfo rmed on the Micro scan ID and AST syste m 50-10 0,000 COL/M L STREP TOCOC CUS SALIV ARIUS SSP. SALIV ARIUS Forme rly repor sav as part of the Virid ans Strep tococ cus group . This isola te was ident ified using Maldi -TOF syste m SUSCE PTIBI LITY TESTI NG NOT ROUTI CHIN PERFO RMED ON THIS ISOLA TE. Not Available [facility] [address] [place], [address], 11/24/2021 10:05:36 10/08/11/24/2021 URINE CULTU RE report status FINAL 2021 Not Available [facility] [address], [address], 11/24/2021 10:05:36 11/23/19 22 11/24/2021 URINE CULTU RE organism ORGAN ISM >100, 000 COL/M L ESCHE SUE A COLI This isola te was ident ified using Maldi -TOF syste m These AST resul ts were perfo rmed on the Micro scan ID and AST syste m Not Available [facility] [address] [place], [address], 11/24/2021 10:05:36 11/23/1911/24/2021 URINE CULTU RE method METHOD MIN. INHIB. CONC. (MCG/M L) Not Available [facility] [address] [place], [address], 11/24/2021 10:05:36 11/23/19 22 11/24/2021 URINE CULTU RE ampicillin AMPICI LLIN SUSCEP TIBLE susceptib le Not Available [facility] [address] [place], [address], 11/24/2021 10:05:36 11/23/19 22 11/24/2021 URINE CULTU RE ampicillin/s ulbactam AMPICI LLIN/S ULBACT AM SUSCEP TIBLE susceptib le Not Available [facility] [address] [place], [address], 11/24/2021 10:05:36 11/23/19 22 11/24/2021 URINE CULTU RE amoxicillin/ clavulanic acid AMOXIC ILLIN/ CLAVUL AN SUSCEP TIBLE susceptib le Not Available [facility] [address] [place], [address], 11/24/2021 10:05:36 11/23/19 22 11/24/2021 URINE CULTU RE cefazolin CEFAZO SHARON SUSCEP TIBLE susceptib le Not Available [facility] [address] [place], [address], 11/24/2021 10:05:36 11/23/19 22 11/24/2021 URINE CULTU RE cefepime CEFEPI ME SUSCEP TIBLE susceptib le Not Available [facility] [address] [place], [address], 11/24/2021 10:05:36 11/23/19 22 11/24/2021 URINE CULTU RE ceftriaxone CEFTRI AXONE SUSCEP TIBLE susceptib le Not Available [facility] [address], [address], 11/24/2021 10:05:36 11/23/19 22 11/24/2021 URINE CULTU RE ciprofloxaci n CIPROF LOXACI N SUSCEP TIBLE susceptib le Not Available [facility] [address] [place], [address], 11/24/2021 10:05:36 11/23/19 22 11/24/2021 URINE CULTU RE ertapenem ERTAPE NEM SUSCEP TIBLE susceptib le Not Available [facility] [address] [place], [address], 11/24/2021 10:05:36 11/23/19 22 11/24/2021 URINE CULTU RE gentamicin GENTAM ICIN SUSCEP TIBLE susceptib le Not Available [facility] [address] [place], [address], 11/24/2021 10:05:36 11/23/19 22 11/24/2021 URINE CULTU RE levofloxacin LEVOFL OXACIN SUSCEP TIBLE susceptib le Not Available [facility] [address] [place], [address], 11/24/2021 10:05:36 11/23/19 22 11/24/2021 URINE CULTU RE meropenem MEROPE NEM SUSCEP TIBLE susceptib le Not Available [facility] [address], [address], 11/24/2021 10:05:36 10/08/11/24/2021 URINE CULTU RE nitrofuranto in NITROF URANTO IN SUSCEP TIBLE susceptib le Not Available [facility] [address] [place], [address], 11/24/2021 10:05:36 11/23/19 22 11/24/2021 URINE CULTU RE piperacillin /tazobactam PIPERA CILLIN /TAZOB AC SUSCEP TIBLE susceptib le Not Available [facility] [address] [place], [address], 11/24/2021 10:05:36 11/23/19 22 11/24/2021 URINE CULTU RE trimeth/sulf amethox TRIMET H/SULF AMETHO X SUSCEP TIBLE susceptib le Not Available [facility] [address] [place], [address], 11/24/2021 10:05:36 11/23/19 22 11/24/2021 URINE CULTU RE tetracycline TETRAC YCLINE SUSCEP TIBLE susceptib le Not Available [facility] [address], [place], [address], 11/24/2021 10:05:36 11/23/19 22 11/22/2021 rapid SARS CoV 2 Ag, QL IA, respi rator y speci men rapid SARS CoV 2 Ag, QL IA, respiratory specimen negati ve Not Available [facility] [address] [place] [address], [address], 11/22/2021 11:42:23 11/23/19 22 11/22/2021 urina lysis , dipst ick Leukocytes 3+ Not Available [facility] [address] [place] [address], [address], 11/22/2021 11:36:21 11/23/19 22 11/22/2021 urina lysis , dipst ick Nitrite negati ve Not Available [facility] [address] [place] [address], [address], 11/22/2021 11:36:21 11/23/19 22 11/22/2021 urina lysis , dipst ick Protein trace + Not Available [facility] [address] [place] [address], [phone], 11/22/2021 11:36:21 11/23/19 22 11/22/2021 urina lysis , dipst ick pH 7.5 Not Available [facility] [address], [address], 11/22/2021 11:36:21 11/23/19 22 11/22/2021 urina lysis , dipst ick Blood neg Not Available [facility] [address], [address], 11/22/2021 11:36:21 11/23/19 22 11/22/2021 urina lysis , dipst ick Specific [place] 1.010 Not Available [facility] [address] [place] [address], [phone], 11/22/2021 11:36:21 11/23/19 22 11/22/2021 urina lysis , dipst ick Ketone neg Not Available [facility] [address], [address], 11/22/2021 11:36:21 11/23/19 22 11/22/2021 urina lysis , dipst ick Appearance sl cloudy Not Available [facility] [address] [place] [address], [address], 11/22/2021 11:36:21 11/23/19 22 11/22/2021 urina lysis , dipst ick Color orange Not Available [facility] [address], [address], 11/22/2021 11:36:21 Result Notes None recorded. Medical Equipment None Reported. Allergies Allergen ID Allergen Name Allergen Category Reaction Reaction Severity Criticality Documentation Date Start Date Code Code System Note Provider Name and Address Organization Details Recorded Time 1135 vancomyci n medicatio n Not available Not available Not available 11/22/2021 75000 RxNorm Not Available [facility] - production 4 03:44:19 Medications Name Sig Start Date Stop Date Status Note LastModified by Organization Details LastModified Time amoxicillin 500 mg capsule TAKE 1 CAPSULE BY MOUTH EVERY 8 HOURS active Not Available Not Available No t Available silver sulfadiazine 1 % topical cream APPLY BY TOPICAL ROUTE EVERY DAY A 1/16 INCH (1.5 MM) THICK LAYER TO ENTIRE BURN AREA active Not Available Not Available No t Available oxybutynin chloride ER 15 mg tablet,extend ed release 24 hr TAKE 1 TABLET BY MOUTH EVERY DAY active Not Available Not Available No t Available doxycycline hyclate 100 mg capsule TAKE 1 CAPSULE BY MOUTH TWICE A DAY active Not Available Not Available No t Available tizanidine 2 mg tablet TAKE 1 TABLET BY MOUTH EVERY 12 HOURS NEEDED active Not Available Not Available No t Available trazodone 50 mg tablet TAKE 1 TABLET BY MOUTH EVERYDAY AT BEDTIME active Not Available Not Available N ot Available ibuprofen 800 mg tablet TAKE 1 TABLET BY MOUTH THREE TIMES A DAY WITH FOOD active Not Available Not Available No t Available sulfamethoxaz ole 800 mg-trimethopr im 160 mg tablet TAKE 1 TABLET BY MOUTH EVERY 12 HOURS FOR 10 DAYS active Not Available Not Available No t Available risperidone 3 mg tablet TAKE 0.5 TABLET BY ORAL ROUTE EVERY MORNING, AND 1 TABLET EVERY BEDTIME active Not Available Not Available No t Available benztropine 1 mg tablet TAKE 1 TABLET BY MOUTH TWICE A DAY EVERY DAY NEEDED FOR EPS active Not Available Not Available No t Available docusate sodium 100 mg capsule TAKE 1 CAPSULE BY ORAL ROUTE EVERY 2 DAYS AT BEDTIME NEEDED active Not Available Not Available No t Available hydrocortison e 2.5 % topical cream APPLY BY TOPICAL ROUTE 2 TIMES EVERY DAY TO THE AFFECTED AREA(S) NEEDED FOR ITCHING active Not Available Not Available No t Available hydroxyzine HCl 25 mg tablet TAKE 1 TABLET BY ORAL ROUTE EVERY BEDTIME NEEDED FOR NIGHTTIME ANXIETY active Not Available Not Available No t Available mirtazapine 15 mg tablet TAKE 1 TABLET BY MOUTH EVERY DAY BEFORE BEDTIME active Not Available Not Available No t Available risperidone 1 mg tablet TAKE 1 TABLET BY ORAL ROUTE EVERY MORNING AND 2 TABLETS EVERY BEDTIME active Not Available Not Available No t Available amoxicillin 875 mg-potassium clavulanate 125 mg tablet TAKE 1 TABLET BY MOUTH EVERY 12 HOURS FOR 7 DAYS active Not Available Not Available No t Available Mavyret 100 mg-40 mg tablet TAKE 3 TABLETS BY MOUTH EVERY DAY active Not Available Not Available No t Available Vitals Date Recorded Oxygen saturation Oxygen saturation in Arterial blood by Pulse oximetry Respiratory rate Body temperature Heart rate Heart rate Respiratory rate Oxygen saturation Oxygen saturation in Arterial blood by Pulse oximetry Body temperature Systolic blood pressure Diastolic blood pressure Systolic blood pressure Diastolic blood pressure Provider Name and Address Organization Details Last Updated DateTime 2 96 % 96 % 16 /min 98.2 [degF] 85 /min 85 /min 16 /min 96 % 96 % 98.2 [degF] 112 mm[Hg] 78 mm[Hg] 112 mm[Hg] 78 mm[Hg] Not Available [employer] 2 13:38:09 Date Recorded Respiratory rate Oxygen saturation Oxygen saturation in Arterial blood by Pulse oximetry Body temperature Heart rate Systolic blood pressure Diastolic blood pressure Provider Name and Address Organization Details Last Updated DateTime 4 16 /min 94 % 94 % 98.1 [degF] 88 /min 149 mm[Hg] 92 mm[Hg] Not Available [employer] 4 15:45:45 Date Recorded Heart rate Oxygen saturation Oxygen saturation in Arterial blood by Pulse oximetry Respiratory rate Body temperature Oxygen saturation Oxygen saturation in Arterial blood by Pulse oximetry Respiratory rate Body temperature Heart rate Systolic blood pressure Diastolic blood pressure Systolic blood pressure Diastolic blood pressure Provider Name and Address Organization Details Last Updated DateTime 2 104 /min 94 % 94 % 20 /min 98.2 [degF] 94 % 94 % 20 /min 98.2 [degF] 104 /min 136 mm[Hg] 87 mm[Hg] 136 mm[Hg] 87 mm[Hg] Not Available [employer] 2 11:53:45 Date Recorded Respiratory rate Body temperature Heart rate Oxygen saturation Oxygen saturation in Arterial blood by Pulse oximetry Systolic blood pressure Diastolic blood pressure Provider Name and Address Organization Details Last Updated DateTime 2 18 /min 97.9 [degF] 72 /min 97 % 97 % 164 mm[Hg] 96 mm[Hg] Not Available [employer] 2 18:28:02 Date Recorded Respiratory rate Body weight Body temperature Heart rate Oxygen saturation Oxygen saturation in Arterial blood by Pulse oximetry Respiratory rate Body weight Body temperature Heart rate Oxygen saturation Oxygen saturation in Arterial blood by Pulse oximetry Respiratory rate Body temperature Heart rate Oxygen saturation Oxygen saturation in Arterial blood by Pulse oximetry Body weight Systolic blood pressure Diastolic blood pressure Systolic blood pressure Diastolic blood pressure Systolic blood pressure Diastolic blood pressure Provider Name and Address Organization Details Last Updated DateTime 3 14 /min 636411. 6 g 97.9 [degF] 84 /min 90 % 90 % 14 /min 088496. 6 g 97.9 [degF] 84 /min 90 % 90 % 14 /min 97.9 [degF] 84 /min 90 % 90 % 868730. 6 g 107 mm[Hg] 67 mm[Hg] 107 mm[Hg] 67 mm[Hg] 107 mm[Hg] 67 mm[Hg] Not Available [facility] - [facility] 3 14:58:12 Social History None recorded. Functional Status None recorded. Mental Status None recorded. Family History Nothing Reported. Medical History No medical history recorded. Past Encounters Encounter ID Performer Location Encounter Start Date Encounter Closed Date Diagnosis/Indication Diagnosis SNOMED-CT Code Diagnosis ICD10 Code Diagnosis Note [id number] Justin Hill MD [facility] [address] [place] [phone] 04/22/2021 15:44:46 12/01/2021 12:58:48 [id number] Chace Trejo MD [facility] [address] [place] [id number] 06/26/2021 20:09:15 10/13/2021 15:37:12 [id number] Chace Trejo MD [facility] [address] [place] [id number] 06/26/2021 20:10:37 06/26/2021 20:16:34 [id number] Juan Aguayo MD [facility] [address] [place] [id number] 08/15/2021 17:02:13 11/06/2021 12:11:43 Abscess [id number] L02.91 Per loan manager, area on the back is indurated with some purulence expressed earlier in the day by the VNA, concerning for an abscess. Will rx Bactrim and encourage wound-chec k in the office in the next week to see if this needs incision and drainage. Carmita (NORAA) joined in call with loan manager, in agreement with plan. [id number] Cristi White MD [facility] [address] [place] [id number] 09/03/2021 13:01:35 11/10/2021 12:13:49 Pain in right lower limb [id number] M79.604 No s/s of infection. No indication for Abx at this time [id number] Elenita Greco MD [facility] [address] [place] [id number] 11/22/2021 11:30:48 11/25/2021 13:58:39 Acute urinary tract infection 238080105 N39.0 due to paraplegia / self cath and Left CVAT/ + leuk on UA elected to treat w/ atb-has had bactrim prior- advised will call if UC reveals need to stop or change antibiotic Exposure t o SARS-CoV-2 [id number] Z20.822 no symptoms- aware if develops s/s to re test [id number] Chace Trejo MD [facility] [address] [place] [id number] 12/22/2021 18:27:57 12/23/2021 13:45:57 Ulcer of lower extremity [id number] L97.909 This 36-year-ol d male has a 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 He called because of a concern it might be infected, but the lesion appears very chronic. I recommende d that his normal dressing be applied. His visiting nurse will redress the ulcer tomorrow. The patient agreed with this plan. [id number] Zuleyka Deshpande MD [facility] [address] [place] [id number] 06/29/2022 14:15:49 06/30/2022 10:21:45 Open wound of lower leg [id number] S81.801A [id number] Justin Stevens MD [facility] [address] [place] [id number] 02/01/2024 15:45:38 02/01/2024 22:18:49 Acute angle-closure glaucoma of right eye [id number] 53497 H40.211 As noted, we were called to see this patient regarding concerns of painful red eye. Evaluation in the field was performed by my loan manager colleague, as noted above, I provided real-time direction and supervisio n for this visit. The evaluation revealed painful red eye, with moderate conjunctiv al injection, increased pressure to palpation, subjective mild photophobi a, and sluggish pupillary light reaction. No prior hx of this issue or of glaucoma. No sick contacts with conjunctiv itis. Pt reports blurring of vision. Impression :Very concerning story for acute angle-clos ure glaucoma. Plan:ED referral via EMS for stat opthalmolo gy consult. Primary care, considerch elizabeth in call this week. Dispositio n:We discussed the situation and I recommende d referral to the emergency department . This was based on concern for a sight-thre atening condition. Health Concerns Section Related Observation LastModified by Organization Detai ls LastModified Time None Recorded Concern Status LastModified by Organization Details LastModified Time None Recorded Advance Directives Directive None Recorded Payers Encounter Date Sequence Insurance Name Policy Number Policy Doty Covered Member ID Doty Member ID Guarantor Name 09/03/2021 1 [facility] PRIOR TO 2022 - DUAL ELIGIBLE (MEDICARE REPLACEMENT/ADV ANTAGE - HMO) Jose Fleming [id number] Jose Fleming 11/22/2021 1 [facility] PRIOR TO 2022 - DUAL ELIGIBLE (MEDICARE REPLACEMENT/ADV ANTAGE - HMO) Jose Fleming [id number] Jose Fleming 12/22/2021 1 [facility] - DOS PRIOR TO 2022 - DUAL ELIGIBLE (MEDICARE REPLACEMENT/ADV ANTAGE - HMO) Jose Fleming [id number] Jose Fleming 06/29/2022 1 [facility] - DOS PRIOR TO 2022 - DUAL ELIGIBLE (MEDICARE REPLACEMENT/ADV ANTAGE - HMO) Jose Fleming [id number] Jose Fleming 02/01/2024 1 [employer] [facility] [employer] - DOS ON OR AFTER 2022 - DUAL ELIGIBLE - INTERMEDIATE OPTIONS AND ONE CARE (MEDICARE REPLACEMENT/ADV ANTAGE - HMO) Jose Fleming [id number] Jose Fleming Notes Date Note Type Note Provider Name and Address Organization Details Recorded Time 09/03/2021 text/html HPI: PMH: Neurogenic bladder/bowel, Chronic Viral Hep C Allergies: Vancomycin Pt has a new laceration to left mid leg lateral aspect that occurred during wheelchair transfer x 2 days ago. Per patient having mild drainage and bleeding. also has 2 pressure ulcers under both knees. Pt unable to come into office for assessment of wound. ................... ................... ................... ................... ................... ................... ................... ........ CRC Nursing Assessment: Comments: CRC RN did not require any additional information to process this visit. ................... ................... ................... ................... ................... ................... ................... ........ Manager Alliance Note: SC1 O/S 35 YO MALE PARAPALEGIC MALE FOUND SITTING IN WHEELCHAIR IN [facility]. PT REPORTS 2 DAYS AGO HE SCRAPED HIS RIGHT AUGUST WHILE AT THE STORE IN HIS . PT ALSO HAS TWO CHRONIC SORES BEHIND EACH KNEE. UPON ASSESSMENT PT HAS AN APPROX. 1 INCH SUPERFICAL SCRAPE THAT IS FULLY HEALED AND SCABBED OVER. THERE IS NO DRAINING AND NO SIGNS OF INFECTION. UPON ASSESSMENT OF BOTH KNEES PT HAS SMALL STAGE 1 ULCERS THAT HAVE NO DRAINAGE AND NO SIGNS OF INFECTIONS. THE SKIN IS PINK/WARM/DRY. PT VITALS ARE NOTED. DR. WHITE CONTACTED WITH REPORT, PICTURES AND VITALS. NO FURTHER TX IS NECESSARY PT IS TOLD TO CALL BACK IF HE DEVELOPS FEVER OR SIGNS OF INFECTIONS. SC1 CLEAR. ................... ................... ................... ................... ................... ................... ................... ........ Disposition: Fulfilled note: Per above, no s/s of infection Cristi White MD [address] [facility],[address], [place], [address], [employer] 09/03/2021 19:37:51 11/22/2021 text/html HPI: Allergies vancomycin ................... ................... ................... ................... ................... ................... ................... ........ CRC Nursing Assessment: Comments: Urine culture and to start pt on abx if indicated. Pt has neurogenic bladder/self caths every 3-4 hours SEGMD: as above- Paraplegic x yrs with + covid exposure- no s/s- last uti almost 2 years ago. Is aware of proper sterile technique- c/o left flan pain/ urge/ increased frequency of cath and cloudy urine for 2 weeks. Has not taken temp has felt occ warm and chilled- no abd pain/n/v........... ................... ................... ................... ................... ................... ................... ................ Manager Alliance Note: C/o urinary frequency x two weeks, left flank tenderness. Urine dip strongly positive for SHERIDAN. Culture sent to [facility]. Covid rapid test negative. Bactrim 800/160 given. ................... ................... ................... ................... ................... ................... ................... ........ Disposition: Fulfilled Elenita Greco MD [address] [place] [address],[address] [facility], [place], [phone], [employer] 11/22/2021 13:07:30 12/22/2021 text/html HPI: VNA reports odorous green discharge from left ankle wound, no wound care done over the weekend ................... ................... ................... ................... ................... ................... ................... ........ CRC Nursing Assessment: Comments: CRC RN did not require any additional information to process this visit. Chace Trejo MD [address] [facility],[address], [place], [address], [employer] 12/22/2021 18:36:15 06/29/2022 text/html HPI: HX: Polysubstnce abuse, psychotic depression, obesity, chronic lower leg edema and wounds. Notified by [facility] to follow with patient in regards to apparent wound infections. ................... ................... ................... ................... ................... ................... ................... ........ CRC Nursing Assessment: Comments: CRC RN did not require any additional information to process this visit. ................... ................... ................... ................... ................... ................... ................... ........ Manager Alliance Note From Tony Lucero: Pt reports chronic 12 year wound to left ankle that opens every summer as well as acute wound to right august that is now red infected and swollen. Pt presents baseline paralyzed from his waist down in motorized wheel chair. Pt is COAX 4 speaking in full celar unlabored sentences, Skin PWD, HEENT unremarkable, PERRL, airway patent with adequate tidal volume and clear lung sounds in all nix. Abdomen soft and non distended in all quadrants, arms unremarkable with CMS intact. Legs are at baseline paralysis with an open wound noted to the left ankle that is bandaged with no active bleeding. Right august has 3 long laceration with significant amount of swelling and white discharge and redness surrounding wound. Pt has no feeling in his legs to assess pain level but infection is strongly suspected. VS stable and [facility] contacted with photos of wounds uploaded to portal for C consult. [facility] strongly feels pt should be seen at ED for X - ray of right august to rule out possible fx. Pt agrees to transport and 911 was activated. Pt moved to [facility] on their arrival and pt care transferred at that time without incident Manager Alliance Allergies: Vancomycin ................... ................... ................... ................... ................... ................... ................... ........ Disposition: Fulfilled Zuleyka Deshpande MD [address] [place] [address],[address], [place], [phone] [employer] 06/29/2022 15:36:09 02/01/2024 text/html CRC Nurse Triage Notes (Viet English - DAO): Reason For Request: pt was recently diagnosed with a uti and had ecoli shown in labs, pt woke up today after taking meds prescribed with a swollen right eye and is concerned it may be related to meds Denies: Sudden onset of dental pain, unable to manage own secretions Nosebleed lasting longer than one hour; unable to stop bleeding Throat swelling/difficult swallowing Dental pain and fever, able to maintain secretions Sinus infection Conjunctivitis External Ear concerns Chief Complaints: Headache PMH: Para or Quadriplegia Comments: V[employer] Developer verified the Pt.'s name//address and phone number. Education provided on the response time and the Pt. was advised to monitor reported s/s and seek emergency treatment if needed. Pt reports he was recently dx with a UTI - Same showed Ecoli- Reports taking Cefuroxime 500 mg's - Pt reports right eye swelling - Itchiness - Increased pressure with redness - Headache - Blurry vision -Congestion - Pain is 9/10 - Dizziness - Denies chest pain - Denies fever - S/S started yesterday - Denies taking any over medications - Declined ER treatment - Wellness visit requested ................... ................... ................... ................... ................... ................... ................... ........ Manager Alliance Note From Burton Kent: This 38-year-old male requested a visit today to address 9/10 pain and pressure behind his right eye with blurry vision. Patient states the symptoms started Wednesday morning and he believed them to be associated with a new antibiotic he started on Wednesday. Patient states he's never experienced anything like this in the past. Patient denies any chest pain, severe shortness of breath, fevers, nausea, vomiting, diarrhea.Patient presents awake and alert, in no acute distress. His vital signs are reasonably stable and he is afebrile. Baseline neurological exam. Right eye has red sclera, pupil is sluggish you constrict, eyelid is taut when palpated. I stood approximately 5 feet from the patient, asked him to cover his left eye, held up two fingers and the patient states he only sees one.[facility] contacted and recommends emergency department evaluation which the patient is agreeable to. 911 initiated for ambulance transport to [facility] emergency department. A verbal SBAR was given to Yusra MARIE. The patient was given the opportunity to ask questions. ................... ................... ................... ................... ................... ................... ................... ........ [facility] Consulted: Lionel Stevens ................... ................... ................... ................... ................... ................... ................... ........ Disposition: Fulfilled Justin Stevens MD [address] [facility],[address], [place], [address], [facility] 02/01/2024 21:51:46
--- OUTSIDE RECORDS SUMMARY | 2024-03-27 23:52 | XMS_ITS | Encounter Summary ---
Author Organization [employer] Address [address] [facility] 7[address] [place] [address] Care Team Providers Care Warp Preparer Name Role Phone Antony Jenkins MD Primary Care Provide r Zachery Carvajal Unavailable Unavailable Reason for Visit * Reason Onset Date Comments Nurse Triage 03/02/2024 Encounter Details Date Type Department Care Team ([facility] st Contact Info) Description 03/02/2024 Telephone [facility] MEDICINE [address] [place], [place] [phone] Antony Jenkins MD [address] [place] [address] Nurse Triage Social History Tobacco Use Types Packs/Day Years [...] is your housing situation today? I have chrisenmanuel parra 11/30/[address] you [...] encounter Miscellaneous Notes * Telephone Encounter - Palak Morel RN - 03/09/2024 11:12 AM EST Pt discharged. Booked for HDF 03/13 with Suzanne * Telephone Encounter - Palak Morel RN - 03/03/2024 1:45 PM EST While reviewing PAQ, saw labs from [facility]. Reviewed [employer] and pt is currently admitted under section 12 for SI. Paranoia present, is only oriented to self. Combative behavior in the ED, pt now sedated. * Telephone Encounter - Palak Morel RN - 03/02/2024 12:40 PM EST Telephone call placed to pt's mother to check in. No answer, left v/m. Telephone call placed to pt. Pt reports he is feeling better since talking with crisis. Pt had trouble gathering his thoughts. There were long pauses throughout the conversation in which he told thisnurse that he was struggling to find the words. Pt solemn. States is not a threat to himself or others at this time and that crisis really helped. Did inquire about the laceration on his neck but pt w as not forthcoming, just repeated that he is not going to hurt himself now. Pt aware of appt with Namrata 03/14. Offered for to call him to check in prior to then. Pt agreeable. Pt has crisis number.Advised he call us anytime, even when we are closed there are nurses and doctors cashier receptionist. Also advised that if his state deteriorates again and he is experiencing SI or HI, he needs to call crisis and/or go to the hospital. Pt agreeable. * Telephone Encounter - Palak Morel RN - 03/02/2024 10:43 AM EST Spoke with Zuleyka directly regarding pt and getting a plan in place so he has check ins until he sees Namrata 03/14. Will speak with mom in a little while as she is currently communicating with crisis staff. * Telephone Encounter - Janie Garibay RN - 03/02/2024 9:57 AM EST Call to mom for Jose Johnston who is Health Care Proxy, states Crisis is calling her back and will return call. Will forward to PCP and Green Team nurses to update and for follow up PRN> * Telephone Encounter - Brian Curtis - 03/02/2024 9:51 AM EST Tc from Noemy (visiting nurse) with [facility] informing pt has laceration on his neck , pt also told mom he wanted to dominique himself as he's been making suicidal comments , mom told VNA she will be calling crisis. Moms number [phone] Noemy [phone] documented in this encounter Plan of Treatment Not on file documented as of this encounter Visit Diagnoses Not on filedocumented in this encounter Additional Health Concerns Assessment Noted Time PHQ-9 Depression Total Score: 19 10/03/2 024 11:27 AM EDT documented as of this encounter Care Teams Warp Preparer Relationship Specialty Start Date End Date Antony Jenkins MD [address] [place] [address] PCP - General Internal Medicine 10/19/13 Zachery Carvajal FNP [address] [place] [address] Nurse Practitioner Family Medicine 01/06/23 [facility] 01/30/20 documented as of this encounter
--- OUTSIDE RECORDS SUMMARY | 2024-03-27 23:52 | XMS_ITS | Encounter Summary ---
Author Organization [employer] Address [address] [facility] 7[address] [place] [address] Care Team Providers Care Powerhouse Engineer Name Role Phone Antony Jenkins MD Primary Care Provide r Zachery Carvajal Unavailable Unavailable Encounter Details Date Type Department Care Team (Late st Contact Info) Description 03/03/2024 Orders Only GENERIC EXTERNAL DATA DEPARTMENT [...] Procedure Name Priority Date/Time Associated Diagnosis Comments CBC WITH AUTO DIFFERENTIAL Routine 03/03/2024 2:31 PM EST COVID-19 ID NOW (DENSON) Routine 03/03/2024 11:54 AM EST ETHANOL Routine 03/03/2024 11:54 AM EST ACETAMINOPHEN LEVEL Routine 03/03/2024 1 1:54 AM EST SALICYLATE Routine 03/03/2024 11:54 AM EST COMPREHENSIVE METABOLIC PANEL Routine 03/03/2024 11:54 AM EST documented in this encounter Results * (ABNORMAL) CBC auto differential (03/03/2024 2:31 PM EST) White Blood Count 16.9(H) 4.8 - 10.8 X10*3/uL [facility] Red Blood Count 4.90 4.60 - 5.80 X10*6/uL [facility] Hemoglobin 13.4(L) 14.0 - 18.0 g/dl [facility] Hematocrit 41.4(L) 42.0 - 52.0 % [facility] Mean Corpuscular Volume 84.5 80.0 - 98.0 fL [facility] Mean Corpuscular Hemoglobin 27.3 27.0 - 33.0 pg [facility] Mean Corpuscular HGB Conc 32.4 31.0 - 36.0 g/dl [facility] Red Cell Distribution Width 14.8 11.0 - 16.0 % [facility] Platelet Count 265 160 - 400 X10*3/uL [facility] Mean Platelet Volume 9.7 9.4 - 12.4 fL [facility] Neutrophils Percent Auto 75.3(H) 45 - 73 % [facility] Imm Gran Pct Auto 0.5(H) 0.0 - 0.4 % [facility] Lymphocytes Percent Auto 17.9(L) 20 - 40 % [facility] Monocytes Percent Auto 5.5 2 - 11 % [facility] Eosinophils Percent Auto 0.5 0 - 4 % [facility] Basophils Percent Auto 0.3 0 - 2 % [facility] NRBC Pct Auto 0.0 0.0 - 0.2 /100WBC [facility] Neutrophils Absolute Auto 12.8(H) 2.0 - 8.3 x10*3/uL [facility] Imm Gran Abs Auto 0.08(H) 0.00 - 0.03 X10*3/uL [facility] Lymphocytes Absolute Auto 3.0 1.2 - 4.9 X10*3/uL [facility] Monocytes Absolute Auto 0.9 0.1 - 1.2 X10*3/uL [facility] Eosinophils Absolute Auto 0.1 0.0 - 0.4 X10*3/uL [facility] Basophils Absolute Auto 0.1 0.0 - 0.2 X10*3/uL [facility] NRBC Abs Auto 0.000 0.0 - 0.012 X10*3/uL [facility] 03/03/2024 2:31 PM EST 03/03/2024 2:33 PM EST Narrative [facility] - 03/03/2024 2:36 PM EST QNS us Generic External Data Provider LAB BLOOD ORDERAB LES Edited Result - Final [facility] [address] [place] [address] [phone] * COVID-19 ID NOW (DENSON) (03/03/2024 11:54 AM EST) IDNOW SERIAL# [id number] [facility] COVID-19 TEST Negative Negative [facility] COVID-19 NOTE See Note [facility] Comment: Results are for the identification of SARS-CoV2 RNA. TheSARS-CoV2 RNA is generally detectable in respiratory samplesduring the acute phase of infection. Positive results areindicative of the presence of SARS-CoV-2 RNA; clinicalcorrelation with patient history and other diagnosticinformation is necessary to determine patient infectionstatus. Positive results do not rule out bacterial infectionor co- infection with other viruses.Testing facilities within the [facility] and itsterritories are required to report all positive results [...] use by authorized laboratories.Testing performed on the Denson ID NOW utilizing NA[facility]. 03/03/2024 11:5 4 AM EST 03/03/2024 11:56 AM EST us Generic External Data Provider LAB [employer] ORDERABLES Final Result [facility] [address] [place] [address] [phone] * Acetaminophen level (03/03/2024 11:54 AM EST) Acetaminophen LAB <3 <30 mcg/mL [facility] 03/03/2024 11:5 4 AM EST 03/03/2024 11:56 AM EST Generic External Data Provider LAB BLOOD ORDERAB LES Final Result Performing Organization Address [facility] de Phone Number [facility] [address] [place] [phone] * (ABNORMAL) Salicylate (03/03/2024 11:54 AM EST) Salicylate <5.0(L) 15 - 30 mg/dL [facility] 03/03/2024 11:5 4 AM EST 03/03/2024 11:56 AM EST Generic External Data Provider LAB BLOOD ORDERAB LES Final Result Performing Organization Address [facility] de Phone Number [facility] [address] [place] [phone] * Ethanol (03/03/2024 11:54 AM EST) ETHANOL (MG/DL) IN SER/PLAS <10 mg/dL [facility] Comment:Serum/plasma ethanol results are to be used formedical/treatment purposes only. 03/03/2024 11:5 4 AM EST 03/03/2024 11:56 AM EST Generic External Data Provider LAB BLOOD ORDERAB LES Final Result Performing Organization Address [facility] de Phone Number [facility] [address] [place] [phone] * (ABNORMAL) Comprehensive Metabolic Panel (03/03/2024 11:54 AM EST) Sodium 140 135 - 145 mmol/L [facility] Potassium 3.9 3.3 - 5.1 mmol/L [facility] Comment:Slight Hemolysis.Int erpret result with caution. Chloride 110(H) 96 - 108 mmol/L [facility] Carbon Dioxide 21(L) 22 - 29 mmol/L [facility] Anion Gap 13 12 - 20 [facility] Urea Nitrogen (BUN) 14 9 - 16 mg/dL [facility] Creatinine, Serum 0.65 0.5 - 1.4 mg/dL [facility] Creatinine Clr Calc Pharmacy 183.4 [facility] Comment:eGFR (calculated fro m the MDRD study equation) and eCrCl(calculated from the Cockcroft-Gault equation) are based ondifferent parameters and may not yield comparable results.If eCrCl result is absurd, please check patient'sheight/weight. Estimated Glomerular Filt Rate >60 [facility] Comment:Chronic Kidney Disea se: Estimated GFR < 60 mL/min/1.84g7Rqnepf Kidney Disease: Estimated GFR < 15 mL/min/1.73m2 Glucose 103 60 - 115 mg/dL [facility] Calcium 9.1 8.4 - 10.2 mg/dL [facility] Bilirubin, Total 0.4 0.0 - 1.0 mg/dL [facility] Aspartate Amino Transferase 35 5 - 37 U/L [facility] Comment:Slight Hemolysis.Int erpret result with caution. Alanine Aminotransferase 20 0 - 40 U/L [facility] Total Protein 8.2(H) 6.5 - 8.0 g/dL [facility] Albumin Level 3.6 3.5 - 5.0 g/dL [facility] Alkaline Phosphatase 103 39 - 117 U/L [facility] 03/03/2024 11:5 4 AM EST 03/03/2024 11:56 AM EST us Generic External Data Provider LAB BLOOD ORDERAB LES Final Result [facility] [address] [place] [phone] documented in this encounter Visit Diagnoses Not on filedocumented in this encounter Additional Health Concerns Assessment Noted Time PHQ-9 Depression Total Score: 19 024 11:27 AM EDT documented as of this encounter Care Teams Powerhouse Engineer Relationship Specialty Start Date End Date Antony Jenkins MD [address] [place] [address] PCP - General Internal Medicine 10/19/13 Zachery Carvajal FNP [address] [place] [address] Nurse Practitioner Family Medicine 01/06/23 [facility] 01/30/20 documented as of this encounter
--- OUTSIDE RECORDS SUMMARY | 2024-03-27 23:52 | XMS_ITS | Encounter Summary ---
Author Organization [employer] Address [address] [facility] [address] [place] [address] Care Team Providers Care Inside Trucker Name Role Phone Antony Jenkins MD Primary Care Provide r Zachery Carvajal Unavailable Unavailable Reason for Visit * Reason Onset Date Comments PCP Contact 03/01/2024 Encounter Details Date Type Department Care Team ([facility] st Contact Info) Description 03/01/2024 Telephone [facility] MEDICINE [address] [place], [place] [phone] Palak Morel, RN [address] [place] [address] PCP Contact Social History Tobacco Use Types Packs/Day Years [...] Telephone Encounter - Palak Morel RN - 03/01/2024 12:56 PM EST Pt's mother walked into Green Team requesting to speak with RN. Reports that pt is unwell. Mental health has deteriorated. She is unsure if he is using again (Hx of heroin and opioid use). Reports heis very depressed and not caring for himself. Reports that he used to follow with Zachery talamantes left. Mom tearful and states that she is worried about pt. Inquired if he has a psychiatrist ortherapist she says that she doesn't think so. She is requesting someone from reach out. She stated best number to reach pt is as he is currently staying at his father's house. documented in this encounter Plan of Treatment Not on file documented as of this encounter Visit Diagnoses Not on filedocumented in this encounter Additional Health Concerns Assessment Noted Time PHQ-9 Depression Total Score: 19 024 11:27 AM EDT documented as of this encounter Care Teams Inside Trucker Relationship Specialty Start Date End Date Antony Jenkins MD [address] [place] [phone] PCP - General Internal Medicine 10/19/13 Zachery Carvajal FNP [address] [place] [address] Nurse Practitioner Family Medicine 01/06/23 [facility] 01/30/20 documented as of this encounter
--- OUTSIDE RECORDS SUMMARY | 2024-03-27 23:52 | XMS_ITS | Encounter Summary ---
Author Organization [employer] Address [address] [facility] [address]t [place] [address] Care Team Providers Care Blueprint Assembler Name Role Phone Antony Jenkins MD Primary Care Provide r Zachery Carvajal Unavailable Unavailable Reason for Visit * Reason Onset Date Comments DME L&C 03/02/2024 Encounter Details Date Type Department Care Team ([facility] st Contact Info) Description 03/02/2024 Telephone [facility] MEDICINE [address] [place], [place] [phone] Antony Jenkins MD [address] [place] [address] DME L&C Social History Tobacco Use Types [...] Telephone Encounter - Jenise Johnson MA - 03/02/2024 4:17 PM EST Filled scripts out for Semi electric bed with half rails and bariatric air mattress, placed on pcp's desk awaiting signature to then fax. LB documented in this encounter Plan of Treatment Not on file documented as of this encounter Visit Diagnoses Not on filedocumented in this encounter Additional Health Concerns Assessment Noted Time PHQ-9 Depression Total Score: 19 024 11:27 AM EDT documented as of this encounter Care Teams Blueprint Assembler Relationship Specialty Start Date End Date Antony Jenkins MD [address] [place] [address] PCP - General Internal Medicine 10/19/13 Zachery Carvajal FNP [address] [place] [address] Nurse Practitioner Family Medicine 01/06/23 [facility] 01/30/20 documented as of this encounter
--- OUTSIDE RECORDS SUMMARY | 2024-03-27 23:52 | XMS_ITS | Encounter Summary ---
Author Organization [employer] Address [address] [facility] [address] [place] [address] Care Team Providers Care Emergency Service Restorer Name Role Phone Antony Jenkins MD Primary Care Provide r Zachery Carvajal Unavailable Unavailable Encounter Details Date Type Department Care Team (Late st Contact Info) Description 03/27/2022 [facility] [employer] [address] [place], [place] [phone] Antony Jenkins MD [address] [place], [place] [phone] Social History Tobacco Use Types Packs/Day Years [...] Noted Time PHQ-9 Depression Total Score: 11 023 11:13 AM EST documented as of this encounter Care Teams Emergency Service Restorer Relationship Specialty Start Date End Date Antony Jenkins MD [address] [place], [place] [phone] PCP - General Internal Medicine 9/4/14 Zachery Carvajal FNP [address] [place] [address] Nurse Practitioner Family Medicine 01/06/23 [facility] 01/30/20 documented as of this encounter
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
[2024-03-28 00:10] LABS: MANUAL DIFF FLAG NO
[2024-03-28 00:12] LABS: Basophils Absolute Auto 0.1 X10*3/uL (0.0-0.2); Basophils Percent Auto 0.4 % (0-2); Eosinophils Absolute Auto 0.2 X10*3/uL (0.0-0.4); Eosinophils Percent Auto 1.2 % (0-4); Hematocrit 45.7 % (42.0-52.0); Hemoglobin 14.8 g/dl (14.0-18.0); Imm Gran Abs Auto 0.07 X10*3/uL (0.00-0.03); Imm Gran Pct Auto 0.4 % (0.0-0.4); Lymphocytes Absolute Auto 4.9 X10*3/uL (1.2-4.9); Lymphocytes Percent Auto 28.7 % (20-40); Mean Corpuscular HGB Conc 32.4 g/dl (31.0-36.0); Mean Corpuscular Hemoglobin 27.6 pg (27.0-33.0); Mean Corpuscular Volume 85.1 fL (80.0-98.0); Mean Platelet Volume 9.5 fL (9.4-12.4); Monocytes Absolute Auto 0.7 X10*3/uL (0.1-1.2); Neutrophils Absolute Auto 11.2 x10*3/uL (2.0-8.3); Neutrophils Percent Auto 65.3 % (45-73); Platelet Count 260 X10*3/uL (160-400); Red Blood Count 5.37 X10*6/uL (4.60-5.80); Red Cell Distribution Width 14.8 % (11.0-16.0); White Blood Count 17.1 X10*3/uL (4.8-10.8)
[2024-03-28 00:13] LABS: Appearance Urine Cloudy; Color Urine Yellow; Glucose Urine UA Negative (Negative); Leukocyte Esterase Urine Trace (Negative); Nitrite Urine Positive (Negative); Specific Gravity - Urine 1.015 (1.005-1.025); UMIC TRIGGER UACC YES; Urine Blood Negative (Negative); Urine Ketones Negative (Negative); Urine Protein 30 (1+) mg/dL (Neg-Trace)
[2024-03-28 00:18] LABS: Bacteria Urine 4+ (None Seen); Hyaline Casts Urine 0-2 /LPF (0-2); RBC Urine 0-2 /HPF (0-2); Squamous Epithelial Cell Urine 0-2 /HPF (0-2); UACC Culture Trigger YES
[2024-03-28 00:31] LABS: Alanine Aminotransferase 16 U/L (0-40); Alkaline Phosphatase 112 U/L (39-117); Anion Gap 12 (12-20); Aspartate Amino Transferase 19 U/L (5-37); Bilirubin Total 0.2 mg/dL (0.0-1.0); Blood Urea Nitrogen 9 mg/dL (9-16); Calcium 9.2 mg/dL (8.4-10.2); Carbon Dioxide 25 mmol/L (22-29); Chloride 105 mmol/L (96-108); Creatinine Clr Calc Pharmacy 290.8; Estimated Glomerular Filt Rate > 60; Glucose Random 111 mg/dL (60-115); Potassium 3.9 mmol/L (3.3-5.1); Sodium 138 mmol/L (135-145); Total Protein 8.4 g/dL (6.5-8.0)
[2024-03-28 00:32] LABS: Amphetamine Screen Urine Not Detected (Not Detect); Barbiturates, Urine Not Detected (Not Detect); Benzodiazepines Screen Urine Not Detected (Not Detect); Buprenorphine Scr Not Detected (Not Detect); Cannabinoid Screen Urine POSITIVE (Not Detect); Cocaine Screen Urine POSITIVE (Not Detect); Fentanyl, urine POSITIVE (Not Detect); Methadone Screen, Urine Positive (Not Detect); Opiate Screen Urine POSITIVE (Not Detect); Oxycodone Screen Urine Not Detected (Not Detect); Phencyclidine Screen Urine POSITIVE (Not Detect)
[2024-03-28 00:36] LABS: B Type Natriuretic Peptide 18 pg/mL (<100)
[2024-03-28 00:38] LABS: Troponin-I High Sensitivity < 2.7 ng/L (<3.5-35.0)
[2024-03-28 00:50] LABS: Influenza A PCR NEGATIVE (Negative); Influenza B PCR NEGATIVE (Negative); Resp Syncy Virus RNA Qual PCR NEGATIVE (Negative); SARS COV2 PCR INHOUSE NEGATIVE (Negative)
[2024-03-28 02:01] VITALS: BP 117/64; PULSE 66; RESP 16; O2SAT 94
[2024-03-28 02:23] VITALS: TEMP 36.7
[2024-03-28] MEDS: cefTRIAXone sodium 2 GM VIAL IVPUSH (02:30)
[2024-03-28 02:40] LABS: Lactic Acid 0.9 mmol/L (0.5-2.0)
[2024-03-28 04:03] VITALS: BP 141/85; PULSE 66; RESP 16; TEMP 36.3; O2SAT 97
[2024-03-28 04:04] VITALS: BP 141/85; PULSE 66; RESP 16; TEMP 36.3; O2SAT 97
--- NOTE | 2024-03-28 05:29 | PC.NURSE ---
patient requesting self-cath kit to complete task.
== END 2024-03-28 05:41 | disposition home or self-care (01) ==
PROVIDERS: Physician Assistant Medical; Emergency Provider Emergency Medicine; PCP Internal Medicine
DX: N39.0 Urinary tract infection, site not specified (principal); R07.9 Chest pain, unspecified; Q05.9 Spina bifida, unspecified; G82.20 Paraplegia, unspecified; N31.9 Neuromuscular dysfunction of bladder, unspecified; Z79.899 Other long term (current) drug therapy; Z03.818 Encounter for observation for suspected exposure to other biological agents ruled out
CPT/HCPCS: 0241U; 36415; 71045; 80053; 80307; 81001; 83605; 83880; 84484; 85025; 87040; 87086; 87088; 87186; 93005; 96374; 99284; 99285; J0696

== ENCOUNTER → 2024-03-27 23:26 | Outpatient (BNV) | payer OTHER, SELFPAY | PROVIDERS: Emergency Provider Emergency Medicine; PCP Internal Medicine; Visit Provider Internal Medicine Cardiovascular Disease | DX: J98.4 Other disorders of lung (principal) | CPT/HCPCS: 93010 ==

== ENCOUNTER → 2024-03-28 | Outpatient (BNV) | payer OTHER, SELFPAY | PROVIDERS: Emergency Provider Emergency Medicine; PCP Internal Medicine; Visit Provider Radiology Diagnostic Radiology | DX: R07.9 Chest pain, unspecified (principal); I51.7 Cardiomegaly; Z18.10 Retained metal fragments, unspecified | CPT/HCPCS: 71045 ==

== ENCOUNTER 2024-05-19 10:25 | Outpatient (REF) | payer OTHER, SELFPAY ==
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
--- OUTSIDE RECORDS SUMMARY | 2024-05-19 11:53 | XMS_ITS | Data Portability ---
Author Organization [employer] Address [address] [place] [address] Care Team Providers Care Seam Stayer Name Role Phone [facility] Referring Provider [facility] Referring Provider [phone] Assessment Encounter Date Assessment Date Assessment LastModified by Organization Details LastModified Time 11/22/2021 11/22/2021 I have reviewed and agree with the Assessment and Plan as documented by the Compressor House Operator. I provided real -time medical direction via phone for this encounter, and was available for additional phone based assistance as needed. Patient given the opportunity to ask questions. [email or web address] Not available 11/22/2021 11:36:10 12/22/2021 12/22/2021 Leg ulcer [email or web address] Not available 08/2021 18:32:07 06/29/2022 06/29/2022 Mr. [...] comment on pain. Area is worsening. VSS. Compressor House Operator on site uploads pictures of a two small areas of what appears to be a deep wound of the right august with surrounding erythema and edema, purulent drainage on more inferior wound appreciated on gauze. Recommended ED visit for urgent imaging and evaluation as patient is insensate and can not comment on severity of pain. He is agreeable and head of english will help arrange transport [email or web address] Not available 06/29/2022 14:47:58 Plan of Treatment Reminders Order Date Submit Date Provider Last Modified By Organization Details Last Modified Time Details Appointments None recorded. Lab urinalysis, dipstick 2021 [email or web address] 0 [facility], [address] [place] [address], [phone] 11:39:03 culture, urine + sensitivity - cath spec 2021 ANNY [facility] (Centralized Electronic Ordering - All Locations), Patient Can Go To The Location Of Their Choice, 16:46:22 rapid SARS CoV 2 Ag, QL IA, respiratory specimen 2021 [email or web address] 0 [facility], [address] [place] [address], [phone] 11:45:24 Referral None recorded. Procedures None recorded. Surgeries None recorded. Imaging None recorded. Medication Orders Bactrim DS 800 mg-160 mg tablet 2021 [id number], [address] [place], [address], 11:45:11 Bactrim DS 800 mg-160 mg tablet 2021 [email or web address] 0 [id number], [address] [place], [address], 11:45:09 Patient TargetsNo targets recorded. Patient InstructionsNo instructions recorded. Reason for Referral None Reported. Results Created Date Observation Date Name Description Value Unit Range Abnormal Flag Note LastModifiedBy Organization Detail LastModifiedTime 11/23/1911/22/2021 UA W/REF MAHENDRA CULTU RE appear/color YELLO W TURBI D Not Available [facility] (Centralized Electronic Ordering - All Locations) Patient Can Go To The Location Of Their Choice, 11/22/2021 14:07:00 11/23/1911/22/2021 UA W/REF MAHENDRA CULTU RE sp. gravity 1.020 (1.002 -1.030 ) Not Available [facility] (Centralized Electronic Ordering - All Locations) Patient Can Go To The Location Of Their Choice, 11/22/2021 14:07:00 11/23/1911/22/2021 UA W/REF MAHENDRA CULTU RE urine pH 7.0 (5.0-8 .0) Not Available [facility] (Centralized Electronic Ordering - All Locations) Patient Can Go To The Location Of Their Choice, 11/22/2021 14:07:00 11/23/1911/22/2021 UA W/REF MAHENDRA CULTU RE urine albumin 1+ (neg) abnormal Not Available [facility] (Centralized Electronic Ordering - All Locations) Patient Can Go To The Location Of Their Choice, 11/22/2021 14:07:00 11/23/1911/22/2021 UA W/REF MAHENDRA CULTU RE urine glucose NEGATI VE (neg) Not Available [facility] (Centralized Electronic Ordering - All Locations) Patient Can Go To The Location Of Their Choice, 11/22/2021 14:07:00 11/23/1911/22/2021 UA W/REF MAHENDRA CULTU RE urine ketones NEGATI VE (neg) Not Available [facility] (Centralized Electronic Ordering - All Locations) Patient Can Go To The Location Of Their Choice, 11/22/2021 14:07:00 11/23/1911/22/2021 UA W/REF MAHENDRA CULTU RE urine bilirubin NEGATI VE (neg) Not Available [facility] (Centralized Electronic Ordering - All Locations) Patient Can Go To The Location Of Their Choice, 11/22/2021 14:07:00 11/23/1911/22/2021 UA W/REF MAHENDRA CULTU RE urine hemoglobin NEGATI VE (neg) Not Available [facility] (Centralized Electronic Ordering - All Locations) Patient Can Go To The Location Of Their Choice, 11/22/2021 14:07:00 11/23/1911/22/2021 UA W/REF MAHENDRA CULTU RE urine nitrite NEGATI VE (neg) Not Available [facility] (Centralized Electronic Ordering - All Locations) Patient Can Go To The Location Of Their Choice, 11/22/2021 14:07:00 11/23/1911/22/2021 UA W/REF MAHENDRA CULTU RE urine leukocyte 3+ (neg) abnormal Not Available [facility] (Centralized Electronic Ordering - All Locations) Patient Can Go To The Location Of Their Choice, 11/22/2021 14:07:00 11/23/1911/22/2021 UA W/REF MAHENDRA CULTU RE urobilinogen NORMAL mg/dL (norm) Not Available [facility] (Centralized [facility] Ordering - All Locations) Patient Can Go To The Location Of Their Choice, 11/22/2021 14:07:00 11/23/1911/22/2021 UA W/REF MAHENDRA CULTU RE urine WBCs 81 /hpf (0-5) high Not Available [facility] (Centralized Electronic Ordering - All Locations) Patient Can Go To The Location Of Their Choice, 11/22/2021 14:07:00 11/23/1911/22/2021 UA W/REF MAHENDRA CULTU RE urine RBCs 2 /hpf (0-3) Not Available [facility] (Centralized Electronic Ordering - All Locations) Patient Can Go To The Location Of Their Choice, 11/22/2021 14:07:00 11/23/1911/22/2021 UA W/REF MAHENDRA CULTU RE bacteria SLIGHT hpf (neg) abnormal Not Available [facility] (Centralized Electronic Ordering - All Locations) Patient Can Go To The Location Of Their Choice, 11/22/2021 14:07:00 11/23/1911/22/2021 UA W/REF MAHENDRA CULTU RE mucus SLIGHT /lpf Not Available [facility] (Centralized Electronic Ordering - All Locations) Patient Can Go To The Location Of Their Choice, 11/22/2021 14:07:00 11/23/1911/22/2021 UA W/REF MAHENDRA CULTU RE squamous epith 3 /hpf (0-8) Not Available [facility] (Centralized Electronic Ordering - All Locations) Patient Can Go To The Location Of Their Choice, 11/22/2021 14:07:00 11/23/1911/22/2021 UA W/REF MAHENDRA CULTU RE budding yeast MODERA TE /hpf Not Available [facility] (Centralized Electronic Ordering - All Locations) Patient Can Go To The Location Of Their Choice, 11/22/2021 14:07:00 11/23/1911/22/2021 UA W/REF MAHENDRA CULTU RE clarity TURBID (clear ) abnormal Not Available [facility] (Centralized Electronic Ordering - All Locations) Patient Can Go To The Location Of Their Choice, 11/22/2021 14:07:00 11/23/1911/22/2021 UA W/REF MAHENDRA CULTU RE culture indication CULTUR E INDICA SAV Not Available [facility] (Centralized Electronic Ordering - All Locations) Patient Can Go To The Location Of Their Choice, 11/22/2021 14:07:00 11/23/1911/22/2021 URINE CULTU RE specimen description URINE Not Available [facility] ([facility] Ordering - All Locations) Patient Can Go To The Location Of Their Choice, 11/24/2021 10:05:36 11/23/1911/22/2021 URINE CULTU RE special requests NONE Reflex ed from [id number] Not Available [facility] (Centralized Electronic Ordering - All Locations) Patient Can Go To The Location Of Their Choice, 11/24/2021 10:05:36 11/23/1911/24/2021 URINE CULTU RE culture abnormal >100, 000 [...] ON THIS ISOLA TE. Not Available [facility] (Centralized Electronic Ordering - All Locations) Patient Can Go To The Location Of Their Choice, 11/24/2021 10:05:36 11/23/1911/24/2021 URINE CULTU RE report status FINAL 2021 Not Available [facility] (Centralized Electronic Ordering - All Locations) Patient Can Go To The Location Of Their Choice, 11/24/2021 10:05:36 11/23/19 22 11/24/2021 URINE CULTU RE organism ORGAN ISM >100, 000 COL/M L ESCHE SUE A COLI This isola te was ident ified using Maldi -TOF syste m These AST resul ts were perfo rmed on the Micro scan ID and AST syste m Not Available [facility] (Centralized Electronic Ordering - All Locations) Patient Can Go To The Location Of Their Choice, 11/24/2021 10:05:36 11/23/1911/24/2021 URINE CULTU RE method METHOD MIN. INHIB. CONC. (MCG/M L) Not Available [facility] (Centralized Electronic Ordering - All Locations) Patient Can Go To The Location Of Their Choice, 11/24/2021 10:05:36 11/23/1911/24/2021 URINE CULTU RE ampicillin AMPICI LLIN SUSCEP TIBLE susceptib le Not Available [facility] (Centralized Electronic Ordering - All Locations) Patient Can Go To The Location Of Their Choice, 11/24/2021 10:05:36 11/23/1911/24/2021 URINE CULTU RE ampicillin/s ulbactam AMPICI LLIN/S ULBACT AM SUSCEP TIBLE susceptib le Not Available [facility] (Centralized Electronic Ordering - All Locations) Patient Can Go To The Location Of Their Choice, 11/24/2021 10:05:36 11/23/1911/24/2021 URINE CULTU RE amoxicillin/ clavulanic acid AMOXIC ILLIN/ CLAVUL AN SUSCEP TIBLE susceptib le Not Available [facility] (Centralized Electronic Ordering - All Locations) Patient Can Go To The Location Of Their Choice, 11/24/2021 10:05:36 11/23/1911/24/2021 URINE CULTU RE cefazolin CEFAZO SHARON SUSCEP TIBLE susceptib le Not Available [facility] (Centralized Electronic Ordering - All Locations) Patient Can Go To The Location Of Their Choice, 11/24/2021 10:05:36 11/23/1911/24/2021 URINE CULTU RE cefepime CEFEPI ME SUSCEP TIBLE susceptib le Not Available [facility] (Centralized Electronic Ordering - All Locations) Patient Can Go To The Location Of Their Choice, 11/24/2021 10:05:36 11/23/1911/24/2021 URINE CULTU RE ceftriaxone CEFTRI AXONE SUSCEP TIBLE susceptib le Not Available [facility] (Centralized Electronic Ordering - All Locations) Patient Can Go To The Location Of Their Choice, 11/24/2021 10:05:36 11/23/1911/24/2021 URINE CULTU RE ciprofloxaci n CIPROF LOXACI N SUSCEP TIBLE susceptib le Not Available [facility] (Centralized Electronic Ordering - All Locations) Patient Can Go To The Location Of Their Choice, 11/24/2021 10:05:36 11/23/1911/24/2021 URINE CULTU RE ertapenem ERTAPE NEM SUSCEP TIBLE susceptib le Not Available [facility] (Centralized Electronic Ordering - All Locations) Patient Can Go To The Location Of Their Choice, 11/24/2021 10:05:36 11/23/1911/24/2021 URINE CULTU RE gentamicin GENTAM ICIN SUSCEP TIBLE susceptib le Not Available [facility] (Centralized Electronic Ordering - All Locations) Patient Can Go To The Location Of Their Choice, 11/24/2021 10:05:36 11/23/1911/24/2021 URINE CULTU RE levofloxacin LEVOFL OXACIN SUSCEP TIBLE susceptib le Not Available [facility] (Centralized Electronic Ordering - All Locations) Patient Can Go To The Location Of Their Choice, 11/24/2021 10:05:36 11/23/1911/24/2021 URINE CULTU RE meropenem MEROPE NEM SUSCEP TIBLE susceptib le Not Available [facility] (Centralized Electronic Ordering - All Locations) Patient Can Go To The Location Of Their Choice, 11/24/2021 10:05:36 11/23/1911/24/2021 URINE CULTU RE nitrofuranto in NITROF URANTO IN SUSCEP TIBLE susceptib le Not Available [facility] (Centralized Electronic Ordering - All Locations) Patient Can Go To The Location Of Their Choice, 11/24/2021 10:05:36 11/23/1911/24/2021 URINE CULTU RE piperacillin /tazobactam PIPERA CILLIN /TAZOB AC SUSCEP TIBLE susceptib le Not Available [facility] (Centralized Electronic Ordering - All Locations) Patient Can Go To The Location Of Their Choice, 11/24/2021 10:05:36 11/23/1911/24/2021 URINE CULTU RE trimeth/sulf amethox TRIMET H/SULF AMETHO X SUSCEP TIBLE susceptib le Not Available [facility] (Centralized Electronic Ordering - All Locations) Patient Can Go To The Location Of Their Choice, [id number] 11/24/2021 10:05:36 11/23/19 22 11/24/2021 URINE CULTU RE tetracycline TETRAC YCLINE SUSCEP TIBLE susceptib le Not Available [facility] (Centralized Electronic Ordering - All Locations) Patient Can Go To The Location Of Their Choice, [id number] 11/24/2021 10:05:36 11/23/19 22 11/22/2021 rapid SARS CoV 2 Ag, QL IA, respi rator y speci men rapid SARS CoV 2 Ag, QL IA, respiratory specimen negati ve Not Available Main - [facility] ed [address] [place] [address], [address] [place] [address] 11/22/2021 11:42:23 11/23/1911/22/2021 urina lysis , dipst ick Leukocytes 3+ Not Available [facility] [address] [place] [address], [address] [place] [address] 11/22/2021 11:36:21 11/23/19 22 11/22/2021 urina lysis , dipst ick Nitrite negati ve Not Available Main - [facility] ed [address] [place] [address], [address] [place] [address] 11/22/2021 11:36:21 11/23/19 22 11/22/2021 urina lysis , dipst ick Protein trace + Not Available Main - [facility] [address] [place] [address], [address] [place] [address] 11/22/2021 11:36:21 11/23/19 22 11/22/2021 urina lysis , dipst ick pH 7.5 Not Available Main - [facility] [address], [address] [place] [address] 11/22/2021 11:36:21 11/23/19 22 11/22/2021 urina lysis , dipst ick Blood neg Not Available Main - [facility] [address], [address] [place] [address] 11/22/2021 11:36:21 11/23/19 22 11/22/2021 urina lysis , dipst ick Specific [place] 1.010 Not Available [facility] [address] [place] [address], [phone] 11/22/2021 11:36:21 11/23/19 22 11/22/2021 urina lysis , dipst ick Ketone neg Not Available Main - [facility] [address], [phone] 11/22/2021 11:36:21 11/23/19 22 11/22/2021 urina lysis , dipst ick Appearance sl cloudy Not Available Main - [facility] [address] [place] [address], [phone] 11/22/2021 11:36:21 11/23/19 22 11/22/2021 urina lysis , dipst ick Color orange Not Available Main - [facility] [address], [address] 11/22/2021 11:36:21 Result Notes None recorded. Medical Equipment None Reported. Allergies Allergen ID Allergen Name Allergen Category Reaction Reaction Severity Criticality Documentation Date Start Date Code Code System Note Provider Name and Address Organization Details Recorded Time 1135 vancomyci n medicatio n Not available Not available Not available 11/22/2021 07064 RxNorm Not Available [facility] - production 4 [...] mm[Hg] 112 mm[Hg] 78 mm[Hg] Not Available [employer] 2 13:38:09 Date Recorded Respiratory rate Oxygen saturation Oxygen saturation in Arterial blood by Pulse oximetry Body temperature Heart rate Systolic blood pressure Diastolic blood pressure Provider Name and Address Organization Details Last Updated DateTime 4 16 /min 94 % 94 % 98.1 [degF] 88 /min 149 mm[Hg] 92 mm[Hg] Not Available [employer] 4 15:45:45 Date Recorded Heart rate Oxygen [...] mm[Hg] 136 mm[Hg] 87 mm[Hg] Not Available [employer] 2 11:53:45 Date Recorded Respiratory rate Body temperature Heart rate Oxygen saturation Oxygen saturation in Arterial blood by Pulse oximetry Systolic blood pressure Diastolic blood pressure Provider Name and Address Organization Details Last Updated DateTime 2 18 /min 97.9 [degF] 72 /min 97 % 97 % 164 mm[Hg] 96 mm[Hg] Not Available [employer] 2 18:28:02 Date Recorded Respiratory rate Body [...] Details Last Updated DateTime 3 14 /min 689255. 6 g 97.9 [degF] 84 /min 90 % 90 % 14 /min 754275. 6 g 97.9 [degF] 84 /min 90 % 90 % 14 /min 97.9 [degF] 84 /min 90 % 90 % 342867. 6 g 107 mm[Hg] 67 mm[Hg] 107 mm[Hg] 67 mm[Hg] 107 mm[Hg] 67 mm[Hg] Not Available [employer] 3 14:58:12 Social History None recorded. Functional Status None recorded. Mental Status None recorded. Family History Nothing Reported. Medical History No medical history recorded. Past Encounters Encounter ID Performer Location Encounter Start Date Encounter Closed Date Diagnosis/Indication Diagnosis SNOMED-CT Code Diagnosis ICD10 Code Diagnosis Note [id number] Justin Hill MD Main - [facility] [address] [place] [id number] 04/22/2021 15:44:46 12/01/2021 12:58:48 [id number] Chace Trejo MD Main - [facility] [address] [place], [place] [phone] 06/26/2021 20:09:15 10/13/2021 15:37:12 [id number] Chace Trejo MD Main - [facility] [address] [place] [phone] 06/26/2021 20:10:37 06/26/2021 20:16:34 [id number] Juan Aguayo MD Main - [facility] [address] [place] [phone] 08/15/2021 17:02:13 11/06/2021 12:11:43 Abscess [id number] L02.91 Per head of english, area on the back is indurated with some purulence expressed earlier in the day by the VNA, concerning for an abscess. Will rx Bactrim and encourage wound-chec k in the office in the next week to see if this needs incision and drainage. Carmita (VNA) joined in call with head of english, in agreement with plan. [id number] Cristi White MD Main - [facility] [address] [place], [place] [phone] 09/03/2021 13:01:35 11/10/2021 12:13:49 Pain in right lower limb 146223209 M79.604 No s/s of infection. No indication for Abx at this time [id number] Elenita Greco MD Main - [facility] [address] [place] [phone] 11/22/2021 11:30:48 11/25/2021 13:58:39 Acute urinary tract infection 309051023 N39.0 due to paraplegia / self cath and Left CVAT/ + leuk on UA elected to treat w/ atb-has had bactrim prior- advised will call if UC reveals need to stop or change antibiotic Exposure t o SARS-CoV-2 636610598 Z20.822 no symptoms- aware if develops s/s to re test [id number] Chace Trejo MD Main - [facility] [address] [place] [phone] 12/22/2021 18:27:57 12/23/2021 13:45:57 Ulcer of lower extremity 14909625 L97.909 This 36-year-ol d male has a 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 He called because of a concern it might be infected, but the lesion appears very chronic. I recommende d that his normal dressing be applied. His visiting nurse will redress the ulcer tomorrow. The patient agreed with this plan. [id number] Zuleyka Deshpande MD Main - [facility] [address] [place] [phone] 06/29/2022 14:15:49 06/30/2022 10:21:45 Open wound of lower leg [id number] S81.801A [id number] Justin Stevens MD Main - [facility] [address] [place] [phone] 02/01/2024 15:45:38 02/01/2024 22:18:49 Acute angle-closure glaucoma of right eye 7876019448 03535 H40.211 As noted, we were called to see this patient regarding concerns of painful red eye. Evaluation in the field was performed by my head of english colleague, as noted above, I provided real-time [...] Doty Member ID Guarantor Name 09/03/2021 1 [facility] - DOS PRIOR TO 2022 - DUAL ELIGIBLE (MEDICARE REPLACEMENT/ADV ANTAGE - HMO) Jose Fleming [id number] Jose Fleming 11/22/2021 1 [facility] - DOS PRIOR TO 2022 - DUAL ELIGIBLE (MEDICARE REPLACEMENT/ADV ANTAGE - HMO) Jose Fleming [id number] Jose Fleming 12/22/2021 1 [facility] - DOS PRIOR TO 2022 - DUAL ELIGIBLE (MEDICARE REPLACEMENT/ADV ANTAGE - HMO) Jose Fleming [id number] Jose Fleming 06/29/2022 1 [facility] - DOS PRIOR TO 2022 - DUAL ELIGIBLE (MEDICARE REPLACEMENT/ADV ANTAGE - HMO) Jose Fleming [id number] Jose Fleming 02/01/2024 1 [facility] - DOS ON OR AFTER 2022 - DUAL ELIGIBLE - HALF-WAY OPTIONS AND ONE CARE (MEDICARE REPLACEMENT/ADV ANTAGE - HMO) Jose Fleming [id number] Jose Fleming Notes Date Note Type Note [...] ................... ................... ................... ................... ................... ................... ........ Compressor House Operator Note: SC1 O/S 35 YO MALE PARAPALEGIC MALE FOUND SITTING IN WHEELCHAIR IN NAD. PT REPORTS 2 DAYS AGO HE SCRAPED HIS RIGHT AUGUST WHILE AT THE STORE IN HIS WC. PT ALSO HAS TWO CHRONIC SORES BEHIND [...] s/s of infection Cristi White MD [address] [facility],[address], [place], [phone], [employer] 09/03/2021 19:37:51 11/22/2021 text/html HPI: Allergies vancomycin [...] ................... ................... ................... ................... ................... ................... ................ Compressor House Operator Note: C/o urinary frequency x two weeks, left flank tenderness. Urine dip strongly positive for SHERIDAN. Culture sent to [facility]. Covid rapid test negative. Bactrim 800/160 given. ................... ................... ................... ................... ................... ................... ................... ........ Disposition: Fulfilled Elenita Greco MD [address] [place] [address],[address] [facility], [place], [address], [employer] 11/22/2021 13:07:30 12/22/2021 text/html HPI: VNA reports odorous green discharge from left ankle wound, no wound care done over the weekend ................... ................... ................... ................... ................... ................... ................... ........ CRC Nursing Assessment: Comments: CRC RN did not require any additional information to process this visit. Chace Trejo MD [address] [place] [address],[address] [facility], [place], [phone], [employer] 12/22/2021 18:36:15 06/29/2022 text/html HPI: HX: Polysubstnce abuse, psychotic depression, obesity, chronic lower leg edema and wounds. Notified by [facility] to follow with patient in regards to apparent wound infections. ................... ................... ................... ................... ................... ................... ................... ........ CRC Nursing Assessment: Comments: CRC RN did not require any additional information to process this visit. ................... ................... ................... ................... ................... ................... ................... ........ Compressor House Operator Note From Tony Lucero: Pt reports chronic [...] infection is strongly suspected. VS stable and [facility] contacted with photos of wounds uploaded to portal for C consult. [facility] strongly feels pt should be seen at ED for X - ray of right august to rule out possible fx. Pt agrees to transport and 911 was activated. Pt moved to [facility] on their arrival and pt care transferred at that time without incident Compressor House Operator Allergies: Vancomycin ................... ................... ................... ................... ................... ................... ................... ........ Disposition: Fulfilled Zuleyka Deshpande MD [address] [facility],[address], [place], [phone], [employer] Candis KEI BRANDON 06/29/2022 15:36:09 02/01/2024 text/html CRC Nurse Triage Notes (Viet English - RN): Reason For Request: pt was recently diagnosed [...] Complaints: Headache PMH: Para or Quadriplegia Comments: Chute Boss verified the Pt.'s name//address and phone number. [...] ................... ................... ................... ................... ................... ................... ........ Compressor House Operator Note From Burton Kent: This 38-year-old male [...] and the patient states he only sees one.[facility] contacted and recommends emergency department evaluation which the patient is agreeable to. 911 initiated for ambulance transport to [facility] emergency department. A verbal SBAR was given to Yusra MARIE. The patient was given the opportunity to ask questions. ................... ................... ................... ................... ................... ................... ................... ........ [facility] Consulted: Lionel Stevens ................... ................... ................... ................... ................... ................... ................... ........ Disposition: Fulfilled Justin Stevens MD [address] [facility],[address], [place], [address], [employer] - [employer], KEI 02/01/2024 21:51:46
--- OUTSIDE RECORDS SUMMARY | 2024-05-19 11:53 | XMS_ITS | Encounter Summary ---
Author Organization [employer] Address [address] 7t [place] [address] Care Team Providers Care Golf Ball Inspector Name Role Phone Antony Jenkins MD Primary Care Provide r Zachery Carvajal Unavailable Unavailable Reason for Visit * Reason Comments Med Change Request Encounter Details Date Type Department Care Team ([facility] st Contact Info) Description 12/14/2022 Refill [facility] [address] [place] [address] Zachery Carvajal FNP Major depressive disorder, recurrent, severe with psychotic features (CMS/HCC) Social History Tobacco Use Types Packs/Day Years Used Date Smoking Tobacco: Every Day Cigarettes 1 10 Passive Smoke Exposure: Current Smokeless Tobacco: Current Alcohol Use Standard Drinks/Week Comments Yes 1 (1 standard drink = 0.6 oz pur e alcohol) Depression Answer Date Recorded Patient Health Questionnaire-9 Score 10 12/14/2022 Patient Health Questionnaire-9 Score 10 12/14/2022 Last PHQ-9: Questionnaire Data Not on file [...] before you got money to buy more: Never True 11/30/2022 Within the past 12 months,th e food you bought just didn't last and you didn't have enough money to get more: Never True Transportation Answer Date Recorded In the past [...] Answer Date Recorded Patient Health Questionnaire-2 Score 4 12/14/2022 Sex and Gender Information Value Date Recorded Sex Assigned at Male 12/15/2021 10:18 AM EDT Legal Sex Male 10:18 AM EDT Gender Identity Male 12/15/2021 10:18 AM EDT Sexual Orientation Choose not to disclose 2021 10:18 AM EDT documented as of this encounter Plan of Treatment Upcoming Encounters Date Type Department Care Team (Late st Contact Info) Description 06/01/2024 3:00 PM EDT Office Visit [facility] [address] [place] [address] Antony Jenkins MD [address] [place] [address] documented as of this encounter Visit Diagnoses Diagnosis Major depressive disorder, recurrent, severe with psychotic features (CMS/HCC) Major depressive disorder, recurrent episode, severe, specified as with psychotic behavior documented in this encounter Additional Health Concerns Assessment Noted Time PHQ-9 Depression Total Score: 10 023 10:25 AM EDT documented as of this encounter Care Teams Golf Ball Inspector Relationship Specialty Start Date End Date Antony Jenkins MD [address] [place] [address] PCP - General Internal Medicine 10/19/13 Zachery Carvajal FNP [address] [place] [address] Nurse Practitioner Family Medicine 01/06/23 [facility] 01/30/20 documented as of this encounter
--- OUTSIDE RECORDS SUMMARY | 2024-05-19 11:53 | XMS_ITS | Encounter Summary ---
Author Organization [employer] Address [address] [facility] [address], [place] [address] Care Team Providers Care Research Staff Member Name Role Phone Antony Jenkins MD Primary Care Provide r Zachery Carvajal Unavailable Unavailable Encounter Details Date Type Department Care Team (Late st Contact Info) Description 03/27/2022 [facility] [employer] Information Management [address] [place], [place] [phone] Antony Jenkins MD [address] [place], [place] [phone] Social History Tobacco Use Types Packs/Day Years [...] Description 06/01/2024 3:00 PM EDT Office Visit [facility] MEDICINE [address] [place], [place] [phone] Antony Jenkins MD [address] [place], [place] [phone] documented as of this encounter Visit Diagnoses Not on filedocumented in this encounter Additional Health Concerns Assessment Noted Time PHQ-9 Depression Total Score: 11 023 11:13 AM EST documented as of this encounter Care Teams Research Staff Member Relationship Specialty Start Date End Date Antony Jenkins MD [address] [place] [address] PCP - General Internal Medicine 10/19/13 Zachery Carvajal FNP [address] [place] [address] Nurse Practitioner Family Medicine 01/06/23 [facility] 01/30/20 documented as of this encounter
--- OUTSIDE RECORDS SUMMARY | 2024-05-19 11:53 | XMS_ITS | Encounter Summary ---
Author Organization [employer] Address [address] [facility] 7t [place] [address] Care Team Providers Care Medical Doctor Name Role Phone Antony Jenkins MD Primary Care Provide r Zachery Carvajal Unavailable Unavailable Encounter Details Date Type Department Care Team (Late Contact Info) Description 07/08/2022 Abstract [facility] MEDICINE [address] [place] [address] Antony Jenkins MD [address] [place] [address] Social History Tobacco Use Types Packs/Day Years [...] Encounters Date Type Department Care Team (Late Contact Info) Description 06/01/2024 3:00 PM EDT Office Visit [facility] MEDICINE [address] [facility] [place] [address] Antony Jenkins MD [address] [facility] [place] [address] documented as of this encounter Visit Diagnoses Not on filedocumented in this encounter Additional Health Concerns Assessment Noted Time PHQ-9 Depression Total Score: 10 023 2:33 PM EDT documented as of this encounter Care Teams Medical Doctor Relationship Specialty Start Date End Date Antony Jenkins MD Mat [facility] [place] [address] PCP - General Internal Medicine 10/19/13 [place]acher[place] [address] Nurse Practitioner Family Medicine 01/06/23 [facility] 01/30/20 documented as of this encounter
--- OUTSIDE RECORDS SUMMARY | 2024-05-19 11:53 | XMS_ITS | Encounter Summary ---
Author Organization [employer] Address [address] [facility] 7t [place] [address] Care Team Providers Care Wrapper Hand Name Role Phone Antony Jenkins MD Primary Care Provide r Zachery Carvajal Unavailable Unavailable Encounter Details Date Type Department Care Team (Late st Contact Info) Description 06/04/2022 Abstract [facility] D[facility] [address] [place] [address] Juaquin Rivers DDS [address] [place] [address] Social History Tobacco Use Types Packs/Day Years [...] Description 06/01/2024 3:00 PM EDT Office Visit [facility] MEDICINE 230 [place] [address] Antony Jenkins MD [address] [place] [address] documented as of this encounter Visit Diagnoses Not on filedocumented in this encounter Additional Health Concerns Assessment Noted Time PHQ-9 Depression Total Score: 15 04/27/ 023 2:02 PM EDT documented as of this encounter Care Teams Wrapper Hand Relationship Specialty Start Date End Date Antony Jenkins MD [address] [place] [address] PCP - General Internal Medicine 10/19/13 Zachery Carvajal FNP [address] [place] [address] Nurse Practitioner Family Medicine 01/06/23 [facility] 01/30/20 documented as of this encounter
--- OUTSIDE RECORDS SUMMARY | 2024-05-19 11:53 | XMS_ITS | Encounter Summary ---
Author Organization [employer] Address [address] [facility] 7t [place] [address] Care Team Providers Care Screw Machine Hand Name Role Phone Antony Jenkins MD Primary Care Provide r Zachery Carvajal Unavailable Unavailable Reason for Visit * Reason Onset Date Comments Referral 09/07/2023 Encounter Details Date Type Department Care Team ([facility] st Contact Info) Description 09/07/2023 Telephone [facility] MEDICINE [address] [place], [place] [phone] Antony Jenkins MD [address] [place] [address] Referral Social History Tobacco Use Types Packs/Day [...] PM EDT TC placed to Jennifer at [facility] who wants to inform PCP that they are not acceptingpt for medical management. Jennifer states that the pt informed her that he used to be seen at [facility]. Jennifer advised trying with them as they have physiatry care which may be beneficial to the pt. Pt was seen at [facility] on Wednesday09/06/23 * Telephone Encounter - Mena Benítez - 09/07/2023 1:50 PM EDT Tc from Jennifer with [facility] requesting a call from a nurse in regards to some concerns of referrals sent for pain management and PT documented in this encounter Plan of Treatment Upcoming Encounters Date Type Department Care Team (Late st Contact Info) Description 06/01/2024 3:00 PM EDT Office Visit [facility] MEDICINE [address] [place], [place] [phone] Antony Jenkins MD [address] [place], [place] [phone] documented as of this encounter Visit Diagnoses Not on filedocumented in this encounter Additional Health Concerns Assessment Noted Time PHQ-9 Depression Total Score: 11 024 1:44 PM EDT documented as of this encounter Care Teams Screw Machine Hand Relationship Specialty Start Date End Date Antony Jenkins MD [address] [place], [place] [phone] PCP - General Internal Medicine 10/19/13 Zachery Carvajal FNP [address] [place] [address] Nurse Practitioner Family Medicine 01/06/23 [facility] 01/30/20 documented as of this encounter
--- OUTSIDE RECORDS SUMMARY | 2024-05-19 11:53 | XMS_ITS | Encounter Summary ---
Author Organization [employer] Address [address] [facility] 7t [place] [address] Care Team Providers Care Top Closer Name Role Phone Antony Jenkins MD Primary Care Provide r Zachery Carvajal Unavailable Unavailable Reason for Visit * Reason Onset Date Comments Chart Prep 05/16/2024 Encounter Details Date Type Department Care Team ([facility] st Contact Info) Description 05/16/2024 Telephone [facility] MEDICINE 230 [place], [place] [phone] Antony Jenkins MD 230 [place] [address] Chart Prep Social History Tobacco Use Types Packs/Day Years [...] Telephone Encounter - Jenise Johnson [place] - 05/16/2024 2:22 PM EDT Chart Prep Labs: not done Images: not done Vaccines due: Covid Due, Hep A Due, Hep B Due, and PCV20 Due Referrals: Not Applicable Screenings: Not Applicable Overdue care gaps: Disability Chart prep for upcoming appt with Dr.Esparza smith. LB documented in this encounter Plan of Treatment Upcoming Encounters Date Type Department Care Team (Late st Contact Info) Description 06/01/2024 3:00 PM EDT Office Visit [facility] MEDICINE [address] [place] [address] Antony Jenkins MD [address] [place] [address] documented as of this encounter Visit Diagnoses Not on filedocumented in this encounter Additional Health Concerns Assessment Noted Time PHQ-9 Depression Total Score: 19 024 11:27 AM EDT documented as of this encounter Care Teams Top Closer Relationship Specialty Start Date End Date Antony Jenkins MD [address] [place] [address] PCP - General Internal Medicine 10/19/13 Zachery Carvajal FNP [address] [place] [address] Nurse Practitioner Family Medicine 01/06/23 [facility] 01/30/20 documented as of this encounter
--- OUTSIDE RECORDS SUMMARY | 2024-05-19 11:53 | XMS_ITS | Encounter Summary ---
Author Organization [employer] Address [address] [facility] 7t [place] [address] Care Team Providers Care Senior Capital Markets Specialist Name Role Phone Antony Jenkins MD Primary Care Provide r Zachery Carvajal Unavailable Unavailable Reason for Visit * Reason Onset Date Comments Hospital Follow-up 02/21/2024 Encounter Details Date Type Department Care Team ([facility] st Contact Info) Description 02/21/[address] [facility] MEDICINE [address] [place], [place] [phone] Antony Jenkins MD [address] [place] [address] Hospital Follow-up Social History Tobacco Use Types [...] from pt requesting a HDF appt. Hospital: [facility] Date of admission: 02/01/24 Discharge date: 02/04/24 Diagnosed: Back Pain and Right eye conjunctivitis *Send message to [place] Clinical Care Coordinators Please contact pt at [phone]. documented in this encounter Plan of Treatment Upcoming Encounters Date Type Department Care Team (Late st Contact Info) Description 06/01/2024 3:00 PM EDT Office Visit [facility] MEDICINE [address] [place] [address] Antony Jenkins MD [address] [place] [address] documented as of this encounter Visit Diagnoses Not on filedocumented in this encounter Additional Health Concerns Assessment Noted Time PHQ-9 Depression Total Score: 19 024 11:27 AM EDT documented as of this encounter Care Teams Senior Capital Markets Specialist Relationship Specialty Start Date End Date Antony Jenkins MD [address] [place] [address] PCP - General Internal Medicine 10/19/13 Zachery Carvajal FNP [address] [place] [address] Nurse Practitioner Family Medicine 01/06/23 [facility] 01/30/20 documented as of this encounter
--- OUTSIDE RECORDS SUMMARY | 2024-05-19 11:53 | XMS_ITS | Encounter Summary ---
Author Organization [employer] Address [address] [facility] 7t [place] [address] Care Team Providers Care Hog Handler Name Role Phone Antoyn Jenkins MD Primary Care Provide r Zachery Carvajal Unavailable Unavailable Reason for Visit * Reason Onset Date Comments Durable Medical Equipment 05/19/2024 Hospit al bed Encounter Details Date Type Department Care Team (Late st Contact Info) Description 05/19/[address] [facility] MEDICINE 230 [place], [place] [phone] Antony Jenkins MD [address] [place] [address] Durable Medical Equipment (Hospital bed) Social History Tobacco Use Types Packs/Day Years [...] * Telephone Encounter - Faiza Vences - 05/19/2024 9:11 AM EDT Please see message below. Wood Hacker req copy of eval for pcp review. DME Rx generated for pcp signature. * Telephone Encounter - Faiza Vences - 05/19/2024 9:10 AM EDT ----- Message from Tricia Dubose sent at 05/18/2024 3:57 PM EDT ----- Regarding: DME request Contact: Willian, I am Tricia Cole, Lens Shaper Grinder for [facility] Care Management, working with member Jose Fleming. He recently had a PT evaluation completed on 05/17/24 by [facility], and they are recommending the following DME???s on behalf of patient. [facility] bed with alternating pressure relief mattress. Patient stands approximately 5 ft tall with a weight of approximately 285lbs. Patient has a wide build taking a majority of the bed atthis time. When patient rolls in bed he is at the edge of the bed and has had multiple falls out ofbed. Patient has history of pressure ulcers and is at high risk for pressure ulcers due to current weight and size and limited mobility in bed. If PCP would like a copy of the full evaluation, please provide a fax number. Requesting prescriptions for: XL Hospital Bed (Heavy duty) XL Airflow Mattress Supportive DX: Paraplegic, spinal bifida, pressure sore w/ osteomyelitis, If you should have any inquiries regarding this request, feel free to contact the Lens Shaper Grinder below. Lens Shaper Grinder: Tricia Cole E-mail: [email or web address] Curtain Cutter Hand: Eloisa Morel E-mail: [email or web address] documented in this encounter Plan of Treatment Upcoming Encounters Date Type Department Care Team (Late st Contact Info) Description 06/01/2024 3:00 PM EDT Office Visit [facility] MEDICINE 230 [place] [address] Antony Jenkins MD [address] [place] [address] documented as of this encounter Visit Diagnoses Not on filedocumented in this encounter Additional Health Concerns Assessment Noted Time PHQ-9 Depression Total Score: 19 024 11:27 AM EDT documented as of this encounter Care Teams Hog Handler Relationship Specialty Start Date End Date Antony Jenkins MD [address] [place] [address] PCP - General Internal Medicine 10/19/13 Zachery Carvajal FNP [address] [place] [address] Nurse Practitioner Family Medicine 01/06/23 [facility] 01/30/20 documented as of this encounter
--- OUTSIDE RECORDS SUMMARY | 2024-05-19 11:53 | XMS_ITS | Clinical Summary ---
Author Organization [facility] Address [address] [place] [address] Care Team Providers Care Supervisor Machining Name Role Phone Unavailable Primary Care Provider [...] for surgery until pt can f w supply chain coordinator -referred today to supply chain coordinator -alarm signs and symptoms discussed w pt [...] referred for counseling. Will also F/U with [facility] clinician. Since this provider will be retiring, patient will be referred to new [facility] psychiatric provider. Pt is aware that appts will be via televisit and that provider will not be [facility] employee. He gives permission to share PHI. Any issues or concerns, contact [facility]. All his questions were answered and I [...] disorder, r ecurrent, severe with psychotic features ([facility]) 01/29/2022 Overview (11/04/2023): Last Assessment & Plan: [...] will call back and provider number to [place] managing his medication. Able to mobilize using mobility aids 01/17/2022 Subluxation of right hip ([facility]) 01/17/2022 Cirrhosis of liver ([facility]) 05/10/2019 Overview (11/04/2023): Last Assessment & Plan: Under the care of GI, last seen 04/08/2023 Last US 12/2022 showed: Hepatomegaly. increase in hepatic echotexture and surface nodularity, consistent with the provided history of cirrhosis. No focal hepatic mass or hepatomegaly ductal dilatation is seen. gallbladder surgically absent. Severe obesity ([facility]) 12/14/2017 Overview (11/04/2023): Last Assessment & Plan: [...] good results Neurogenic bowel 10/12/2011 Polysubstance dependence ([facility]) 10/12/2011 Overview (11/04/2023): Last Assessment & Plan: [...] care by [facility] Will refer back to [facility] Wound care center Paraplegia ([facility]) 07/15/2011 Overview (11/04/2023): Last Assessment & Plan: Patient is here for a f/u Pt evaluated in the past at [facility] to help him with his right leg spasticity. For this he has been seen in the past at [facility]. pt has been previously on Tizanidine 6 mg but had severe drowsiness with this dose combined with the Baclofen. On 04/26/2013 underwent Botox injections. Pt needs accommodations for his apartment and needs an automated door. He was referred back to PT recently Resolved Problems Problem Noted Date Diagnosed Date Resolved Date UTI (urinary tract infection) 11/04/2023 12/06/2023 Immunizations Immunization Administration Dates Next Due Flu, Multi Dose 0.5 ML 12/14/2017,11/20/2014 Flu, Preservative Free 11/10/2018 HBIG 03/16/2018 Hep B, Adult/Adol (ENERGIX/RECOMBIVAX) 9 INFLUENZA, SEASONAL, INJECTABLE 11/14/2013,12/23 INFLUENZA, SEASONAL, INJECTA BLE, PRESERVATIVE FREE 01/03/2014 PNEUMOCOCCAL POLYSACCHARIDE PPV23 09/04/2015,,07/16/2007 [facility] State Funded Flu Vaccine 05/02/2013 TDAP 11/20/2014 [...] Date Smoking Tobacco: Every Day Cigarettes 1 29.3 Started: 1995 Smokeless Tobacco: Never Tobacco Cessation:Ready [...] Health Maintenance Due Date Last Done Comments Anxiety Screening 1984 Depression Monitoring 1984 EGD (Upper Endoscopy) 1984 Hepatocellular Carcinoma Scr eening (HCC) 1984 Tobacco Cessation Counseling (#1) 1984 Hypertension Screening (#1) 2002 Medicare Annual Wellness Visit 2002 Imm-Hepatitis A (1 of 2 - Ri sk 2-dose series) 10/22/2003 Imm-Pneumococcal (2 of 2 - PCV) 09/03/2016 09/04/2015, 10/03/2013, 07/16/2007 Imm-Hepatitis B (2 of 3 - 19 + 3-dose series) 04/13/2018 03/16/2018 Lipid Screening 05/06/2022 05/06/2021 [id number] ( season) 2023 021, 10/31/2020 Imm-Influenza (#1) 2023 11/10/2018, 1 , 11/20/2014, Additional history exists Alcohol and Drug Screen 02/16/2024 Diabetes Screening 06/08/2024 06/09/2023 Imm-DTaP/Tdap/Td (2 - Td or Tdap) 11/20/2024 015, 12/28/2003 HIV Screening Completed 05/06/2021, 05/06/2021 Insurance [place] MEDICAID [facility] Member Subscriber Plan / Payer (Ef fective 2016-Present) Name:Jose Fleming Relation to Subscriber:Self Name:Jose Fleming Payer ID:[id number] Group ID:Not on file Type:Brianna Address: [facility] [address] [address]
--- OUTSIDE RECORDS SUMMARY | 2024-05-19 11:53 | XMS_ITS | Encounter Summary ---
Author Organization [employer] Address [address] [facility] 7t [place] [address] Care Team Providers Care Development Officer Name Role Phone Antony Jenkins MD Primary Care Provide r Zachery Carvajal Unavailable Unavailable Reason for Visit * Reason Onset Date Comments Durable Medical Equipment 09/01/2023 Encounter Details Date Type Department Care Team ([facility] st Contact Info) Description 09/01/2023 Telephone [facility] MEDICINE [address] [place], [place] [phone] Antony Jenkins MD [address] [place] [address] Durable Medical Equipment Social History Tobacco Use [...] 9:36 AM EDT Tc from Jennifer with [facility] requesting DME supplies . [facility] has sent a requesting on 08/05/23 but has not received any status. Toilet seat riser Slip resistant mat Please email to: [email or web address] documented in this encounter Plan of Treatment Upcoming Encounters Date Type Department Care Team (Late st Contact Info) Description 06/01/2024 3:00 PM EDT Office Visit [facility] MEDICINE [address] [place] [address] Antony Jenkins MD [address] [place] [address] documented as of this encounter Visit Diagnoses Not on filedocumented in this encounter Additional Health Concerns Assessment Noted Time PHQ-9 Depression Total Score: 10 024 3:18 PM EDT documented as of this encounter Care Teams Development Officer Relationship Specialty Start Date End Date Antony Jenkins MD [address] [place] [address] PCP - General Internal Medicine 10/19/13 Zachery Carvajal FNP [address] [place] [address] Nurse Practitioner Family Medicine 01/06/23 [facility] 01/30/20 documented as of this encounter
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
--- OUTSIDE RECORDS SUMMARY | 2024-05-19 11:54 | XMS_ITS | Clinical Summary ---
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 [facility] Neutrophils Absolute Auto 12.8(H) 2.0 - 8.3 x10*3/uL [facility] Imm Gran Abs Auto 0.08(H) 0.00 - 0.03 X10*3/uL [facility] Lymphocytes Absolute Auto 3.0 1.2 - 4.9 X10*3/uL [facility] Monocytes Absolute Auto 0.9 0.1 - 1.2 X10*3/uL [facility] Eosinophils Absolute Auto 0.1 0.0 - 0.4 X10*3/uL [facility] Basophils Absolute Auto 0.1 0.0 - 0.2 X10*3/uL [facility] NRBC Abs Auto 0.000 0.0 - 0.012 X10*3/uL [facility] 03/03/2024 2:31 PM EST 03/03/2024 2:33 PM EST Narrative [facility] - 03/03/2024 2:36 PM EST QNS us Generic External Data Provider LAB BLOOD ORDERAB LES Edited Result - Final Performing Organization Address City/[facility]/ZIP Co de Phone Number [facility] [address] [place] [phone] [phone] * COVID-19 ID NOW ([place]) (03/03/2024 11:54 AM EST) Pathologist [facility] IDNOW SERIAL# [id number] [facility] COVID-19 TEST Negative Negative [facility] COVID-19 NOTE See Note [facility] Comment: Results are for the identification of SARS-CoV2 RNA. TheSARS-CoV2 RNA is generally detectable in respiratory samplesduring the acute phase of infection. Positive results areindicative of the presence of SARS-CoV-2 RNA; clinicalcorrelation with patient history and other diagnosticinformation is necessary to determine patient infectionstatus. Positive results do not rule out bacterial infectionor co- infection with other viruses.Testing facilities within the [facility] and itsterritories are required to report all [...] LAB MOLECULAR [facility] [employer] ORDERABLES Final Result [facility] [address] [place] [address] [phone] * Ethanol (03/03/2024 11:54 AM EST) Pathologist [facility] ETHANOL (MG/DL) IN SER/PLAS <10 mg/dL [facility] Comment:Serum/plasma ethanol results are to be used formedical/treatment purposes only. 03/03/2024 11:5 4 AM EST 03/03/2024 11:56 AM EST Generic External Data Provider LAB BLOOD ORDERAB LES Final Result Performing Organization Address [facility] Co de Phone Number [facility] [address] [place] [phone] * Acetaminophen level (03/03/2024 11:54 AM EST) Pathologist [facility] Acetaminophen LAB <3 <30 mcg/mL [facility] 03/03/2024 11:5 4 AM EST 03/03/2024 11:56 AM EST Generic External Data Provider LAB BLOOD ORDERAB LES Final Result Performing Organization Address [facility] Co de Phone Number [facility] [address] [place] [phone] * (ABNORMAL) Salicylate (03/03/2024 11:54 AM EST) Pathologist [facility] Salicylate <5.0(L) 15 - 30 mg/dL [facility] 03/03/2024 11:5 4 AM EST 03/03/2024 11:56 AM EST Generic External Data Provider LAB BLOOD ORDERAB LES Final Result Performing Organization Address [facility] de Phone Number [facility] [address] [place] [phone] * (ABNORMAL) Comprehensive Metabolic Panel (03/03/2024 11:54 AM EST) Sodium 140 135 - 145 mmol/L [facility] Potassium 3.9 3.3 - 5.1 mmol/L [facility] Comment:Slight Hemolysis.Int erpret result with caution. Chloride 110(H) 96 - 108 mmol/L [facility] Carbon Dioxide 21(L) 22 - 29 mmol/L [facility] Anion Gap 13 12 - 20 [facility] Urea Nitrogen (BUN) 14 9 - 16 mg/dL [facility] Creatinine, Serum 0.65 0.5 - 1.4 mg/dL [facility] Creatinine Clr Calc Pharmacy 183.4 [facility] Comment:eGFR (calculated fro m the MDRD study equation) and eCrCl(calculated from the Cockcroft-Gault equation) are based ondifferent parameters and may not yield comparable results.If eCrCl result is absurd, please check patient'sheight/weight. Estimated Glomerular Filt Rate >60 [facility] Comment:Chronic Kidney Disea se: Estimated GFR < 60 mL/min/1.18s5Kijxra Kidney Disease: Estimated GFR < 15 mL/min/1.73m2 Glucose 103 60 - 115 mg/dL [facility] Calcium 9.1 8.4 - 10.2 mg/dL [facility] Bilirubin, Total 0.4 0.0 - 1.0 mg/dL [facility] Aspartate Amino Transferase 35 5 - 37 U/L [facility] Comment:Slight Hemolysis.Int erpret result with caution. Alanine Aminotransferase 20 0 - 40 U/L [facility] Total Protein 8.2(H) 6.5 - 8.0 g/dL [facility] Albumin Level 3.6 3.5 - 5.0 g/dL [facility] Alkaline Phosphatase 103 39 - 117 U/L [facility] 03/03/2024 11:5 4 AM EST 03/03/2024 11:56 AM EST us Generic External Data Provider LAB BLOOD ORDERAB LES Final Result [facility] [address] [place] [phone] * HIV 1/2 ANTIGEN/ANTIBODY,FOURTH GENERATION W/RFL (05/06/2021 3:19 PM EDT) Pathologist [facility] HIV-1/2 ANTIGEN AND ANTIBODIES, 4TH GENERATION W/ [...] ? For additional information please refer to http://education.Crovat/faq/JUO469 (This link is being provided for informational/ educational purposes only.) ? The performance of this assay has not been clinically validated in patients less than 2 years old. ?? 05/06/2021 3:19 PM EDT us Antony Fleming MD LAB BLOOD ORDERABLES Final Result [facility] [address] * (ABNORMAL) LIPID PANEL, STANDARD (05/06/2021 3:19 PM EDT) Pathologist [facility] Chol/HDLC Ratio 5.5(H) <5.0 (calc) [facility] [...] ?? Javy KNOWLES et al. STIVEN. 2013;310(19): 0337-5761 ?? (http://education.Stick [employer] Play.[employer]faq/LDC978) Non-HDL Cholesterol 118 <130 mg/dL (calc) [facility] Comment: For patients with diabetes plus 1 major ASCVD risk ?? factor, treating to a non-HDL-C goal of <100 mg/dL ?? (LDL-C of <70 mg/dL) is considered a therapeutic ?? option. Triglycerides 287(H) <150 mg/dL [facility] Comment: ?? If a non-fasting specimen was collected, consider repeat triglyceride testing on a fasting specimen if clinically indicated. ?? Anita et al. J. of Clin. Lipidol. 2015;9:129-169. ?? 05/06/2021 3:19 PM EDT us Antony Fleming MD LAB BLOOD ORDERABLES Final Result Performing Organization Address City/State/[facility] Co de Phone Number [facility] [address] from Last 3 Months or Most Recently Relevant to Health Maintenance Insurance [facility] MEDICARE Advance Directives Documents on File Type Date Recorded Patient Activity Director Expl anation Advance Directives and Livin g Will 10/30/2022 Health Care Proxy Care Teams Validation Scientist Relationship Specialty Start Date End Date Antony Jenkins MD [address] [place] [phone] PCP - General Internal Medicine 10/19/13 Zachery Carvajal FNP [address] [place] [phone] Nurse Practitioner Family Medicine 01/06/23 [facility] 01/30/20
== END 2024-05-19 10:26 | disposition home or self-care (01) ==
LOC: HO.HHCX 10:25
PROVIDERS: Visit Provider Internal Medicine
DX: M25.511 Pain in right shoulder (principal); M25.512 Pain in left shoulder
CPT/HCPCS: 72070; 73030

== ENCOUNTER → 2024-05-19 10:26 | Outpatient (BNV) | payer OTHER, SELFPAY | PROVIDERS: Visit Provider Radiology Diagnostic Radiology | DX: M54.6 Pain in thoracic spine (principal); W19.XXXA Unspecified fall, initial encounter; M25.512 Pain in left shoulder | CPT/HCPCS: 72070; 73030 ==

== ENCOUNTER 2024-06-08 16:04 | Outpatient (REF) | payer OTHER, SELFPAY ==
[2024-06-08 16:42] LABS: Amphetamine Screen Urine Not Detected (Not Detect); Barbiturates, Urine Not Detected (Not Detect); Benzodiazepines Screen Urine Not Detected (Not Detect); Buprenorphine Scr Not Detected (Not Detect); Cannabinoid Screen Urine POSITIVE (Not Detect); Cocaine Screen Urine Not Detected (Not Detect); Fentanyl, urine POSITIVE (Not Detect); Methadone Screen, Urine Positive (Not Detect); Opiate Screen Urine Not Detected (Not Detect); Oxycodone Screen Urine Not Detected (Not Detect); Phencyclidine Screen Urine POSITIVE (Not Detect)
--- OUTSIDE RECORDS SUMMARY | 2024-06-08 18:30 | XMS_ITS | Encounter Summary ---
Author Organization [employer] Address [address] [facility] [address]t [place] [address] Care Team Providers Care Data Network Architect Name Role Phone Antony Jenkins MD Primary Care Provide r Zachery Carvajal Unavailable Unavailable Encounter Details Date Type Department Care Team (Late Contact Info) Description 06/04/2022 Abstract [facility] ADULT [facility]AL [address] [place] [address] Juaquin Rivers DDS [address] [place] [address] Social History Tobacco Use Types Packs/Day Years [...] Department Care Team (Late Contact Info) Description 06/27/2024 3:00 PM EDT Office Visit [facility] [address] [place] [address] Antony Jenkins MD [address] [place] [address] 06/30/2024 1:30 PM EDT Office Visit [facility] [address] [place] [address] Juaquin Rivers DDS [address] [place] [address] 08/29/2024 11:30 AM EDT Office Visit [facility] [address] [place] [address] [place] [address] documented as of this encounter Visit Diagnoses Not on filedocumented in this encounter Additional Health Concerns Assessment Noted Time PHQ-9 Depression Total Score: 15 023 2:02 PM EDT documented as of this encounter Care Teams Data Network Architect Relationship Specialty Start Date [place] [address] PCP - General Internal Medicine 10/19/13 Zachery Carvajal FNP [address] [facility] [place] [address] Nurse Practitioner Family Medicine 01/06/23 [facility] 01/30/20 documented as of this encounter
--- OUTSIDE RECORDS SUMMARY | 2024-06-08 18:30 | XMS_ITS | Encounter Summary ---
Author Organization [employer] Address [address] [facility] [address]t [place] [address] Care Team Providers Care Histology Technologist Name Role Phone Antony Jenkins MD Primary Care Provide r Zachery Carvajal Unavailable Unavailable Reason for Visit * Reason Comments Med Change Request Encounter Details Date Type Department Care Team ([facility] st Contact Info) Description 12/14/2022 Refill [facility] [address] [place] [address] Zachery Carvajal FNP Major depressive disorder, recurrent, [...] Care Team (Late st Contact Info) Description 06/27/2024 3:00 PM EDT Office Visit [facility] MED[facility] [address] [place] [address] Antony Jenkins MD [address] [place] [address] 06/30/2024 1:30 PM EDT Office Visit [facility] ADULT DENTAL [address] [place] [address] Juaquin Rivers DDS [address] [place] [address] 08/29/2024 11:30 AM EDT Office Visit [facility] MED[facility]INE [address] [place] [phone] Antony Jenkins MD [address] [place] [address] documented as of this encounter Visit Diagnoses Diagnosis Major depressive disorder, recurrent, severe with psychotic features (CMS/HCC) Major depressive disorder, recurrent episode, severe, specified as with psychotic behavior documented in this encounter Additional Health Concerns Assessment Noted Time PHQ-9 Depression Total Score: 10 023 10:25 AM EDT documented as of this encounter Care Teams Histology Technologist Relationship Specialty Start Date End Date Antony Jenkins MD [address] [place] [phone] PCP - General Internal Medicine 10/19/13 Zachery Carvajal FNP [address] [place] [address] SIMEON De Guzman [address] Nurse Practitioner Family Medicine 01/06/23 [facility] 01/30/20 documented as of this encounter
--- OUTSIDE RECORDS SUMMARY | 2024-06-08 18:30 | XMS_ITS | Clinical Summary ---
Author Organization [facility] Address [address] [place] [address] Phone Care Team Providers Care Digital Sales Executive Name Role Phone Antony Faria MD Primary [...] 44.9 in adult 02/02/2024 Drug abuse, continuous ([facility] V24, [facility] V28 ) 06/15/2011 Overview (02/02/2024): Per hospital labs and admission at [facility] 06/12/2011: iv drug, cocaine and marijuana user Pressure ulcer, stage 4 ([facility] V24, [facility] V2 8) 05/26/2011 Decubitus ulcer of coccyx 05/13/2011 Depression 05/13/2011 Marijuana abuse 05/13/2011 Immunizations Name Administration Dates Next Due Pfizer SARS-CoV-2 COVID-19, mRNA, LNP-S, preservative free 11/21/2020,10/31/2020 Surgical History Surgery Date Site/Laterality Comments APPENDECTOMY PROCEDURE: [place] APPENDECTOMY Medical History Medical History Date Comments [...] 5 season) 2023 11/21/2020, 10/31/2020 Influenza Vaccine (Season Ended) 2024 Cholesterol Screening (Lipid Panel) 05/06/2026 05/06/2021 HIV [...] age to complete this topic Meningococcal B Vaccine Aged Out No l onger eligible based on patient's age to complete [...] Results * Hepatitis C Screening (02/02/2023) Pathologist [facility] Hepatitis C Screening Abstracted Historical Provider HEALTH MAINTENANCE Final Result * HIV Screening (05/06/2021) Pathologist [facility] HIV Screening Abstracted us Historical Provider HEALTH MAINTENANCE Final Result * Lipid panel (05/06/2021) Pathologist [facility] LDL/HDL Ratio 0 Comment:No Interpretation, A bstracted [...] Maintenance Insurance MEDICAID - [place] Care Teams Digital Sales Executive Relationship Specialty Start Date End Date Antony Faria MD [address] [place] [address] [place] [phone] PCP - General 04/25/19
--- OUTSIDE RECORDS SUMMARY | 2024-06-08 18:30 | XMS_ITS | Encounter Summary ---
Author Organization [employer] Address [address] [facility] [address] [place] [address] Care Team Providers Care Stockroom Worker Name Role Phone Antony Jenkins MD Primary Care Provide r Zachery Carvajal Unavailable Unavailable Encounter Details Date Type Department Care Team (Late Contact Info) Description 07/08/2022 Abstract [facility] [address] [place] [address] Antony Jenkins MD [address] [place] [address] Social History Tobacco Use Types Packs/Day Years [...] Description 06/27/2024 3:00 PM EDT Office Visit [facility] [address] [place] [address] Antony Jenkins MD [address] [place] [address] 06/30/2024 1:30 PM EDT Office Visit [facility] ADULT DENTAL [address] [place] [address] Juaquin Rivers DDS [address] [place] [address] 08/29/2024 11:30 AM EDT Office Visit [facility] [place] [address] Antony Jenkins MD [address] [place] [phone] documented as of this encounter Visit Diagnoses Not on filedocumented in this encounter Additional Health Concerns Assessment Noted Time PHQ-9 Depression Total Score: 10 023 2:33 PM EDT documented as of this encounter Care Teams Stockroom Worker Relationship Specialty Start Date End [place] [address] PCP - General Internal Medicine 10/19/13 [place] [address] Nurse Practitioner Family Medicine 01/06/23 [facility] 01/30/20 documented as of this encounter
--- OUTSIDE RECORDS SUMMARY | 2024-06-08 18:31 | XMS_ITS | Encounter Summary ---
Author Organization [employer] Address [address] [facility] [address] [address] Care Team Providers Care Special Procedures Technologist Name Role Phone Antony Jenkins MD Primary Care Provide r Zachery Carvajal Unavailable Unavailable Reason for Referral * Consultation (Routine) - Authorized Specialty Diagnoses / Procedures Referred By Contsamira t Referred To Contact Pain Medicine Diagnoses Chronic pain due to injury Paraplegia (CMS/HCC) Antony Jenkins MD [address] [place] [address] Phone: tel: fax: [facility] Referral ID Status Reason Start Date Expiration Date Visits Requested Visits Authorized [id number] Authorized Specialty Services Required 06/08/2024 06/08/2025 1 1 Reason for Visit * Reason Comments ER Follow-up Encounter Details Date Type Department Care Team (Late st Contact Info) Description 06/08/2024 3:00 PM EDT Office Visit [facility] MEDICINE [address] [place], [place] [phone] Antony Jenkins MD [address], [place] [phone] Paraplegia (CMS/HCC) (Primary Dx); Chronic pain due to injury; History of pressure ulcer; Skin ulcer of left ankle, limited to breakdown of skin (CMS/HCC); Polysubstance dependence (CMS/HCC); Class 3 severe obesity due to excess calories with serious comorbidity and body mass index (BMI) of 40.0 to 44.9 in adult; Cirrhosis of liver without ascites, unspecified hepatic cirrhosis type (CMS/HCC); Dietary counseling; Exercise counseling Social History Tobacco Use Types Packs/Day Years [...] AM EDT documented as of this encounter Last Filed Vital Signs Vital Sign Reading Time Taken Comments Blood Pressure 130/74 06/08/2024 2:53 PM EDT Pulse 67 06/08/2024 2:53 PM EDT Temperature 36.2 ??C (97.1 ??F) 06/08/2024 2:53 PM ED T Respiratory Rate 18 06/08/2024 2:53 PM EDT Oxygen Saturation 99% 06/08/2024 2:53 PM EDT Inhaled Oxygen Concentration - - Weight 133 kg (292 lb 12.8 oz) 06/08/2024 2:53 P M EDT Height - - Body Mass Index 43.24 06/01/2024 2:52 PM EDT documented in this encounter Progress Notes * Antony Fleming MD - 06/08/2024 3:00 PM EDT SUBJECTIVE Jose Fleming is a 38 y.o. male who presents for ER Follow-up. Pt here for an ER follow up. Patient sustained a fall at home, while transferring from his haylee into the shower, apparently he was on the floor for several hours before someone found him. Work up in the ER included CT from head, T/L Spine and Chest CT all negative for fractures. Pt here accompanied by his toddler caregiver who is helping with all his DME needs at home ER Follow-up This is a new problem. The current episode started in the past 7 days. Pertinent negatives include no abdominal pain, chest pain, coughing, fever, headaches or sore throat. Review of Systems Constitutional: Negative for fever. HENT: Negative for sore throat. Respiratory: Negative for cough and shortness of breath. Cardiovascular: Negative for chest pain. Gastrointestinal: Negative for abdominal pain. Neurological: Negative for headaches. Allergies Allergen Reactions Vancomycin OBJECTIVE Vitals: 06/08/24 1453 BP: 130/74 BP Location: Left arm Patient Position: Sitting BP Cuff Size: Large adult Pulse: 67 Resp: 18 Temp: 97.1 ??F (36.2 ??C) TempSrc: Temporal SpO2: 99% Weight: 292 lb 12.8 oz (133 kg) Physical Exam Vitals reviewed. Constitutional: Appearance: He is obese. HENT: Head: Normocephalic and atraumatic. Right Ear: External ear normal. Left Ear: External ear normal. Nose: Nose normal. Mouth/Throat: Mouth: Mucous membranes are moist. Eyes: Conjunctiva/sclera: Conjunctivae normal. Cardiovascular: Rate and Rhythm: Normal rate and regular rhythm. Pulmonary: Effort: Pulmonary effort is normal. Breath sounds: Normal breath sounds. Skin: General: Skin is warm. Comments: Large ulcer left ankle Neurological: Mental Status: He is alert. Mental status is at baseline. Assessment/Plan Problem List Items Addressed This Visit Paraplegia (CMS/HCC) - Primary Patient is here for a f/u Pt evaluated in the past at [facility] to help him with his right leg spasticity.For this he has been seen in the past at [facility]. pt has been previously on Tizanidine 6 mg but had severe drowsiness with this dose combined with the Baclofen. On 04/26/2013 underwent Botox injections. Pt interested in a second opinion by Neurologist. Awaiting appointment with Neurology He also needs a special mattress to prevent decubitus ulcers, pt is at very high risk Relevant Orders Referral to Pain Medicine Chronic pain due to injury Patient seen in the ER 05/04/2024 s/p fall ( transferring from wheelchair to shower) work up in the ER included CT Heat, T/L Spine and Chest as per ER note, NO fractures or acute abnormalities Pt has had chronic back pain, referred to pain management in the past Pt is already on a high dose of Methadone His U/A positive for Fentanyl, PCP, THC and methadone I have discussed with him that it is very important that he does not use any ilicit substances to decrease his risk of respiratory depression. Pt is interested in muscle relaxants that could potentially have additive respiratory depression effects in the setting of high Methadone dose and illicit substance use like PCP and fentanyl. Pt verbalized understanding and promised to continue to work with his instructional coach Pt interested in going to [facility] pain clinic Relevant Medications meloxicam (Mobic) 15 MG tablet Other Relevant Orders Referral to Pain Medicine History of pressure ulcer Patient with a Hx of stage decubitus ulcers ( stage 3 ). He also has a Hx of hip osteomyelitis. Pt is at very high risk of decubitus ulcers HE NEEDS A BARIATRIC LOW AIR LOSS MATRESS Skin ulcer of left ankle, limited to breakdown of skin ([facility]) Patient has a 3 cm ulcer left ankle No evidence of infection VNA cleaning wound at home Referred to wound clinic Polysubstance dependence ([facility]) Pt is going to Methadone clinic He is on 135 mg daily Previously reported heavy use of alcohol (greater than 10 drinks, at least 3-4 days per week); Marijuana; Rx meds purchased on the street, e.g., Klonopin, Percocet. Pt states he relapsed recently due to family issues Urine today positive for Fentanyl, PCP, THC, Methadone Relevant Orders Drug Monitoring, Panel 1, Screen, Urine POCT SIM-14 Urine Drug Screen (Completed) POCT Urinalysis (Completed) Class 3 severe obesity due to excess calories with serious comorbidity and body mass index (BMI) of40.0 to 44.9 in adult Pt was interested in Bariatric surgery, no longer Pt was on Wegoby Cirrhosis of liver (CMS/HCC) Under the care of GI, last seen 04/08/2023 Last US 12/2022 showed: Hepatomegaly. increase in hepatic echotexture and surface nodularity, consistent with the provided history of cirrhosis. No focal hepatic mass or hepatomegaly ductal dilatation is seen. gallbladder surgically absent. Other Visit Diagnoses Dietary counseling Exercise counseling documented in this encounter Miscellaneous Notes * Assessment & Plan Note - Antony Fleming MD - 06/08/2024 3:41 PM EDT Associated Problem(s): History of pressure ulcer Patient with a Hx of stage decubitus ulcers ( stage 3 ). He also has a Hx of hip osteomyelitis. Pt is at very high risk of decubitus ulcers HE NEEDS A BARIATRIC LOW AIR LOSS MATRESS * Assessment & Plan Note - Antony Fleming MD - 06/08/2024 3:40 PM EDT Associated Problem(s): Skin ulcer of left ankle, limited to breakdown of skin (CMS/HCC) Patient has a 3 cm ulcer left ankle No evidence of infection VNA cleaning wound at home Referred to wound clinic * Assessment & Plan Note - Antony Fleming MD - 06/08/2024 3:24 PM EDT Associated Problem(s): Cirrhosis of liver (CMS/HCC) Under the care of GI, last seen 04/08/2023 Last US 12/2022 showed: Hepatomegaly. increase in hepatic echotexture and surface nodularity, consistent with the provided history of cirrhosis. No focal hepatic mass or hepatomegaly ductal dilatation is seen. gallbladder surgically absent. * Assessment & Plan Note - Antony Fleming MD - 06/08/2024 3:24 PM EDT Associated Problem(s): Class 3 severe obesity due to excess calories with serious comorbidity and body mass index (BMI) of 40.0 to 44.9 in adult Pt was interested in Bariatric surgery, no longer Pt was on Wegoby * Assessment & Plan Note - Antony Fleming MD - 06/08/2024 3:20 PM EDT Associated Problem(s): Paraplegia (CMS/HCC) Patient is here for a f/u Pt evaluated in the past at [facility] to help him with his right leg spasticity.For this he has been seen in the past at [facility]. pt has been previously on Tizanidine 6 mg but had severe drowsiness with this dose combined with the Baclofen. On 04/26/2013 underwent Botox injections. Pt interested in a second opinion by Neurologist. Awaiting appointment with Neurology He also needs a special mattress to prevent decubitus ulcers, pt is at very high risk * Assessment & Plan Note - Antony Fleming MD - 06/08/2024 3:20 PM EDT Associated Problem(s): Chronic pain due to injury Patient seen in the ER 05/04/2024 s/p fall ( transferring from wheelchair to shower) work up in the ER included CT Heat, T/L Spine and Chest as per ER note, NO fractures or acute abnormalities Pt has had chronic back pain, referred to pain management in the past Pt is already on a high dose of Methadone His U/A positive for Fentanyl, PCP, THC and methadone I have discussed with him that it is very important that he does not use any ilicit substances to decrease his risk of respiratory depression. Pt is interested in muscle relaxants that could potentially have additive respiratory depression effects in the setting of high Methadone dose and illicit substance use like PCP and fentanyl. Pt verbalized understanding and promised to continue to work with his instructional coach Pt interested in going to [facility] pain clinic * Assessment & Plan Note - Antony Fleming MD - 06/08/2024 3:17 PM EDT Associated Problem(s): Polysubstance dependence (CMS/[facility]) Pt is going to Methadone clinic He is on 135 mg daily Previously reported heavy use of alcohol (greater than 10 drinks, at least 3-4 days per week); Marijuana; Rx meds purchased on the street, e.g., Klonopin, Percocet. Pt states he relapsed recently due to family issues Urine today positive for Fentanyl, PCP, THC, Methadone documented in this encounter Plan of Treatment Upcoming Encounters Date Type Department Care Team (Late st Contact Info) Description 06/27/2024 3:00 PM EDT Office Visit [facility] MEDICINE [address] [place] [address] Antony Jenkins MD [address], [place] [phone] 06/30/2024 1:30 PM EDT Office Visit [facility] ADULT DENTAL [address], [place] [phone] Juaquin Rivers DDS [address], [place] [phone] 08/29/2024 11:30 AM EDT Office Visit [facility] MEDICINE [address] [place] [address] Antony Jenkins MD [address], [place] [phone] Scheduled Referrals Name Type Priority Associated Diagnoses Orde r Schedule Referral to Pain Medicine Outpatient Referral Routine Chronic pain due to injury Paraplegia (CMS/HCC) Expected: 06/08/2024 (Approximate), Expires: 06/08/2025 documented as of this encounter Procedures Procedure Name Priority Date/Time Associated Diagnosis Comments POCT ISM-14 URINE DRUG SCREEN Routine 06/08/2024 3:18 PM EDT Polysubstance dependence (CMS/HCC) DRUG MONITOR, PANEL 1, SCREEN, URINE Routine 06/08/2024 3:18 PM EDT Polysubstance dependence (CMS/HCC) POCT URINALYSIS DIPSTICK Routine 06/08/2024 3:18 PM EDT Polysubstance dependence (CMS/HCC) documented in this encounter Results * POCT Urinalysis (06/08/2024 3:18 PM EDT) Color, UA Yellow Clarity, UA Clear Glucose, UA Negative Bilirubin, UA Negative Ketones, UA Negative Spec Grav, UA 1.020 Blood, UA Negative Negative, None Detected pH, UA 6.0 Protein, UA Negative Urobilinogen, UA 0.2 Leukocytes, UA Negative Negative, Rare, Trace Nitrite, UA Negative Negative, None Detected Appearance, UA Yellow QC Media Lot # [id number] Lot# Expiration Date 356,026 Urine 06/08/2024 3:18 PM EDT us Antony Fleming MD POINT OF CARE TEST EN TER/EDIT ORDERABLES Final Result * (ABNORMAL) POCT SIM-14 Urine Drug Screen (06/08/2024 3:18 PM EDT) THC Positive Cocaine Screen, Urine Negative Opiate Screen, Urine Negative Methamphetamine Screen Urine Negative Amphetamine Screen, Urine Negative Benzodiazepines Screen, Urine Negative Barbiturate Screen, Urine Negative Methadone Screen, Urine Positive Buprenophine Screen, Urine Negative TCA, Urine Negative MDMA Urine Negative ng/mL Oxycodone Screen, Urine Negative Phencyclidine (PCP), Urine Positive Propoxyphene, Urine Negative Fentanyl, Urine Positive Spec Grav, UA 1.020 pH, UA 6.0 QC Media Lot # [id number] Lot# Expiration Date 493,026 Urine Urine specimen obtained by clean catch procedure / Unknown 06/08/2024 3:18 PM EDT Antony Fleming MD POINT OF CARE TEST EN TER/EDIT ORDERABLES Final Result * (ABNORMAL) Drug Monitoring, Panel 1, Screen, Urine (06/08/2024 3:18 PM EDT) Opiate Screen Urine Not Detected Not Detect [facility] Comment:Opiate [...] be used fornon-medical purposes. Benzodiazepines Screen Urine Not Detected Not Detect [facility] Comment:Benzodiazepine cut-o ff is 200 ng/mL.Positive results are unconfirmed and should not be used fornon-medical purposes. Cocaine Screen Urine Not Detected Not Detect [facility] Comment:Cocaine [...] and should not be used fornon-medical purposes. Urine (Urine, Random) 06/08/2024 3:18 PM EDT 06/08/2024 4:05 PM EDT us Antony Fleming MD LAB URINE ORDERABLES Final Result [facility] [address] [place] [address] [phone] documented in this encounter Visit Diagnoses Diagnosis Paraplegia (CMS/HCC)- Primary Paraplegia Chronic pain due to injury Chronic pain due to trauma History of pressure ulcer Skin ulcer of left ankle, limited to breakdown of skin (CMS/HCC) Polysubstance dependence (CMS/HCC) Combinations of drug dependence excluding opioid type drug, unspecified abuse Class 3 severe obesity due to excess calories with serious comorbidity and body mass index (BMI) of 40.0 to 44.9 in adult Cirrhosis of liver without ascites, unspecified hepatic cirrhosis type (CMS/HCC) Dietary counseling Dietary surveillance and counseling Exercise counseling documented in this encounter Additional Health Concerns Assessment Noted Time PHQ-9 Depression Total Score: 19 024 11:27 AM EDT documented as of this encounter Care Teams Special Procedures Technologist Relationship Specialty Start Date End Date Antony Jenkins MD [address] [place] [phone] PCP - General Internal Medicine 10/19/13 Zachery Carvajal FNP [address] [place] [phone] Nurse Practitioner Family Medicine 01/06/23 [facility] 01/30/20 documented as of this encounter
--- OUTSIDE RECORDS SUMMARY | 2024-06-08 18:31 | XMS_ITS | Encounter Summary ---
Author Organization [employer] Address [address] [facility] 7 [place] [address] Care Team Providers Care Surface Water Manager Name Role Phone Antony Jenkins MD Primary Care Provide r Zachery Carvajal Unavailable Unavailable Reason for Visit * Reason Onset Date Comments ER Follow-up 06/06/2024 Encounter Details Date Type Department Care Team ([facility] st Contact Info) Description 06/06/2024 Telephone [facility] MEDICINE [address] [place], [place] [phone] Antony Jenkins MD [address] [place] [address] ER Follow-up Social History Tobacco Use Types Packs/Day [...] Telephone Encounter - Katerine Holden RN - 06/07/2024 11:37 AM EDT TC placed to pt mother Vickie (HIPAA compliant) in regards to scheduling a follow up after the pt was seen at [facility] on 06/04/2024 after experiencing a fall transferring from his chair into the shower.The ED notes did recommend a close follow up with PCP to reassess and check on the pt current pain.Per Vickie, the pt has been experiencing worsening pain all over his body. RN spoke with Dr. Motta's [place] Jenise Johnson who confirmed that the pt can be double booked with PCP on on 06/08/2024 at 3 PM. Discharge documentation from [facility] is under pt chart under media * Telephone Encounter - Brian Curtis - 06/07/2024 8:54 AM EDT Tc from mom requesting a callback urgently in regards prior message. Please return call [phone] * Telephone Encounter - Najma Crawley - 06/06/2024 9:31 AM EDT Called Patient to schedule f/u with PCP. Patient mom answered phone (on HIPAA). Requesting ed f/u Patient was seen at [facility] on 06/04/2024 for pain all over body. Patient kesha also like update on referral to Neurology and wound clinic. Patient mom very concerned. Has f/u with PCP in August. documented in this encounter Plan of Treatment Upcoming Encounters Date Type Department Care Team (Late st Contact Info) Description 06/27/2024 3:00 PM EDT Office Visit [facility] [address] [facility] [place] [address] Antony Jenkins MD [address] [facility] [place] [address] 06/30/2024 1:30 PM EDT Office Visit [facility] ADULT DENTAL [address] [facility] [place] [address] Juaquin Rivers DDS [address] [facility] [place] [address] 08/29/2024 11:30 AM EDT Office Visit [facility] MED[facility]INE [address] [facility] [place] [address] Antony Jenkins MD [address] [facility] [place] [address] documented as of this encounter Visit Diagnoses Not on filedocumented in this encounter Additional Health Concerns Assessment Noted Time PHQ-9 Depression Total Score: 19 024 11:27 AM EDT documented as of this encounter Care Teams Surface Water Manager Relationship Specialty Start Date End [place] [address] PCP - General Internal Medicine 10/19/13 Zachery Carvajal FNP [address] [facility] [place] [address] Nurse Practitioner Family Medicine 01/06/23 [facility] 01/30/20 documented as of this encounter
--- OUTSIDE RECORDS SUMMARY | 2024-06-08 18:31 | XMS_ITS | Encounter Summary ---
Author Organization [employer] Address [address] [facility] 7[place] [address] Care Team Providers Care Bus Matron Name Role Phone Antony Jenkins MD Primary Care Provide r Zachery Carvajal Unavailable Unavailable Encounter Details Date Type Department Care Team (Late st Contact Info) Description 03/27/2022 [facility] Health Information Management [address] [place] [address] Antony Jenkins MD [address] [place], [place] [phone] Social History Tobacco Use Types Packs/Day Years [...] Description 06/27/2024 3:00 PM EDT Office Visit [facility] MEDICINE [address] [place] [phone] Antony Jenkins MD [address] [place], [place] [phone] 06/30/2024 1:30 PM EDT Office Visit [facility] ADULT DENTAL [address] [place] [address] Juaquin Rivers DDS [address] [place], [place] [phone] 08/29/2024 11:30 AM EDT Office Visit [facility] MEDICINE 230 [facility] [place], [place] [phone] [place] [address] documented as of this encounter Visit Diagnoses Not on filedocumented in this encounter Additional Health Concerns Assessment Noted Time PHQ-9 Depression Total Score: 11 023 11:13 AM EST documented as of this encounter Care Teams Bus Matron Relationship Specialty Start Date End Date Antony Jenkins MD [address] [place], [place] [phone] PCP - General Internal Medicine 10/19/13 Zachery Carvajal FNP [address] [place] [phone] Nurse Practitioner Family Medicine 01/06/23 [facility] 01/30/20 documented as of this encounter
--- OUTSIDE RECORDS SUMMARY | 2024-06-08 18:31 | XMS_ITS | Encounter Summary ---
Author Organization [employer] Address [address] [facility] 7t [place] [address] Care Team Providers Care Operations Administrative Assistant Name Role Phone Antony Jenkins MD Primary Care Provide r Zachery Carvajal Unavailable Unavailable Reason for Visit * Reason Onset Date Comments Referral 09/07/2023 Encounter Details Date Type Department Care Team ([facility] st Contact Info) Description 09/07/2023 Telephone [facility] MEDICINE [address] [place], [place] [phone] Antony Jenkins MD [address] [place] [address] Referral Social History Tobacco Use Types Packs/Day [...] PM EDT TC placed to Jennifer at [facility] who wants to inform PCP that they are not acceptingpt for medical management. Jennifer states that the pt informed her that he used to be seen at [facility]. Jennifer advised trying with them as they have physiatry care which may be beneficial to the pt. Pt was seen at [facility] on Wednesday09/06/23 * Telephone Encounter - Mena Benítez - 09/07/2023 1:50 PM EDT Tc from Jennifer with [facility] requesting a call from a nurse in regards to some concerns of referrals sent for pain management and PT documented in this encounter Plan of Treatment Upcoming Encounters Date Type Department Care Team (Late st Contact Info) Description 06/27/2024 3:00 PM EDT Office Visit [facility] MEDICINE [address] [place] [address] Antony Jenkins MD [address] [place], [place] [phone] 06/30/2024 1:30 PM EDT Office Visit [facility]ULT [facility]AL [address] [facility] [place] [phone] Juaquin Rivers DDS [address] [place] [address] 08/29/2024 11:30 AM EDT Office Visit [facility] MED[facility]INE [address] [facility] [place] [phone] Antony Jenkins MD [address] [facility] [place] [phone] documented as of this encounter Visit Diagnoses Not on filedocumented in this encounter Additional Health Concerns Assessment Noted Time PHQ-9 Depression Total Score: 11 024 1:44 PM EDT documented as of this encounter Care Teams Operations Administrative Assistant Relationship Specialty Start Date End Date Antony Jenkins MD [address] [place], [place] [phone] PCP - General Internal Medicine 10/19/13 Zachery Carvajal FNP [address] [facility] [place] [address] Nurse Practitioner Family Medicine 01/06/23 [facility] 01/30/20 documented as of this encounter
--- OUTSIDE RECORDS SUMMARY | 2024-06-08 18:31 | XMS_ITS | Clinical Summary ---
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 7:34 AM EST Comment:UACC Narrative [facility] - 03/30/2024 8:23 AM EST Escherichia [...] GENERAL ORDERABLES Final Result Performing Organization Address City/[facility]/ZIP Co de Phone Number [facility] [address] [place] [phone] * Blood Culture (First) (03/28/2024 2:16 AM EST) Blood Venous blood specimen / Unknown 03/28/2024 2:16 AM EST 03/28/2024 2:25 AM EST Comment:Blood Narrative [facility] - 04/02/2024 4:25 AM EST Blood Culture (First) No growth after 5 days. Specimen Source: Blood Generic External Data Provider LAB MICROBIOLOGY - GENERAL ORDERABLES Final Result Performing Organization Address City/[facility]/ZIP Co de Phone Number [facility] [address] [place] [phone] * Blood Culture (Second) (03/28/2024 2:16 AM EST) Blood Venous blood specimen / Unknown 03/28/2024 2:16 AM EST 03/28/2024 2:25 AM EST Comment:Blood Narrative [facility] - 04/02/2024 4:25 AM EST Blood Culture (Second) No growth after 5 days. Specimen Source: Blood Generic External Data Provider LAB MICROBIOLOGY - GENERAL ORDERABLES Final Result Performing Organization Address [facility] de Phone Number [facility] [address] [place] [phone] * Lactic Acid (03/28/2024 2:16 AM EST) Lactic Acid 0.9 0.5 - 2.0 mmol/L [facility] 03/28/2024 2:16 AM EST 03/28/2024 2:25 AM EST Generic External Data Provider LAB BLOOD ORDERAB LES Final Result Performing Organization Address [facility] de Phone Number [facility] [address] [place] [phone] * XR Chest 1 View (03/28/2024 12:58 AM EST) Anatomical Region Laterality Modality Chest Radiographic Karlee ging 03/28/2024 12:5 8 AM EST Narrative 03/28/2024 1:00 AM EST ? [facility] ?[address] ?[place] [address] ?XRay Report ? Signed ? Patient: Lonnie,Jose ?MR#: [id number] ? : 1985 ?Acct:[id number] ? Age/Sex: 38 / M ?ADM Date: 02/10/25 ? Loc: HO.ED ? Attending Dr: ? Ordering Physician: Russ Verma MD ?? Date of Service: 03/28/24 ?? Procedure(s): XR chest 1V ?? Accession Number(s): [id number] ? cc: Antony Faria MD; Russ Verma MD ? CLINICAL HISTORY: chest pain with deep breath ? 1 view chest x-ray ? Comparison: CR/CT/SR - XR CHEST 1V - 06/09/23 20:52 [...] DD/ 0058 ? TD/TT: 03/28/24 0058 ? Dramatic Reader: ? Procedure Note Jesus, Deborah - 03/28/[address] [address] XRay Report Signed Patient: Claudia Fleming#: [id number] : 1985Acct:[id number] Age/Sex: 38 / MADM Date: 03/27/24 Loc: HO.ED Attending Dr: Ordering Physician: Russ Verma MD Date of Service: 03/28/24 Procedure(s): XR chest 1V Accession Number(s): [id number] cc: Antony Faria MD; Russ Verma MD CLINICAL HISTORY: chest pain with deep breath 1 view chest x-ray Comparison: CR/CT/SR - XR CHEST 1V - 06/09/23 20:52 [...] MD in OV> 03/28/2499 DD/ TD/TT: 03/28/2457 Dramatic Reader: [facility] External Provider IMG XR PROCEDURES Edited Result - Final * HIV 1/2 ANTIGEN/ANTIBODY,FOURTH GENERATION W/RFL (05/06/2021 3:19 PM EDT) Pathologist [facility] HIV-1/2 ANTIGEN AND ANTIBODIES, 4TH GENERATION [...] ? For additional information please refer to http://[email or web address].VULCUN/faq/KHE970 (This link is being provided for informational/ educational purposes only.) ? The performance of this assay has not been clinically validated in patients less than 2 years old. ?? 05/06/2021 3:19 PM EDT Antony Fleming MD LAB BLOOD ORDERABLES Final Result [facility] [address] * (ABNORMAL) LIPID PANEL, STANDARD (05/06/2021 3:19 PM EDT) Pathologist [facility] Chol/HDLC Ratio 5.5(H) <5.0 (calc) [facility] [...] ?? Javy KNOWLES et al. STIVEN. 2013;310(19): 2417-3316 ?? (http://Talisma.Kyoger/faq/BIM388) Non-HDL Cholesterol 118 <130 mg/dL (calc) [facility] Comment: For patients with diabetes plus 1 major ASCVD risk ?? factor, treating to a non-HDL-C goal of <100 mg/dL ?? (LDL-C of <70 mg/dL) is considered a therapeutic ?? option. Triglycerides 287(H) <150 mg/dL [facility] Comment: ?? If a non-fasting specimen was collected, consider repeat triglyceride testing on a fasting specimen if clinically indicated. ?? Anita et al. J. of Clin. Lipidol. 2015;9:129-169. ?? 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
--- OUTSIDE RECORDS SUMMARY | 2024-06-08 18:31 | XMS_ITS | Continuity of Care Document ---
Author Organization [employer] Address [address] [place] [phone] Care Team Providers Care Commercial Escrow Officer Name Role Phone [facility] Referring Provider [facility] OTHER Assessment Encounter Date Assessment Date Assessment LastModified by Organization Details LastModified Time 06/06/2024 06/06/2024 I have reviewed and agree with the assessment and plan as documented by the striper. I provided real-time medical direction for this encounter and was immediately available to provide additional phone-based assistance as needed. History as noted in EMR and by striper. I would add / emphasize: Patient seen for acute on chronic back pain after a fall out of his wheelchair. Was evaluated in the emergency department with reportedly negative imaging and reports increasing acute on chronic pain. 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 Not anticoagulated . AVSS and otherwise well-appearing . Having some relief from ibuprofen and requesting pain management. Will administer low-dose ketorolac and advised patient to avoid NSAIDs. Recommend close follow-up with PCP and reviewed red flags that should prompt further evaluation. pallfather Not available 06/06/2024 16:37:28 Plan of Treatment Reminders Order Date Submit Date Provider Last Modified By Organization Details Last Modified Time Details Appointments None recorded. Lab None recorded. Referral None recorded. Procedures None recorded. Surgeries None recorded. Imaging None recorded. Medication Orders ketorolac 30 mg/mL injection solution 2024 025 pallfather [id number], [address] [facility], [place], [address], 16:36:41 Patient TargetsNo targets recorded. Patient InstructionsNo instructions recorded. Reason for Referral None Reported. Medical Equipment None Reported. Allergies Allergen ID Allergen Name Allergen Category Reaction Reaction Severity Criticality Documentation Date Start Date Code Code System Note Provider Name and Address Organization Details Recorded Time 1132 vancomyci n medicatio n Not available Not available Not available 11/22/2021 98918 RxNorm Not Available [facility] - production 4 [...] Available No t Available Vitals Date Recorded Body temperature Respiratory rate Oxygen saturation Oxygen saturation in Arterial blood by Pulse oximetry Body weight Heart rate Body height Systolic blood pressure Diastolic blood pressure Provider Name and Address Organization Details Last Updated DateTime 98 [degF] 14 /min 98 % 98 % 79751.4 g 80 /min 157.48 cm 145 mm[Hg] 80 mm[Hg] Not Available [facility] - production 15:15:23 Social History None recorded. Functional Status None recorded. Mental Status None recorded. Family History Nothing Reported. Medical History No medical history recorded. Past Encounters Encounter ID Performer Location Encounter Start Date Encounter Closed Date Diagnosis/Indication Diagnosis SNOMED-CT Code Diagnosis ICD10 Code Diagnosis Note [id number] Robbie Sarabia MD [facility] [address] [place] [phone] 06/06/2024 15:09:44 06/06/2024 17:05:32 Chronic low back pain 552201924 M54.50 G89.29 Health Concerns Section Related Observation LastModified by Organization Detai ls LastModified Time None Recorded Concern Status LastModified by Organization Details LastModified Time None Recorded Payers Encounter Date Sequence Insurance Name Policy Number Policy Doty Covered Member ID Doty Member ID Guarantor Name 06/06/2024 1 [facility] - DOS ON OR AFTER 2022 - DUAL ELIGIBLE - [employer] OPTIONS AND ONE CARE (MEDICARE REPLACEMENT/ADV ANTAGE - HMO) Jose Fleming [id number] Jose Fleming Notes Date Note Type Note Provider Name and Address Organization Details Recorded Time 06/06/2024 text/html HPI: Additional PMH: Pressure Ulcers, Spasms, Spina BifidaWriter verified the patient's name//address and phone number. Pt c/o back pain radiating down his legs. Pt reportedly had a fall out of his manual wheelchair and fell onto the floor over the weekend. Pt was evaluated in ER over the weekend with no acute injuries found at time of evaluation. Pt reporting pain is in his lower back radiating down L leg. Pt is incontinent of urine and bowel at baseline. Pt is reporting diarrhea and blood in the stool which is new for him. Pt reports he has no feeling in legs at baseline other then nerve pain and pt reports nerve pain is worse then his normal. Education provided on the response time and the patient was advised to monitor reported s/s and seek emergency treatment if needed -Adria Grey RN ................... ................... ................... ................... ................... ................... ................... ........ [facility] Nurse Triage Notes (Isaiah Grey): Reason For Request: Patient has a fall over weekend, was in er. now the pain is worse. Back to leg pain. Denies: Falls with head strike and LOC Falls from a standing position, no LOC, patient is amnestic to the event Falls with isolated injury and deformity noted to limb Falls with inability to move post fall Cool extremities after fall or injury Chief Complaints: Falls, Back Pain PMH: Para or Quadriplegia, Post-Traumatic Stress Disorder (PTSD), Cirrhosis PMH Reviewed at 06/06/2024 - 13:12 Allergies Reviewed at 06/06/2024 - 13:12 ................... ................... ................... ................... ................... ................... ................... ........ Compliance Review Specialist Note From Rian Hugo: Patient alert and oriented complains of lower left back pain, acute on chronic worse after he fell several days ago. Patient reports going to ED with negative x-rays. Patient reports some relief of back pain with ibuprofen today. Patient denies kidney or bleeding problems. Patient pink warm dry secondary exam unremarkable. Negative increased work of breathing positive full sentences abdomen soft nontender extremities unremarkable. [facility] orders Toradol 15 mg IM now, hold further ibuprofen today restart tomorrow. Patient and caregiver demonstrate understanding of care and plan. Medication administered as ordered without complication using five rights. Red flags, patient education discussed. ................... ................... ................... ................... ................... ................... ................... ........ [facility] Consulted: Robbie Sarabia ................... ................... ................... ................... ................... ................... ................... ........ Disposition: Fulfilled Robbie Sarabia MD [address] [facility],[address], [place], [phone], [facility] 06/06/2024 16:37:35
--- OUTSIDE RECORDS SUMMARY | 2024-06-08 18:31 | XMS_ITS | Data Portability ---
Author Organization [facility] - [facility] Address [address] [place] [address] Care Team Providers Care Paper Rewinder Name Role Phone [facility] Referring Provider [facility] OTHER Assessment Encounter Date Assessment Date Assessment LastModified by Organization Details LastModified Time 11/22/2021 11/22/2021 I have reviewed and agree with the Assessment and Plan as documented by the Instructor Ballroom Dancing. I provided real -time medical direction via phone for this encounter, and was available for additional phone based assistance as needed. Patient given the opportunity to ask questions. Not available 11/22/2021 11:36:10 12/22/2021 12/22/2021 Leg ulcer [email or web address] Not available 08/2021 18:32:07 06/29/2022 06/29/2022 Mr. [...] comment on pain. Area is worsening. VSS. Instructor Ballroom Dancing on site uploads pictures of a two small areas of what appears to be a deep wound of the right august with surrounding erythema and edema, purulent drainage on more inferior wound appreciated on gauze. Recommended ED visit for urgent imaging and evaluation as patient is insensate and can not comment on severity of pain. He is agreeable and nurses superintendent will help arrange transport [email or web address] Not available 06/29/2022 14:47:58 06/06/2024 06/06/2024 I have reviewed and agree with the assessment and plan as documented by the nurses superintendent. I provided real-time medical direction for this encounter and was immediately available to provide additional phone-based assistance as needed. History as noted in EMR and by nurses superintendent. I would add / emphasize: Patient seen for acute on chronic back pain after a fall out of his wheelchair. Was evaluated in the emergency department with reportedly negative imaging and reports increasing acute on chronic pain. 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 Not anticoagulated. AVSS and otherwise well-appearing. Having some relief from ibuprofen and requesting pain management. Will administer low-dose ketorolac and advised patient to avoid NSAIDs. Recommend close follow-up with PCP and reviewed red flags that should prompt further evaluation. pallfather Not available 06/06/2024 16:37:28 Plan of Treatment Reminders Order Date Submit Date Provider Last Modified By Organization Details Last Modified Time Details Appointments None recorded. Lab urinalysi s, dipstick 2021 [id number] [facility], [address] [place] [address], [phone] 11:39:03 culture, urine + sensitivi ty - cath spec 2021 ANNY [facility] (Centralized Electronic Ordering - All Locations), Patient Can Go To The Location Of Their Choice, [facility] 16:46:22 rapid SARS CoV 2 Ag, QL IA, respirato ry specimen 2021 [id number] [facility], [address] [place] [address], [id number] 11:45:24 Referral None recorded. Procedures None recorded. Surgeries None recorded. Imaging None recorded. Medication Orders ketorolac 30 mg/mL injection solution 2024 025 pallfather [id number], [address] [place], [address], 16:36:41 Bactrim DS 800 mg-[address] [id number], [address] [place], [address], 11:45:11 Bactrim DS 800 mg-160 [address] tablet [address] [id number], [address] [facility], [place], [address], 11:45:09 Patient TargetsNo targets recorded. Patient InstructionsNo [...] Go To The Location Of Their Choice, 11/22/2022 14:07:00 11/23/19 22 11/22/2021 UA W/REF MAHENDRA CULTU RE urine bilirubin NEGATI VE (neg) Not Available [facility] (Centralized Electronic Ordering - All Locations) Patient Can Go To The Location Of Their Choice, [facility] 11/22/2021 14:07:00 11/23/19 22 11/22/2021 UA W/REF MAHENDRA CULTU RE urine hemoglobin NEGATI VE (neg) Not Available [facility] (Centralized Electronic Ordering - All Locations) Patient Can Go To The Location Of Their Choice, [id number] 11/22/2021 14:07:00 11/23/1911/22/2021 UA W/REF MAHENDRA CULTU RE urine nitrite NEGATI VE (neg) Not Available [facility] (Centralized Electronic Ordering - All Locations) Patient Can Go To The Location Of Their Choice, [id number] 11/22/2021 14:07:00 11/23/1911/22/2021 UA W/REF MAHENDRA CULTU RE urine leukocyte 3+ (neg) abnormal Not Available [facility] (Centralized Electronic Ordering - All Locations) Patient Can Go To The Location Of Their Choice, [id number] 11/22/2021 14:07:00 11/23/1911/22/2021 UA W/REF MAHENDRA CULTU RE urobilinogen NORMAL mg/dL (norm) Not Available [facility] (Centralized Electronic Ordering - All Locations) Patient Can Go To The Location Of Their Choice, [id number] 11/22/2021 14:07:00 11/23/1911/22/2021 UA W/REF MAHENDRA CULTU RE urine WBCs 81 /hpf (0-5) high Not Available [facility] (Centralized Electronic Ordering - All Locations) Patient Can Go To The Location Of Their Choice, [id number] 11/22/2021 14:07:00 11/23/1911/22/2021 UA W/REF MAHENDRA CULTU RE urine RBCs 2 /hpf (0-3) Not Available [facility] (Centralized Electronic Ordering - All Locations) Patient Can Go To The Location Of Their Choice, [id number] 11/22/2021 14:07:00 11/23/1911/22/2021 UA W/REF MAHENDRA CULTU [...] RE special requests NONE Reflex ed from [id number] Not Available [facility] (Centralized Electronic Ordering [...] Choice, 11/24/2021 10:05:36 11/23/1911/24/2021 URINE CULTU RE organism ORGAN ISM >100, [...] The Location Of Their Choice, 11/24/2021 10:05:36 10/08/20 22 11/24/2021 URINE CULTU RE levofloxacin LEVOFL [...] Choice, 11/24/2021 10:05:36 11/23/1911/24/2021 URINE CULTU RE tetracycline TETRAC YCLINE SUSCEP TIBLE susceptib le Not Available [facility] (Centralized Electronic Ordering - All Locations) Patient Can Go To The Location Of Their Choice, 11/24/2021 10:05:36 11/23/1911/22/2021 rapid SARS CoV 2 Ag, QL IA, respi rator y speci men rapid SARS CoV 2 Ag, QL IA, respiratory specimen negati ve Not Available Main - [facility] ed [address] [place] [address], [phone] 11/22/2021 11:42:23 11/23/19 22 11/22/2021 urina lysis , dipst ick Leukocytes 3+ Not Available Main - [address], [phone] 11/22/2021 11:36:21 11/23/19 22 11/22/2021 urina lysis , dipst ick Nitrite negati ve Not Available Main - [facility] ed [address] [place] [address], [phone] 11/22/2021 11:36:21 11/23/19 22 11/22/2021 urina lysis , dipst ick Protein trace + Not Available Main - [facility] ed [address] [place] [address], [address] [place] [address] 11/22/2021 11:36:21 11/23/19 22 11/22/2021 urina lysis , dipst ick pH 7.5 Not Available Main - [facility] [address], [address] [place] [address] 11/22/2021 11:36:21 11/23/19 22 11/22/2021 urina lysis , dipst ick Blood neg Not Available Main - [facility] [address], [phone] 11/22/2021 11:36:21 11/23/19 22 11/22/2021 urina lysis , dipst ick Specific Advance 1.010 Not Available Main - [facility] [address] [place] [address], [phone] 11/22/2021 11:36:21 11/23/19 22 11/22/2021 urina lysis , dipst ick Ketone neg Not Available Main - [facility] [address], [phone] 11/22/2021 11:36:21 11/23/19 22 11/22/2021 urina lysis , dipst ick Appearance sl cloudy Not Available Main - [facility] [address] [place] [address], [phone] 11/22/2021 11:36:21 11/23/19 22 11/22/2021 urina lysis , dipst ick Color orange Not Available Main - [facility] [address], [address] 11/22/2021 11:36:21 Result Notes None recorded. Medical Equipment None Reported. Allergies Allergen ID Allergen Name Allergen Category Reaction Reaction Severity Criticality Documentation Date Start Date Code Code System Note Provider Name and Address Organization Details Recorded Time 1135 vancomyci n medicatio n Not available Not available Not available 11/22/2021 86500 RxNorm Not Available [facility] - production 4 [...] Available No t Available Vitals Date Recorded Respiratory rate Oxygen saturation Oxygen saturation in Arterial blood by Pulse oximetry Body temperature Heart rate Systolic blood pressure Diastolic blood pressure Provider Name and Address Organization Details Last Updated DateTime 4 16 /min 94 % 94 % 98.1 [degF] 88 /min 149 mm[Hg] 92 mm[Hg] Not Available [facility] 15:45:45 Date Recorded Body temperature Respiratory rate Oxygen saturation Oxygen saturation in Arterial blood by Pulse oximetry Body weight Heart rate Body height Systolic blood pressure Diastolic blood pressure Provider Name and Address Organization Details Last Updated DateTime 5 98 [degF] 14 /min 98 % 98 % 73854.4 g 80 /min 157.48 cm 145 mm[Hg] 80 mm[Hg] Not Available [facility] 15:15:23 Date Recorded Heart rate Oxygen saturation Oxygen [...] mm[Hg] 136 mm[Hg] 87 mm[Hg] Not Available [facility] 2 11:53:45 Date Recorded Respiratory rate Body temperature Heart rate Oxygen saturation Oxygen saturation in Arterial blood by Pulse oximetry Systolic blood pressure Diastolic blood pressure Provider Name and Address Organization Details Last Updated DateTime 2 18 /min 97.9 [degF] 72 /min 97 % 97 % 164 mm[Hg] 96 mm[Hg] Not Available [facility] 18:28:02 Date Recorded Respiratory rate Body [...] Details Last Updated DateTime 3 14 /min 210961. 6 g 97.9 [degF] 84 /min 90 % 90 % 14 /min 241541. 6 g 97.9 [degF] 84 /min 90 % 90 % 14 /min 97.9 [degF] 84 /min 90 % 90 % 441865. 6 g 107 mm[Hg] 67 mm[Hg] 107 [...] 374 Justin Hill MD Main - [facility] [address] [place] [phone] 04/22/2021 15:44:46 12/01/2021 12:58:48 1516 Chace Trejo MD Main - [facility] [address] [place] [phone] 06/26/2021 20:09:15 10/13/2021 15:37:12 1517 Chace Trejo MD Main - [facility] [address] [place] [phone] 06/26/2021 20:10:37 06/26/2021 20:16:34 [id number] Juan Aguayo MD Main - [facility] [address] [place] [phone] 08/15/2021 17:02:13 11/06/2021 12:11:43 Abscess 284826591 L02.91 Per nurses superintendent, area on the back is indurated with some purulence expressed earlier in the day by the VNA, concerning for an abscess. Will rx Bactrim and encourage wound-chec k in the office in the next week to see if this needs incision and drainage. Carmita (VNA) joined in call with nurses superintendent, in agreement with plan. 2807 Cristi Friedman MD Main - [facility] [address] [place] [phone] 09/03/2021 13:01:35 11/10/2021 12:13:49 Pain in right lower limb 435975820 M79.604 No s/s of infection. No indication for Abx at this time 4495 Elenita Greco MD Main - [facility] [address] [place] [phone] 11/22/2021 11:30:48 11/25/2021 13:58:39 Acute urinary tract infection 276003229 N39.0 due to paraplegia / self cath and Left CVAT/ + leuk on UA elected to treat w/ atb-has had bactrim prior- advised will call if UC reveals need to stop or change antibiotic Exposure t o SARS-CoV-2 419076100 Z20.822 no symptoms- aware if develops s/s to re test 5161 Chace Trejo MD Main - [facility] [address] [place] [phone] 12/22/2021 18:27:57 12/23/2021 13:45:57 Ulcer of lower extremity 37256057 L97.909 This 36-year-ol d male has a 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 He called because of a concern it might be infected, but the lesion appears very chronic. I recommende d that his normal dressing be applied. His visiting nurse will redress the ulcer tomorrow. The patient agreed with this plan. [id number] Zuleyka Deshpande MD Main - [facility] [address] [place] [phone] 06/29/2022 14:15:49 06/30/2022 10:21:45 Open wound of lower leg 209597470 S81.801A 83215 Justin Stevens MD Main - [facility] [address] [place] [phone] 02/01/2024 15:45:38 02/01/2024 22:18:49 Acute angle-closure glaucoma of right eye 3343480232 45418 H40.211 As noted, we were called to see this patient regarding concerns of painful red eye. Evaluation in the field was performed by my nurses superintendent colleague, as noted above, I provided real-time [...] for stat opthalmolo gy consult. Primary care, kishore johnson in call this week. Dispositio n:We discussed the situation and I recommende d referral to the emergency department . This was based on concern for a sight-thre atening condition. [id number] Robbie Sarabia MD Main - [address] [phone] 06/06/2024 15:09:44 06/06/2024 17:05:32 Chronic low back pain 341689387 M54.50 G89.29 Health Concerns Section Related Observation LastModified by Organization Detai ls LastModified Time None Recorded Concern Status LastModified by Organization Details LastModified Time None Recorded Advance Directives Directive None Recorded Payers Encounter Date Sequence Insurance Name Policy Number Policy Doty Covered Member ID Doty Member ID Guarantor Name 11/22/2021 1 [facility] [employer] - DOS PRIOR TO 2022 - DUAL ELIGIBLE (MEDICARE REPLACEMENT/ADV ANTAGE - HMO) Jose Fleming [id number] Jose Fleming 12/22/2021 1 [facility] - DOS PRIOR TO 2022 - DUAL ELIGIBLE (MEDICARE REPLACEMENT/ADV ANTAGE - HMO) Jose Fleming [id number] Jose Fleming 06/29/2022 1 [facility] [employer] - DOS PRIOR TO 2022 - DUAL ELIGIBLE (MEDICARE REPLACEMENT/ADV ANTAGE - HMO) Jose Fleming [id number] Jose Fleming 02/01/2024 1 [employer] - DOS ON OR AFTER 2022 - DUAL ELIGIBLE - ASSISTED OPTIONS AND ONE CARE (MEDICARE REPLACEMENT/ADV ANTAGE - HMO) Jose Fleming [id number] Jose Fleming 06/06/2024 1 [facility] [employer] - DOS ON OR AFTER 2022 - DUAL ELIGIBLE - ASSISTED OPTIONS AND ONE CARE (MEDICARE REPLACEMENT/ADV ANTAGE - HMO) Jose Fleming [id number] Jose Fleming Notes Date Note Type Note Provider Name and Address Organization Details Recorded Time 11/22/2021 text/html HPI: Allergies vancomycin ................... ................... [...] ................... ................... ................... ................... ................... ................... ................ Instructor Ballroom Dancing Note: C/o urinary frequency x two weeks, left flank tenderness. Urine dip strongly positive for SHERIDAN. Culture sent to [facility]. Covid rapid test negative. Bactrim 800/160 given. ................... ................... ................... ................... ................... ................... ................... ........ Disposition: Fulfilled Elenita Greco MD [address] [place] [address],[address] [facility], [place], [address], [facility] 11/22/2021 13:07:30 12/22/2021 text/html HPI: VNA reports odorous green discharge from left ankle wound, no wound care done over the weekend ................... ................... ................... ................... ................... ................... ................... ........ CRC Nursing Assessment: Comments: CRC RN did not require any additional information to process this visit. Chace Trejo MD [address] [place] [address],[address] [facility], [place], [phone], [facility] 12/22/2021 18:36:15 06/29/2022 text/html HPI: HX: Polysubstnce abuse, psychotic depression, obesity, chronic lower leg edema and wounds. Notified by [facility] to follow with patient in regards to apparent wound infections. ................... ................... ................... ................... ................... ................... ................... ........ CRC Nursing Assessment: Comments: CRC RN did not require any additional information to process this visit. ................... ................... ................... ................... ................... ................... ................... ........ Instructor Ballroom Dancing Note From Tony Lucero: Pt reports chronic [...] infection is strongly suspected. VS stable and [facility] contacted with photos of wounds uploaded to portal for [facility] consult. [facility] strongly feels pt should be seen at ED for X - ray of right august to rule out possible fx. Pt agrees to transport and 911 was activated. Pt moved to [facility] on their arrival and pt care transferred at that time without incident Instructor Ballroom Dancing Allergies: Vancomycin ................... ................... ................... ................... ................... ................... ................... ........ Disposition: Ute Zuleyka Deshpande MD [address] [facility] [address], [place], [address], [employer] 06/29/2022 15:36:09 02/01/2024 text/html CRC Nurse Triage [...] Complaints: Headache PMH: Para or Quadriplegia Comments: Weeder Thinner verified the Pt.'s name//address and phone number. [...] ................... ................... ................... ................... ................... ................... ........ Instructor Ballroom Dancing Note From Burton Kent: This 38-year-old male [...] and the patient states he only sees one.[facility] contacted and recommends emergency department evaluation which the patient is agreeable to. 911 initiated for ambulance transport to [facility] emergency department. A verbal SBAR was given to Yusra MARIE. The patient was given the opportunity to ask questions. ................... ................... ................... ................... ................... ................... ................... ........ [facility] Consulted: Lionel Stevens ................... ................... ................... ................... ................... ................... ................... ........ Disposition: Ute Justin Stevens MD [address], [place], [address], [facility] 02/01/2024 21:51:46 06/06/2024 text/html HPI: Additional PMH: Pressure Ulcers, [...] Stress Disorder (PTSD), Cirrhosis PMH Reviewed at 06/06/2024:12 Allergies Reviewed at 06/06/2024 - :12 ................... ................... ................... ................... ................... ................... ................... ........ Instructor Ballroom Dancing Note From Rian Hugo: Patient alert and [...] sentences abdomen soft nontender extremities unremarkable. [facility] orders Toradol 15 mg IM now, hold further ibuprofen today restart tomorrow. Patient and caregiver demonstrate understanding of care and plan. Medication administered as ordered without complication using five rights. Red flags, patient education discussed. ................... ................... ................... ................... ................... ................... ................... ........ [facility] Consulted: Robbie Sarabia ................... ................... ................... ................... ................... ................... ................... ........ Disposition: Fulfilled Robbie Sarabia MD [address], [place], [address], [facility] KEI BRANDON 06/06/2024 16:37:35
--- OUTSIDE RECORDS SUMMARY | 2024-06-08 18:31 | XMS_ITS | Encounter Summary ---
Author Organization [employer] Address [address] [facility] [address]t [place] [address] Care Team Providers Care Side Door Man Name Role Phone Antony Jenkins MD Primary Care Provide r Zachery Carvajal Unavailable Unavailable Reason for Visit * Reason Onset Date Comments Durable Medical Equipment 09/01/2023 Encounter Details Date Type Department Care Team ([facility] st Contact Info) Description 09/01/2023 Telephone [facility] MEDICINE [address] [place], [place] [phone] Antony Jenkins MD [address] [place] [address] Durable Medical Equipment Social History Tobacco Use [...] 9:36 AM EDT Tc from Jennifer with [facility] requesting DME supplies . [facility] requesting on 08/05/23 but has not received any status. Toilet seat riser Slip resistant mat Please email to: [email or web address] documented in this encounter Plan of Treatment Upcoming Encounters Date Type Department Care Team (Late st Contact Info) Description 06/27/2024 3:00 PM EDT Office Visit [facility] MEDICINE [address] [place] [phone] Antony Jenkins MD [address] [place] [address] 06/30/2024 1:30 PM EDT Office Visit [facility] ADULT DENTAL [address] [place] [address] Juaquin Rivers DDS [address] [place] [address] 08/29/2024 11:30 AM EDT Office Visit [facility] MEDICINE [address] [place] [phone] Antony Jenkins MD [address] [place] [address] documented as of this encounter Visit Diagnoses Not on filedocumented in this encounter Additional Health Concerns Assessment Noted Time PHQ-9 Depression Total Score: 10 024 3:18 PM EDT documented as of this encounter Care Teams Side Door Man Relationship Specialty Start Date End Date Antony Jenkins MD [address] [place] [phone] PCP - General Internal Medicine 10/19/13 Zachery Carvajal FNP [address] [place] [address] Nurse Practitioner Family Medicine 01/06/23 [facility] 01/30/20 documented as of this encounter
--- OUTSIDE RECORDS SUMMARY | 2024-06-08 18:31 | XMS_ITS | Encounter Summary ---
Author Organization [employer] Address [address] [facility] [address] [place] [address] Care Team Providers Care Mechanical Fitter Name Role Phone Antony Jenkins MD Primary Care Provide r Zachery Carvajal Unavailable Unavailable Reason for Visit * Reason Onset Date Comments Hospital Follow-up 02/21/2024 Encounter Details Date Type Department Care Team ([facility] st Contact Info) Description 02/21/2024 Telephone [facility]INE [address] [place], [place] [phone] Antony Jenkins MD [address] [place] [address] Hospital Follow-up Social History Tobacco Use Types [...] from pt requesting a HDF appt. Hospital: [facility] Date of admission: 02/01/24 Discharge date: 02/04/24 Diagnosed: Back Pain and Right eye conjunctivitis *Send message to [place] Clinical Care Coordinators Please contact pt at [phone]. documented in this encounter Plan of Treatment Upcoming Encounters Date Type Department Care Team (Late st Contact Info) Description 06/27/2024 3:00 PM EDT Office Visit [facility] [address] [place] [phone] Antony Jenkins MD [address] [place] [address] 06/30/2024 1:30 PM EDT Office Visit [facility] ADULT DENTAL [address] [place] [address] Juaquin Rivers DDS [address] [place] [address] 08/29/2024 11:30 AM EDT Office Visit [facility] [address] [place] [phone] Antony Jenkins MD [address] [place] [address] documented as of this encounter Visit Diagnoses Not on filedocumented in this encounter Additional Health Concerns Assessment Noted Time PHQ-9 Depression Total Score: 19 024 11:27 AM EDT documented as of this encounter Care Teams Mechanical Fitter Relationship Specialty Start Date End Date Antony Jenkins MD [address] [place] [address] PCP - General Internal Medicine 10/19/13 Zachery Carvajal FNP [address] [place] [phone] Nurse Practitioner Family Medicine 01/06/23 [facility] 01/30/20 documented as of this encounter
--- OUTSIDE RECORDS SUMMARY | 2024-06-08 18:31 | XMS_ITS | Encounter Summary ---
Author Organization [employer] Address [address] [facility] 7t [place] [address] Care Team Providers Care Transformation Specialist Name Role Phone Antony Jenkins MD Primary Care Provide r Zachery Carvajal Unavailable Unavailable Reason for Visit * Reason Onset Date Comments Durable Medical Equipment 06/08/2024 Encounter Details Date Type Department Care Team ([facility] st Contact Info) Description 06/08/2024 Telephone [facility] MEDICINE [address] [place], [place] [phone] Antony Jenkins MD [address] [place] [address] Durable Medical Equipment Social History Tobacco Use [...] encounter Miscellaneous Notes * Telephone Encounter - Bridgett Mathis RN - 06/08/2024 4:10 PM EDT Per PCP request, generated white script for bariatric low air loss mattress and placed on PCP's desk for signature. Provided update to pt and care nurse rn Tricia Fleming on status of neurology and would care referrals, provided phone numbers to call to schedule appts. documented in this encounter Plan of Treatment Upcoming Encounters Date Type Department Care Team (Late st Contact Info) Description 06/27/2024 3:00 PM EDT Office Visit [facility] MEDICINE [address] [place] [phone] Antony Jenkins MD [address] [place] [address] 06/30/2024 1:30 PM EDT Office Visit [facility] ADULT DENTAL [address] [place] [address] Juaquin Rivers DDS [address] [place] [address] 08/29/2024 11:30 AM EDT Office Visit [facility] MEDICINE [address] [place] [phone] Antony Jenkins MD [address] [place] [address] documented as of this encounter Visit Diagnoses Not on filedocumented in this encounter Additional Health Concerns Assessment Noted Time PHQ-9 Depression Total Score: 19 024 11:27 AM EDT documented as of this encounter Care Teams Transformation Specialist Relationship Specialty Start Date End Date Antony Jenkins MD [address] [place] [address] PCP - General Internal Medicine 10/19/13 Zachery Carvajal FNP [address] [place] [address] Nurse Practitioner Family Medicine 01/06/23 [facility] 01/30/20 documented as of this encounter
--- OUTSIDE RECORDS SUMMARY | 2024-06-08 18:31 | XMS_ITS | Clinical Summary ---
Author Organization [facility] Address [address] [place] [address] Care Team Providers Care Exchange Administrator Name Role Phone Unavailable Primary Care Provider [...] for surgery until pt can f w international trade manager -referred today to international trade manager -alarm signs and symptoms discussed w pt [...] referred for counseling. Will also F/U with [facility] clinician. Since this provider will be retiring, patient will be referred to new [facility] psychiatric provider. Pt is aware that appts will be via televisit and that provider will not be [facility] employee. He gives permission to share PHI. Any issues or concerns, contact [facility]. All his questions were answered and I [...] disorder, r ecurrent, severe with psychotic features ([facility]) 01/29/2022 Overview (11/04/2023): Last Assessment & [...] will call back and provider number to NH managing his medication. Able to mobilize using mobility aids 01/17/2022 Subluxation of right hip ([facility]) 01/17/2022 Cirrhosis of liver ([facility]) 05/10/2019 Overview (11/04/2023): Last Assessment & Plan: Under the care of GI, last seen 04/08/2023 Last US 12/2022 showed: Hepatomegaly. increase in hepatic echotexture and surface nodularity, consistent with the provided history of cirrhosis. No focal hepatic mass or hepatomegaly ductal dilatation is seen. gallbladder surgically absent. Severe obesity ([facility]) 12/14/2017 Overview (11/04/2023): Last Assessment & [...] good results Neurogenic bowel 10/12/2011 Polysubstance dependence ([facility]) 10/12/2011 Overview (11/04/2023): Last Assessment & [...] care by [facility] Will refer back to [facility] Wound care center Paraplegia ([facility]) 07/15/2011 Overview (11/04/2023): Last Assessment & Plan: Patient is here for a f/u Pt evaluated in the past at [facility] to help him with his right leg spasticity. For this he has been seen in the past at [facility]. pt has been previously on Tizanidine 6 [...] series) 04/13/2018 03/16/2018 Lipid Screening 05/06/2022 05/06/2021 [id number] ( season) 2023 021, 10/31/2020 Imm-Influenza (#1) 2023 11/10/2018, 1 , 11/20/2014, Additional history exists Alcohol and Drug Screen 02/16/2024 Diabetes Screening 06/08/2024 06/09/2023 Imm-DTaP/Tdap/Td (2 - Td or Tdap) 11/20/2024 015, 12/28/2003 HIV Screening Completed 05/06/2021, 05/06/2021 Insurance [place] MED[place] [facility] Member Subscriber Plan / Payer (Ef fective 2016-Present) Name:Jose Fleming Relation to Subscriber:Self Name:Jose Fleming Payer ID:[id number] Group ID:Not on file Type:Brianna Address: [facility] [address] [id number]
--- OUTSIDE RECORDS SUMMARY | 2024-06-08 18:31 | XMS_ITS | Encounter Summary ---
Author Organization [employer] Address [address] [facility] 7t [place] [address] Care Team Providers Care Adolescent Counselor Name Role Phone Antony Jenkins MD Primary Care Provide r Zachery Carvajal Unavailable Unavailable Reason for Visit * Reason Onset Date Comments Referral 05/31/2024 Encounter Details Date Type Department Care Team ([facility] st Contact Info) Description 05/31/2024 Telephone [facility] MEDICINE [address] [place], [place] [phone] Antony Jenkins MD [address] [place] [address] Referral Social History Tobacco Use Types Packs/Day [...] encounter Miscellaneous Notes * Telephone Encounter - Janie Garibay RN - 05/31/2024 1:16 PM EDT Call returned to Jose Fleming to follow up on below. Per pt having chronic back pain and leg spasms. Per it has been a long time since had any follow up with Neurology. Per pt last provider was in [facility] in [place]. Per pt continues to have spacticity and numbness of bilateral arms and legs. Pt states would just like to reestablish care. Denies any sever BUCIO, dizziness, SOB or new symptoms. Pt advised will send to PCP to review request and advise primary care team nurse of plan of care with regards to referral. Has appt tomorrow , pt states was not aware. Will coordinate with transportation now. Pt advised to discuss with provider at upcoming appt. Future Appointments Date Time Provider Department Center 06/01/2024 3:00 PM Antony Fleming MD MEDICINE [facility] 06/30/2024 1:30 PM Juaquin Rivers DDS AD[facility] Protocol Used: Information Only Call - No Triage (Adult) Protocol-Based Disposition: Discuss with PCP and Callback by Nurse Today Video visit offer not recorded Positive Triage Question: * Requesting referral to a specialist * All higher-acuity triage questions were negative Care Advice Discussed: * Reasons To Call Back - New symptoms develop - You have more questions - You become worse * Telephone Encounter - Ramirez Mancuso - 05/31/2024 11:23 AM EDT Tc from pt mom requesting a referral to a Neurologist Due to pt being in pain. Contact pt at [phone] If not able to reach contact pt mom at [phone] documented in this encounter Plan of Treatment Upcoming Encounters Date Type Department Care Team (Late st Contact Info) Description 06/27/2024 3:00 PM EDT Office Visit [facility] MEDICINE [address] [place] [address] Antony Jenkins MD [address] [place] [address] 06/30/2024 1:30 PM EDT Office Visit [facility] ADULT DENTAL [address] [place] [address] Juaquin Rivers DDS [address] [place] [address] 08/29/2024 11:30 AM EDT Office Visit [facility] MEDICINE [address] [place] [address] Antony Jenkins MD [address] [place] [address] documented as of this encounter Visit Diagnoses Not on filedocumented in this encounter Additional Health Concerns Assessment Noted Time PHQ-9 Depression Total Score: 19 024 11:27 AM EDT documented as of this encounter Care Teams Adolescent Counselor Relationship Specialty Start Date End Date Antony Jenkins MD [address] [place] [address] PCP - General Internal Medicine 10/19/13 Zachery Carvajal FNP [address] [place] [address] Nurse Practitioner Family Medicine 01/06/23 [facility] 01/30/20 documented as of this encounter
--- OUTSIDE RECORDS SUMMARY | 2024-06-08 18:31 | XMS_ITS | Encounter Summary ---
Author Organization [employer] Address [address] [facility] [address] 7[address] [place] [address] Care Team Providers Care Barrel Stave Inspector Name Role Phone Antony Jenkins MD Primary Care Provide r Zachery Carvajal Unavailable Unavailable Encounter Details Date Type Department Care Team (Latest Contact Info) Description 06/08/2024 Travel Social History Tobacco Use Types Packs/Day Years [...] Description 06/27/2024 3:00 PM EDT Office Visit [facility] MEDICINE [address] [place] [address] Antony Jenkins MD [address] [place] [address] 06/30/2024 1:30 PM EDT Office Visit [facility] ADULT DENTAL [address] [place] [address] Juaquin Rivers DDS [address] [place] [address] 08/29/2024 11:30 AM EDT Office Visit [facility] MEDICINE [address] [place] [address] Antony Jenkins MD [address] [place] [address] documented as of this encounter Visit Diagnoses Not on filedocumented in this encounter Additional Health Concerns Assessment Noted Time PHQ-9 Depression Total Score: 19 024 11:27 AM EDT documented as of this encounter Care Teams Barrel Stave Inspector Relationship Specialty Start Date End Date Antony Jenkins MD [address] [place] [address] PCP - General Internal Medicine 10/19/13 Zachery Carvajal FNP [address] [place] [address] Nurse Practitioner Family Medicine 01/06/23 [facility] 01/30/20 documented as of this encounter
--- OUTSIDE RECORDS SUMMARY | 2024-06-08 18:31 | XMS_ITS | Encounter Summary ---
Author Organization [employer] Address [address] [facility] 7t [place] [address] Care Team Providers Care Remotely Piloted Vehicle Controller Name Role Phone Antony Jenkins MD Primary Care Provide r Zachery Cavrajal Unavailable Unavailable Reason for Visit * Reason Onset Date Comments Chart Prep 06/08/2024 Encounter Details Date Type Department Care Team ([facility] st Contact Info) Description 06/08/2024 Telephone [facility] MEDICINE [address] [place] [address] Antony Jenkins MD [address] [place] [address] Chart Prep Social History Tobacco Use Types [...] Telephone Encounter - Jenise Johnson MA - 06/08/2024 2:35 PM EDT Chart Prep Labs: not applicable Images: not applicable Vaccines due: Covid Due, Hep A Due, Hep B Due, and PCV20 Due Referrals: Neurology Pending appointment on n/a and Wound Care Pending appointment on n/a Screenings: Not Applicable Overdue care gaps: SDOH and Disability Chart prep for upcoming appt with Dr.Esparza smith. LB documented in this encounter Plan of Treatment Upcoming Encounters Date Type Department Care Team (Late st Contact Info) Description 06/27/2024 3:00 PM EDT Office Visit [facility] MEDICINE [address] [place] [phone] Antony Jenkins MD [address] [place] [address] 06/30/2024 1:30 PM EDT Office Visit [facility] ADULT DENTAL [address] [place] [address] Juaquin Rivers DDS [address] [place] [address] 08/29/2024 11:30 AM EDT Office Visit [facility] MEDICINE [address] [place] [address] Antony Jenkins MD [address] [place] [address] documented as of this encounter Visit Diagnoses Not on filedocumented in this encounter Additional Health Concerns Assessment Noted Time PHQ-9 Depression Total Score: 19 024 11:27 AM EDT documented as of this encounter Care Teams Remotely Piloted Vehicle Controller Relationship Specialty Start Date End Date [place] [address] PCP - General Internal Medicine 10/19/13 Zachery Carvajal FNP [address] [place] [address] Nurse Practitioner Family Medicine 01/06/23 [facility] 01/30/20 documented as of this encounter
== END 2024-06-08 16:05 | disposition home or self-care (01) ==
LOC: HO.HHCLNP 16:04
PROVIDERS: Visit Provider Internal Medicine
DX: Z13.89 Encounter for screening for other disorder (principal)
CPT/HCPCS: 80307

== ENCOUNTER 2024-06-08 18:04 | Emergency (ER) | payer OTHER, SELFPAY ==
[2024-06-08] VITALS (14 sets, daily range): BP systolic 99–170; BP diastolic 60–100; PULSE 70–120; RESP 12–22; TEMP 36.5–36.8; O2SAT 92–96; BMI 35.6; BMI 38.8
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
--- NOTE | 2024-06-08 18:43 | ECG_ITS ---
Test Reason : OVERDOSE Blood Pressure : */* mmHG Vent. Rate : 91 BPM Atrial Rate : 91 BPM P-R Int : 130 ms QRS Dur : 104 ms QT Int : 384 ms P-R-T Axes : -24 -28 12 degrees QTcB Int : 472 ms Normal sinus rhythm Incomplete right bundle branch block Borderline ECG When compared with ECG of 27-Mar-2024 23:36, Incomplete right bundle branch block is now Present Referred By: Patt Angel Electronically Signed By: CONSTANTINO CRYSTAL
--- NOTE | 2024-06-08 18:53 | ED_ITS ---
HPI - Overdose General Chief Complaint: Overdose Stated Complaint: ams, ?od, found on side of road in wheelchair Time Seen by Provider: 06/08/24 18:30 History of Present Illness HPI Narrative: Patient is a 38-year-old male history of being paraplegic history of UTIs found on the side of the road with white powder that appears to be potentially PCP. Was noted to be confused altered had a low mental status was diaphoretic patient was given 2 mg of Narcan with moderate relief with time. Patient was sent to the ED for further evaluation he is paraplegic. He has no complaints at this time he denies using heroin or any opioids. Related Data Home Medications ?Medication ?Instructions ?Recorded ?Confirmed risperidone 4 mg tablet 4 mg PO BID 06/30/22 03/04/24 docusate sodium 100 mg capsule 100 mg PO DAILY 04/08/23 03/04/24 (Colace) benztropine 1 mg tablet 1 mg PO BID 03/04/24 03/04/24 carbamazepine 200 mg tablet 200 mg PO BID 03/04/24 03/04/24 hydroxyzine HCl 25 mg tablet 25 mg PO DAILY PRN Agitation 03/04/24 03/04/24 linaclotide 72 mcg capsule 72 mcg PO DAILY@0630 03/04/24 03/04/24 (Linzess) omeprazole 40 mg capsule,delayed 40 mg PO BID@0630,1630 03/04/24 03/04/24 release trazodone 150 mg tablet 150 mg PO BEDTIME 03/04/24 03/04/24 Previous Rx's ?Medication ?Instructions ?Recorded cefuroxime axetil 250 mg tablet 250 mg PO BID #6 tabs 03/06/24 cefuroxime axetil 250 mg tablet 250 mg PO BID #20 tabs 03/28/24 Allergies Allergy/AdvReac Type Severity Reaction Status Date / Time vancomycin [VANCOMYCIN] Allergy Severe DIFFICULTY Verified 06/08/24 18:51 BREATHING, anaphylaxis piperacillin [From ZOSYN] Allergy Intermediate DIFFICULTY Verified 06/08/24 18:51 BREATHING tazobactam [From ZOSYN] Allergy Intermediate DIFFICULTY Verified 06/08/24 18:51 BREATHING tramadol Allergy Intermediate nausea and Verified 06/08/24 18:51 vomiting codeine Allergy Unknown Unknown Verified 06/08/24 18:51 Review of Systems 2 Review of Systems: Positive generalized malaise weakness [facility] Past Medical History Attestation statement: The following information was validated with the patient. Medical History Methadone maintenance therapy patient Polysubstance dependence Cirrhosis Paraplegia Eczema Asthma Cellulitis PTSD (post-traumatic stress disorder) Erectile dysfunction due to arterial insufficiency Recurrent UTI Social History Social History Household Members: Unknown / Unable to assess Housing: Unknown / Unable to assess Do you presently have visiting nurse or other home services: No Unable to assess alcohol history related to: Refusing to respond Alcohol intake: unknown Comment: PT SLEEPING Patient Tobacco Use Status: Current everyday Tobacco user Cigarette Packs Per Day: 1 Cigarettes Per Day: 20.0 Years Smoked: 20 Second Hand Smoke Exposure: Yes Use of substances other than those prescribed or required for medical reasons: Refusing to respond Substance Use Type: Crack/Cocaine and Heroin Last Used Substance: Unknown Advance Directives: Yes Advance Directives on File: Yes Advance Directives Date on File: 01/23/20 Do you have a plan to hurt others: No Plan service: No Current occupational status: disabled Sexual orientation: Client not available to respond at this time Physical Exam 2 Vital Signs: Vital Signs: Last Vital Signs Temp 97.7 F 06/08/24 18:55 Pulse 79 06/08/24 20:54 Resp 17 06/08/24 20:54 BP 117/73 06/08/24 20:54 Pulse Ox 96 06/08/24 18:55 O2 Del Method Room Air 06/08/24 18:55 BMI result Body Mass Index 38.8 Appearance: Alert. Oriented X3. No acute distress. Eyes: Pupils equal, round and reactive to light. ENT: Pharynx normal. Neck: Normal inspection. Neck supple. No lymph nodes noted. No crepitus CVS: Normal heart rate and rhythm. Pulses normal. Normal S1 and S2 Respiratory: No respiratory distress. Breath sounds normal. No Wheezing. No rales Abdomen: Soft and nontender. No rigidity. No distention. good BS x4 Skin: Skin warm and dry. Normal skin color. Normal skin turgor. Extremities: No lower extremity edema. Neurovascular intact to all extremities. No Lacerations. Positive ulcer on the lateral malleolar area appears chronic approximately 3 cm x 3 cm in size with an a base that seems positive for fibrinous material. Neuro: Oriented X 3. No movement in the lower extremity.. No sensory deficit. Moving all extermities. No slurred speech Medications Administered Discontinued Medications Generic Name Dose Route Start Last Admin Trade Name Ariel PRN Reason Stop Dose Admin Diazepam 5 mg 06/08/24 18:52 06/08/24 19:35 Diazepam 10 Mg/2 Ml Cartridge IM 06/08/24 18:53 5 mg STAT STA Administration Diazepam 5 mg 06/08/24 20:02 06/08/24 20:50 Diazepam 10 Mg/2 Ml Cartridge IVPUSH 06/08/24 20:03 5 mg STAT STA Administration Hydromorphone HCl 0.5 mg 06/08/24 20:02 06/08/24 20:43 Hydromorphone Hcl 0.5 Mg/0.5 Ml Syringe IVPUSH 06/08/24 20:03 0.5 mg ONCE ONE Administration Protocol Sodium Chloride 1,000 mls @ 999 mls/hr 06/08/24 18:45 06/08/24 20:51 Ns IV 06/08/24 19:45 Infused .Q1H1M NICK Infusion Medical Decision Making Medical Decision Making MDM Narrative: Patient 38 years old presents today with having altered mental status found on the side of a street. There was white powder on her chest. Patient has a previous history of UTIs. Was altered sugar was normal there is no evidence of hypoglycemia. We did labs on patient patient's white count was 12. Electrolytes showed a normal kidney function glucose was 87 no hypoglycemia lactate was normal no severe sepsis LFTs are normal no liver issues patient's urine showed some contamination no signs of infection patient's U tox came back positive for methadone positive for fentanyl positive for PCP positive for marijuana patient admits to using PCP. After monitoring for about 4 hours patient is now awake alert oriented. Of note patient's chest x-ray was also negative there is no pneumonia no pneumothorax. Initially within an EKG showed a sinus rhythm heart rate is 90 CT QRS QTC normal no acute ST segment elevation patient is now awake alert oriented is already in a rehab program wants to go back home he is a paraplegic will call an ambulance for him to get home. Differential Diagnosis Differential Diagnoses: The differential diagnosis associated with the presentation includes Meningitis, hypoglycemia, urinary tract infection, intracranial Admission/Observation Consideration of admission/observation: Escalation of care including admission/observation considered Lab Data MDM Lab Attestation statement: I reviewed the patient's lab results. 06/08/24 19:29 06/08/24 19:29 Labs: Lab Results 06/08/24 06/08/24 Range/Units 19:29 21:44 WBC 12.2 H (4.8-10.8) X10*3/uL RBC 4.84 (4.60-5.80) X10*6/uL Hgb 13.4 L (14.0-18.0) g/dl Hct 40.6 L (42.0-52.0) % MCV 83.9 (80.0-98.0) fL MCH 27.7 (27.0-33.0) pg MCHC 33.0 (31.0-36.0) g/dl RDW 14.0 (11.0-16.0) % Plt Count 294 (160-400) X10*3/uL MPV 9.8 (9.4-12.4) fL Immature Gran % (Auto) 0.5 H (0.0-0.4) % Neut % (Auto) 66.0 (45-73) % Lymph % (Auto) 26.5 (20-40) % Owsley % (Auto) 5.3 (2-11) % Eos % (Auto) 1.5 (0-4) % Baso % (Auto) 0.2 (0-2) % Lymph # (Auto) 3.2 (1.2-4.9) X10*3/uL Owsley # (Auto) 0.6 (0.1-1.2) X10*3/uL Eos # (Auto) 0.2 (0.0-0.4) X10*3/uL Baso # (Auto) 0.0 (0.0-0.2) X10*3/uL Abs Immat Gran (auto) 0.06 H (0.00-0.03) X10*3/uL Absolute Neuts (auto) 8.1 (2.0-8.3) x10*3/uL Absolute Nucleated RBC 0.000 (0.0-0.012) X10*3/uL Nucleated RBC % (auto) 0.0 (0.0-0.2) /100WBC Sodium 141 (135-145) mmol/L Potassium 3.9 (3.3-5.1) mmol/L Chloride 106 (96-108) mmol/L Carbon Dioxide 25 (22-29) mmol/L Anion Gap 14 (12-20) BUN 13 (9-16) mg/dL Creatinine 0.62 (0.5-1.4) mg/dL Estim Creat Clear Calc 191.4 Estimated GFR > 60 Random Glucose 87 (60-115) mg/dL Lactic Acid 0.9 (0.5-2.0) mmol/L Calcium 9.1 (8.4-10.2) mg/dL Total Bilirubin 0.2 (0.0-1.0) mg/dL Direct Bilirubin < 0.2 (0.0-0.5) mg/dL AST 23 (5-37) U/L ALT 12 (0-40) U/L Alkaline Phosphatase 83 (39-117) U/L Ammonia 36 (13-55) umol/L Troponin I High Sens 3.0 (<3.5-35.0) ng/L Total Protein 7.4 (6.5-8.0) g/dL Albumin 3.6 (3.5-5.0) g/dL Urine Color Yellow Urine Appearance Clear Urine pH 5.5 (5.0-9.0) Ur Specific Holliday 1.025 (1.005-1.025) Urine Protein 30 (1+) H (Neg-Trace) mg/dL Urine Glucose (UA) Negative (Negative) mg/dL Urine Ketones Trace (Negative) mg/dL Urine Blood Negative (Negative) Urine Nitrite Negative (Negative) Ur Leukocyte Esterase Small (1+) H (Negative) Urine RBC 0-2 (0-2) /HPF Urine WBC 11-20 H (0-5) /HPF Ur Squamous Epith Cells 3-5 (0-2) /HPF Urine Bacteria None Seen (None Seen) Hyaline Casts 0-2 (0-2) /LPF Urine Opiates Screen Not Detected (Not Detect) Ur Buprenorphine Scrn Not Detected (Not Detect) ng/mL Ur Oxycodone Screen Not Detected (Not Detect) ng/mL Urine Methadone Screen Positive H (Not Detect) ng/mL Urine Fentanyl Screen POSITIVE H (Not Detect) Ur Barbiturates Screen Not Detected (Not Detect) Ur Phencyclidine Scrn POSITIVE H (Not Detect) Ur Amphetamines Screen Not Detected (Not Detect) U Benzodiazepines Scrn Not Detected (Not Detect) Urine Cocaine Screen Not Detected (Not Detect) U Marijuana (THC) Screen POSITIVE H (Not Detect) Influenza Type A (PCR) NEGATIVE (Negative) Influenza Type B (PCR) NEGATIVE (Negative) RSV RNA Qual (PCR) NEGATIVE (Negative) SARS-CoV-2 RNA (RT-PCR) NEGATIVE (Negative) Independent Interpretation I performed an independent interpretation of an: EKG (Please see above) and Plain X-Ray (Grossly negative) Radiology Impression Discussion of test interpretation with radiology: I have reviewed the radiologist's reading. Chronic Conditions History of polysubstance abuse Social Determinants Patient?s care significantly limited by Social Determinants of Health including: Alcoholism and drug addiction in family, Problems related to primary support group and Unemployment Critical Care Time Critical Care Time Critical Care Time: Yes Total Critical Care Time: 40 Attestation: I have personally provided 40 minutes of critical care time exclusive of time spent on separately billable procedures. ?Time includes review of lab data, radiology results, discussion with consultants, and monitoring for potential decompensation. ?Interventions were performed as documented above Discharge Plan Discharge Clinical Impression: Polysubstance abuse Patient Disposition: Home, Self-Care Instructions: Polysubstance Abuse (ED) Additional Instructions: Please stop using PCP Prescriptions: No Action carbamazepine 200 mg tablet 200 mg PO BID trazodone 150 mg tablet 150 mg PO BEDTIME benztropine 1 mg tablet 1 mg PO BID hydroxyzine HCl 25 mg tablet 25 mg PO DAILY PRN (Reason: Agitation) omeprazole 40 mg capsule,delayed release(DR/EC) 40 mg PO BID@0630,1630 Linzess 72 mcg capsule 72 mcg PO DAILY@0630 cefuroxime axetil 250 mg Tablet 250 mg PO BID Qty: 6 0RF cefuroxime axetil 250 mg tablet 250 mg PO BID Qty: 20 0RF docusate sodium [Colace] 100 mg capsule 100 mg PO DAILY risperidone 4 mg tablet 4 mg PO BID Referrals: Physician,Unknown J [Primary Care Provider] - (Please go to detox.) Print Language: Kazakh
[2024-06-08 19:35] LABS: MANUAL DIFF FLAG NO
[2024-06-08] MEDS: diazePAM 10 MG/2 ML CARTRIDGE 5 MG IM (19:35)
[2024-06-08] MEDS: 0.9 % Sodium Chloride 1,000 ML 999 ML IV (19:36)
[2024-06-08 19:41] LABS: Basophils Percent Auto 0.2 % (0-2); Eosinophils Absolute Auto 0.2 X10*3/uL (0.0-0.4); Eosinophils Percent Auto 1.5 % (0-4); Hematocrit 40.6 % (42.0-52.0); Hemoglobin 13.4 g/dl (14.0-18.0); Imm Gran Abs Auto 0.06 X10*3/uL (0.00-0.03); Imm Gran Pct Auto 0.5 % (0.0-0.4); Lymphocytes Absolute Auto 3.2 X10*3/uL (1.2-4.9); Lymphocytes Percent Auto 26.5 % (20-40); Mean Corpuscular Hemoglobin 27.7 pg (27.0-33.0); Mean Corpuscular Volume 83.9 fL (80.0-98.0); Mean Platelet Volume 9.8 fL (9.4-12.4); Monocytes Absolute Auto 0.6 X10*3/uL (0.1-1.2); Monocytes Percent Auto 5.3 % (2-11); Neutrophils Absolute Auto 8.1 x10*3/uL (2.0-8.3); Platelet Count 294 X10*3/uL (160-400); Red Blood Count 4.84 X10*6/uL (4.60-5.80); White Blood Count 12.2 X10*3/uL (4.8-10.8)
[2024-06-08 19:42] LABS: Ammonia 36 umol/L (13-55)
[2024-06-08 19:50] LABS: Lactic Acid 0.9 mmol/L (0.5-2.0)
[2024-06-08 20:07] LABS: Alanine Aminotransferase 12 U/L (0-40); Albumin Level 3.6 g/dL (3.5-5.0); Alkaline Phosphatase 83 U/L (39-117); Anion Gap 14 (12-20); Aspartate Amino Transferase 23 U/L (5-37); Bilirubin Direct < 0.2 mg/dL (0.0-0.5); Bilirubin Total 0.2 mg/dL (0.0-1.0); Blood Urea Nitrogen 13 mg/dL (9-16); Calcium 9.1 mg/dL (8.4-10.2); Carbon Dioxide 25 mmol/L (22-29); Chloride 106 mmol/L (96-108); Creatinine Clr Calc Pharmacy 191.4; Estimated Glomerular Filt Rate > 60; Glucose Random 87 mg/dL (60-115); Potassium 3.9 mmol/L (3.3-5.1); Sodium 141 mmol/L (135-145); Total Protein 7.4 g/dL (6.5-8.0)
--- OUTSIDE RECORDS SUMMARY | 2024-06-08 20:35 | XMS_ITS | Clinical Summary ---
Author Organization [facility] Address [address] [place] [address] Care Team Providers Care Log Peeler Name Role Phone Unavailable Primary Care Provider [...] called today dental group and spoke w eLandra and informed for now will not be able to cleared pt for surgery until pt can f w brewery representative -referred today to brewery representative -alarm signs and symptoms discussed w pt [...] referred for counseling. Will also F/U with [facility] clinician. Since this provider will be retiring, patient will be referred to new [facility] psychiatric provider. Pt is aware that appts will be via televisit and that provider will not be [facility] employee. He gives permission to share PHI. Any issues or concerns, contact [facility]. All his questions were answered [...] disorder, r ecurrent, severe with psychotic features ([facility]) 01/29/2022 Overview (11/04/2023): Last Assessment & [...] mobility aids 01/17/2022 Subluxation of right hip ([facility]) 01/17/2022 Cirrhosis of liver ([facility]) 05/10/2019 Overview (11/04/2023): Last Assessment & Plan: Under the care of GI, last seen 04/08/2023 Last US 12/2022 showed: Hepatomegaly. increase in hepatic echotexture and surface nodularity, consistent with the provided history of cirrhosis. No focal hepatic mass or hepatomegaly ductal dilatation is seen. gallbladder surgically absent. Severe obesity ([facility]) 12/14/2017 Overview (11/04/2023): Last Assessment & [...] good results Neurogenic bowel 10/12/2011 Polysubstance dependence ([facility]) 10/12/2011 Overview (11/04/2023): Last Assessment & [...] care by [facility] Will refer back to [facility] Paraplegia ([facility]) 07/15/2011 Overview (11/04/2023): Last Assessment & Plan: Patient is here for a f/u Pt evaluated in the past at [facility] to help him with his right leg spasticity. For this he has been seen in the past at [facility]. pt has been previously on Tizanidine 6 [...] PRESERVATIVE FREE 01/03/2014 PNEUMOCOCCAL POLYSACCHARIDE PPV23 09/04/2015,,07/16/2007 [facility] State Funded Flu Vaccine 05/02/2013 TDAP 11/20/2014 [...] series) 04/13/2018 03/16/2018 Lipid Screening 05/06/2022 05/06/2021 Ust-GYPXF-10 ( season) 2023 021, 10/31/2020 Imm-Influenza (#1) 2023 11/10/2018, 1 , 11/20/2014, Additional history exists Alcohol and Drug Screen 02/16/2024 Diabetes Screening 06/08/2024 06/09/2023 Imm-DTaP/Tdap/Td (2 - Td or Tdap) 11/20/2024 015, 12/28/2003 HIV Screening Completed 05/06/2021, 05/06/2021 Insurance [place] [facility] Member Subscriber Plan / Payer (Ef fective 2016-Present) Name:Jose Fleming Relation to Subscriber:Self Name:Jose Fleming Payer ID:[id number] Group ID:Not on file Type:Brianna Address: [facility] [address] [id number]
[2024-06-08] MEDS: HYDROmorphone HCl 0.5 MG/0.5 ML SYRINGE IVPUSH (20:43)
[2024-06-08] MEDS: diazePAM 10 MG/2 ML CARTRIDGE 5 MG IVPUSH (20:50)
--- NOTE | 2024-06-08 21:00 | PC.NURSE ---
late entry-pt increasingly more agitated non compliant with vs, xray, urine pt medicated with im valium 5mg @1935 pt continues o refuse care
[2024-06-08 21:55] LABS: Appearance Urine Clear; Color Urine Yellow; Glucose Urine UA Negative (Negative); Leukocyte Esterase Urine Small (1+) (Negative); Nitrite Urine Negative (Negative); PH 5.5 (5.0-9.0); Specific Gravity - Urine 1.025 (1.005-1.025); UMIC TRIGGER UACC YES; Urine Blood Negative (Negative); Urine Ketones Trace mg/dL (Negative); Urine Protein 30 (1+) mg/dL (Neg-Trace)
[2024-06-08 21:59] LABS: Bacteria Urine None Seen (None Seen); Hyaline Casts Urine 0-2 /LPF (0-2); RBC Urine 0-2 /HPF (0-2); UACC Culture Trigger YES
--- NOTE | 2024-06-08 22:00 | PC.NURSE ---
late entry- pt continues to become increasingly more agitated reporting pain dr raman told pt we need urine sample prior to pain meds pt began yelling im going to call a advanced developer this rn medicated pt for pain per apr attempted to obtain vs pt ripped bp cuff off and throw at rn stating don't fucking touch me dr raman made aware pt medicated according to apr valium 5mg iv @ 2049.
[2024-06-08 22:04] LABS: Amphetamine Screen Urine Not Detected (Not Detect); Barbiturates, Urine Not Detected (Not Detect); Benzodiazepines Screen Urine Not Detected (Not Detect); Buprenorphine Scr Not Detected (Not Detect); Cannabinoid Screen Urine POSITIVE (Not Detect); Cocaine Screen Urine Not Detected (Not Detect); Fentanyl, urine POSITIVE (Not Detect); Methadone Screen, Urine Positive (Not Detect); Opiate Screen Urine Not Detected (Not Detect); Oxycodone Screen Urine Not Detected (Not Detect); Phencyclidine Screen Urine POSITIVE (Not Detect)
[2024-06-08 22:28] LABS: Influenza A PCR NEGATIVE (Negative); Influenza B PCR NEGATIVE (Negative); Resp Syncy Virus RNA Qual PCR NEGATIVE (Negative); SARS COV2 PCR INHOUSE NEGATIVE (Negative)
--- NOTE | 2024-06-08 23:05 | PC.NURSE ---
pt chargeback specialist and pt getting discharged okay to get belongings back at bedside
[2024-06-09] VITALS: BP 110/62; PULSE 70; RESP 18; TEMP 36.8; O2SAT 92
== END 2024-06-09 | disposition home or self-care (01) ==
PROVIDERS: Emergency Provider Emergency Medicine Emergency Medical Services
DX: F19.10 Other psychoactive substance abuse, uncomplicated (principal); R41.82 Altered mental status, unspecified; G82.20 Paraplegia, unspecified; B19.20 Unspecified viral hepatitis C without hepatic coma; G89.4 Chronic pain syndrome; F43.10 Post-traumatic stress disorder, unspecified; J45.909 Unspecified asthma, uncomplicated; F11.20 Opioid dependence, uncomplicated; F17.210 Nicotine dependence, cigarettes, uncomplicated; Z87.2 Personal history of diseases of the skin and subcutaneous tissue; Z03.818 Encounter for observation for suspected exposure to other biological agents ruled out; Z79.899 Other long term (current) drug therapy
CPT/HCPCS: 0241U; 36415; 71045; 80048; 80076; 80307; 81001; 82140; 83605; 84484; 85025; 87040; 87086; 93005; 96361; 96372; 96374; 99284; 99285; J1171; J3360

== ENCOUNTER → 2024-06-08 18:43 | Outpatient (BNV) | payer OTHER, SELFPAY | PROVIDERS: Emergency Provider Emergency Medicine Emergency Medical Services; Visit Provider Internal Medicine | DX: I45.10 Unspecified right bundle-branch block (principal) | CPT/HCPCS: 93010 ==

== ENCOUNTER → 2024-06-08 18:50 | Outpatient (BNV) | payer OTHER, SELFPAY | PROVIDERS: Emergency Provider Emergency Medicine Emergency Medical Services; Visit Provider Radiology Diagnostic Radiology | DX: R07.9 Chest pain, unspecified (principal) | CPT/HCPCS: 71045 ==

== ENCOUNTER 2024-06-22 04:06 | Emergency (ER) | payer OTHER, SELFPAY ==
--- NOTE | ~2024-06-22 | XR_ITS ---
CLINICAL HISTORY: fell, injury, pain 2 view right shoulder Comparison: None Findings: Bones intact. No dislocations. Mild degenerative change of the glenohumeral and acromioclavicular joints. No erosions. No radiopaque foreign body. IMPRESSION: 1. No acute findings 2. Mild degenerative changes This document has been electronically signed by: Robb Pringle MD on 06/22/2024 05:12:06
[2024-06-22 04:13] VITALS: BP 91/49; PULSE 92; RESP 24; TEMP 36.4; O2SAT 94; BMI 42.6
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
[2024-06-22] MEDS: Ketorolac Tromethamine 30 MG/ML VIAL IM (04:41)
[2024-06-22 05:49] VITALS: BP 91/52; PULSE 65; RESP 16; O2SAT 98
[2024-06-22] MEDS: Bacitracin Oint 0.9 GM PACKET 1 APPL TOPICAL (05:49)
[2024-06-22 05:57] VITALS: BP 91/52; PULSE 65; RESP 16; TEMP 36.4; O2SAT 98
== END 2024-06-22 07:03 | disposition home or self-care (01) ==
PROVIDERS: Emergency Provider Emergency Medicine; PCP Internal Medicine
DX: S40.011A Contusion of right shoulder, initial encounter (principal); S90.411A Abrasion, right great toe, initial encounter; W17.89XA Other fall from one level to another, initial encounter; G82.20 Paraplegia, unspecified; J45.909 Unspecified asthma, uncomplicated; E66.9 Obesity, unspecified; Z68.41 Body mass index [BMI] 40.0-44.9, adult; B19.20 Unspecified viral hepatitis C without hepatic coma; Y93.E1 Activity, personal bathing and showering; Y92.031 Bathroom in apartment as the place of occurrence of the external cause; Y99.9 Unspecified external cause status
CPT/HCPCS: 73030; 96372; 99284; J1885

== ENCOUNTER → 2024-06-22 04:39 | Outpatient (BNV) | payer OTHER, SELFPAY | PROVIDERS: Emergency Provider Emergency Medicine; PCP Internal Medicine; Visit Provider Radiology Vascular & Interventional Radiology | DX: M25.511 Pain in right shoulder (principal) | CPT/HCPCS: 73030 ==

== ENCOUNTER 2024-10-05 13:45 | Outpatient (AMB) | payer OTHER, SELFPAY ==
[2024-10-05 13:53] VITALS: BP 145/84; PULSE 67; O2SAT 96; BMI 44.1
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
--- OUTSIDE RECORDS SUMMARY | 2024-10-05 13:55 | XMS_ITS | Encounter Summary ---
Author Organization [facility] Address [address] [place] [address] Care Team Providers Care Surgery Scheduling Coordinator Name Role Phone Antony Jenkins MD Primary Care Provide r Zachery Carvajal Unavailable Unavailable Reason for Visit * Reason Comments Med Change Request Encounter Details Date Type Department Care Team ([facility] st Contact Info) Description 12/14/2022 Refill [facility] MEDICINE [address] [place] [address] Zachery Carvajal FNP Major depressive disorder, recurrent, [...] AM EDT documented as of this encounter Functional Status * Over the past 2 weeks, how often have you been bothered by any of the following problems? Question Answer Date of Assessment Author Patient Health Questionnaire -2 Score 4 12/14/2022 10:25 AM EDT Jak Hoff MA * If you checked off any problems on this questionnaire so far, Question Answer Date of Assessment Author How difficult have these problems made it for you to do your work, take care of things at home, or get along with other people? Very difficult 12/14/2022 10:25 AM RILEYT Jak Hoff MA * Over the past 2 weeks, how often have you been bothered by any of the following problems? Question Answer Date of Assessment Author Little interest or pleasure in doing things More than half the days 12/14/2022 10:25 AM Nolvia Maria MA Feeling down, depressed, or hopeless More than half the days 12/14/2022 10:25 AM RILEYT Nolvia Hoff MA Trouble falling or staying asleep, or sleeping too much More than half the days 12/14/2022 10:25 AM RILEYT Noliva Hoff MA Feeling tired or having little energy Several days 12/14/2022 10:25 AM RILEYT Nolvia Hoff MA Poor appetite or overeating Several days 12/14/2022 10:25 AM Nolvia Maria MA Feeling bad about yourself - or that you are a failure or have let yourself or your family down More than half the days 12/14/2022 10:25 AM EDT Nolvia Hoff MA Trouble concentrating on things, such as reading the newspaper or watching television Not at all 12/14/2022 10:25 AM EDT Nolvia Hoff MA Moving or speaking so slowly that other people could have noticed? Or the opposite - being so fidgety or restless that you have been moving around a lot more than usual. Not at all 12/14/2022 10:25 AM EDT Nolvia Hoff MA Thoughts that you would be better off or hurting yourself in some way Not at all 12/14/2022 10:25 AM EDT Nolvia Hoff MA Patient Health Questionnaire-9 Score 10 12/14/2022 10:25 AM EDT Nolvia Hoff MA documented as of this encounter Plan of Treatment Upcoming Encounters Date Type Department Care Team (Late st Contact Info) Description 10/26/2024 1:00 PM EDT Office Visit [facility] MEDICINE [address] [place] [address] Antony Jenkins MD [address] [place] [address] documented as of this encounter Visit Diagnoses Diagnosis Major depressive disorder, recurrent, severe with psychotic features ([facility]) Major depressive disorder, recurrent episode, severe, specified as with psychotic behavior documented in this encounter Additional Health Concerns Assessment Noted Time PHQ-9 Depression Total Score: 10 023 10:25 AM EDT documented as of this encounter Care Teams Surgery Scheduling Coordinator Relationship Specialty Start Date End Date Antony Jenkins MD [address] [place] [id number] PCP - General Internal Medicine 10/19/13 Zachery Carvajal FNP [address] [place] [id number] Nurse Practitioner Family Medicine 01/06/23 [facility] 01/30/20 documented as of this encounter
--- OUTSIDE RECORDS SUMMARY | 2024-10-05 13:55 | XMS_ITS | Clinical Summary ---
Author Organization [facility] Address [address] [place] [address] Care Team Providers Care Shank Cementer Hand Name Role Phone Unavailable Primary Care Provider [...] Bedridden 11/04/2023 Chronic hepatitis C virus infection ([facility]) 11/04/2023 H/O paraplegia 11/04/2023 History of infectious disease [...] for surgery until pt can f w track hoe operator -referred today to track hoe operator -alarm signs and symptoms discussed w [...] counseling. Will also F/U with [facility] clinician. Since this provider will be retiring, patient will be referred to new [facility] psychiatric provider. Pt is aware that appts will be via televisit and that provider will not be [facility] employee. He gives permission to share PHI. Any issues or concerns, contact [facility]. All his questions were answered and [...] disorder, r ecurrent, severe with psychotic features ([facility]) 01/29/2022 Overview (11/04/2023): Last Assessment & Plan: [...] will call back and provider number to OR managing his medication. Able to mobilize using mobility aids 01/17/2022 Subluxation of right hip (CMS & HHS-HCC) 022 Cirrhosis of liver ([facility]) 05/10/2019 Overview (11/04/2023): Last Assessment & Plan: Under the care of GI, last seen 04/08/2023 Last US 12/2022 showed: Hepatomegaly. increase in hepatic echotexture and surface nodularity, consistent with the provided history of cirrhosis. No focal hepatic mass or hepatomegaly ductal dilatation is seen. gallbladder surgically absent. Severe obesity (CMS & HHS-HCC) 12/14/2017 Overview (11/04/2023): Last Assessment & Plan: [...] good results Neurogenic bowel 10/12/2011 Polysubstance dependence ([facility]) 012 Overview (11/04/2023): Last Assessment & Plan: Previously [...] care by [facility] Will refer back to [facility] care [facility] Paraplegia ([facility]) 07/15/2011 Overview (11/04/2023): Last Assessment & Plan: Patient is here for a f/u Pt evaluated in the past at [facility] to help him with his right leg spasticity. For this he has been seen in the past at [facility]. pt has been previously on Tizanidine 6 [...] Free 11/10/2018 HBIG 03/16/2018 Hep B, Adult/Adol (PYJXTRI-O-XAKDJ/RECOMBIVAX-ADULT) 03/16/2018 INFLUENZA, SEASONAL, INJECTABLE 11/14/2013,12/23 INFLUENZA, SEASONAL, INJECTA BLE, PRESERVATIVE FREE 01/03/2014 PNEUMOCOCCAL POLYSACCHARIDE PPV23 (Pneumovax 23) 09/04/2015,10/03/2013,07/16/2007 [facility] Flu Vaccine 05/02/2013 TDAP 11/20/2014 Td (adult),2 Lf tetanus toxo id (TDVAX), preservative free 12/28/2003 tetanus toxoid, unspecified 07/15/2007 Family History Medical History Relation Name Comments Cancer Brother No Known Problems Father Abdominal Wall Hernia Mother Relation Name Status Comments Brother Alive Daughter Alive Father Alive Mother Alive Son Alive Social History Tobacco Use Types Packs/Day Years Used Date Smoking Tobacco: Every Day Cigarettes 1 29.6 Started: 1995 Smokeless Tobacco: Never Tobacco Cessation:Ready [...] series) 04/13/2018 03/16/2018 Lipid Screening 05/06/2022 05/06/2021 [id number] ( season) 2023 021, 10/31/2020 Alcohol and Drug Screen 02/16/2024 Diabetes Screening 06/08/2024 06/09/2023 Imm-Influenza (#1) 2024 11/10/2018, 1 , 11/20/2014, Additional history exists Imm-DTaP/Tdap/Td (2 - Td or Tdap) 11/20/2024 015, 12/28/2003 HIV Screening Completed 05/06/2021, 05/06/2021 Insurance [place] [id number] [place] [address] CHAD MOELLER [facility]
--- OUTSIDE RECORDS SUMMARY | 2024-10-05 13:55 | XMS_ITS | Clinical Summary ---
Author Organization [facility] Address [address] [place] [address] Phone Care Team Providers Care Receptionist Airline Lounge Name Role Phone Antony Faria MD Primary [...] (BMI) of 40.0 to 44.9 in adult (CMS/HCC V24, CMS/HCC V28) 02/02/2024 Drug abuse, continuous ([facility] [place] [facility] [place] ) 06/15/2011 Overview (02/02/2024): Per hospital labs and admission at [facility] 06/12/2011: iv drug, cocaine and marijuana user Pressure ulcer, stage 4 ([facility] [place], [facility] [place]2 8) 05/26/2011 Decubitus ulcer of coccyx 05/13/2011 Depression 05/13/2011 Marijuana abuse 05/13/2011 Immunizations Name Administration Dates Next Due L2 SARS-CoV-2 COVID-19, mRNA, LNP-S, preservative free 11/21/2020,10/31/2020 Surgical History Surgery Date Site/Laterality Comments APPENDECTOMY PROCEDURE: [place] APPENDECTOMY Medical History Medical History Date Comments [...] 5 Years) and At-Risk Patients (6 to 49 Years) (1 of 2 - PCV) 10/22/2003 Social Influencers of Health Screening 01/18/2022 COVID-19 Vaccine (3 - 2023-2 5 season) 2023 11/21/2020, 10/31/2020 Depression Screening 02/16/2024 Influenza Vaccine (#1) 2024 Cholesterol Screening (Lipid Panel) 05/06/2026 05/06/2021 [...] Maintenance Results * Hepatitis C Screening (02/02/2023) Hepatitis C Screening Abstracted us Historical Provider HEALTH MAINTENANCE Final Result * HIV Screening (05/06/2021) Pathologist [facility] HIV Screening Abstracted us Historical Provider HEALTH MAINTENANCE Final Result * Lipid panel (05/06/2021) LDL/HDL Ratio 0 Comment:No Interpretation, A bstracted [...] Maintenance Insurance MEDICA[place] - [place] Care Teams Receptionist Airline Lounge Relationship Specialty Start Date End Date Antony Faria MD [address] [place] [phone] PCP - General 04/25/19
== END 2024-10-05 14:05 | disposition home or self-care (01) ==
LOC: HO.PMC 13:46
PROVIDERS: PCP Internal Medicine; Visit Provider Anesthesiology
DX: G89.4 Chronic pain syndrome (principal); M47.812 Spondylosis without myelopathy or radiculopathy, cervical region; Z79.891 Long term (current) use of opiate analgesic
CPT/HCPCS: 99203

== ENCOUNTER → 2024-10-05 13:45 | Outpatient (BNVA) | payer OTHER, SELFPAY | PROVIDERS: PCP Internal Medicine; Visit Provider Anesthesiology | DX: F11.90 Opioid use, unspecified, uncomplicated (principal); M47.812 Spondylosis without myelopathy or radiculopathy, cervical region; G89.4 Chronic pain syndrome | CPT/HCPCS: 99202 ==

== ENCOUNTER 2024-10-12 22:08 | Emergency (ER) | payer OTHER, SELFPAY ==
[2024-10-12 22:14] VITALS: BP 152/96; PULSE 73; RESP 20; TEMP 36.5; O2SAT 97; BMI 42.8
--- NOTE | 2024-10-12 22:28 | PC.NURSE ---
patient seen outside, electric wheelchair being utilized by patient. originally had stated battery was .
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
--- OUTSIDE RECORDS SUMMARY | 2024-10-12 23:21 | XMS_ITS | Continuity of Care Document ---
Author Name [facility] Address [address] [place] [id number] Organization Unknown Address [address] [place] [id number] Medications No known medications Problems No known problems
--- OUTSIDE RECORDS SUMMARY | 2024-10-12 23:21 | XMS_ITS | Encounter Summary ---
Author Organization [facility] [employer] Address [address] [facility] [address] [place] [address] Care Team Providers Care Clinical Research Associate Name Role Phone Antony Jenkins MD Primary Care Provide r Zachery Carvajal Unavailable Unavailable Reason for Visit * Reason Onset Date Comments Referral 09/07/2023 Encounter Details Date Type Department Care Team ([facility] st Contact Info) Description 09/07/2023 Telephone [facility] MEDICINE [address] [place] [address] Antony Jenkins MD [address] [place], [place] [phone] Referral Social History Tobacco Use Types Packs/Day [...] PM EDT TC placed to Jennifer at [facility] who wants to inform PCP that they are not acceptingpt for medical management. Jennifer states that the pt informed her that he used to be seen at [facility]. Jennifer advised trying with them as they have physiatry care which may be beneficial to the pt. Pt was seen at [facility] on Wednesday09/06/23 * Telephone Encounter - Mena Benítez - 09/07/2023 1:50 PM EDT Tc from Jennifer with [facility] requesting a call from a nurse in regards to some concerns of referrals sent for pain management and PT documented in this encounter Plan of Treatment Upcoming Encounters Date Type Department Care Team (Late st Contact Info) Description 10/26/2024 1:00 PM EDT Office Visit [facility] MEDICINE [address] [place] [address] Antony Jenkins MD [address] [place] [address] documented as of this encounter Visit Diagnoses Not on filedocumented in this encounter Additional Health Concerns Assessment Noted Time PHQ-9 Depression Total Score: 11 09/01/ 024 1:44 PM EDT documented as of this encounter Care Teams Clinical Research Associate Relationship Specialty Start Date End Date Antony Jenkins MD [address] [place] [address] PCP - General Internal Medicine 10/19/13 Zachery Carvajal FNP [address] [place] [address] Nurse Practitioner Family Medicine 01/06/23 [facility] 01/30/20 documented as of this encounter
--- OUTSIDE RECORDS SUMMARY | 2024-10-12 23:21 | XMS_ITS | Encounter Summary ---
Author Organization [employer] Address [address] [facility] [address] [place] [address] Care Team Providers Care Circulation Manager Name Role Phone Antony Jenkins MD Primary Care Provide r Zachery Carvajal Unavailable Unavailable Reason for Visit * Reason Onset Date Comments Durable Medical Equipment 09/01/2023 Encounter Details Date Type Department Care Team (Late st Contact Info) Description 09/01/2023 Telephone [facility] MEDICINE [address] [place] [address] Antony Jenkins MD [address] [place], [place] [phone] Durable Medical Equipment Social History Tobacco Use [...] Assessment Author Patient Health Questionnaire -2 Score 5 09/02/2023 1:44 PM EDT aLtoya Hoff MA * If you checked off any problems on this questionnaire so far, Question Answer Date of Assessment Author How difficult have these problems made it for you to do your work, take care of things at home, or get along with other people? Very difficult 09/02/2023 1:44 PM EDT Latoya Hoff MA * Over the past 2 weeks, how often have you been bothered by any of the following problems? Question Answer Date of Assessment Author Little interest or pleasure in doing things Nearly every day 09/02/2023 1:44 PM EDT Nolvia Hoff MA Feeling down, depressed, or hopeless More than half the days 09/02/2023 1:44 PM RILEYT Nolvia Hoff [place] Trouble falling or staying asleep, or sleeping too much More than half the days 09/02/2023 1:44 PM RILEYT Nolvia Hoff MA Feeling tired or having little energy Several days 09/02/2023 1:44 PM EDT Nolvia Hoff MA Poor appetite or overeating Not at all 09/02/2023 1:44 PM EDT Nolvia Hoff MA Feeling bad about yourself - or that you are a failure or have let yourself or your family down Several days 09/02/2023 1:44 PM EDT Nolvia Hoff MA Trouble concentrating on things, such as reading the newspaper or watching television Several days 09/02/2023 1:44 PM EDT Nolvia Hoff MA Moving or speaking so slowly that other people could have noticed? Or the opposite - being so fidgety or restless that you have been moving around a lot more than usual. Several days 09/02/2023 1:44 PM EDT Nolvia Hoff MA Thoughts that you would be better off or hurting yourself in some way Not at all 09/02/2023 1:44 PM EDT Nolvia Hoff MA Patient Health Questionnaire-9 Score 11 09/02/2023 1:44 PM EDT Nolvia Hoff MA documented as of this encounter Miscellaneous Notes * Telephone Encounter - Eloisa Apodaca - 09/01/2023 9:36 AM EDT Tc from Jennifer with [facility] requesting DME supplies . [facility] has sent a requesting on 08/05/23 but has not received any status. Toilet seat riser Slip resistant mat Please email to: [email or web address] documented in this encounter Plan of Treatment Upcoming Encounters Date Type Department Care Team (Late st Contact Info) Description 10/26/2024 1:00 PM EDT Office Visit [facility] MEDICINE [address] [place] [address] Antony Jenkins MD [address] [place] [address] documented as of this encounter Visit Diagnoses Not on filedocumented in this encounter Additional Health Concerns Assessment Noted Time PHQ-9 Depression Total Score: 10 024 3:18 PM EDT documented as of this encounter Care Teams Circulation Manager Relationship Specialty Start Date End Date Antony Jenkins MD [address] [place] [address] PCP - General Internal Medicine 10/19/13 Zachery Carvajal FNP [address] [place] [address] Nurse Practitioner Family Medicine 01/06/23 [facility] 01/30/20 documented as of this encounter
--- OUTSIDE RECORDS SUMMARY | 2024-10-12 23:21 | XMS_ITS | Clinical Summary ---
Author Organization [facility] Address [address] [place] [address] Phone Care Team Providers Care Physical Optics Teacher Name Role Phone Antony Faria MD Primary [...] V24, CMS/HCC V28) 02/02/2024 [place], continuous [place] [place] [facility] [place] ) 06/15/2011 Overview (02/02/2024): Per hospital labs and admission at [facility] 06/12/2011: iv drug, cocaine and marijuana user Pressure ulcer, stage 4 ([facility] [place], [facility] V2 8) 05/26/2011 Decubitus ulcer of coccyx 05/13/2011 Depression 05/13/2011 Marijuana abuse 05/13/2011 Immunizations Name Administration Dates Next Due NextDigest SARS-CoV-2 COVID-19, mRNA, LNP-S, preservative free 11/21/2020,10/31/2020 Surgical History Surgery Date Site/Laterality Comments APPENDECTOMY PROCEDURE: CT APPENDECTOMY Medical History Medical History Date Comments [...] Result * HIV Screening (05/06/2021) Pathologist [facility] HIV Screening Abstracted us Historical Provider HEALTH [...] Maintenance Insurance MEDICAID - [place] Care Teams Physical Optics Teacher Relationship Specialty Start Date End Date Antony Faria MD [address] [place] [phone] PCP - General 04/25/19
--- OUTSIDE RECORDS SUMMARY | 2024-10-12 23:21 | XMS_ITS | Encounter Summary ---
Author Organization [employer] Address [address] [facility] 7t [place] [address] Care Team Providers Care Hob Grinder Name Role Phone Antony Jenkins MD Primary Care Provide r Zachery Carvajal Unavailable Unavailable Encounter Details Date Type Department Care Team ([facility] Contact Info) Description 07/08/2022 Abstract [facility] MEDICINE [address] [place] [address] Antony Jenkins MD 230 [place] [address] Social History Tobacco Use Types Packs/Day Years [...] Upcoming Encounters Date Type Department Care Team ([facility] Contact Info) Description 10/26/2024 1:00 PM EDT Office Visit [facility] [address] [facility] [place] [address] Antony Jenkins MD [address] [place] [address] documented as of this encounter Visit Diagnoses Not on filedocumented in this encounter Additional Health Concerns Assessment Noted Time PHQ-9 Depression Total Score: 10 023 2:33 PM EDT documented as of this encounter Care Teams Hob Grinder Relationship Specialty Start Date End Date Antony Jenkins MD [facility] [place], [place] [phone] PCP - General Internal Medicine 10/19/13 Zachery Carvajal FNP [address] [place] [address] Nurse Practitioner Family Medicine 01/06/23 [facility] 01/30/20 documented as of this encounter
--- OUTSIDE RECORDS SUMMARY | 2024-10-12 23:21 | XMS_ITS | Clinical Summary ---
Author Organization [facility] Address [address] [place] [address] Care Team Providers Care Creative Art Therapist Name Role Phone Unavailable Primary Care Provider [...] Bedridden 11/04/2023 Chronic hepatitis C virus infection ([facility]) 11/04/2023 H/O paraplegia 11/04/2023 History of [...] for surgery until pt can f w plant engineer -referred today to plant engineer -alarm signs and symptoms discussed w pt [...] referred for counseling. Will also F/U with [facility] clinician. Since this provider will be retiring, patient will be referred to new [facility] psychiatric provider. Pt is aware that appts will be via televisit and that provider will not be [facility] employee. He gives permission to share PHI. Any issues or concerns, contact [facility]. All his questions were answered and [...] disorder, r ecurrent, severe with psychotic features ([facility]) 01/29/2022 Overview (11/04/2023): Last Assessment [...] will call back and provider number to ND managing his medication. Able to mobilize using mobility aids 01/17/2022 Subluxation of right hip (CMS & [facility]HS-HCC) 022 Cirrhosis of liver ([facility]) 05/10/2019 Overview (11/04/2023): Last Assessment [...] good results Neurogenic bowel 10/12/2011 Polysubstance dependence ([facility]) 012 Overview (11/04/2023): Last Assessment & [...] care by VNA Will refer back to [facility] Paraplegia ([facility]) 07/15/2011 Overview (11/04/2023): Last Assessment & Plan: Patient is here for a f/u Pt evaluated in the past at [facility] to help him with his right leg spasticity. For this he has been seen in the past at [facility]. pt has been previously on Tizanidine [...] Free 11/10/2018 HBIG 03/16/2018 Hep B, Adult/Adol (EBVXYTC-E-EAQBF/RECOMBIVAX-ADULT) 03/16/2018 INFLUENZA, SEASONAL, INJECTABLE 11/14/2013,12/23 INFLUENZA, SEASONAL, INJECTA BLE, PRESERVATIVE FREE 01/03/2014 PNEUMOCOCCAL POLYSACCHARIDE PPV23 (Pneumovax 23) 09/04/2015,10/03/2013,07/16/2007 [facility] State Funded Flu Vaccine 05/02/2013 TDAP [...] Date Smoking Tobacco: Every Day Cigarettes 1 29.7 Started: 1995 Smokeless Tobacco: Never Tobacco Cessation:Ready [...] series) 04/13/2018 03/16/2018 Lipid Screening 05/06/2022 05/06/2021 Aht-YANQZ-31 ( season) 2023 021, 10/31/2020 Alcohol and Drug Screen 02/16/2024 Diabetes Screening 06/08/2024 06/09/2023 Imm-Influenza (#1) 2024 11/10/2018, 1 , 11/20/2014, Additional history exists Imm-DTaP/Tdap/Td (2 - Td or Tdap) 11/20/2024 015, 12/28/2003 HIV Screening Completed 05/06/2021, 05/06/2021 Insurance [place] [id number] [place] [address] CHAD MOELLER [facility]
--- OUTSIDE RECORDS SUMMARY | 2024-10-12 23:21 | XMS_ITS | Encounter Summary ---
Author Organization [employer] Address [address] [facility] 7t [place] [address] Care Team Providers Care Multisensor Intelligence Officer Name Role Phone Antony Jenkins MD Primary Care Provide r Zachery Carvajal Unavailable Unavailable Encounter Details Date Type Department Care Team ([facility] Contact Info) Description 06/04/2022 Abstract [facility] ADULT DENTAL [address] [place] [address] Juaquin Rivers DDS [address] [place] [address] Social History Tobacco Use Types Packs/Day Years [...] Upcoming Encounters Date Type Department Care Team ([facility] Contact Info) Description 10/26/2024 1:00 PM EDT Office Visit [facility] MEDICINE [address] [place] [address] Antony Jenkins MD [address] [place] [address] documented as of this encounter Visit Diagnoses Not on filedocumented in this encounter Additional Health Concerns Assessment Noted Time PHQ-9 Depression Total Score: 15 04/27/ 023 2:02 PM EDT documented as of this encounter Care Teams Multisensor Intelligence Officer Relationship Specialty Start Date End Date Antony Jenkins MD [address] [place] [id number] PCP - General Internal Medicine 10/19/13 Zachery Carvajal FNP [address] [place] [address] Nurse Practitioner Family Medicine 01/06/23 [facility] 01/30/20 documented as of this encounter
--- OUTSIDE RECORDS SUMMARY | 2024-10-12 23:21 | XMS_ITS | Encounter Summary ---
Author Organization [employer] Address [address] [facility] [address] 7t [place] [address] Care Team Providers Care Hunter Skin Diver Name Role Phone Antony Jenkins MD Primary Care Provide r Zachery Carvajal Unavailable Unavailable Reason for Visit * Reason Comments Med Change Request Encounter Details Date Type Department Care Team ([facility] st Contact Info) Description 12/14/[address] [facility] MEDICINE [address] [place] [address] Zachery Carvajal FNP Major depressive disorder, recurrent, [...] 12/14/2022 10:25 AM RILEYT Nolvia Hoff [place] Feeling tired or [...] Description 10/26/2024 1:00 PM EDT Office Visit [facility] MEDICINE [address] [place] [address] Antony Jenkins MD 230 [place] [address] documented as of this encounter Visit Diagnoses Diagnosis Major depressive disorder, recurrent, severe with psychotic features ([facility]) Major depressive disorder, recurrent episode, severe, specified as with psychotic behavior documented in this encounter Additional Health Concerns Assessment Noted Time PHQ-9 Depression Total Score: 10 023 10:25 AM EDT documented as of this encounter Care Teams Hunter Skin Diver Relationship Specialty Start Date End Date Antony Jenkins MD [address] [place] [id number] PCP - General Internal Medicine 10/19/13 Zachery Carvajal FNP [address] [place] [phone] Nurse Practitioner Family Medicine 01/06/23 [facility] 01/30/20 documented as of this encounter
--- OUTSIDE RECORDS SUMMARY | 2024-10-12 23:22 | XMS_ITS | Encounter Summary ---
Author Organization [employer] Address [address] [facility] 7 [place] [address] Care Team Providers Care Community Support Specialist Name Role Phone Antony Jenkins MD Primary Care Provide r Zachery Carvajal Unavailable Unavailable Encounter Details Date Type Department Care Team (Late Contact Info) Description 03/27/2022 [facility] [employer] [address] [place], [place] [phone] Antony Jenkins MD [address] [place] [address] [phone] Social History Tobacco Use Types Packs/Day Years [...] Department Care Team (Late Contact Info) Description 10/26/2024 1:00 PM EDT Office Visit [facility] MEDICINE [address] [place], [place] [phone] Antony Jenkins MD [address] [place], [place] [phone] documented as of this encounter Visit Diagnoses Not on filedocumented in this encounter Additional Health Concerns Assessment Noted Time PHQ-9 Depression Total Score: 11 023 11:13 AM EST documented as of this encounter Care Teams Community Support Specialist Relationship Specialty Start Date End Date Antony Jenkins MD [address] [place] [address] PCP - General Internal Medicine 10/19/13 Zachery Carvajal FNP [address] [place] [address] Nurse Practitioner Family Medicine 01/06/23 [facility] 01/30/20 documented as of this encounter
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
--- OUTSIDE RECORDS SUMMARY | 2024-10-12 23:22 | XMS_ITS | Encounter Summary ---
Author Organization [employer] Address [address] [facility] [address] [place] [address] Care Team Providers Care Textile Screen Maker Name Role Phone Antony Jenkins MD Primary Care Provide r Zachery Carvajal Unavailable Unavailable Reason for Visit * Reason Onset Date Comments Hospital Follow-up 02/21/2024 Encounter Details Date Type Department Care Team (Late st Contact Info) Description 02/21/2024 Telephone [facility] MEDICINE [address] [place], [place] [phone] Antony Jenkins MD [address] [place], [place] [phone] Hospital Follow-up Social History Tobacco Use Types [...] from pt requesting a HDF appt. Hospital: [facility] Date of admission: 02/01/24 Discharge date: 02/04/24 Diagnosed: Back Pain and Right eye conjunctivitis *Send message to [place] Clinical Care Coordinators Please contact pt at [phone]. documented in this encounter Plan of Treatment Upcoming Encounters Date Type Department Care Team (Late st Contact Info) Description 10/26/2024 1:00 PM EDT Office Visit [facility] MEDICINE [address] [place] [address] Antony Jenkins MD [address] [place] [address] documented as of this encounter Visit Diagnoses Not on filedocumented in this encounter Additional Health Concerns Assessment Noted Time PHQ-9 Depression Total Score: 19 024 11:27 AM EDT documented as of this encounter Care Teams Textile Screen Maker Relationship Specialty Start Date End Date Antony Jenkins MD [address] [place] [address] PCP - General Internal Medicine 10/19/13 Zachery Carvajal FNP [address] [place] [address] SIMEON De Guzman [id number] Nurse Practitioner Family Medicine 01/06/23 [facility] 01/30/20 documented as of this encounter
--- OUTSIDE RECORDS SUMMARY | 2024-10-12 23:22 | XMS_ITS | Encounter Summary ---
Author Organization [employer] Address [address] [facility] [address] [place] [address] Care Team Providers Care Building Maintenance Custodian Name Role Phone Antony Jenkins MD Primary Care Provide r Zachery Carvajal Unavailable Unavailable Reason for Visit * Reason Onset Date Comments ER Follow-up 10/10/2024 Referral 10/10/2024 Encounter Details Date Type Department Care Team (Late st Contact Info) Description 10/10/2024 Telephone [facility] MEDICINE [address] [place], [place] [phone] Antony Jenkins MD [address] [place], [place] [phone] ER Follow-up; Referral Social History Tobacco Use Types Packs/Day [...] Telephone Encounter - Katerine Holden RN - 10/10/2024 2:00 PM EDT TC placed to Lissett ([facility] nurse) and LVM to call back the office * Telephone Encounter - Chary Harmon - 10/10/2024 10:41 AM EDT Lissett with [facility] report ED visit on : Date: 10/07/24 [place] [facility] Seen for: Fall Symptomatic Lissett requesting verbal order for physical therapy. Contact Lissett at [phone] documented in this encounter Plan of Treatment Upcoming Encounters Date Type Department Care Team (Late st Contact Info) Description 10/26/2024 1:00 PM EDT Office Visit [facility] MEDICINE [address] [place] [address] Antony Jenkins MD [address] [place], [place] [phone] documented as of this encounter Visit Diagnoses Not on filedocumented in this encounter Additional Health Concerns Assessment Noted Time PHQ-9 Depression Total Score: 19 024 11:27 AM EDT documented as of this encounter Care Teams Building Maintenance Custodian Relationship Specialty Start Date End Date Antony Jenkins MD [address] [place] [address] PCP - General Internal Medicine 10/19/13 Zachery Carvajal FNP [address] [place] [address] Nurse Practitioner Family Medicine 01/06/23 [facility] 01/30/20 documented as of this encounter
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
--- OUTSIDE RECORDS SUMMARY | 2024-10-12 23:22 | XMS_ITS | Encounter Summary ---
Author Organization [employer] Address [address] [facility] [address] [place] [address] Care Team Providers Care Petroleum Analyst Name Role Phone Antony Jenkins MD Primary Care Provide r Zachery Carvajal Unavailable Unavailable Reason for Visit * Reason Onset Date Comments Referral 05/31/2024 Encounter Details Date Type Department Care Team (Late st Contact Info) Description 05/31/2024 Telephone [facility] MEDICINE [address] [place] [address] Antony Jenkins MD [address] [place], [place] [phone] Referral Social History Tobacco Use Types Packs/Day [...] Neurology. Per pt last provider was in [facility] in [place]. Per pt continues to have spacticity and [...] 06/01/2024 3:00 PM Antony Fleming MD MEDICINE [facility] 06/30/2024 1:30 PM JOSE Aguilar DENT [facility] Protocol Used: Information Only Call - No [...] You become worse * Telephone Encounter - Ramirezmaryuri RizzoBartolome - 05/31/2024 11:23 AM EDT Tc from pt mom requesting a referral to a Neurologist Due to pt being in pain. Contact pt at [phone] If not able to reach contact pt mom at [phone] documented in this encounter Plan of Treatment Upcoming Encounters Date Type Department Care Team (Late st Contact Info) Description 10/26/2024 1:00 PM EDT Office Visit [facility] MEDICINE [address] [place] [address] Atnony Jenkins MD [address] [place] [phone] documented as of this encounter Visit Diagnoses Not on filedocumented in this encounter Additional Health Concerns Assessment Noted Time PHQ-9 Depression Total Score: 19 024 11:27 AM EDT documented as of this encounter Care Teams Petroleum Analyst Relationship Specialty Start Date End Date Antony Jenkins MD [address] [place] [id number] PCP - General Internal Medicine 10/19/13 Zachery Carvajal FNP [address] [place] [id number] Nurse Practitioner Family Medicine 01/06/23 [facility] 01/30/20 documented as of this encounter
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
[2024-10-12 23:45] VITALS: BP 152/96; PULSE 73; RESP 20; TEMP 36.5; O2SAT 97
== END 2024-10-12 23:46 | disposition home or self-care (01) ==
PROVIDERS: Emergency Provider Student in an Organized Health Care Education/Training Program
DX: R52 Pain, unspecified (principal); R45.1 Restlessness and agitation; G82.20 Paraplegia, unspecified; Z72.0 Tobacco use; Z79.899 Other long term (current) drug therapy
CPT/HCPCS: 99282

== ENCOUNTER 2024-10-26 13:47 | Outpatient (REF) | payer OTHER, SELFPAY ==
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
--- OUTSIDE RECORDS SUMMARY | 2024-10-26 17:36 | XMS_ITS | Encounter Summary ---
Author Organization [employer] Address [address] [facility] 7t [place] [address] Care Team Providers Care Cargo Handler Name Role Phone Antony Jenkins MD Primary Care Provide r Zachery Carvajal Unavailable Unavailable Encounter Details Date Type Department Care Team ([facility] Contact Info) Description 07/08/2022 Abstract [facility] MEDICINE [address] [place], [place] [phone] Antony Jenkins MD [address] [place] [address] Social History Tobacco Use Types Packs/Day Years [...] Upcoming Encounters Date Type Department Care Team ([facility] st Contact Info) Description 11/09/2024 1:00 PM EDT Office Visit [facility] MEDICINE [address] [place] [address] Antony Jenkins MD [address] [place] [address] documented as of this encounter Visit Diagnoses Not on filedocumented in this encounter Additional Health Concerns Assessment Noted Time PHQ-9 Depression Total Score: 10 023 2:33 PM EDT documented as of this encounter Care Teams Cargo Handler Relationship Specialty Start Date End Date Antony Jenkins MD [address] [place], [place] [phone] PCP - General Internal Medicine 10/19/13 Zachery Carvajal FNP [address] [place] [phone] Nurse Practitioner Family Medicine 01/06/23 [facility] 01/30/20 documented as of this encounter
--- OUTSIDE RECORDS SUMMARY | 2024-10-26 17:36 | XMS_ITS | Encounter Summary ---
Author Organization [employer] Address [address] [place] [address] Care Team Providers Care Car Rental Clerk Name Role Phone Antony Jenkins MD Primary Care Provide r Zachery Carvajal Unavailable Unavailable Reason for Visit * Reason Comments Med Change Request Encounter Details Date Type Department Care Team ([facility] st Contact Info) Description 12/14/2022 Refill [facility] [address] [place] [address] Zachery Carvajal FNP Major depressive disorder, recurrent, [...] other people? Very difficult 12/14/2022 10:25 AM EDT Jak Hoff MA * Over the past [...] little energy Several days 12/14/2022 10:25 AM Nolvia Maria MA Poor appetite or overeating Several days [...] Description 11/09/2024 1:00 PM EDT Office Visit [facility] [address] [place] [address] Antony Jenkins MD [address] [place] [address] documented as of this encounter Visit Diagnoses Diagnosis Major depressive disorder, recurrent, severe with psychotic features (CMS/HCC) Major depressive disorder, recurrent episode, severe, specified as with psychotic behavior documented in this encounter Additional Health Concerns Assessment Noted Time PHQ-9 Depression Total Score: 10 023 10:25 AM EDT documented as of this encounter Care Teams Car Rental Clerk Relationship Specialty Start Date End Date Antony Jenkins MD [address] [place] [id number] PCP - General Internal Medicine 10/19/13 Zachery Carvajal FNP [address] [place] [phone] Nurse Practitioner Family Medicine 01/06/23 [facility] 01/30/20 documented as of this encounter
--- OUTSIDE RECORDS SUMMARY | 2024-10-26 17:36 | XMS_ITS | Encounter Summary ---
Author Organization [employer] Address [address] [facility] [address] [place] [address] Care Team Providers Care Finish Carpenter Name Role Phone Antony Jenkins MD Primary Care Provide r Zachery Carvajal Unavailable Unavailable Encounter Details Date Type Department Care Team (Late st Contact Info) Description 10/25/2024 Telephone [facility] [address] [place] [address] Yamel Bowles MA Social History Tobacco Use Types Packs/Day Years [...] encounter Miscellaneous Notes * Telephone Encounter - Yamel Bowles MA - 10/25/2024 11:33 AM EDT Chart Prep Labs: done Images: done Referrals: no show Vaccines due: Covid, Flu, Hep B, Hep A, and HPV Screenings: not applicable Overdue care gaps: SBIRT, SDOH, and PHQ-9 documented in this encounter Plan of Treatment Upcoming Encounters Date Type Department Care Team (Late st Contact Info) Description 11/09/2024 1:00 PM EDT Office Visit [facility] [address] [place] [address] Antony Jenkins MD [address] [place] [address] documented as of this encounter Visit Diagnoses Not on filedocumented in this encounter Additional Health Concerns Assessment Noted Time PHQ-9 Depression Total Score: 19 024 11:27 AM EDT documented as of this encounter Care Teams Finish Carpenter Relationship Specialty Start Date End Date Antony Jenkins MD [address] [place] [phone] PCP - General Internal Medicine 10/19/13 Zachery Carvajal FNP [address] [place] [phone] Nurse Practitioner Family Medicine 01/06/23 [facility] 01/30/20 documented as of this encounter
--- OUTSIDE RECORDS SUMMARY | 2024-10-26 17:36 | XMS_ITS | Encounter Summary ---
Author Organization [employer] Address [address] [facility] 7t [place] [address] Care Team Providers Care Director Perioperative Name Role Phone Antony Jenkins MD Primary Care Provide r Zachery Carvajal Unavailable Unavailable Encounter Details Date Type Department Care Team ([facility] Contact Info) Description 06/04/2022 Abstract [facility] [address] [place] [address] Juaquin Rivers DDS [address] [place] [address] Social History Tobacco Use Types Packs/Day Years [...] Upcoming Encounters Date Type Department Care Team ([facility] Contact Info) Description 11/09/2024 1:00 PM EDT Office Visit [facility] MEDICINE [address] [place] [address] Antony Jenkins MD [address] [place] [address] documented as of this encounter Visit Diagnoses Not on filedocumented in this encounter Additional Health Concerns Assessment Noted Time PHQ-9 Depression Total Score: 15 04/27/ 023 2:02 PM EDT documented as of this encounter Care Teams Director Perioperative Relationship Specialty Start Date End Date Atnony Jenkins MD [address] [place] [phone] PCP - General Internal Medicine 10/19/13 Zachery Carvajal FNP [address] [place] [phone] Nurse Practitioner Family Medicine 01/06/23 [facility] 01/30/20 documented as of this encounter
--- OUTSIDE RECORDS SUMMARY | 2024-10-26 17:36 | XMS_ITS | Clinical Summary ---
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 Will also F/U with [facility] clinician. Since this provider will be retiring, patient will be referred to new [facility] psychiatric provider. Pt is aware that appts will be via televisit and that provider will not be [facility] employee. He gives permission to share PHI. Any issues or concerns, contact [facility]. All his questions were answered [...] disorder, r ecurrent, severe with psychotic features ([facility]) 01/29/2022 Overview (11/04/2023): Last Assessment [...] will call back and provider number to [place] managing his medication. Able to mobilize using mobility aids 01/17/2022 Subluxation of right hip (CMS & HHS-HCC) 022 Cirrhosis of liver ([facility]) 05/10/2019 Overview (11/04/2023): Last Assessment [...] good results Neurogenic bowel 10/12/2011 Polysubstance dependence ([facility]) 012 Overview (11/04/2023): Last Assessment & Plan: [...] VNA Will refer back to [facility] Paraplegia ([facility]) 07/15/2011 Overview (11/04/2023): Last Assessment & Plan: Patient is here for a f/u Pt evaluated in the past at [facility] to help him with his right leg spasticity. For this he has been seen in the past at [facility]. pt has been previously on Tizanidine [...] Free 11/10/2018 HBIG 03/16/2018 Hep B, Adult/Adol (ZQALSIW-M-XLJFH/RECOMBIVAX-ADULT) 03/16/2018 INFLUENZA, SEASONAL, INJECTABLE 11/14/2013,12/23 INFLUENZA, SEASONAL, INJECTA BLE, PRESERVATIVE FREE 01/03/2014 PNEUMOCOCCAL POLYSACCHARIDE PPV23 (Pneumovax 23) 09/04/2015,10/03/2013,07/16/2007 [facility] State Funded Flu Vaccine 05/02/2013 TDAP 11/20/2014 [...] series) 04/13/2018 03/16/2018 Lipid Screening 05/06/2022 05/06/2021 Alcohol and Drug Screen 02/16/2024 Diabetes Screening 06/08/2024 06/09/2023 Vox-GQGIN-10 ( season) 2024 021, 10/31/2020 Imm-Influenza (#1) 2024 11/10/2018, 1 , 11/20/2014, Additional history exists Imm-DTaP/Tdap/Td (2 - Td or Tdap) 11/20/2024 015, 12/28/2003 HIV Screening Completed 05/06/2021, 05/06/2021 Insurance [place] [id number] [place] [address] CHAD MOELLER [facility]
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
--- OUTSIDE RECORDS SUMMARY | 2024-10-26 17:37 | XMS_ITS | Encounter Summary ---
Author Organization [employer] Address [address] [place] [address] Care Team Providers Care Filler Shredding Machine Loader Name Role Phone Antony Jenkins MD Primary Care Provide r Zachery Carvajal Unavailable Unavailable Reason for Visit * Reason Onset Date Comments Referral 09/07/2023 Encounter Details Date Type Department Care Team ([facility] st Contact Info) Description 09/07/2023 Telephone [facility] [address] [place] [address] Antony Jenkins MD [address] [place], [place] [phone] Referral Social History Tobacco Use Types Packs/Day [...] PM EDT TC placed to Jennifer at [facility] who wants to inform PCP that they are not acceptingpt for medical management. Jennifer states that the pt informed her that he used to be seen at [facility]. Jennifer advised trying with them as they have physiatry care which may be beneficial to the pt. Pt was seen at [facility] on Wednesday09/06/23 * Telephone Encounter - Mena Benítez - 09/07/2023 1:50 PM EDT Tc from Jennifer with [facility] requesting a call from a nurse in regards to some concerns of referrals sent for pain management and PT documented in this encounter Plan of Treatment Upcoming Encounters Date Type Department Care Team (Late st Contact Info) Description 11/09/2024 1:00 PM EDT Office Visit [facility] [address] [place] [address] Antony Jenkins MD [address] [place] [address] documented as of this encounter Visit Diagnoses Not on filedocumented in this encounter Additional Health Concerns Assessment Noted Time PHQ-9 Depression Total Score: 11 09/01/ 024 1:44 PM EDT documented as of this encounter Care Teams Filler Shredding Machine Loader Relationship Specialty Start Date End Date Antony Jenkins MD [address] [place] [id number] PCP - General Internal Medicine 10/19/13 Zachery Carvajal FNP [address] [place] [id number] Nurse Practitioner Family Medicine 01/06/23 [facility] 01/30/20 documented as of this encounter
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
--- OUTSIDE RECORDS SUMMARY | 2024-10-26 17:37 | XMS_ITS | Continuity of Care Document ---
Author Name [facility], Medical Address [address] [place] [id number] Organization Unknown Address [address] [place] [address] Medications No known medications Problems No known problems
--- OUTSIDE RECORDS SUMMARY | 2024-10-26 17:37 | XMS_ITS | Encounter Summary ---
Author Organization [employer] Address [address] [facility] [address]t [place] [address] Care Team Providers Care Activities Director Name Role Phone Antony Jenkins MD Primary Care Provide r Zachery Carvajal Unavailable Unavailable Reason for Visit * Reason Onset Date Comments Durable Medical Equipment 09/01/2023 Encounter Details Date Type Department Care Team (Late st Contact Info) Description 09/01/2023 Telephone [facility] [address] [place] [address] Antony Jenkins MD [address] [place], [place] [phone] Durable Medical Equipment Social History Tobacco Use [...] -2 Score 5 09/02/2023 1:44 PM EDT Latoya Hoff MA * If you checked off [...] 9:36 AM EDT Tc from Jennifer with [facility] requesting DME supplies . [facility] has sent a requesting on 08/05/23 but has not received any status. Toilet seat riser Slip resistant mat Please email to: [email or web address] documented in this encounter Plan of Treatment Upcoming Encounters Date Type Department Care Team (Late st Contact Info) Description 11/09/2024 1:00 PM EDT Office Visit [facility] [address] [place] [address] Antony Jenkins MD [address] [place] [address] documented as of this encounter Visit Diagnoses Not on filedocumented in this encounter Additional Health Concerns Assessment Noted Time PHQ-9 Depression Total Score: 10 024 3:18 PM EDT documented as of this encounter Care Teams Activities Director Relationship Specialty Start Date End Date Antony Jenkins MD [address] [place] [address] PCP - General Internal Medicine 10/19/13 Zachery Carvajal FNP [address] [place] [address] Nurse Practitioner Family Medicine 01/06/23 [facility] 01/30/20 documented as of this encounter
--- OUTSIDE RECORDS SUMMARY | 2024-10-26 17:37 | XMS_ITS | Encounter Summary ---
Author Organization [employer] Address [address] [place] [address] Care Team Providers Care Line Haul Truck Driver Name Role Phone Antony Jenkins MD Primary Care Provide r Zachery Carvaajl Unavailable Unavailable Encounter Details Date Type Department Care Team (Latest Contact Info) Description 10/26/2024 Travel Social History Tobacco Use Types Packs/Day [...] your housing situation today? I have chris sing 10/26/[address] you li [...] Nearly every day 10/26/2024 1:08 PM EDT Jaen Crawley MA * Feeling down, depressed, or [...] Author Nearly every day 10/26/2024 1:08 PM RILEYT Jean Crawley MA * Trouble concentrating on [...] Author 23 10/26/2024 1:08 PM EDT Jean Carwley MA * How difficult have these problems [...] awful might happen 3 10/26/2024 1:08 PM RILEYT Jean Crawley MA TIARA-7 Total Score 20 10/26/2024 1:08 PM RILEYT Jean Crawley MA documented as of this encounter Plan of Treatment Upcoming Encounters Date Type Department Care Team (Late st Contact Info) Description 11/09/2024 1:00 PM EDT Office Visit [facility] [address] [facility] [address] Antony Jenkins MD [address] [place] [address] documented as of this encounter Visit Diagnoses Not on filedocumented in this encounter Additional Health Concerns Assessment Noted Time PHQ-9 Depression Total Score: 025 1:08 PM EDT documented as of this encounter Care Teams Line Haul Truck Driver Relationship Specialty Start Date End Date Antony Jenkins MD [address] [facility] [place] [address] PCP - General Internal Medicine 10/19/13 Zacher[place] [address] Nurse Practitioner Family Medicine 01/06/23 [facility] 01/30/20 documented as of this encounter
--- OUTSIDE RECORDS SUMMARY | 2024-10-26 17:37 | XMS_ITS | Encounter Summary ---
Author Organization [employer] Address [address] [facility] 7t [place] [address] Care Team Providers Care Animal Behaviourist Name Role Phone Antony Jenkins MD Primary Care Provide r Zachery Carvajal Unavailable Unavailable Reason for Visit * Reason Onset Date Comments Referral 05/31/2024 Encounter Details Date Type Department Care Team (Late st Contact Info) Description 05/31/2024 Telephone [facility] [address] [place] [address] Antony Jenkins MD [address] [place], [place] [phone] Referral Social History Tobacco Use Types Packs/Day [...] Neurology. Per pt last provider was in [facility] in [place]. Per pt continues to have spacticity and [...] 06/01/2024 3:00 PM Antony Fleming MD MEDICINE [facility] 06/30/2024 1:30 PM JOSE Aguilar DENT [facility] Protocol Used: Information Only Call - [...] become worse * Telephone Encounter - Ramirez Bartolome - 05/31/2024 11:23 AM EDT Tc from pt mom requesting a referral to a Neurologist Due to pt being in pain. Contact pt at [phone] If not able to reach contact pt mom at [phone] documented in this encounter Plan of Treatment Upcoming Encounters Date Type Department Care Team (Late st Contact Info) Description 11/09/2024 1:00 PM EDT Office Visit [facility] [address] [place] [address] Antony Jenkins MD [address] [place] [phone] documented as of this encounter Visit Diagnoses Not on filedocumented in this encounter Additional Health Concerns Assessment Noted Time PHQ-9 Depression Total Score: 19 024 11:27 AM EDT documented as of this encounter Care Teams Animal Behaviourist Relationship Specialty Start Date End Date Antony Jenkins MD [address] [place] [id number] PCP - General Internal Medicine 10/19/13 Zachery Carvajal FNP [address] [place] [phone] Nurse Practitioner Family Medicine 01/06/23 [facility] 01/30/20 documented as of this encounter
--- OUTSIDE RECORDS SUMMARY | 2024-10-26 17:37 | XMS_ITS | Encounter Summary ---
Author Organization [employer] Address [address] [facility] 7[address] [place] [address] Care Team Providers Care Cash Management Coordinator Name Role Phone Antony Jenkins MD Primary Care Provide r Zachery Carvajal Unavailable Unavailable Reason for Visit * Reason Onset Date Comments Hospital Follow-up 02/21/2024 Encounter Details Date Type Department Care Team (Late st Contact Info) Description 02/21/2024 Telephone [facility] [address] [place], [place] [phone] Antony Jenkins MD [address] [place], [place] [phone] Hospital Follow-up Social History Tobacco Use Types [...] from pt requesting a HDF appt. Hospital: [facility] Date of admission: 02/01/24 Discharge date: 02/04/24 Diagnosed: Back Pain and Right eye conjunctivitis *Send message to [facility] Coordinators Please contact pt at [phone]. documented in this encounter Plan of Treatment Upcoming Encounters Date Type Department Care Team (Late st Contact Info) Description 11/09/2024 1:00 PM EDT Office Visit [facility] [address] [place] [address] Antony Jenkins MD [address] [place] [address] documented as of this encounter Visit Diagnoses Not on filedocumented in this encounter Additional Health Concerns Assessment Noted Time PHQ-9 Depression Total Score: 19 024 11:27 AM EDT documented as of this encounter Care Teams Cash Management Coordinator Relationship Specialty Start Date End Date Antony Jenkins MD [address] [place] [address] PCP - General Internal Medicine 10/19/13 Zachery Carvajal FNP [address] [place] [address] SIMEON De Guzman [phone] Nurse Practitioner Family Medicine 01/06/23 [facility] 01/30/20 documented as of this encounter
--- OUTSIDE RECORDS SUMMARY | 2024-10-26 17:37 | XMS_ITS | Encounter Summary ---
Author Organization [employer] Address [address] [facility] [address], [place] [address] Care Team Providers Care Asphalt Dauber Name Role Phone Antony Jenkins MD Primary Care Provide r Zachery Carvajal Unavailable Unavailable Encounter Details Date Type Department Care Team (Late Contact Info) Description 03/27/2022 [facility] [employer] Information Management [address] [place], [place] [phone] Antony Jenkins MD [address] [place] [phone] Social History Tobacco Use Types Packs/Day Years [...] Department Care Team (Late Contact Info) Description 11/09/2024 1:00 PM EDT Office Visit [facility] [address] [place], [place] [phone] Antony Jenkins MD [address] [place], [place] [phone] documented as of this encounter Visit Diagnoses Not on filedocumented in this encounter Additional Health Concerns Assessment Noted Time PHQ-9 Depression Total Score: 11 023 11:13 AM EST documented as of this encounter Care Teams Asphalt Dauber Relationship Specialty Start Date End Date Antony Jenkins MD [address] [place] [address] PCP - General Internal Medicine 10/19/13 Zachery Carvajal FNP [address] [place] [address] Nurse Practitioner Family Medicine 01/06/23 [facility] 01/30/20 documented as of this encounter
== END 2024-10-26 13:48 | disposition home or self-care (01) ==
LOC: HO.HHCX 13:47
PROVIDERS: PCP Internal Medicine; Visit Provider Internal Medicine
DX: Z13.89 Encounter for screening for other disorder (principal)

== ENCOUNTER 2024-11-06 21:12 | Emergency (ER) | payer OTHER, SELFPAY ==
--- NOTE | 2024-11-06 | ECG_ITS ---
Test Reason : ETOH/SUBSTANCE Blood Pressure : */* mmHG Vent. Rate : 72 BPM Atrial Rate : 72 BPM P-R Int : 120 ms QRS Dur : 108 ms QT Int : 424 ms P-R-T Axes : * -46 -34 degrees QTcB Int : 464 ms Normal sinus rhythm Incomplete right bundle branch block Left anterior fascicular block Minimal voltage criteria for LVH, may be normal variant ( R in aVL ) Nonspecific T wave abnormality Prolonged QT Abnormal ECG When compared with ECG of 08-Jun-2024 19:06, Nonspecific T wave abnormality, worse in Inferior leads Nonspecific T wave abnormality now evident in Lateral leads Referred By: Generic ED Physician Electronically Signed By: Sam Castellnao
--- NOTE | ~2024-11-06 | XR_ITS ---
CLINICAL HISTORY: pain, swelling 3 view left elbow Comparison: None provided Findings: Bones intact. No dislocations. No significant loss of joint space, osteophytes, or erosions. No joint effusion. IMPRESSION: 1. No acute findings. This document has been electronically signed by: Jim Guaman MD on 11/07/2024 00:29:00
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
[2024-11-06 21:20] VITALS: BP 128/79; PULSE 81; O2SAT 97
[2024-11-06 21:30] VITALS: BMI 42.1
[2024-11-06 21:36] VITALS: BP 101/50; PULSE 79; RESP 16; TEMP 36.7; O2SAT 96
[2024-11-06 22:26] LABS: Hematocrit 44.0 % (42.0-52.0); Hemoglobin 14.0 g/dl (14.0-18.0); Imm Gran Abs Auto 0.07 X10*3/uL (0.00-0.03); Imm Gran Pct Auto 0.5 % (0.0-0.4); Lymphocytes Absolute Auto 4.0 X10*3/uL (1.2-4.9); MANUAL DIFF FLAG NO; Mean Corpuscular HGB Conc 31.8 g/dl (31.0-36.0); Mean Corpuscular Hemoglobin 26.2 pg (27.0-33.0); Mean Corpuscular Volume 82.4 fL (80.0-98.0); NRBC Abs Auto 0.000 X10*3/uL (0.0-0.012); NRBC Pct Auto 0.0 /100WBC (0.0-0.2); Platelet Count 308 X10*3/uL (160-400); Red Blood Count 5.34 X10*6/uL (4.60-5.80); White Blood Count 13.9 X10*3/uL (4.8-10.8)
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
--- NOTE | 2024-11-06 22:41 | MHC.EDTECH ---
Patient incontinent upon arrival therefore cleaned and changed over
[2024-11-06 22:43] LABS: Acetaminophen LAB < 3 mcg/mL (<30); Alanine Aminotransferase 12 U/L (0-40); Albumin Level 4.1 g/dL (3.5-5.0); Alkaline Phosphatase 120 U/L (39-117); Anion Gap 13 (12-20); Aspartate Amino Transferase 21 U/L (5-37); Blood Urea Nitrogen 9 mg/dL (9-16); Calcium 9.2 mg/dL (8.4-10.2); Carbon Dioxide 28 mmol/L (22-29); Chloride 100 mmol/L (96-108); Creatinine Clr Calc Pharmacy 204.2; Estimated Glomerular Filt Rate > 60; Potassium 4.3 mmol/L (3.3-5.1); Salicylate < 5.0 mg/dL (15-30); Sodium 137 mmol/L (135-145); Total Protein 8.6 g/dL (6.5-8.0)
--- OUTSIDE RECORDS SUMMARY | 2024-11-06 22:44 | XMS_ITS | Clinical Summary ---
Author Organization [facility] Address [address] [place] [address] Phone Care Team Providers Care Clinical Support Manager Name Role Phone Antony Faria MD Primary [...] (BMI) of 40.0 to 44.9 in adult ([facility] [place] V24, [facility] [place] V28) 02/02/2024 Drug abuse, continuous ([facility] [place] V24, [facility] [place] V28 ) 06/15/2011 Overview (02/02/2024): Per hospital labs and admission at [facility] 06/12/2011: iv drug, cocaine and marijuana user Pressure ulcer, stage 4 ([facility] [place] V24, [facility] [place] V2 8) 05/26/2011 Decubitus ulcer of coccyx 05/13/2011 Depression 05/13/2011 Marijuana abuse 05/13/2011 Encounters Date Type Department Care Team Description 10/26/2024 9:45 PM EDT - 10/27/2024 8:44 AM EDT Emergency [facility] Emergency [address] [place] [id number] Roberto Charles MD Polysubstance abuse ([facility] [place] V24, [facility] [place] V28) (Primary Dx); Contusion [...] CBC auto differential (10/26/2024 11:54 PM EDT) [facility] Signature WBC 16.9(H) 4.8 - 10.8 K/mcL LAB HEMETOLOGY METHOD 10/27/2024 12:06 AM EDT [facility] RBC 5.20 4.50 - 5.50 M/mcL LAB HEMETOLOGY METHOD 10/27/2024 12:06 AM EDT [facility] Hemoglobin 13.3(L) 13.5 - 17.5 g/dL LAB HEMETOLOGY METHOD 10/27/2024 12:06 AM EDT [facility] Hematocrit 42.9 42.0 - 54.0 % LAB HEMETOLOGY METHOD 10/27/2024 12:06 AM [facility] MCV 83.0 79.0 - 98.0 FL LAB HEMETOLOGY METHOD 10/27/2024 12:06 AM [facility] MCH 25.7(L) 27.0 - 32.0 pcg LAB HEMETOLOGY METHOD 10/27/2024 12:06 AM [facility] MCHC 31.0(L) 32.0 - 37.0 g/dL LAB HEMETOLOGY METHOD 10/27/2024 12:06 AM [facility] RDW 14.6 11.0 - 15.0 % LAB HEMETOLOGY METHOD 10/27/2024 12:06 AM [facility] Platelets 350 130 - 400 K/mcL LAB HEMETOLOGY METHOD 10/27/2024 12:06 AM [facility] MPV 9.3 7.0 - 11.0 FL LAB HEMETOLOGY METHOD 10/27/2024 12:06 AM [facility] NRBC 0.0 <1.0 % LAB HEMETOLOGY METHOD 10/27/2024 12:06 AM [facility] NRBC Absolute 0.00 <0.10 K/mcL LAB HEMETOLOGY METHOD 10/27/2024 12:06 AM [facility] Neutrophils Relative 72.2 % LAB HEMETOLOGY METHOD 10/27/2024 12:06 AM [facility] Lymphocytes Relative 21.4 % LAB HEMETOLOGY METHOD 10/27/2024 12:06 AM [facility] Monocytes Relative 4.4 % LAB HEMETOLOGY METHOD 10/27/2024 12:06 AM [facility] Eosinophils Relative 0.8 % LAB HEMETOLOGY METHOD 10/27/2024 12:06 AM EDT [facility] Basophils Relative 0.5 % LAB HEMETOLOGY METHOD 10/27/2024 12:06 AM [facility] Immature Granulocytes Relative 0.7 % LAB HEMETOLOGY METHOD 10/27/2024 12:06 AM [facility] Neutrophils Absolute 12.17(H) 1.50 - 7.00 K/mcL LAB HEMETOLOGY METHOD 10/27/2024 12:06 AM [facility] Lymphocytes Absolute 3.61 1.00 - 5.00 K/mcL LAB HEMETOLOGY METHOD 10/27/2024 12:06 AM [facility] Monocytes Absolute 0.74 0.20 - 1.00 K/mcL LAB HEMETOLOGY METHOD 10/27/2024 12:06 AM [facility] Eosinophils Absolute 0.14 0.00 - 0.50 K/mcL LAB HEMETOLOGY METHOD 10/27/2024 12:06 AM [facility] Basophils Absolute 0.08 0.00 - 0.20 K/mcL LAB HEMETOLOGY METHOD 10/27/2024 12:06 AM [facility] Immature Granulocytes Absolute 0.12(H) 0.00 - 0.03 K/mcL LAB HEMETOLOGY METHOD 10/27/2024 12:06 AM [facility] Blood Venous blood specimen / Unknown Venipuncture / Unknown 10/26/2024 11:54 PM EDT 10/26/2024 11:59 PM EDT us Roberto Charles MD LAB BLOOD ORDERABLES Final Res ult [facility] [address] [place] [address], * XR Elbow 3+ Views Left (10/26/2024 [...] Signed Date: 10/27/2024 09:04 ET Workstation ID: [id number] Transcribed By: Self Edit Transcribed Date: 10/27/2024 [...] Signed Date: 10/27/2024 09:04 ET Workstation ID: [id number] Transcribed By: Self Edit Transcribed Date: 10/27/2024 [...] Signed Date: 10/27/2024 09:01 ET Workstation ID: [id number] Transcribed By: Self Edit Transcribed Date: 10/27/2024 [...] Signed Date: 10/27/2024 09:01 ET Workstation ID: [id number] Transcribed By: Self Edit Transcribed Date: 10/27/2024 09:00 ET us Roberto Charles MD IMG XR PROCEDURES Final Result * (ABNORMAL) Drug abuse screen 8a panel, urine (10/26/2024 10:54 PM EDT) Amphetamine Screen, Ur Negative Negative LAB CHEMISTRY METHOD 11:35 PM EDT [facility] Comment:Certain OTC medicati ons containing ephedrine, phenylephrine, pseudoephedrine and phenylpropanolamine can cause false positive results. Barbiturate Screen, Ur Negative Negative LAB CHEMISTRY METHOD 5 11:35 PM EDT [facility] Benzodiazepine Screen, Ur Negative Negative LAB CHEMISTRY METHOD 5 11:35 PM EDT [facility] Cocaine Screen, Ur Positive(A ) Negative LAB CHEMISTRY METHOD 11:35 PM EDT [facility] Opiate Screen, Ur Positive(A ) Negative LAB CHEMISTRY METHOD 11:35 PM EDT [facility] Cannabinoid (THC) Screen, Ur Positive(A ) Negative LAB CHEMISTRY METHOD 11:35 PM EDT [facility] Comment:Specimens from patie nts taking pantoprazole sodium (Protonix) have been shown to produce false positive results. Oxycodone Screen, Ur Negative Negative LAB CHEMISTRY METHOD 11:35 PM EDT [facility] Fentanyl, Ur Positive(A ) Negative LAB CHEMISTRY METHOD 5 11:35 PM T [facility] Urine Urine specimen obtained by clean catch procedure / Unknown Non-blood Collection / Unknown 10/26/2024 10:54 PM EDT 10/26/2024 10:59 PM EDT Narrative [facility] - 10/26/2024 11:35 PM EDT [...] MD LAB URINE ORDERABLES Final Res ult [facility] [address] [place] [address], [place] [phone] * Magnesium (10/26/2024 10:53 PM EDT) [facility] Magnesium 2.1 1.9 - 2.6 mg/dL LAB CHEMISTRY METHOD 10/26/2024 11:26 PM EDT [facility] Comment:Hemolysis present Blood Venous blood specimen / Unknown Venipuncture / Unknown 10/26/2024 10:53 PM EDT 10/26/2024 10:58 PM EDT Roberto Charles MD LAB BLOOD ORDERABLES Final Res ult [facility] [address] [place] [address], [place] [phone] * (ABNORMAL) Basic Metabolic Panel (BMP) (10/26/2024 10:53 PM EDT) [facility] Sodium 133 133 - 145 mmol/L LAB CHEMISTRY METHOD 10/26/2024 11:26 PM EDT [facility] Potassium 5.6(H) 3.5 - 5.5 mmol/L LAB CHEMISTRY METHOD 10/26/2024 11:26 PM EDT [facility] Comment:Hemolysis present Chloride 101 96 - 110 mmol/L LAB CHEMISTRY METHOD 10/26/2024 11:26 PM EDT [facility] CO2 27 21 - 32 mmol/L LAB CHEMISTRY METHOD 10/26/2024 11:26 PM T [facility] Anion Gap 5 3 - 11 LAB CHEMISTRY [facility] Glucose 68(L) 70 - 100 mg/dL LAB CHEMISTRY METHOD 10/26/2024 11:26 PM [facility] BUN 9 5 - 25 mg/dL LAB CHEMISTRY METHOD 10/26/2024 11:26 PM EDT [facility] Creatinine 0.65(L) 0.70 - 1.30 mg/dL LAB CHEMISTRY METHOD 10/26/2024 11:26 PM EDT [facility] eGFR 122 >=60 mL/min/1. 73m2 LAB CHEMISTRY METHOD 10/26/2024 11:26 PM EDT [facility] Comment:Calculation based on the Chronic Kidney Disease Epidemiology Collaboration (CKD-EPI) equation refit without adjustment for race. BUN/Creatinine Ratio 13.8 LAB CHEMISTRY METHOD 10/26/2024 11:26 PM EDT [facility] Calcium 9.1 8.5 - 10.5 mg/dL LAB CHEMISTRY METHOD 10/26/2024 11:26 PM EDT [facility] Blood Venous blood specimen / Unknown Venipuncture / Unknown 10/26/2024 10:53 PM EDT 10/26/2024 10:58 PM EDT us Roberto Charles MD LAB BLOOD ORDERABLES Final Res ult [facility] [address] [place] [address], [place] [phone] * POCT Glucose, blood (10/26/2024 9:53 PM EDT) Glucose POCT 85 70 - 100 mg/dL 10/26/2024 9:53 PM EDT [facility] Blood Capillary blood specimen / Unknown 10/26/2024 9:53 PM EDT 10/26/2024 9:54 PM EDT us Roberto Charles MD LAB POINT OF CARE TE ST DOCKED DEVICE UNSOLICITED RESULTS Final Result [facility] [address] [place] [address], [place] [phone] * Hm Hepatitis C Screening (02/02/2023) Hepatitis [...] Maintenance Insurance MEDICAID - [place] Care Teams Clinical Support Manager Relationship Specialty Start Date End Date Antony Faria MD [address] [place] [address] [place] [address] PCP - General 04/25/19
--- OUTSIDE RECORDS SUMMARY | 2024-11-06 22:44 | XMS_ITS | Clinical Summary ---
Author Organization [facility] Address [address] [place] [address] Care Team Providers Care Associate Faculty Name Role Phone Unavailable Primary Care Provider [...] Bedridden 11/04/2023 Chronic hepatitis C virus infection ([facility]) 11/04/2023 H/O paraplegia 11/04/2023 History [...] for surgery until pt can f w sales team manager -referred today to sales team manager -alarm signs and symptoms discussed w [...] referred for counseling. Will also F/U with [facility] clinician. Since this provider will be retiring, patient will be referred to new [facility] psychiatric provider. Pt is aware that appts will be via televisit and that provider will not be [facility] employee. He gives permission to share PHI. Any issues or concerns, contact [facility]. All his questions were answered and I [...] disorder, r ecurrent, severe with psychotic features ([facility]) 01/29/2022 Overview (11/04/2023): Last [...] will call back and provider number to [place] managing his medication. Able to mobilize using mobility aids 01/17/2022 Subluxation of right hip ([facility] & [facility]-H[facility]) 022 Cirrhosis of liver ([facility]) 05/10/2019 Overview (11/04/2023): Last [...] good results Neurogenic bowel 10/12/2011 Polysubstance dependence ([facility]) 012 Overview (11/04/2023): Last Assessment & Plan: [...] care by [facility] Will refer back to [facility] Paraplegia ([facility]) 07/15/2011 Overview (11/04/2023): Last Assessment & Plan: Patient is here for a f/u Pt evaluated in the past at [facility] to help him with his right leg spasticity. For this he has been seen in the past at [facility]. pt has been previously on [...] Free 11/10/2018 HBIG 03/16/2018 Hep B, Adult/Adol ([id number]/RECOMBIVAX-ADULT) 03/16/2018 INFLUENZA, SEASONAL, INJECTABLE 11/14/2013,12/23 INFLUENZA, SEASONAL, INJECTA BLE, PRESERVATIVE FREE 01/03/2014 PNEUMOCOCCAL POLYSACCHARIDE PPV23 (Pneumovax 23) 09/04/2015,10/03/2013,07/16/2007 [facility] State Funded Flu Vaccine 05/02/2013 TDAP [...] (HCC) 1984 Tobacco Cessation Counseling (#1) 1984 Tobacco Screening 1984 Hypertension Screening (#1) 2002 Medicare Annual Wellness Visit 2002 Imm-Hepatitis A (1 of 2 - Ri sk 2-dose series) 10/22/2003 Imm-HPV (1 - 3-dose SCDM series) 10/22/2011 Imm-Pneumococcal (2 of 2 - PCV) 09/03/2016 09/04/2015, 10/03/2013, 07/16/2007 Imm-Hepatitis B (2 of 3 - 19 + 3-dose series) 04/13/2018 03/16/2018 Lipid Screening 05/06/2022 05/06/2021 Alcohol and Drug Screen 02/16/2024 Diabetes Screening 06/08/2024 06/09/2023 [id number] ( - season) 2024 021, 10/31/2020 Imm-Influenza (#1) 2024 11/10/2018, 1 , 11/20/2014, Additional history exists Imm-DTaP/Tdap/Td (2 - Td or Tdap) 11/20/2024 015, 12/28/2003 HIV Screening Completed 05/06/2021, 05/06/[address] [place] MED[place]ID [place] [facility]
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
--- OUTSIDE RECORDS SUMMARY | 2024-11-06 22:44 | XMS_ITS | Encounter Summary ---
Author Organization [employer] Address [address] [facility] 7t [place] [address] Care Team Providers Care Primer Charging Tool Setter Name Role Phone Antony Jenkins MD Primary Care Provide r Zachery Carvajal Unavailable Unavailable Encounter Details Date Type Department Care Team ([facility] Contact Info) Description 07/08/2022 Abstract [facility] [address] [place], [place] [phone] Antony Jenkins MD [address] [place] [address] Social History Tobacco Use Types Packs/Day Years [...] Upcoming Encounters Date Type Department Care Team ([facility] st Contact Info) Description 11/09/2024 1:00 PM EDT Office Visit [facility] [address] [place] [address] Antony Jenkins MD [address] [place] [address] documented as of this encounter Visit Diagnoses Not on filedocumented in this encounter Additional Health Concerns Assessment Noted Time PHQ-9 Depression Total Score: 10 023 2:33 PM EDT documented as of this encounter Care Teams Primer Charging Tool Setter Relationship Specialty Start Date End Date Antony Jenkins MD [address] [place], [place] [phone] PCP - General Internal Medicine 10/19/13 Zachery Carvajal FNP [address] [place] [address] Nurse Practitioner Family Medicine 01/06/23 [facility] 01/30/20 documented as of this encounter
--- OUTSIDE RECORDS SUMMARY | 2024-11-06 22:44 | XMS_ITS | Encounter Summary ---
Author Organization [employer] Address [address] [facility] 7t [place] [address] Care Team Providers Care Emergency Response Coordinator Name Role Phone Antony Jenkins MD Primary Care Provide r Zachery Carvajal Unavailable Unavailable Reason for Visit * Reason Onset Date Comments Referral 09/07/2023 Encounter Details Date Type Department Care Team ([facility] st Contact Info) Description 09/07/2023 Telephone [facility] [address] [place] [address] Antony Jenkins MD [address] [place], [place] [phone] Referral Social History Tobacco Use Types Packs/Day [...] PM EDT TC placed to Jennifer at [facility] who wants to inform PCP that they are not acceptingpt for medical management. Jennifer states that the pt informed her that he used to be seen at [facility]. Jennifer advised trying with them as they have physiatry care which may be beneficial to the pt. Pt was seen at [facility] on Wednesday09/06/23 * Telephone Encounter - Mena Benítez - 09/07/2023 1:50 PM EDT Tc from Jennifer with [facility] requesting a call from a nurse in regards to some concerns of referrals sent for pain management and PT documented in this encounter Plan of Treatment Upcoming Encounters Date Type Department Care Team (Late st Contact Info) Description 11/09/2024 1:00 PM EDT Office Visit [facility] [address] [place] [address] Antony Jenkins MD [address] [place] [address] documented as of this encounter Visit Diagnoses Not on filedocumented in this encounter Additional Health Concerns Assessment Noted Time PHQ-9 Depression Total Score: 11 09/01/ 024 1:44 PM EDT documented as of this encounter Care Teams Emergency Response Coordinator Relationship Specialty Start Date End Date Antony Jenkins MD [address] [place] [address] PCP - General Internal Medicine 10/19/13 Zachery Carvajal FNP [address] [place] [address] Nurse Practitioner Family Medicine 01/06/23 [facility] 01/30/20 documented as of this encounter
--- OUTSIDE RECORDS SUMMARY | 2024-11-06 22:44 | XMS_ITS | Encounter Summary ---
Author Organization [employer] Address [address] [facility] [address] 7t [place] [address] Care Team Providers Care Underground Mine Machinery Mechanic Name Role Phone Antony Jenkins MD Primary Care Provide r Zachery Carvajal Unavailable Unavailable Reason for Visit * Reason Comments Med Change Request Encounter Details Date Type Department Care Team ([facility] st Contact Info) Description 12/14/2022 Refill [facility] [address] [place] [address] Zachery Carvajal FNP Major depressive disorder, recurrent, [...] Office Visit [facility] [address] [place] [address] Antony Jenkins MD [address] [place] [address] documented as of this encounter Visit Diagnoses Diagnosis Major depressive disorder, recurrent, severe with psychotic features (CMS/HCC) Major depressive disorder, recurrent episode, severe, specified as with psychotic behavior documented in this encounter Additional Health Concerns Assessment Noted Time PHQ-9 Depression Total Score: 10 023 10:25 AM EDT documented as of this encounter Care Teams Underground Mine Machinery Mechanic Relationship Specialty Start Date End Date Antony Jenkins MD [address] [place] [id number] PCP - General Internal Medicine 10/19/13 Zachery Carvajal FNP [address] [place] [address] Nurse Practitioner Family Medicine 01/06/23 [facility] 01/30/20 documented as of this encounter
--- OUTSIDE RECORDS SUMMARY | 2024-11-06 22:44 | XMS_ITS | Encounter Summary ---
Author Organization [employer] Address [address] [facility] 7t [place] [address] Care Team Providers Care Baton Teacher Name Role Phone Antony Jenkins MD Primary Care Provide r Zachery Carvajal Unavailable Unavailable Reason for Visit * Reason Onset Date Comments Hospital Follow-up 02/21/2024 Encounter Details Date Type Department Care Team (Late st Contact Info) Description 02/21/2024 Telephone [facility] [address] [place], [place] [phone] Antony Jenkins MD [address] [place], [place] [phone] Hospital Follow-up Social History Tobacco Use Types [...] from pt requesting a HDF appt. Hospital: [facility] Date of admission: 02/01/24 Discharge date: 02/04/24 Diagnosed: Back Pain and Right eye conjunctivitis *Send message to [place] Clinical Care Coordinators Please contact pt at [phone]. documented in this encounter Plan of Treatment Upcoming Encounters Date Type Department Care Team (Late st Contact Info) Description 11/09/2024 1:00 PM EDT Office Visit [facility] [address] [place] [address] Antony Jenkins MD [address] [place] [address] documented as of this encounter Visit Diagnoses Not on filedocumented in this encounter Additional Health Concerns Assessment Noted Time PHQ-9 Depression Total Score: 19 024 11:27 AM EDT documented as of this encounter Care Teams Baton Teacher Relationship Specialty Start Date End Date Antony Jenkins MD [address] [place] [address] PCP - General Internal Medicine 10/19/13 Zachery Carvajal FNP [address] [place] [address] SIMEON De Guzman [address] Nurse Practitioner Family Medicine 01/06/23 [facility] 01/30/20 documented as of this encounter
--- OUTSIDE RECORDS SUMMARY | 2024-11-06 22:44 | XMS_ITS | Encounter Summary ---
Author Organization [employer] Address [address] [facility] 7t [place] [address] Care Team Providers Care Delivery Driver/Customer Service Name Role Phone Antony Jenkins MD Primary Care Provide r Zachery Carvajal Unavailable Unavailable Reason for Visit * Reason Onset Date Comments Durable Medical Equipment 09/01/2023 Encounter Details Date Type Department Care Team (Late st Contact Info) Description 09/01/2023 Telephone [facility] [address] [place] [address] Antony Jenkins MD [address] [place], [place] [phone] Durable Medical Equipment Social History Tobacco Use [...] 9:36 AM EDT Tc from Jennifer with [facility] requesting DME supplies . [facility] has sent a requesting on 08/05/23 but has not received any status. Toilet seat riser Slip resistant mat Please email to: [email or web address] documented in this encounter Plan of Treatment Upcoming Encounters Date Type Department Care Team (Late st Contact Info) Description 11/09/2024 1:00 PM EDT Office Visit [facility] [address] [place] [address] Antony Jenkins MD [address] [place] [address] documented as of this encounter Visit Diagnoses Not on filedocumented in this encounter Additional Health Concerns Assessment Noted Time PHQ-9 Depression Total Score: 10 024 3:18 PM EDT documented as of this encounter Care Teams Delivery Driver/Customer Service Relationship Specialty Start Date End Date Antony Jenkins MD [address] [place] [address] PCP - General Internal Medicine 10/19/13 Zachery Carvajal FNP [address] [place] [address] Nurse Practitioner Family Medicine 01/06/23 [facility] 01/30/20 documented as of this encounter
--- OUTSIDE RECORDS SUMMARY | 2024-11-06 22:44 | XMS_ITS | Encounter Summary ---
Author Organization [employer] Address [address] [facility] [place], [place] [address] Care Team Providers Care Superintendent Overhead Distribution Name Role Phone Antony Jenkins MD Primary Care Provide r Zachery Carvajal Unavailable Unavailable Encounter Details Date Type Department Care Team (Late Contact Info) Description 03/27/2022 [facility] [email or web address] Information Management [address] [place], [place] [phone] Antony Jenkins MD [address] [place] [phone] Social History Tobacco Use Types Packs/Day Years [...] Description 11/09/2024 1:00 PM EDT Office Visit [facility] [address] [place], [place] [phone] Antony Jenkins MD [address] [place], [place] [phone] documented as of this encounter Visit Diagnoses Not on filedocumented in this encounter Additional Health Concerns Assessment Noted Time PHQ-9 Depression Total Score: 11 023 11:13 AM EST documented as of this encounter Care Teams Superintendent Overhead Distribution Relationship Specialty Start Date End Date Antony Jenkins MD [address] [place] [address] PCP - General Internal Medicine 10/19/13 Zachery Carvajal FNP [address] [place] [address] Nurse Practitioner Family Medicine 01/06/23 [facility] 01/30/20 documented as of this encounter
--- OUTSIDE RECORDS SUMMARY | 2024-11-06 22:44 | XMS_ITS | Encounter Summary ---
Author Organization [employer] Address [address] [facility] 7t [place] [address] Care Team Providers Care Home Hospice Aide Name Role Phone Antony Jenkins MD Primary Care Provide r Zachery Carvajal Unavailable Unavailable Reason for Visit * Reason Onset Date Comments Durable Medical Equipment 11/01/2024 Encounter Details Date Type Department Care Team (Late st Contact Info) Description 11/01/2024 Telephone [facility] [address] [place] [address] Antony Jenkins MD [address] [place], [place] [phone] Durable Medical Equipment Social History Tobacco Use [...] * Telephone Encounter - Faiza Vences - 11/01/2024 8:28 AM EDT Confirmation of order for wound care supplies sent to PCP for signature via [employer]. Once signed, will be faxed to [employer] and sent to scan. If patient calls to check status on above, please advise them to contact [employer] at [phone]. documented in this encounter Plan of Treatment Upcoming Encounters Date Type Department Care Team (Late st Contact Info) Description 11/09/2024 1:00 PM EDT Office Visit [facility] [address] [place] [address] Antony Jenkins MD [address] [place] [address] documented as of this encounter Visit Diagnoses Not on filedocumented in this encounter Additional Health Concerns Assessment Noted Time PHQ-9 Depression Total Score: 23 025 1:08 PM EDT documented as of this encounter Care Teams Home Hospice Aide Relationship Specialty Start Date End Date Antony Jenkins MD [address] [place] [address] PCP - General Internal Medicine 10/19/13 Zachery Carvajal FNP [address] [place] [address] Nurse Practitioner Family Medicine 01/06/23 [facility] 01/30/20 documented as of this encounter
--- OUTSIDE RECORDS SUMMARY | 2024-11-06 22:44 | XMS_ITS | Encounter Summary ---
Author Organization [email or web address] Address [address] [facility] 7[address] [place] [address] Care Team Providers Care Video Conference Specialist Name Role Phone Antony Jenkins MD Primary Care Provide r Zachery Carvajal Unavailable Unavailable Encounter Details Date Type Department Care Team ([facility] Contact Info) Description 06/04/2022 Abstract [facility] ADULT DENTAL [address] [place] [address] Juaquin Rivers DDS [address] [place] [address] Social History Tobacco Use Types Packs/Day Years [...] Upcoming Encounters Date Type Department Care Team ([facility] Contact Info) Description 11/09/2024 1:00 PM EDT Office Visit [facility] MEDICINE [address] [place] [address] Antony Jenkins MD [address] [place] [address] documented as of this encounter Visit Diagnoses Not on filedocumented in this encounter Additional Health Concerns Assessment Noted Time PHQ-9 Depression Total Score: 15 04/27/ 023 2:02 PM EDT documented as of this encounter Care Teams Video Conference Specialist Relationship Specialty Start Date End Date Antony Jenkins MD [address] [place] [id number] PCP - General Internal Medicine 10/19/13 Zachery Carvajal FNP [address] [place] [phone] Nurse Practitioner Family Medicine 01/06/23 [facility] 01/30/20 documented as of this encounter
--- OUTSIDE RECORDS SUMMARY | 2024-11-06 22:45 | XMS_ITS | Encounter Summary ---
Author Organization [email or web address] Address [address] [facility] [address] [place] [address] Care Team Providers Care Behavior Therapist Name Role Phone Antony Jenkins MD Primary Care Provide r Zachery Carvajal Unavailable Unavailable Reason for Visit * Reason Onset Date Comments Referral 05/31/2024 Encounter Details Date Type Department Care Team (Late st Contact Info) Description 05/31/2024 Telephone [facility] MEDICINE [address] [place] [address] Antony Jenkins MD [address] [place], [place] [phone] Referral Social History Tobacco Use Types Packs/Day [...] Neurology. Per pt last provider was in [facility] in [place]. Per pt continues to have spacticity and [...] 06/01/2024 3:00 PM Antony Fleming MD MEDICINE [facility] 06/30/2024 1:30 PM JOSE Aguilar DENT [facility] Protocol Used: Information Only Call [...] pt being in pain. Contact pt at [phone] If not able to reach contact pt mom at [phone] documented in this encounter Plan of Treatment Upcoming Encounters Date Type Department Care Team (Late st Contact Info) Description 11/09/2024 1:00 PM EDT Office Visit [facility] MEDICINE [address] [place] [address] Antony Jenkins MD [address] [place] [phone] documented as of this encounter Visit Diagnoses Not on filedocumented in this encounter Additional Health Concerns Assessment Noted Time PHQ-9 Depression Total Score: 19 024 11:27 AM EDT documented as of this encounter Care Teams Behavior Therapist Relationship Specialty Start Date End Date Antony Jenkins MD [address] [place] [id number] PCP - General Internal Medicine 10/19/13 Zachery Carvajal FNP [address] [place] [address] Nurse Practitioner Family Medicine 01/06/23 [facility] 01/30/20 documented as of this encounter
[2024-11-07 04:00] VITALS: RESP 16; O2SAT 97
[2024-11-07 06:33] VITALS: BP 109/57; PULSE 66; RESP 16; TEMP 36.8; O2SAT 96
[2024-11-07] MEDS: Naloxone HCl Nasal TAKE HOME 4 MG SPRAY 8 MG NOSTRILALT (06:43)
[2024-11-07 09:11] VITALS: BP 109/57; PULSE 66; RESP 16; TEMP 36.8; O2SAT 96
--- NOTE | 2024-11-07 09:13 | PC.NURSE ---
axox3 at discharge
== END 2024-11-07 08:30 | disposition home or self-care (01) ==
PROVIDERS: Emergency Provider Emergency Medicine
DX: M25.512 Pain in left shoulder (principal); F14.90 Cocaine use, unspecified, uncomplicated; F17.210 Nicotine dependence, cigarettes, uncomplicated; I45.10 Unspecified right bundle-branch block; R94.31 Abnormal electrocardiogram [ECG] [EKG]; Z79.899 Other long term (current) drug therapy; Z51.81 Encounter for therapeutic drug level monitoring
CPT/HCPCS: 36415; 73030; 73080; 80053; 80143; 80179; 80307; 85025; 93005; 99283; 99284

== ENCOUNTER → 2024-11-06 22:29 | Outpatient (BNV) | payer OTHER, SELFPAY | PROVIDERS: Emergency Provider Emergency Medicine; Visit Provider Internal Medicine Cardiovascular Disease | DX: I45.10 Unspecified right bundle-branch block (principal); I44.4 Left anterior fascicular block | CPT/HCPCS: 93010 ==

== ENCOUNTER → 2024-11-06 22:33 | Outpatient (BNV) | payer OTHER, SELFPAY | PROVIDERS: Emergency Provider Emergency Medicine; Visit Provider Radiology Diagnostic Radiology | DX: M25.512 Pain in left shoulder (principal); M25.521 Pain in right elbow; R22.31 Localized swelling, mass and lump, right upper limb; W19.XXXA Unspecified fall, initial encounter | CPT/HCPCS: 73030; 73080 ==

== ENCOUNTER 2024-12-08 08:52 | Day surgery (SDC) | payer OTHER, SELFPAY ==
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
--- OUTSIDE RECORDS SUMMARY | 2024-10-27 14:23 | XMS_ITS | Clinical Summary ---
Author Organization [facility] Address [address] [place] [address] Care Team Providers Care Range Aide Name Role Phone Unavailable Primary Care Provider [...] Bedridden 11/04/2023 Chronic hepatitis C virus infection ([facility]) 11/04/2023 H/O paraplegia 11/04/2023 History of [...] for surgery until pt can f w logistics clerk -referred today to logistics clerk -alarm signs and symptoms discussed w pt [...] referred for counseling. Will also F/U with [facility] clinician. Since this provider will be retiring, patient will be referred to new [facility] psychiatric provider. Pt is aware that appts will be via televisit and that provider will not be [facility] employee. He gives permission to share PHI. Any issues or concerns, contact [facility]. All his questions were answered and [...] disorder, r ecurrent, severe with psychotic features ([facility]) 01/29/2022 Overview (11/04/2023): Last [...] will call back and provider number to [place] managing his medication. Able to mobilize using mobility aids 01/17/2022 Subluxation of right hip (CMS & [facility]HS-HCC) 022 Cirrhosis of liver ([facility]) 05/10/2019 Overview (11/04/2023): Last [...] good results Neurogenic bowel 10/12/2011 Polysubstance dependence ([facility]) 012 Overview (11/04/2023): Last Assessment & Plan: [...] by [facility]NA Will refer back to [facility] care [facility] Paraplegia ([facility]) 07/15/2011 Overview (11/04/2023): Last Assessment & Plan: Patient is here for a f/u Pt evaluated in the past at [facility] to help him with his right leg spasticity. For this he has been seen in the past at [facility]. pt has been previously on Tizanidine [...] Free 11/10/2018 HBIG 03/16/2018 Hep B, Adult/Adol ([id number]/RECOMBIVAX-ADULT) 03/16/2018 INFLUENZA, SEASONAL, INJECTABLE 11/14/2013,12/23 INFLUENZA, SEASONAL, INJECTA BLE, PRESERVATIVE FREE 01/03/2014 PNEUMOCOCCAL POLYSACCHARIDE PPV23 (Pneumovax 23) 09/04/2015,10/03/2013,07/16/2007 [facility] State Funded Flu Vaccine 05/02/2013 TDAP [...] Drug Screen 02/16/2024 Diabetes Screening 06/08/2024 06/09/2023 [id number] ( season) 2024 021, 10/31/2020 Imm-Influenza (#1) 2024 11/10/2018, 1 , 11/20/2014, Additional history exists Imm-DTaP/Tdap/Td (2 - Td or Tdap) 11/20/2024 015, 12/28/2003 HIV Screening Completed 05/06/2021, 05/06/2021 Insurance [place] [id number] [place] [address] [facility]
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
--- NOTE | 2024-12-06 11:21 | HO.ANESPROP2 ---
Documented by User: Iza Kumar NP 12/06/24 11:22 HPI - Anesthesia Eval Consult details Narrative: 39yo M for Bilateral?Diagnostic C4,C5,C6 Medial Branch Block Active polysub abuse, on methadone Cirrhosis - labs wnl Anesthesia Pre-Procedure Meds Is the patient on any of the following meds?: GLP1/DPP4 PMFSH Active Problems Active Problems: All Active Problems Spondylosis of cervical spine (Acute) Psychosis (Acute) Opioid use disorder (Acute) Acute UTI (Acute) QT prolongation (Acute) Aggression (Acute) Dysphagia (Acute) Morbid obesity (Acute) Weight gain (Acute) Leg edema (Acute) Upper abdominal pain (Acute) Constipation (Acute) History of decubitus ulcer (Acute) Hydronephrosis (Acute) Erectile dysfunction (Acute) Chronic pain syndrome (Acute) HCV (hepatitis C virus) (Acute) Recurrent UTI (Acute) Erectile dysfunction due to arterial insufficiency (Acute) PTSD (post-traumatic stress disorder) (Acute) Neurogenic urinary bladder disorder (Acute) Suicidal ideation (Acute) Past Medical History Medical History Chest pain Major depressive disorder, recurrent, severe with psychotic symptoms Opioid dependence Urinary incontinence Chronic pain due to injury Open wound Methadone maintenance therapy patient Polysubstance dependence Cirrhosis Paraplegia Eczema Asthma Cellulitis PTSD (post-traumatic stress disorder) Erectile dysfunction due to arterial insufficiency Recurrent UTI Social History Social History Household Members: Unknown / Unable to assess Housing: Unknown / Unable to assess Do you presently have visiting nurse or other home services: No Unable to assess alcohol history related to: Refusing to respond Alcohol intake: unknown Comment: PT SLEEPING Patient Tobacco Use Status: Current everyday Tobacco user Cigarette Packs Per Day: 1 Cigarettes Per Day: 20.0 Years Smoked: 20 Second Hand Smoke Exposure: Yes Substance Use Type: Crack/Cocaine and Heroin Advance Directives Date on File: 01/23/20 service: No Current occupational status: disabled Sexual orientation: Client not available to respond at this time Meds Allergies Allergy/AdvReac Type Severity Reaction Status Date / Time vancomycin (VANCOMYCIN) Allergy Severe DIFFICULTY Verified 11/06/24 21:32 BREATHING, anaphylaxis piperacillin (From ZOSYN) Allergy Intermediate DIFFICULTY Verified 11/06/24 21:32 BREATHING tazobactam (From ZOSYN) Allergy Intermediate DIFFICULTY Verified 11/06/24 21:32 BREATHING tramadol Allergy Intermediate nausea and Verified 11/06/24 21:32 vomiting codeine Allergy Unknown Unknown Verified 11/06/24 21:32 Home Medications ?Medication ?Instructions ?Recorded ?Confirmed ?Last Taken ?Type risperidone 4 mg tablet 4 mg PO BID 06/30/22 03/04/24 Unknown History docusate sodium 100 mg capsule 100 mg PO DAILY 04/08/23 03/04/24 Unknown History (Colace) benztropine 1 mg tablet 1 mg PO BID 03/04/24 03/04/24 Unknown History carbamazepine 200 mg tablet 200 mg PO BID 03/04/24 03/04/24 Unknown History hydroxyzine HCl 25 mg tablet 25 mg PO DAILY PRN Agitation 03/04/24 03/04/24 Unknown History omeprazole 40 mg capsule,delayed 40 mg PO BID@0630,1630 03/04/24 03/04/24 Unknown History release trazodone 150 mg tablet 150 mg PO BEDTIME 03/04/24 03/04/24 Unknown History albuterol sulfate 90 mcg/actuation 2 puff inhalation Q6H PRN wheezing 10/05/24 Unknown History aerosol inhaler (Ventolin HFA) hydrocortisone 2.5 % topical cream 1 appl topical BID PRN 10/05/24 Unknown History meloxicam 15 mg tablet 15 mg PO DAILY 10/05/24 Unknown History oxybutynin chloride 15 mg 15 mg PO DAILY 10/05/24 Unknown History tablet,extended release 24 hr semaglutide (weight loss) 0.25 0.25 mg subcut QWEEK 10/05/24 Unknown History mg/0.5 mL subcutaneous pen injector (Wegovy) Exam Pertinent Lab Results Pertinent Lab Results: Laboratory Tests 11/06/24 22:22 WBC 13.9 H Hgb 14.0 Hct 44.0 Plt Count 308 Sodium 137 Potassium 4.3 Chloride 100 Carbon Dioxide 28 BUN 9 Creatinine 0.64 Narrative Narrative: EKG 10/2024 Vent. Rate : 72 BPM Atrial Rate : 72 BPM P-R Int : 120 ms QRS Dur : 108 ms QT Int : 424 ms P-R-T Axes : * -46 -34 degrees QTcB Int : 464 ms Normal sinus rhythm Incomplete right bundle branch block Left anterior fascicular block Minimal voltage criteria for LVH, may be normal variant ( R in aVL ) Nonspecific T wave abnormality Prolonged QT Abnormal ECG When compared with ECG of 08-Jun-2024 19:06, Nonspecific T wave abnormality, worse in Inferior leads Nonspecific T wave abnormality now evident in Lateral leads Assessment and Plan Assessment Anesthesia Assessment: Chart Reviewed Documented by User: Gerda Villalobos MD 12/08/24 08:38 PMFSH Past Medical History Medical History Chest pain Major depressive disorder, recurrent, severe with psychotic symptoms Opioid dependence Urinary incontinence Chronic pain due to injury Open wound Methadone maintenance therapy patient Polysubstance dependence Cirrhosis Paraplegia Eczema Asthma Cellulitis PTSD (post-traumatic stress disorder) Erectile dysfunction due to arterial insufficiency Recurrent UTI Family History Family history of problems with anesthesia: No Surgical History History of Problems with Anesthesia: No Social History Social History Household Members: Unknown / Unable to assess Housing: Unknown / Unable to assess Do you presently have visiting nurse or other home services: No Unable to assess alcohol history related to: Refusing to respond Alcohol intake: unknown Comment: PT SLEEPING Patient Tobacco Use Status: Current everyday Tobacco user Cigarette Packs Per Day: 1 Cigarettes Per Day: 20.0 Years Smoked: 20 Second Hand Smoke Exposure: Yes Substance Use Type: Crack/Cocaine and Heroin Advance Directives Date on File: 01/23/20 service: No Current occupational status: disabled Sexual orientation: Client not available to respond at this time Meds Allergies Allergy/AdvReac Type Severity Reaction Status Date / Time vancomycin (VANCOMYCIN) Allergy Severe DIFFICULTY Verified 11/06/24 21:32 BREATHING, anaphylaxis piperacillin (From ZOSYN) Allergy Intermediate DIFFICULTY Verified 11/06/24 21:32 BREATHING tazobactam (From ZOSYN) Allergy Intermediate DIFFICULTY Verified 11/06/24 21:32 BREATHING tramadol Allergy Intermediate nausea and Verified 11/06/24 21:32 vomiting codeine Allergy Unknown Unknown Verified 11/06/24 21:32 Home Medications ?Medication ?Instructions ?Recorded ?Confirmed ?Last Taken ?Type risperidone 4 mg tablet 4 mg PO BID 06/30/22 03/04/24 Unknown History docusate sodium 100 mg capsule 100 mg PO DAILY 04/08/23 03/04/24 Unknown History (Colace) benztropine 1 mg tablet 1 mg PO BID 03/04/24 03/04/24 Unknown History carbamazepine 200 mg tablet 200 mg PO BID 03/04/24 03/04/24 Unknown History hydroxyzine HCl 25 mg tablet 25 mg PO DAILY PRN Agitation 03/04/24 03/04/24 Unknown History omeprazole 40 mg capsule,delayed 40 mg PO BID@0630,1630 03/04/24 03/04/24 Unknown History release trazodone 150 mg tablet 150 mg PO BEDTIME 03/04/24 03/04/24 Unknown History albuterol sulfate 90 mcg/actuation 2 puff inhalation Q6H PRN wheezing 10/05/24 Unknown History aerosol inhaler (Ventolin HFA) hydrocortisone 2.5 % topical cream 1 appl topical BID PRN 10/05/24 Unknown History meloxicam 15 mg tablet 15 mg PO DAILY 10/05/24 Unknown History oxybutynin chloride 15 mg 15 mg PO DAILY 10/05/24 Unknown History tablet,extended release 24 hr semaglutide (weight loss) 0.25 0.25 mg subcut QWEEK 10/05/24 Unknown History mg/0.5 mL subcutaneous pen injector (Wegovy) Exam Airway Mallampati Class: II TM Dist: >3cm Neck ROM: Full Heart: rrr Lungs: cta Assessment and Plan Assessment Anesthesia Assessment: Anesthesia Plan Discussed Final Anesthetic Review Family History of Problems with Anesthesia: No History of Problems with Anesthesia: No NPO: Yes ASA Class: III Final Preanesthetic Review: No Changes in Pt Med Stat, Meds/Allgs Chart Reviewed, Consent Obtained/Reviewed and Anes Risks/Benef Reviewed Patient Risk: Intermediate Procedure Risk: Low Anesthetic Plan Anesthetic Plan: MAC: Disposition: Standard PACU
--- NOTE | ~2024-12-08 | FL_ITS ---
EXAMINATION: FLUOROSCOPY GUIDANCE FOR NEEDLE PLACEMENT CLINICAL INFORMATION: dx c4 c5 c6 mbb, bilateral COMPARISON: None TECHNIQUE: Fluoroscopic guidance was provided for pain management procedure. 8 images of the cervical spine are submitted. FINDINGS: Images demonstrate needle placement and contrast injection adjacent to the bilateral lateral C4, C5 and C6 vertebrae. See procedure note for detailed findings. FLUOROSCOPY TIME: 49 seconds DOSE AREA PRODUCT: 3.5 Gy-cm2 FL/FL guidance in OR IMPRESSION: Fluoroscopy guidance for pain management procedure. Electronically signed by: Trini Lee MD 12/08/2024 11:56 AM EDT
[2024-12-08 09:45] VITALS: BMI 41.3
--- NOTE | 2024-12-08 09:46 | P.HPSUR_ITS ---
Pre-Procedural Eval Section A - 24 Hr Update-Section A only Date of Service: 12/08/24 The patient is an INPATIENT: No Changes since office visit: Yes Patient answered all questions The patient has been examined within 24 hours of the surgical procedure. The History & Physical has been completed within 30 days and I have reviewed it.: No Section B - Complete if H&P > 30 days Chief Complaint: Spondylosis without myelopathy or radiculopathy, Details of Present Illness: cervical spondylosis Relevant Family History (Specify if Yes): No Relevant Social History: None Present Medications: see Short Stay Collaborative assessment Medical History: No relevant PMH History of Previous Operations: No relevant previous surgery Allergies: Allergies Allergy/AdvReac Type Severity Reaction Status Date / Time vancomycin (VANCOMYCIN) Allergy Severe DIFFICULTY Verified 11/06/24 21:32 BREATHING, anaphylaxis piperacillin (From ZOSYN) Allergy Intermediate DIFFICULTY Verified 11/06/24 21:32 BREATHING tazobactam (From ZOSYN) Allergy Intermediate DIFFICULTY Verified 11/06/24 21:32 BREATHING tramadol Allergy Intermediate nausea and Verified 11/06/24 21:32 vomiting codeine Allergy Unknown Unknown Verified 11/06/24 21:32 Review of Systems Sugical H&P ROS: Negative: Cardiovascular, Respiratory, Neurological, Hem-Onc, Allergic/Immunologic, Gastrointestinal, Musculoskeletal, Integumentary, Endocrine and Eyes/Ears/Nose/Throat and Yes, Specify: Constitution (morbid obesity), Psychiatric (opioid use disorder, PTSD) and Genitourinary (hydr onephrosis) Exam Surgical H&P Exam: Normal: HEENT, Normal: Heart, Normal: Lungs and Normal: Skin and Significant Findings: Extremities (paraplegic), Significant Findings: Abdomen (morbidity obese) and Significant Findings: Neurological (paraplegic) Plan Diagnosis/Plan: Unchanged I have reviewed the history and physical and performed a pertinent physical examination on my patient. No changes have occurred unless specified. Time Spent With Patient Time: Total time managing care of this patient today ____ minutes.
[2024-12-08] MEDS: Lactated Ringers 1,000 ML 100 ML IVCONT (09:47)
[2024-12-08 09:48] VITALS: BP 107/79; PULSE 68; RESP 16; TEMP 36.6; O2SAT 95
[2024-12-08 10:50] VITALS: BP 120/71; PULSE 72; RESP 16; TEMP 36.7; O2SAT 96
--- NOTE | 2024-12-08 10:50 | P.BOP_ITS ---
Brief Operative Note Date of Service: 12/08/24 Pre-op diagnosis: Spondylosis cervical spine without myelopathy or radiculopathy Post-op diagnosis: same Procedure: Diagnostic medial branch block C4, C5, C6 bilateral Surgeon: Obdulio Fermin MD Anesthesia: MAC Was an Real Estate Consultant used for this Procedure?: No Estimated blood loss (mL): 0 Condition: stable Disposition: PACU
--- NOTE | 2024-12-08 10:52 | P.OP_ITS ---
Operative Note Operative Note Date of Service: 12/08/24 Narrative: Diagnostic medial branch block C4- C5- C6 bilateral. ? ?Informed consent was explained to the patient. All questions were explained and? answered.? The patient was taken inside the operating room where he was positioned prone on the operating table. [employer] monitors were applied and patient was minimally sedated. Time-out was performed delineating correct site, side, the nature of the procedure, patient's allergy, . All operating room staff was participating in OR time-out procedure. ? ? The the upper back and posterior neck was prepped with ChloraPrep and draped with sterile self adhesive utility towels.? C-arm was brought over the operating field and sq picture of C4- C5- C6 vertebra were delineated on the screen.? Point of interest were delineated as lateral masses of the vertebras as above with the bilateral waist of each lateral mass as the target of the final needle position.? The projection of the point of interest to the skin were injected with the small amount of local anesthetic lidocaine 2% mixed with ropivacaine 0.5% 1-1 approximately 1 cc.? After that three 22 gauge 3.5 inch spinal needles were driven sequentially to the points of interest in tunnel vision fashion first on the right and after that on the left. At the point of interests the needle was injected with small amount of the contrast.? The injection of the contrast did not demonstrate any intravascular or intrathecal spread of the contrast.? After that injection of the?ropivacaine 0.5%-1 cc mixed with small amount of Decadron of was performed at each needle location.?? after that the needles were removed and Bandaids were applied. Patient tolerated the procedure well he was taken outside of the operating room to recovery room.
[2024-12-08 11:00] VITALS: BP 105/71; PULSE 63; RESP 16; O2SAT 96
[2024-12-08 11:15] VITALS: BP 113/68; PULSE 77; RESP 16; O2SAT 96
[2024-12-08 11:29] VITALS: BP 120/77; PULSE 77; RESP 16; TEMP 36.6; O2SAT 96
== END 2024-12-08 12:33 | disposition home or self-care (01) ==
PROVIDERS: Visit Provider Anesthesiology
PROC: (CPT 64490; principal; 2024-12-08 10:10)
DX: M47.812 Spondylosis without myelopathy or radiculopathy, cervical region (principal); G89.4 Chronic pain syndrome; Z87.828 Personal history of other (healed) physical injury and trauma; G82.20 Paraplegia, unspecified; M54.9 Dorsalgia, unspecified; M54.2 Cervicalgia; Z99.3 Dependence on wheelchair; F33.3 Major depressive disorder, recurrent, severe with psychotic symptoms; F43.10 Post-traumatic stress disorder, unspecified; K74.60 Unspecified cirrhosis of liver; J45.909 Unspecified asthma, uncomplicated; Z79.1 Long term (current) use of non-steroidal anti-inflammatories (NSAID); Z79.899 Other long term (current) drug therapy; F11.29 Opioid dependence with unspecified opioid-induced disorder; Z88.1 Allergy status to other antibiotic agents; Z88.5 Allergy status to narcotic agent; F19.20 Other psychoactive substance dependence, uncomplicated; F10.90 Alcohol use, unspecified, uncomplicated; F17.210 Nicotine dependence, cigarettes, uncomplicated; Z90.49 Acquired absence of other specified parts of digestive tract; Z98.890 Other specified postprocedural states
CPT/HCPCS: 64490; 64491; J1100; J2003; J2250; J2704; J2795; Q9967

== ENCOUNTER → 2024-12-08 08:52 | Outpatient (BNV) | payer OTHER, SELFPAY | PROVIDERS: Visit Provider Anesthesiology | DX: M47.812 Spondylosis without myelopathy or radiculopathy, cervical region (principal) | CPT/HCPCS: 64490; 64491 ==

== ENCOUNTER 2025-01-10 14:50 | Outpatient (REF) | payer OTHER, SELFPAY ==
[2025-01-10 16:33] LABS: Appearance Urine Clear; Glucose Urine UA Negative (Negative); PH 8.5 (5.0-9.0); Specific Gravity - Urine 1.015 (1.005-1.025)
--- OUTSIDE RECORDS SUMMARY | 2025-01-10 17:31 | XMS_ITS | Encounter Summary ---
Author Organization [employer] Address [address] [facility] [address] [place] [address] Care Team Providers Care Plastic Outfitter Name Role Phone Antony Jenkins MD Primary Care Provide r Zachery Carvajal Unavailable Unavailable Encounter Details Date Type Department Care Team ([facility] Contact Info) Description 06/04/2022 Abstract [facility] ADULT DENTAL [address] [place] [address] Juaquin Rivers DDS [address] [place] [address] Social History Tobacco Use Types Packs/Day Years [...] Upcoming Encounters Date Type Department Care Team ([facility] Contact Info) Description 03/01/2025 1:00 PM EST Office Visit [facility] MEDICINE [address] [place] [address] Antony Jenkins MD [address] [place] [address] documented as of this encounter Visit Diagnoses Not on filedocumented in this encounter Additional Health Concerns Assessment Noted Time PHQ-9 Depression Total Score: 15 04/27/ 023 2:02 PM EDT documented as of this encounter Care Teams Plastic Outfitter Relationship Specialty Start Date End Date Antony Jenkins MD [address] [place] [id number] PCP - General Internal Medicine 10/19/13 Zachery Carvajal FNP [address] [place] [id number] Nurse Practitioner Family Medicine 01/06/23 [facility] 01/30/20 documented as of this encounter
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
--- OUTSIDE RECORDS SUMMARY | 2025-01-10 17:31 | XMS_ITS | Encounter Summary ---
Author Organization [employer] Address [address] [facility] [address] [place] [address] Care Team Providers Care Senior Administrative Support Name Role Phone Antony Jenkins MD Primary Care Provide r Zachery Carvajal Unavailable Unavailable Reason for Visit * Reason Onset Date Comments Referral 05/31/2024 Encounter Details Date Type Department Care Team (Late st Contact Info) Description 05/31/2024 Telephone [facility] [address] [place] [address] Antony Jenkins MD [address], [place] [phone] Referral Social History Tobacco Use Types Packs/Day [...] Neurology. Per pt last provider was in [facility] in [place]. Per pt continues to have spacticity and [...] 06/01/2024 3:00 PM Antony Fleming MD MEDICINE [facility] 06/30/2024 1:30 PM JOSE Aguilar DENT [facility] Protocol Used: Information Only Call - [...] pt being in pain. Contact pt at [phone] If not able to reach contact pt mom at [phone] documented in this encounter Plan of Treatment Upcoming Encounters Date Type Department Care Team (Late st Contact Info) Description 03/01/2025 1:00 PM EST Office Visit [facility] [address] [place] [address] Antony Jenkins MD [address] [place] [phone] documented as of this encounter Visit Diagnoses Not on filedocumented in this encounter Additional Health Concerns Assessment Noted Time PHQ-9 Depression Total Score: 19 024 11:27 AM EDT documented as of this encounter Care Teams Senior Administrative Support Relationship Specialty Start Date End Date Antony Jenkins MD [address] [place] [phone] PCP - General Internal Medicine 10/19/13 Zachery Carvajal FNP [address] [place] [phone] Nurse Practitioner Family Medicine 01/06/23 [facility] 01/30/20 documented as of this encounter
--- OUTSIDE RECORDS SUMMARY | 2025-01-10 17:31 | XMS_ITS | Encounter Summary ---
Author Organization [employer] Address [address] [facility] [address] [place] [address] Care Team Providers Care Alum Plant Supervisor Name Role Phone Antony Jenkins MD Primary Care Provide r Zachery Carvajal Unavailable Unavailable Encounter Details Date Type Department Care Team ([facility] Contact Info) Description 07/08/2022 Abstract [facility] [address], [place] [phone] Antony Jenkins MD [address] [place] [address] Social History Tobacco Use Types Packs/Day Years [...] Upcoming Encounters Date Type Department Care Team ([facility] st Contact Info) Description 03/01/2025 1:00 PM EST Office Visit [facility] [address] [facility] [place] [address] Antony Jenkins MD [address] [place] [address] documented as of this encounter Visit Diagnoses Not on filedocumented in this encounter Additional Health Concerns Assessment Noted Time PHQ-9 Depression Total Score: 10 023 2:33 PM EDT documented as of this encounter Care Teams Alum Plant Supervisor Relationship Specialty Start Date End Date Antony Jenkins MD [facility] [place], [place] [phone] PCP - General Internal Medicine 10/19/13 Zachery Carvajal FNP [address] [place] [phone] Nurse Practitioner Family Medicine 01/06/23 [facility] 01/30/20 documented as of this encounter
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
--- OUTSIDE RECORDS SUMMARY | 2025-01-10 17:31 | XMS_ITS | Encounter Summary ---
Author Organization [employer] Address [address] [place] [address] Care Team Providers Care Congressional District Aide Name Role Phone Antony Jenkins MD Primary Care Provide r Zachery Carvajal Unavailable Unavailable Reason for Visit * Reason Comments Med Change Request Encounter Details Date Type Department Care Team ([facility] st Contact Info) Description 12/14/2022 Refill [facility] [address] [place] [address] Zachery Carvajal FNP Major depressive disorder, recurrent, [...] 10:25 AM EDT Jak Hoff MA * How difficult have these problems made it for you to do your work, take care of things at home, or get along with other people? Answer Date of Assessment Author Very difficult 12/14/2022 10:25 AM EDT Nolvia Hoff MA * Over the past 2 [...] Description 03/01/2025 1:00 PM EST Office Visit [facility] [address] [place] [address] Antony Jenkins MD [address] [place] [phone] documented as of this encounter Visit Diagnoses Diagnosis Major depressive disorder, recurrent, severe with psychotic features (CMS/HCC) (HCC) Major depressive disorder, recurrent episode, severe, specified as with psychotic behavior documented in this encounter Additional Health Concerns Assessment Noted Time PHQ-9 Depression Total Score: 10 023 10:25 AM EDT documented as of this encounter Care Teams [place] Aide Relationship Specialty Start Date End Date Antony Jenkins MD [address] [place] [id number] PCP - General Internal Medicine 10/19/13 Zachery Carvajal FNP [address] [place] [phone] Nurse Practitioner Family Medicine 01/06/23 [facility] 01/30/20 documented as of this encounter
--- OUTSIDE RECORDS SUMMARY | 2025-01-10 17:31 | XMS_ITS | Encounter Summary ---
Author Organization [employer] Address [address] [facility] [address] [place] [address] Care Team Providers Care Dry Molder Name Role Phone Antony Jenkins MD Primary Care Provide r Zachery Carvajal Unavailable Unavailable Reason for Visit * Reason Onset Date Comments Referral 09/07/2023 Encounter Details Date Type Department Care Team ([facility] st Contact Info) Description 09/07/2023 Telephone [facility] [address] [place] [address] Antony Jenkins MD [address] [place], [place] [phone] Referral Social History Tobacco Use Types Packs/Day [...] PM EDT TC placed to Jennifer at [facility] who wants to inform PCP that they are not acceptingpt for medical management. Jennifer states that the pt informed her that he used to be seen at [facility]. Jennifer advised trying with them as they have physiatry care which may be beneficial to the pt. Pt was seen at [facility] on Wednesday09/06/23 * Telephone Encounter - Mena Benítez - 09/07/2023 1:50 PM EDT Tc from Jennifer with [facility] requesting a call from a nurse in regards to some concerns of referrals sent for pain management and PT documented in this encounter Plan of Treatment Upcoming Encounters Date Type Department Care Team (Late st Contact Info) Description 03/01/2025 1:00 PM EST Office Visit [facility] [address] [place] [address] Antony Jenkins MD [address] [place] [address] documented as of this encounter Visit Diagnoses Not on filedocumented in this encounter Additional Health Concerns Assessment Noted Time PHQ-9 Depression Total Score: 11 09/01/ 024 1:44 PM EDT documented as of this encounter Care Teams Dry Molder Relationship Specialty Start Date End Date Antony Jenkins MD [address] [place] [address] PCP - General Internal Medicine 10/19/13 Zachery Carvajal FNP [address] [place] [address] Nurse Practitioner Family Medicine 01/06/23 [facility] 01/30/20 documented as of this encounter
--- OUTSIDE RECORDS SUMMARY | 2025-01-10 17:31 | XMS_ITS | Encounter Summary ---
Author Organization [employer] Address [address] [facility] [address] [place] [address] Care Team Providers Care Trash Collector Supervisor Name Role Phone Antony Jenkins MD Primary Care Provide r Zachery Carvajal Unavailable Unavailable Reason for Visit * Reason Onset Date Comments Durable Medical Equipment 09/01/2023 Encounter Details Date Type Department Care Team (Late st Contact Info) Description 09/01/2023 Telephone [facility] [address] [place] [address] Antony Jenkins MD [address] [place], [place] [phone] Durable Medical Equipment Social History Tobacco Use [...] 1:44 PM EDT Latoya Hoff MA * How difficult have these problems made it for you to do your work, take care of things at home, or get along with other people? Answer Date of Assessment Author Very difficult 09/02/2023 1:44 PM RILEYT Nolvia Hoff MA * Over the past 2 weeks, how often have you been bothered by any of the following problems? Question Answer Date of Assessment Author Little interest or pleasure in doing things Nearly every day 09/02/2023 1:44 PM RILEYT Nolvia Hoff MA Feeling down, depressed, or hopeless More than half the days 09/02/2023 1:44 PM RILEYT Nolvia Hoff [place] Trouble falling or staying asleep, or sleeping too much More than half the days 09/02/2023 1:44 PM RILEYT Nolvia Hoff [place] Feeling tired or having little energy Several days 09/02/2023 1:44 PM RILEYT Nolvia Hoff [place] Poor appetite or [...] 9:36 AM EDT Tc from Jennifer with [facility] requesting DME supplies . [facility] has sent a requesting on 08/05/23 but has not received any status. Toilet seat riser Slip resistant mat Please email to: [email or web address] documented in this encounter Plan of Treatment Upcoming Encounters Date Type Department Care Team (Late st Contact Info) Description 03/01/2025 1:00 PM EST Office Visit [facility] MED[facility]INE [address] [facility] [place] [phone] Antony Jenkins MD [address] [facility] [place] [address] documented as of this encounter Visit Diagnoses Not on filedocumented in this encounter Additional Health Concerns Assessment Noted Time PHQ-9 Depression Total Score: 10 024 3:18 PM EDT documented as of this encounter Care Teams Trash Collector Supervisor Relationship Specialty Start Date End Date Antony Jenkins MD [address] [place] [address] PCP - General Internal Medicine 10/19/13 Zachery Carvajal FNP [address] [place] [address] Nurse Practitioner Family Medicine 01/06/23 [facility] 01/30/20 documented as of this encounter
--- OUTSIDE RECORDS SUMMARY | 2025-01-10 17:31 | XMS_ITS | Continuity of Care Document ---
Author Organization [facility] Address [address] [place] [address] Care Team Providers Care Litigation Counsel Name Role Phone Unavailable Referring Provider [phone] HIM CCA OTHER Assessment Encounter Date Assessment Date Assessment LastModified by Organization Details LastModified Time 12/04/2024 12/04/2024 I have reviewed and agree with the Assessment and Plan as documented by the Turnaround Engineer. I provided real-time medical direction via phone for this encounter, and was available for additional phone based assistance as needed. I would add/emphasize: Patient seen for malodorous urine burning discomfort in the lower abdomen and darker urinary appearance. Patient straight caths for urination. AVSS afebrile and well-appearing per report. Urinalysis not suggestive of infection with negative leukocyte esterase and nitrites however given patient is high risk for infection and is describing typical symptoms of UTI thus we will send a urine culture for further evaluation, should his culture not reveal anything and should patient's symptoms worsen he will require further evaluation. Red flags that should prompt presentation to the emergency department discussed. pallfather Not available 12/05/2024 11:37:19 Plan of Treatment Reminders Order Date Submit Date Provider Last Modified By Organization Details Last Modified Time Details Appointments None recorded. Lab culture, urine 2024 [facility] (Centralized Electronic Ordering - All Locations), Patient Can Go To The Location Of Their Choice, [address] 16:06:29 urinalysis , dipstick 2024 025 [facility], [address] [place], [address] 17:58:18 Referral None recorded. Procedures None recorded. Surgeries None recorded. Imaging None recorded. Medication Orders None recorded. Patient TargetsNo targets recorded. Patient InstructionsNo instructions recorded. Reason for Referral None Reported. Results Created Date Observation Date Name Description Value Unit Range Abnormal Flag Note LastModifiedBy Organization Detail LastModifiedTime 12/05/1912/05/2024 URINE CULTU RE, UROLO GY TANIA P urine culture, urology workup Final report Not Available [facility] ([facility]) [address] [place], [address], 12/05/2024 16:06:29 12/05/1912/05/2024 URINE CULTU RE, UROLO GY TANIA P result 1 COMMEN T Mixed uroge nital abhinav Great er than 100,0 00 colon y formi ng units per mL Not Available [facility] ([facility]) [address] [facility], [place], [address], 12/05/2024 16:06:29 Result Notes None recorded. Medical Equipment None Reported. Allergies Allergen ID Allergen Name Allergen Category Reaction Reaction Severity Criticality Documentation Date Start Date Code Code System Note Provider Name and Address Organization Details Recorded Time 1135 vancomyci n medicatio n Not available Not available Not available 11/22/2021 05090 RxNorm Not Available [facility] - production 4 03:44:19 30416 tramadol medicatio n nausea Not available Not available 12/18/20242024 91558 RxNorm Not Available [facility] - External Data Service - prod 5 12:57:05 Medications Name Sig Start Date Stop [...] No t Available Vitals Date Recorded Body weight Oxygen saturation Heart rate Body temperature Body height Respiratory rate Systolic And Diastolic Provider Name and Address Organization Details Last Updated DateTime 5 966141. 76 g 95 % 66 /min 97.8 [degF] 175.26 cm 16 /min 123/81 mm[Hg] Not Available [facility] - production 11:44:06 Social History None recorded. Functional Status None recorded. Mental Status None recorded. Family History Nothing Reported. Medical History No medical history recorded. Past Encounters Encounter ID Performer Location Encounter Start Date Encounter Closed Date Diagnosis/Indication Diagnosis SNOMED-CT Code Diagnosis ICD10 Code Diagnosis IMO Codes Diagnosis Note [id number] Robbie Sarabia MD [facility] ED Medical [address] [address] 12/04/2024 11:43:58 12/05/2024 13:59:01 Urinary symptoms 522506099 R39.9 90263 Health Concerns Section Related Observation LastModified by Organization Detai ls LastModified Time None Recorded Concern Status LastModified by Organization Details LastModified Time None Recorded Payers Encounter Date Sequence Insurance Name Policy Number Policy Doty Covered Member ID Doty Member ID Guarantor Name 12/04/[address] [facility] - DOS ON OR AFTER 2022 - DUAL ELIGIBLE - [facility] OPTIONS AND ONE CARE (MEDICARE REPLACEMENT/ADV ANTAGE - HMO) Jose Fleming [id number] Jose Fleming Notes Date Note Type Note Provider Name and Address Organization Details Recorded Time 12/04/2024 text/html [facility] Nurse Triage Notes (Elvira Zambrano): Reason For Request: Homecare RN reporting weakness>confusion> odor with urine Patient Reports: Painful urination Denies: Unable to void greater than 5 hours Erection that will not go away after 2 hours Fall or trauma that results in urinary incontinence in the setting of pain Fall or injury that results in incontinence in the absence of pain Lower back pain either unilateral or bilateral, unable to void, painful urination -hematuria Frequent and increased urination with flank pain Painful urination with or without fever Inability to fully empty bladder Chief Complaints: Confusion, Urinary Symptoms PMH: Para or Quadriplegia, Post-Traumatic Stress Disorder (PTSD), Cirrhosis PMH Reviewed at 12/04/2024:52 Allergies Reviewed at 12/04/2024:52 Comments: 39 y.o male complains of Confusion, Urinary Symptoms Homecare nurse reporting confusion and odor in his urine for the past week. He does straight cath so he is prone to having UTI. He also has 3 pressure sores, but they look like they are healing. Per the RN, he did not seem confused over the call, but the mother stated he had been somewhat confused. The RN did not report any fever or chills. He is a paraplegic and does not report any burning, I provided information on the mobile health provider response time and advised the patient and/or caregiver to monitor reported signs and symptoms. I discussed the warning signs of when to seek emergency care. Turnaround Engineer Organization Information for [employer] [facility] Name: [employer]. Address: [address] [place] [address], Receiving Associate Store: Elmo Murillo MD [place] No.: [id number] Turnaround Engineer POC Test Results from [facility] Urine Dipstick (11:36:08) Urine leukocytes: -SHERIDAN Urine nitrites: -NIT Urine urobilinogen: 0.2URO Urine protein: 15PRO Urine pH: 1.0pH Urine blood: 7.0BLO Urine specific gravity: 1.010SG Urine ketones: -KET Urine bilirubin: -OSCAR Urine glucose: -GLU Attachments uploaded as part of this test result can be found under Documents section. ................... ................... ................... ................... ................... ................... ................... ........ Turnaround Engineer Note From Justin [facility]: [facility] makes pt contact a 39 YO M CC of uti like symptoms and shoulder pain [facility] obtains vital signs. PT explains for the past four or five days he has had symptoms similar to a previous uti around 2/3 months ago. PT chronically uses a straight cath and is prone to UTIs. PT explains right sided flank pain, burning sensation, pain in the lower abdomen, and an odor to his urine. PT also explains its darker in appearance. A urine sample is test with a strip and a culture is obtained for the lab. PT also complains of on going chronic pain from a previous injury in the left shoulder. PT explains we helped him before manage the pain with toradol. [facility] contacts [facility] and explains above mentioned. [facility] advises that we will sent the urine out for culture and appropriately treat any infection if one is present. [facility] also orders 15mg of IM Toradol for pts pain. [facility] explains above mentioned to pt. Red flags discussed such as worsening flank pains, fever, chest pain, n/v, or sob that he should seek a higher level of care such as 911. [facility] clear. ................... ................... ................... ................... ................... ................... ................... ........ [facility] Consulted: Robbie Sarabia ................... ................... ................... ................... ................... ................... ................... ........ Disposition: Fulfilled Robbie Sarabia MD [address] [facility], [place], [address], [employer] 12/05/2024 11:37:28
--- OUTSIDE RECORDS SUMMARY | 2025-01-10 17:31 | XMS_ITS | Data Portability ---
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 Abscess/infection with streaking noted, presence of fever or without Chief Complaints: Wound Care PMH: Para or Quadriplegia, Post-Traumatic Stress Disorder (PTSD), Cirrhosis, Substance Use Disorder PMH Reviewed at 01/02/2025 - 11:11 (ET) Allergies Reviewed at 01/02/2025 - 11:11 (ET) Comments: 39 y.o male complains of Wound Care Patient who is a paraplegic, known etoh He has daily VNA and she noted no issues yesterday Patient was out last night in his motorized wheelchair and did not know his right foor was dragging on the pavement VNA notes blood on linens and his sock She removed the sock and noted his right great toe to be red, raw and macerated- no active bleeding, she is aware we do not suture- she would like another set of eyes on the toe She cleaned the toe, covered and wrapped, told his VICE PRESIDENT RESEARCH not to removed until instED arrives per VNA she spoke to mother after visit and she reported that he was having some chest tightness, no cardiac history--- VNA will call patient and VICE PRESIDENT RESEARCH to discuss RED flags Patient agreeable to visit. I provided information on the mobile health provider response time and advised the patient and/or caregiver to monitor reported signs and symptoms. I discussed the warning signs of when to seek emergency care. ..................... ..................... ..................... ..................... ..................... ..................... ............... Tin Whiz Machine Operator Note From Johnny Hatch: 39 year-old male, complaining of foot falling off of his wheelchair foot rest last night and dragging on concrete. Patient appears to have a skin avulsion on the top of the dorsal of his right big toe. Nurse who is there earlier, wrapped it up with cause bleeding controlled. Patient states he has limited feeling and legs, but some phantom pains in that toe able to move toe by hand with no crepitus. Pictures uploaded of toe and bottom of toe. Compared right leg to left leg and right leg appeared to be slightly more swollen, but left leg. Also had a wound on the left ankle which is covered with a Vaseline patch. Picture of that sent to Dr. rGeco as well. Pulse is present in ankle and dorsal of foot. Foot warm to touch but not hot. Re-wrapped both wounds with bacitracin and gauze. Dr. Greco highly recommended patient be seen an urgent care today due to possible tendon involvement and to make sure there was no broken bones. Patient states he could go to the emergency room today and via bus and plans on it. Patient given one Bactrim PO, which he took with Sprite. Patient is under care of a physician for his left ankle wound. Advised that him to make sure they look at both to make sure that he doesn t lose either of his appendages. Patient was wearing face mask, hoodie, and hat and headed out to the store upon my arrival so temporal artery temperature may have been elevated slightly. Patient denies fever or chills. Patient given red flag warnings about redness, going up foot and shortness of breath. All questions answered no concerns. Patient thanked us for a visit. [facility] Medication Orders: sulfamethoxazole 800 mg-trimethoprim 160 mg tablet: Administered bacitracin 500 unit/gram topical ointment: Administered ..................... ..................... ..................... ..................... ..................... ..................... ............... [facility] Consulted: Elenita Greco ..................... ..................... ..................... ..................... ..................... ..................... ............... Disposition: Fulfilled Elenita Greco MD [address] [facility],[address], [place], [address], [employer] [facility] [employer] 01/03/2025 00:31:39
--- OUTSIDE RECORDS SUMMARY | 2025-01-10 17:31 | XMS_ITS | Continuity of Care Document ---
Author Organization [employer] [facility], [place] in[facility] Address [address] [place] [address] Care Team Providers Care Rough Carpenter Name Role Phone Unavailable Referring Provider HIM CCA OTHER Assessment No assessment recorded. Plan of Treatment Reminders Order Date Submit Date Provider Last Modified By Organization Details Last Modified Time Details Appointments None recorded. Lab None recorded. Referral None recorded. Procedures None recorded. Surgeries None recorded. Imaging None recorded. Medication Orders sulfamethox azole 800 mg-trimetho prim 160 mg tablet 2024 025 [email or web address] [facility]/Pharmacy #[id number], [address] [place], [address], 13:57:37 Bactrim DS 800 mg-[address] [facility]/Pharmacy #[id number], [address] [place], [address], 5 13:57:42 bacitracin 500 unit/gram topical ointment 2024 025 [email or web address] 0 [facility]/Pharmacy #[id number], [address] [place], [address], 5 13:57:37 bacitracin 500 unit/gram topical ointment [address] [facility]/Pharmacy #[id number], [address] [place], [address], 13:57:41 Patient TargetsNo targets recorded. Patient Instructions Encounter Date Encounter Id Patient Instructions Last Modified By Organization Details Last Modified Time 01/02/2025 [id number] wound care* [email or web address] Not available 13:57:37 Reason for Referral None Reported. Results Created Date Observation Date Name Description Value Unit Range Abnormal Flag Note LastModifiedBy Organization Detail LastModifiedTime 12/05/1912/05/2024 URINE CULTU RE, UROLO GY TANIA P urine culture, urology workup Final report Not Available [facility] ([facility]) [address] [facility], [place], [address], 12/05/2024 16:06:29 12/05/1912/05/2024 URINE CULTU RE, UROLO GY TANIA P result 1 COMMEN T Mixed uroge nital abhinav Great er than 100,0 00 colon y formi ng units per mL Not Available [facility] ([facility]) [address] [facility], [place], [address], 12/05/2024 16:06:29 Result Notes None recorded. Medical Equipment None Reported. Allergies Allergen ID Allergen Name Allergen Category Reaction Reaction Severity Criticality Documentation Date Start Date Code Code System Note Provider Name and Address Organization Details Recorded Time 1135 vancomyci n medicatio n Not available Not available Not available 11/22/2021 89666 RxNorm Not Available [facility] - production 4 03:44:19 74480 tramadol medicatio n nausea Not available Not available 12/18/20242024 25238 RxNorm Not Available [facility] - External Data [employer] - prod 5 [...] t Available Vitals Date Recorded Respiratory rate Body weight Heart rate Body temperature Body height Oxygen saturation Systolic And Diastolic Provider Name and Address Organization Details Last Updated DateTime 5 18 /min 946514. 656 g 70 /min 99 [degF] 177.8 cm 99 % 145/80 mm[Hg] Not Available [facility] - production 13:39:24 Social History None recorded. Functional Status None recorded. Mental Status None recorded. Family History Nothing Reported. Medical History No medical history recorded. Past Encounters Encounter ID Performer Location Encounter Start Date Encounter Closed Date Diagnosis/Indication Diagnosis SNOMED-CT Code Diagnosis ICD10 Code Diagnosis IMO Codes Diagnosis Note [id number] Robbie Sarabia MD [address] [address] 12/04/2024 11:43:58 12/05/2024 13:59:01 Urinary symptoms 117803533 R39.9 [id number] Maral Steinberg MD [address] [address] 12/18/2024 15:13:05 12/19/2024 15:51:43 Urinary system finding 397040984 R39.9 [id number] Elenita Greco MD [address] [address] 01/02/2025 13:39:16 01/03/2025 10:41:09 Open wound of toe 738863568 S91.109A [id number] allergies reviewed. Patient reports that he has [...] his pharmacy of record. [facility] now [facility] [place] [facility] Health Concerns Section Related Observation LastModified by Organization Detai ls LastModified Time None Recorded Concern Status LastModified by Organization Details LastModified Time None Recorded Payers Encounter Date Sequence Insurance Name Policy Number Policy Doty Covered Member ID Doty Member ID Guarantor Name 01/02/2025 1 [facility] - DOS ON OR AFTER 2022 - DUAL ELIGIBLE - ASSISTED OPTIONS AND ONE CARE (MEDICARE REPLACEMENT/ADV ANTAGE - HMO) Jose Fleming [id number] Jose Lonnie Notes Date Note Type Note Provider Name and Address Organization Details Recorded Time 01/02/2025 text/html ROS as noted in the [...] the toe, covered and wrapped, told his DOOR HANGER not to removed until instED arrives per VNA she spoke to mother after visit and she reported that he was having some chest tightness, no cardiac history--- VNA will call patient and DOOR HANGER to discuss RED flags Patient agreeable to visit. I provided information on the mobile health provider response time and advised the patient and/or caregiver to monitor reported signs and symptoms. I discussed the warning signs of when to seek emergency care. ..................... ..................... ..................... ..................... ..................... ..................... ............... Medical Services Assistant Note From Johnny Hatch: 39 year-old male, [...] patch. Picture of that sent to Dr. Greco as well. Pulse is present in ankle [...] concerns. Patient thanked us for a visit. [facility] Medication Orders: sulfamethoxazole 800 mg-trimethoprim 160 mg tablet: Administered bacitracin 500 unit/gram topical ointment: Administered ..................... ..................... ..................... ..................... ..................... ..................... ............... [facility] Consulted: Elenita Greco ..................... ..................... ..................... ..................... ..................... ..................... ............... Disposition: Fulfilled Elenita Greco MD [address] [facility],[address], [place], [address], [employer] [facility] [employer] 01/03/2025 00:31:39
--- OUTSIDE RECORDS SUMMARY | 2025-01-10 17:31 | XMS_ITS | Encounter Summary ---
Author Organization [employer] Address [address] [facility] [address] [address] Care Team Providers Care Mission Commander Name Role Phone Antony Jenkins MD Primary Care Provide r Zachery Carvajal Unavailable Unavailable Encounter Details Date Type Department Care Team (Late Contact Info) Description [facility] [address] [place], [place] [phone] Antony Jenkins MD [address] [place] [address] [phone] Social History Tobacco Use Types Packs/Day Years [...] Description 03/01/2025 1:00 PM EST Office Visit [facility] [address] [place], [place] [phone] Antony Jenkins MD [address] [place] [address] [phone] documented as of this encounter Visit Diagnoses Not on filedocumented in this encounter Additional Health Concerns Assessment Noted Time PHQ-9 Depression Total Score: 11 023 11:13 AM EST documented as of this encounter Care Teams Mission Commander Relationship Specialty Start Date End Date Antony Jenkins MD [address] [place] [address] PCP - General Internal Medicine 10/19/13 Zachery Carvajal FNP [address] [place] [address] Nurse Practitioner Family Medicine 01/06/23 [facility] 01/30/20 documented as of this encounter
--- OUTSIDE RECORDS SUMMARY | 2025-01-10 17:31 | XMS_ITS | Encounter Summary ---
Author Organization [employer] Address [address] [facility] [address] [place] [address] Care Team Providers Care Park Interpretive Ranger Name Role Phone Antony Jenkins MD Primary Care Provide r Zachery Carvajal Unavailable Unavailable Reason for Visit * Reason Onset Date Comments Hospital Follow-up 02/21/2024 Encounter Details Date Type Department Care Team (Late st Contact Info) Description 02/21/2024 Telephone [facility] [address] [place], [place] [phone] Antony Jenkins MD [address] [place], [place] [phone] Hospital Follow-up Social History Tobacco Use Types [...] from pt requesting a HDF appt. Hospital: [facility] Date of admission: 02/01/24 Discharge date: 02/04/24 Diagnosed: Back Pain and Right eye conjunctivitis *Send message to [facility] Clinical Care Coordinators Please contact pt at [phone]. documented in this encounter Plan of Treatment Upcoming Encounters Date Type Department Care Team (Late st Contact Info) Description 03/01/2025 1:00 PM EST Office Visit [facility] [address] [place] [address] Antony Jenkins MD [address] [place] [address] documented as of this encounter Visit Diagnoses Not on filedocumented in this encounter Additional Health Concerns Assessment Noted Time PHQ-9 Depression Total Score: 19 024 11:27 AM EDT documented as of this encounter Care Teams Park Interpretive Ranger Relationship Specialty Start Date End Date Antony Jenkins MD [address] [place] [address] PCP - General Internal Medicine 10/19/13 Zachery Carvajal FNP [address] [place] [address] [place] [address] Nurse Practitioner Family Medicine 01/06/23 [facility] 01/30/20 documented as of this encounter
--- OUTSIDE RECORDS SUMMARY | 2025-01-10 17:31 | XMS_ITS | Continuity of Care Document ---
Author Organization [email or web address] [facility], [facility] Address [address] [place] [address] Care Team Providers Care Particleboard Factory Worker Name Role Phone Unavailable Referring Provider HIM CCA OTHER Assessment Encounter Date Assessment Date Assessment LastModified by Organization Details LastModified Time 12/18/2024 12/18/2024 I provided real -time medical direction via phone for this encounter and was available for additional phone-based assistance as needed. I have reviewed and agree with the Assessment and Plan as documented by the Enrollment Specialist. Patient given the opportunity to ask questions. Our service contacted for an assessment of: Urinary symptoms As per above, patient with approximately 24 hours of dysuria, frequency. + history of frequent urinary tract infections as he has to [place]. Always uses sterile technique. Denies fever, chills, abdominal pain, back pain, flank pain. Per veterinary epidemiologist on the scene, Vital signs are stable [...] Details Appointments None recorded. Lab urinalysis, dipstick 2024 025 ANNY [facility], [address] [place], [address] 16:35:18 culture, urine 2024 [email or web address] [facility] (Centralized Electronic Ordering - All Locations), Patient Can Go To The Location Of Their Choice, [address] 08:53:04 Referral None recorded. Procedures None recorded. Surgeries None recorded. Imaging None recorded. Medication Orders levofloxaci n 500 mg tablet 2024 [facility]/Pharmacy #[id number], [address] [place], [address], 05:01:50 levofloxaci n 500 mg tablet 2024 [facility]/Pharmacy #[id number], [address] [place], [address], 05:01:50 Patient TargetsNo targets recorded. Patient InstructionsNo instructions recorded. Reason for Referral None Reported. Results Created Date Observation Date Name Description Value Unit Range Abnormal Flag Note LastModifiedBy Organization Detail LastModifiedTime 12/05/1912/05/2024 URINE CULTU RE, UROLO GY TANIA P urine culture, urology workup Final report Not Available [facility] ([facility]) [address] [place], [address], 12/05/2024 16:06:29 12/05/19 25 12/05/2024 URINE CULTU RE, UROLO GY TANIA P result 1 COMMEN T Mixed uroge nital abhinav Great er than 100,0 00 colon y formi ng units per mL Not Available [facility] ([facility]) [address] [place], [address], 12/05/2024 16:06:29 Result Notes None recorded. Medical Equipment None Reported. Allergies Allergen ID Allergen Name Allergen Category Reaction Reaction Severity Criticality Documentation Date Start Date Code Code System Note Provider Name and Address Organization Details Recorded Time 1135 vancomyci n medicatio n Not available Not available Not available 11/22/2021 21027 RxNorm Not Available [facility] - production 4 03:44:19 68525 tramadol medicatio n nausea Not available Not available 12/18/20242024 70168 RxNorm Not Available [facility] - External Data [employer] - prod 12:57:05 [...] t Available Vitals Date Recorded Respiratory rate Heart rate Body temperature Oxygen saturation Systolic And Diastolic Provider Name and Address Organization Details Last Updated DateTime 16 /min 78 /min 98.9 [degF] 99 % 128/76 mm[Hg] Not Available [facility] - production 00:09:35 Social History None recorded. Functional Status None recorded. Mental Status None recorded. Family History Nothing Reported. Medical History No medical history recorded. Past Encounters Encounter ID Performer Location Encounter Start Date Encounter Closed Date Diagnosis/Indication Diagnosis SNOMED-CT Code Diagnosis ICD10 Code Diagnosis IMO Codes Diagnosis Note [id number] Robbie Sarabia MD [address] [address] 12/04/2024 11:43:58 12/05/2024 13:59:01 Urinary symptoms [id number] R39.9 [id number] Maral Steinberg MD [address] [address] 12/18/2024 15:13:05 12/19/2024 15:51:43 Urinary system finding 026191381 R39.9 [id number] Health Concerns Section Related Observation LastModified by Organization Detai ls LastModified Time None Recorded Concern Status LastModified by Organization Details LastModified Time None Recorded Payers Encounter Date Sequence Insurance Name Policy Number Policy Doty Covered Member ID Doty Member ID Guarantor Name 12/18/[address] [facility] - DOS ON OR AFTER 2022 - DUAL ELIGIBLE - [facility] OPTIONS AND ONE CARE (MEDICARE REPLACEMENT/ADV ANTAGE - HMO) Jose Fleming [id number] Jose Fleming Notes Date Note Type Note Provider Name and Address Organization Details Recorded Time 12/18/2024 text/html HPI: Today pt reports since 12/05/24 ongoing flank and abdominal pain, nausea, upset stomach, diarrhea x2, foggy urine with ammonia smell, irritation in private area. Denies fever, reports intermittent chills and sweatiness. Confirms is able to straight cath still, confirms eating and drinking. [facility] but was not told if he has UTI. He is paraplegic with neurogenic bladder. .................. .................. .................. .................. .................. .................. .................. ............... CRC Nurse Triage Notes (Janine Chris): Chief Complaints: Urinary Symptoms, Abdominal Pain PMH: Para or Quadriplegia, Post-Traumatic Stress Disorder (PTSD), Cirrhosis PMH Reviewed at 12/18/2024 - 13:00 Allergies Reviewed at 12/18/2024 - 13:00 Comments: HPI reviewed. Enrollment Specialist Organization Information for [employer] Name: [employer]. Address: [address] [place] [address], Element Setter: Elmo Murillo MD CLIA No.: [id number] Enrollment Specialist POC Test Results from [employer] Urine Dipstick (15:49:59) Urine leukocytes: 70+SHERIDAN Urine nitrites: -NIT Urine urobilinogen: -URO Urine protein: -PRO Urine pH: 6pH Urine blood: +BLO Urine specific gravity: +SG Urine ketones: 5+KET Urine bilirubin: -OSCAR Urine glucose: -GLU .................. .................. .................. .................. .................. .................. .................. ............... Enrollment Specialist Note From [employer]: Dispatched to the [...] assessed. UA (results uploaded to Pts portal. [facility] consulted. [facility] advised Pts last culture did not grow positive. Pt given 500mg Levofloxacin after confirming med rights. Script called into preferred pharmacy. Culture brought to lab. Red flags discussed. ALL times are approx. [facility] Lab Orders: urinalysis, dipstick: Performed culture, urine: Performed [facility] Medication Orders: levofloxacin 500 mg tablet: Performed .................. .................. .................. .................. .................. .................. .................. ............... [facility] Consulted: Maral Steinberg .................. .................. .................. .................. .................. .................. .................. ............... Disposition: Fulfilled Elenita Greco MD [address] [facility],[address], [place], [address], [facility], KEI 12/19/2024 00:09:49
== END 2025-01-10 14:51 | disposition home or self-care (01) ==
LOC: HO.HHCL 14:50
PROVIDERS: PCP Internal Medicine; Visit Provider Internal Medicine
DX: N30.00 Acute cystitis without hematuria (principal)
CPT/HCPCS: 81001